=== PATIENT | female | born 1940 | race Caucasian/White ===

== ENCOUNTER 2018-04-02 10:30 | Emergency (ER) | payer MEDICARE, SELFPAY ==
[2018-04-02 10:31] VITALS: BP 154/111; PULSE 136; RESP 18; TEMP 36.2; O2SAT 99; BMI 28.1
[2018-04-02 11:27] VITALS: BP 150/106; PULSE 131; RESP 18; O2SAT 96
--- NOTE | 2018-04-02 11:27 | EKG12_ITS ---
Test Reason : CP Blood Pressure : / mmHG Vent. Rate : 074 BPM Atrial Rate : 074 BPM P-R Int : 152 ms QRS Dur : 088 ms QT Int : 352 ms P-R-T Axes : -28 -20 018 degrees QTc Int : 390 ms Normal sinus rhythm Normal ECG Confirmed by MELANIE HERNÁNDEZ, NELSON ([id number]), managing editor NAHID PAPPAS ([id number]) on 04/04/2018 1:34:12 PM Referred By: DANTE Confirmed By:NELSON NAVARRO MD
--- NOTE | 2018-04-02 11:27 | RAD_ITS ---
STUDY: X-RAY CHEST REASON FOR EXAM: Female, 77 years old. Chest pain. TECHNIQUE: Single AP portable view of the chest. COMPARISON: None. FINDINGS: EKG electrodes are seen. Increased markings at the right lung base with the blunting of the right costophrenic angle suggestive of a right basilar atelectasis and small right pleural effusion. Mild blunting of the left costophrenic angle. Normal size heart. Normal mediastinum and olvin. Normal visualized pulmonary arteries. There is atherosclerotic calcification of the aortic arch with tortuosity. Normal visualized thoracic spine. There is degenerative osteoarthritis of the bilateral shoulders. Right shoulder calcific tendinitis. There is no demonstrated abnormality of the visualized soft tissue structures of the upper abdomen. RAD/Chest 1 View (Portable) IMPRESSION: Blunting of both costophrenic angles likely worse on the right side with right basilar atelectasis. Electronically Signed: Willie Browning MD at 12:28 EDT Tel [phone], Service support ,
--- NOTE | 2018-04-02 11:27 | EKG12_ITS ---
Test Reason : CP Blood Pressure : / mmHG Vent. Rate : 135 BPM Atrial Rate : 135 BPM P-R Int : 168 ms QRS Dur : 090 ms QT Int : 308 ms P-R-T Axes : 107 -28 116 degrees QTc Int : 462 ms Sinus tachycardia Nonspecific ST and T wave abnormality Abnormal ECG Confirmed by MELANIE HERNÁNDEZ, NELSON ([id number]), film editor supervisor NAHID PAPPAS ([id number]) on 04/04/2018 1:34:28 PM Referred By: Confirmed By:NELSON NAVARRO MD
[2018-04-02 11:50] LABS: Absolute Lymphocyte Count 1.97 X10^3/ul (0.83-4.51); Absolute Neutrophil Count 5.7 X10^3/uL (2.0-7.7); Basophil# 0.02 X10^3/uL; Basophil% 0.2 % (0-1); Eosinophil# 0.01 X10^3/uL; Eosinophils% 0.1 % (0-5); Hematocrit 38.5 % (37-47); Hemoglobin 12.3 g/dl (12.0-15.0); Lymphocyte # 1.97 X10^3/ul (4.0); Lymphocyte % 23.3 % (19-41); Mean Corp Hgb Conc 31.9 g/gl (32-36); Mean Corpuscular Hgb 29.2 pg (27.0-32.0); Mean Corpuscular Volume 91.4 fL (81-99); Mean Platelet Vol. 9.9 fl (6.2-12.0); Monocyte# 0.72 X10^3/uL; Monocyte% 8.5 % (0-10); Neutrophil # 5.68 X10^3/uL (2.7-7.7); Neutrophil % 67.4 % (47-70); Platelet Count 168 K/mm3 (150-450); RBC Distribution Width CV 14.8 % (11.6-14.6); RBC Distribution Width SD 49.1 fl (35.1-43.9); Red Blood Count 4.21 M/mm3 (4.2-5.4); White Blood Count 8.4 K/mm3 (4.4-11.0)
[2018-04-02 11:51] LABS: POSITIVE COUNT NO; POSITIVE DIFFERENTIAL NO; POSITIVE MORPHOLOGY NO
--- NOTE | 2018-04-02 11:51 | ED.RN ---
Cardizem not given due to pt self-conversion to nsr, physician aware.
[2018-04-02 11:57] LABS: International Normalized Ratio 1.1; Prothrombin Time (Protime)PT. 13.8 SECONDS (11.7-14.9)
[2018-04-02] MEDS: Aspirin 81 MG TAB.CHEW 324 MG PO (12:00)
[2018-04-02 12:02] LABS: D-Dimer Quantitative (DVT/PE) 2.02 FEU/ug/m (0.27-0.49)
[2018-04-02 12:18] LABS: Anion Gap 10 (5-15); BUN 18 mg/dL (7-18); BUN/Creat Ratio 18.8 RATIO (10-20); Calcium,Total 9.6 mg/dL (8.5-10.1); Chloride 106 mmol/L (98-107); Creatinine, Serum 0.96 mg/dL (0.55-1.02); EST Glomerular Filtration Rate 60 mL/min (>60); Est Glom Filt Rate - Afr Amer 73 mL/min (>60); Estimated Creatinine Clearance 37.62 ml/min; Glucose 141 mg/dL (74-106); Potassium 4.5 mmol/L (3.5-5.1); Sodium Level 141 mmol/L (136-145); Thyroid Stim Hormone (TSH) 2.15 uIU/mL (0.358-3.74)
--- NOTE | 2018-04-02 12:23 | CT_ITS ---
STUDY: CTA CHEST REASON FOR EXAM: Female, 77 years old. Chest pain and palpitations. Left arm pain. RADIATION DOSAGE (If Supplied By Facility): CTDIvol = ( 10.17 ) mGy, DLP = ( 230.10 ) mGycm TECHNIQUE: The examination was performed with the intravenous administration of 100cc ml of Isovue 370 contrast material. Post-processing of the angiographic images was performed, with multiplanar reformation and 3D reconstruction. Individualized dose optimization techniques were used for this CT. COMPARISON: Comparison is made with prior chest radiograph done earlier today. FINDINGS: Normal enhancement of the main pulmonary artery and right and left pulmonary arteries. Normal enhancement of the bilateral peripheral pulmonary arteries. There is no demonstrated pulmonary embolism. Normal thoracic aorta and visualized great vessels. There is no demonstrated aortic dissection. Normal heart and pericardium. Normal mediastinum. Normal hilar regions. Normal visualized trachea and bronchi. The lungs are well expanded. Right basilar atelectasis and/or infiltrate. Mild increased markings at the left lung base. Normal pleura. Normal chest wall structures. There are degenerative changes of thoracic spine. Normal visualized upper abdomen. CT/CTA Chest W/WO Contrast IMPRESSION: Right basilar atelectasis and/or early infiltrate. Electronically Signed: Willie Browning MD at 14:08 EDT Tel [phone], Service support ,
[2018-04-02 14:55] VITALS: BP 138/79; PULSE 75; RESP 19; O2SAT 95
--- NOTE | 2018-04-02 15:06 | ED.DCSUM_ITS ---
- ER Visit Summary Date of Service: 04/02/18 Chief Complaint: [Tachycardia] History of Present Illness: The patient is a 77 F [presents the emergency department with 1 month of shortness of breath and palpitations. She went to see her primary care doctor and had a fast heart rate was referred to the emergency department. She complains of shortness of breath over the last month and occasional palpitations. She has no history clearly of atrial fibrillation but is on digoxin and metoprolol. She is followed by Dr. Isaacs. She does have coronary artery disease. Physical Examination: [] Rate 136 blood pressure elevated WN WD NAD PERRL EOMI MMM NECK supple and nontender, no masses Irregularly irregular tachycardic rhythm no murmur rub or gallop, no peripheral edema, symmetric radial pulses CTAB no respiratory distress ABDOMEN is soft and nontender, normal bowel sounds, no distension, no rebound or guarding SKIN is warm and dry no rashes Alert and Oriented x3, CN II-XII in tact, no motor or sensory deficits, gait normal No lymphadenopathy Test Results: [] Emergency Department Course and Treatment: [Limited tree in the room the patient had an irregularly irregular tachycardic rhythm consistent with atrial fibrillation a flutter. Repeat EKG was obtained as initial EKG was a regular tachycardic rhythm at 135 which I think was likely a flutter. Before a repeat EKG was a could be obtained patient converted to a sinus rhythm. There is no ischemic changes. Screening blood work was unremarkable except for a d-dimer that was elevated. CTA of the chest showed atelectasis versus infiltrate in the right lower lobe. Patient has had a cough for the last 3 weeks but no fever or shortness of breath or production. She will be covered with doxycycline. I spoke with Dr. Isaacs who has not seen the patient since 2014. She has a chads score of 3. Patient will be started on Eliquis and will follow-up with Dr. Isaacs in the next week.] Treatment Plan: [] Disposition: [Discharge] Impression: [Atrial fibrillation with RVR] This note was generated with [employer] software. It may contain incorrect words, spelling, and punctuation that were not noted in review of the chart prior to signing ED Disposition - Plan for ED Patient: Chief Complaint: Palpitations Referrals: Belinda Delgado, AUTHORIZATION SPECIALIST-C [Primary Care Provider] -
--- NOTE | 2018-04-02 15:06 | ED.DEP ---
ED Disposition - Plan for ED Patient: Chief Complaint: Palpitations Instructions: ED Paroxysmal Atrial Flutter Prescriptions: Apixaban [Eliquis] 5 mg PO BID #30 tablet Referrals: Juno Isaacs MD [STAFF PHYSICIAN] - 3-5 Days
[2018-04-02 15:52] VITALS: BP 141/78; PULSE 69; RESP 15; O2SAT 94
--- NOTE | 2018-04-02 15:53 | ED.RN ---
pt given written and verbal discharge instructions and verbalizes understanding. pt family inquires about cost of eliquis script. this rn spoke with social work getting coupons for the medication. granddaughter verbalizes understanding of instructions, denies any further questions. pt dresses self and ambulates out of dept. pt iv d/c and covered with 2x2 gauze dressing. minimal bleeding noted.
== END 2018-04-02 15:58 | disposition home or self-care (01) ==
PROVIDERS: Emergency Provider Emergency Medicine; Family Provider Nurse Practitioner Family; PCP Nurse Practitioner Family
DX: I48.91 Unspecified atrial fibrillation (principal); I47.1 Supraventricular tachycardia; I25.10 Atherosclerotic heart disease of native coronary artery without angina pectoris; I10 Essential (primary) hypertension; Z79.01 Long term (current) use of anticoagulants; Z79.84 Long term (current) use of oral hypoglycemic drugs; Z79.899 Other long term (current) drug therapy
CPT/HCPCS: 71045; 71275; 80048; 80162; 84443; 84484; 85025; 85379; 85610; 93005; 99285; Q9967; A4216

== ENCOUNTER → 2018-09-11 10:00 | Outpatient (CLI) | payer MEDICARE, SELFPAY ==
--- NOTE | 2018-09-11 10:04 | US_ITS ---
STUDY: RENAL ULTRASOUND - COMPLETE REASON FOR EXAM: Female, 77 years old. CHRONIC UTI'S URGENCY FREQUENCY INCONTINENCE TECHNIQUE: Ultrasound evaluation of the kidneys was performed with real-time and static mckoy-scale imaging. COMPARISON: None. FINDINGS: RIGHT KIDNEY: Normal location of the right kidney, which is normal in size. The right kidney measures 8.8x5.3x4.3 cm. There is a normal cortex of the right kidney. The renal cortex measures 1.2 cm. There is no right renal mass or cyst. There are no right renal calculi. There is no right hydronephrosis. DISTAL RIGHT URETER: There is non-visualization of the distal right ureter. There is no demonstrated right ureterovesical junction calculus. There is a visualized right ureteral jet. LEFT KIDNEY: Normal location of the left kidney, which is normal in size. The left kidney measures 8.9x3.8x4.4 cm. There is a normal cortex of the left kidney. The renal cortex measures 1 cm. There is no left renal mass or cyst. There is a calculus of the left kidney measuring 4 x 3 x 2 mm. There is no left hydronephrosis. BLADDER: The distended urinary bladder has a volume of 165 ml. The empty urinary bladder has a volume of 25 ml. There is a normal wall thickness of the distended urinary bladder. There is no demonstrated mass within the urinary bladder. There are no demonstrated bladder calculi. US/Kidney and Bladder IMPRESSION: Moderate structure left renal stone. Electronically Signed: Carlton Barreto MD at 17:30 EDT , Service support ,
== END ==
PROVIDERS: Family Provider Nurse Practitioner Family; PCP Nurse Practitioner Family; Referring Provider Urology; Visit Provider Urology
DX: N39.0 Urinary tract infection, site not specified (principal); N39.3 Stress incontinence (female) (male)
CPT/HCPCS: 76770

== ENCOUNTER 2018-10-07 06:57 | Day surgery (SDC) | payer MEDICARE, SELFPAY ==
[2018-10-07] VITALS (7 sets, daily range): BP systolic 71–135; BP diastolic 41–84; PULSE 57–63; RESP 16; TEMP 36.3–36.9; O2SAT 93–100; BMI 27.3
[2018-10-07 08:20] LABS: Bedside Glucose 118 mg/dL (70-110)
[2018-10-07] MEDS: Cefazolin 2 GM in 0.9% Normal Saline 100 ML IV (09:17)
--- NOTE | 2018-10-07 09:20 | BLA_PTH ---
PATIENT: PARTH RODGERS [place] [facility] [place][id number] AGE/SX: 77/F ROOM: RE10/07/[address]: Dr. Leela Sharpe MD : [id number] BED: DIS: 10/07/2018 SPEC #: [id number] RECD: 10/07/18 10:23 STATUS: KONRAD ANDREW #: [id number] CHASITY: 10/07/18 09:[address]: Leela Sharpe DEPT: SURGICAL PATHOLOGY RECD BY: Nasir Killian ENTERED: 10/07/18 11:55 SP TYPE: BLADDER BX OTHR DR: Belinda Delgado, MARINO-Michelle Tissues: Urinary bladder, NOS Procedures: Surgery Specimen Level IV HEADER OPERATION: Cysto, bladder biopsy, fulguration PRE-OP DIAGNOSIS: Recurrent urinary tract infection; stress and urge incontinence TISSUE SUBMITTED: Bladder biopsy MICROSCOPIC DIAGNOSIS Bladder, biopsy: Fragments of urothelial mucosa with moderate chronic inflammation. Negative for malignancy. See comment. SJ:christian 10/08/18 COMMENT A minute piece of detrusor muscle is also noted in the submitted specimen. MICROSCOPIC DESCRIPTION Slides are reviewed. GROSS DESCRIPTION Received in fixative is one container labeled with the patient's name and designated bladder biopsy. The specimen consists of two fragments of reis soft tissue each measuring 0.1 cm in greatest dimension. The entire specimen is submitted in one cassette. / BREE:christian 10/07/18 TC:3 CPT: 87525
--- NOTE | 2018-10-07 10:06 | DCINST_ITS ---
Discharge Diet: No Restrictions Discharge Activity: Return to Normal Activity, May not drive while taking narcotic pain medications. Call your doctor if your incision/area has: Sudden Increased Bleeding Call your doctor if you observe: Fever of 101 or Higher, Inability to urinate, Inability to have a bowel movement, Shortness of breath, Chest pain, Calf discomfort, Uncontrolled pain Allergies/Adverse Reactions: Allergies No Known Allergies Allergy (Verified 09/30/18 11:33) Medications to take at Discharge cranberry 400 mg capsule 400 mg PO DAILY 04/04/18 cyanocobalamin (vit B-12) 500 mcg tablet 500 mcg PO QDAY 04/04/18 magnesium oxide 400 mg (241.3 mg magnesium) tablet 400 mg PO QDAY tab 04/04/18 multivitamin tablet 1 tab PO QDAY 04/04/18 omega-3 fatty acids 1,000 mg capsule 1,000 mg PO QDAY 04/04/18 albuterol sulfate HFA 90 mcg/actuation aerosol inhaler 2 puff INHALATION Q4H PRN #6.7 g 05/19/18 aspirin 81 mg tablet,delayed release 81 mg PO QDAY #90 tab 05/19/18 cholestyramine (with sugar) 4 gram powder for susp in a packet 4 g PO BID #60 ea 05/19/18 ferrous sulfate 325 mg (65 mg iron) tablet 325 mg PO QDAY #90 tab 05/19/18 levothyroxine 88 mcg tablet 88 mcg PO QDAY #90 tab 05/19/18 lisinopril 20 mg tablet 20 mg PO QDAY #90 tab 05/19/18 loratadine 10 mg tablet 10 mg PO QDAY #90 tab 05/19/18 apixaban 5 mg tablet 5 mg PO BID #60 tab 07/14/18 digoxin 125 mcg tablet 0.125 mg PO DAILY 09/24/18 lovastatin 10 mg tablet 10 mg PO DAILY 09/24/18 metoprolol succinate ER 100 mg tablet,extended release 24 hr 100 mg PO DAILY 09/24/18 sertraline 100 mg tablet 100 mg PO DAILY 09/24/18 Metformin HCl [Glucophage] 1,000 mg PO BIDCM 09/30/18 Omeprazole 40 mg PO DAILY 09/30/18 Oxycodone HCl/Acetaminophen [Percocet 5/325] 1 - 2 tab PO Q6H PRN PRN 7 Days #30 tab 10/07/18 Phenazopyridine HCl [Pyridium] 200 mg PO TID PRN PRN 7 Days #30 tab 10/07/18 Sulfamethoxazole/Trimethoprim [Sulfamethoxazole-Tmp Ds Tablet] 10/07/18 Sulfamethoxazole/Trimethoprim [Sulfamethoxazole-Tmp Ds Tablet] 10/07/18 Sulfamethoxazole/Trimethoprim [Sulfamethoxazole-Tmp Ds Tablet] 1 tab PO BID 10/07/18 The following prescriptions were given: Oxycodone HCl/Acetaminophen [Percocet 5/325] 1 - 2 tab PO Q6H PRN PRN 7 Days #30 tab PRN Reason: Pain Phenazopyridine HCl [Pyridium] 200 mg PO TID PRN PRN 7 Days #30 tab PRN Reason: Bladder Spasms Primary Care Physician: Belinda Delgado NP-C [Primary Care Provider] - Test Results: Test results from this visit will be discussed in further detail at your follow- up appointment, if applicable. Please Follow Up With: Leela Sharpe MD When: 1 week, call office for appt Proposed Discharge Date: 10/07/18
--- NOTE | 2018-10-07 10:06 | PCM.IMDPSTOP ---
Immediate Post-Op Note Date of Procedure: 10/07/18 Primary Surgeon/Physician: Leela Sharpe MD mobile equipment servicer: Leela Sharpe Pre-Operative Diagnosis: bladder lesion uncertain behaviour(most consistent with ulceration), recurrent urinary tract infection Post-Operative Diagnosis: same Surgery/Procedure Performed:: cystoscopy, bladder biopsy and fulguration Description of Surgical Findings:: 2 ulcers identified, one on patient's right lateral wall, the other posteriorly on the left. The left wall was biopsied, the right was difficult to biopsy due to location. both were fulgurated. minimal bleeding, urine clear at end of case. Estimated Blood Loss: 2cc Specimen's removed: bladder biopsy Type of Anesthesia:: General - Admit VTE Documentation VTE Present on Admission: Yes VTE Mechan Device Prophylaxis: SCD's VTE Pharm Prophylaxis ordered?: No Reason prophylaxis not ordered:: Treatment Not Indicated - already on systemic anticoagulation that was not stopped for the procedure.
--- NOTE | 2018-10-07 10:10 | OP.PN_ITS ---
Immediate Post-Op Note Date of Procedure: 10/07/18 Primary Surgeon/Physician: Leela Sharpe MD product ambassador: Leela Sharpe Pre-Operative Diagnosis: bladder lesion uncertain behaviour(most consistent with ulceration), recurrent urinary tract infection Post-Operative Diagnosis: same Surgery/Procedure Performed:: cystoscopy, bladder biopsy and fulguration Description of Surgical Findings:: 2 ulcers identified, one on patient's right lateral wall, the other posteriorly on the left. The left wall was biopsied, the right was difficult to biopsy due to location. both were fulgurated. minimal bleeding, urine clear at end of case. Estimated Blood Loss: 2cc Specimen's removed: bladder biopsy Type of Anesthesia:: General - Admit VTE Documentation VTE Present on Admission: Yes VTE Mechan Device Prophylaxis: SCD's VTE Pharm Prophylaxis ordered?: No Reason prophylaxis not ordered:: Treatment Not Indicated - already on systemic anticoagulation that was not stopped for the procedure.
[2018-10-07 10:11] LABS: Bedside Glucose 100 mg/dL (70-110)
--- NOTE | 2018-10-14 11:58 | PCM.OPRPT ---
Problem List (1) Lesion of bladder Status: Acute (2) Recurrent urinary tract infection Status: Acute Report of Operation Date of Procedure: 10/07/18 Pre-Operative Diagnosis: bladder lesion uncertain behaviour(most consistent with ulceration), recurrent urinary tract infection Post-Operative Diagnosis: same Surgery/Procedure Performed:: cystoscopy, bladder biopsy and fulguration Description of Surgical Findings:: 2 ulcers identified, one on patient's right lateral wall, the other posteriorly on the left. The left wall was biopsied, the right was difficult to biopsy due to location. both were fulgurated. minimal bleeding, urine clear at end of case. labor representative: Leela Sharpe Type of Anesthesia:: General Specimen's removed: bladder biopsy Estimated Blood Loss (mL): 2cc Description of Procedure: The patient is a 77-year-old female that I saw in the office with recurrent urinary tract infections. On cystoscopic evaluation identified 2 areas of ulceration in the urinary bladder, one on the patient's right lateral wall and one on the left posterior lateral wall. After discussing all the risks benefits and alternatives. She agreed to proceed with surgical intervention including biopsy with fulguration of these areas. The patient was taken to the operating room and placed on the operating room table. Anesthesia monitored the head, neck, airway, IV access, and vital signs throughout the case. Once anesthesia was superbly administered the patient was placed into dorsal lithotomy position was prepped and draped in usual sterile fashion. At this time a cystoscopy with 70 degree lens was performed revealing the same lesions identified in the office and a new one in the more posterior position. The largest lesion is approximately 1 cm in size and was erythematous and flat consistent with an ulceration. Using a flexible biopsy forcep the posterior bladder wall area x2 was biopsied and sent for permanent section evaluation from pathology. All areas of ulceration were then fulgurated for tissue treatment and hemostatic control. Patient's bladder was then emptied and the case was terminated. She was awakened and taken to the recovery room in good condition. Grafts/Implants Used: none - Complications none - Admit VTE Documentation VTE Present on Admission: Yes VTE Mechan Device Prophylaxis: SCD's VTE Pharm Prophylaxis ordered?: No Reason prophylaxis not ordered:: Treatment Not Indicated
--- NOTE | 2018-10-14 12:01 | OP.PCM_ITS ---
Problem List (1) Lesion of bladder Status: Acute (2) Recurrent urinary tract infection Status: Acute Report of Operation Date of Procedure: 10/07/18 Pre-Operative Diagnosis: bladder lesion uncertain behaviour(most consistent with ulceration), recurrent urinary tract infection Post-Operative Diagnosis: same Surgery/Procedure Performed:: cystoscopy, bladder biopsy and fulguration Description of Surgical Findings:: 2 ulcers identified, one on patient's right lateral wall, the other posteriorly on the left. The left wall was biopsied, the right was difficult to biopsy due to location. both were fulgurated. minimal bleeding, urine clear at end of case. professor of music: Leela Sharpe Type of Anesthesia:: General Specimen's removed: bladder biopsy Estimated Blood Loss (mL): 2cc Description of Procedure: The patient is a 77-year-old female that I saw in the office with recurrent urinary tract infections. On cystoscopic evaluation identified 2 areas of ulceration in the urinary bladder, one on the patient's right lateral wall and one on the left posterior lateral wall. After discussing all the risks benefits and alternatives. She agreed to proceed with surgical intervention including biopsy with fulguration of these areas. The patient was taken to the operating room and placed on the operating room table. Anesthesia monitored the head, neck, airway, IV access, and vital signs throughout the case. Once anesthesia was superbly administered the patient was placed into dorsal lithotomy position was prepped and draped in usual sterile fashion. At this time a cystoscopy with 70 degree lens was performed revealing the same lesions identified in the office and a new one in the more posterior position. The largest lesion is approximately 1 cm in size and was erythematous and flat consistent with an ulceration. Using a flexible biopsy forcep the posterior bladder wall area x2 was biopsied and sent for permanent section evaluation from pathology. All areas of ulceration were then fulgurated for tis winston treatment and hemostatic control. Patient's bladder was then emptied and the case was terminated. She was awakened and taken to the recovery room in good condition. Grafts/Implants Used: none - Complications none - Admit VTE Documentation VTE Present on Admission: Yes VTE Mechan Device Prophylaxis: SCD's VTE Pharm Prophylaxis ordered?: No Reason prophylaxis not ordered:: Treatment Not Indicated
== END 2018-10-07 11:29 | disposition home or self-care (01) ==
LOC: SDC 06:58 → AC 06:59
PROVIDERS: Family Provider Nurse Practitioner Family; PCP Nurse Practitioner Family; Referring Provider Urology; Visit Provider Urology
PROC: 0TBB8ZX Excision of Bladder, Via Natural or Artificial Opening Endoscopic, Diagnostic (ICD-10-PCS; CPT 52234; principal; 2018-10-07 09:10)
DX: N30.20 Other chronic cystitis without hematuria (principal); N32.9 Bladder disorder, unspecified; N39.46 Mixed incontinence; N81.6 Rectocele; R15.2 Fecal urgency; I48.0 Paroxysmal atrial fibrillation; E11.9 Type 2 diabetes mellitus without complications; I10 Essential (primary) hypertension; E03.9 Hypothyroidism, unspecified; K58.9 Irritable bowel syndrome, unspecified; G25.81 Restless legs syndrome; K21.9 Gastro-esophageal reflux disease without esophagitis; F32.9 Major depressive disorder, single episode, unspecified; Z78.0 Asymptomatic menopausal state; Z79.01 Long term (current) use of anticoagulants; Z79.84 Long term (current) use of oral hypoglycemic drugs; Z79.82 Long term (current) use of aspirin; Z79.899 Other long term (current) drug therapy
CPT/HCPCS: 00912; 52234; 82962; 88305; J7120; J2405

== ENCOUNTER → 2018-10-17 12:12 | Outpatient (CLI) | payer MEDICARE, SELFPAY ==
[2018-10-07 07:44] VITALS: BMI 27.3
[2018-10-17 14:25] LABS: Absolute Lymphocyte Count 2.08 X10^3/ul (0.83-4.51); Absolute Neutrophil Count 6.7 X10^3/uL (2.0-7.7); Basophil# 0.03 X10^3/uL; Basophil% 0.3 % (0-1); Eosinophil# 0.05 X10^3/uL; Eosinophils% 0.5 % (0-5); Hematocrit 39.3 % (37-47); Hemoglobin 12.3 g/dl (12.0-15.0); Lymphocyte # 2.08 X10^3/ul (4.0); Lymphocyte % 21.3 % (19-41); Mean Corp Hgb Conc 31.3 g/gl (32-36); Mean Corpuscular Hgb 30.8 pg (27.0-32.0); Mean Corpuscular Volume 98.3 fL (81-99); Mean Platelet Vol. 10.2 fl (6.2-12.0); Monocyte# 0.92 X10^3/uL; Monocyte% 9.4 % (0-10); Neutrophil # 6.65 X10^3/uL (2.7-7.7); Neutrophil % 68.2 % (47-70); Platelet Count 190 K/mm3 (150-450); RBC Distribution Width CV 13.7 % (11.6-14.6); RBC Distribution Width SD 49.1 fl (35.1-43.9); White Blood Count 9.8 K/mm3 (4.4-11.0)
[2018-10-17 14:26] LABS: POSITIVE COUNT NO; POSITIVE DIFFERENTIAL NO; POSITIVE MORPHOLOGY NO
--- OUTSIDE RECORDS SUMMARY | 2018-12-12 10:59 | XMS RPT_ITS ---
:1940 Author Organization OHIP Support Name Relationship Address Phone KATE SANTANAY Unavailable [address] + [place] [address] R Unavailable Unavailable Unavailable SHERRI, VICK Unavailable [address] + [place] [address] NOT GIVEN Unavailable Unavailable Unavailable SANTANA, LESLIE Unavailable [address] + [place] [address] R Unavailable Unavailable Unavailable SHERRI, VICK Unavailable [address] + [place] [address] SANTANA, LESLIE Unavailable [address] + [place] [address] R Unavailable Unavailable Unavailable SHERRI, VICK Unavailable [address] + [place] [address] SANTANA, LESLIE Unavailable [address] + [place] [address] R Unavailable Unavailable Unavailable SHERRI, VICK Unavailable [address] + [place] [address] SANTANA, LESLIE Unavailable [address] + [place] [address] R Unavailable Unavailable Unavailable SHERRI, VICK Unavailable [address] + [place] [address] NOT GIVEN Unavailable Unavailable Unavailable NOT GIVEN Unavailable Unavailable Unavailable SANTANA, LESLIE Unavailable [address] + [place] [address] R Unavailable Unavailable Unavailable SANTANA, LESLIE Unavailable [address] + [place] [address] R Unavailable Unavailable Unavailable SANTANA, LESLIE Unavailable [address] + [place] [address] R Unavailable Unavailable Unavailable SANTANA, LESLIE Unavailable [address] + [place] [address] R Unavailable Unavailable Unavailable NOT GIVEN Unavailable Unavailable Unavailable SANTANA, LESLIE Unavailable [address] + [place] [address] R Unavailable Unavailable Unavailable SANTANA, LESLIE Unavailable [address] + [place] [address] R Unavailable Unavailable Unavailable SANTANA, LESLIE Unavailable [address] + [place] [address] R Unavailable Unavailable Unavailable SANTANA, LESLIE Unavailable [address] + [place] [address] R Unavailable Unavailable Unavailable SANTANA, LESLIE Unavailable [address] + [place] [address] R Unavailable Unavailable Unavailable SANTANA, LESLIE Unavailable [address] + [place] [address] R Unavailable Unavailable Unavailable R Unavailable Unavailable Unavailable SANTANA, LESLIE Unavailable [address] + [place] [address] SINDHU RODGERSS Unavailable [address] + [place] [address] R Unavailable Unavailable Unavailable SHERRI ABIGAL Unavailable Unavailable + SHERRI, ABIGAL Unavailable Unavailable + SHERRI, ABIGAL Unavailable Unavailable + SHERRI, ABIGAL Unavailable Unavailable + SHERRI, NEEL Unavailable [address] + [place] [address] SHERRI, ABIGAL Unavailable Unavailable + SHERRI, ABIGAL Unavailable Unavailable + NOT GIVEN Unavailable Unavailable Unavailable NOT GIVEN Unavailable Unavailable Unavailable NOT GIVEN Unavailable Unavailable Unavailable Care Team Providers Name Role Phone Cate Roy Attending Unavailable Lopez Sanchez NP-Michelle Primary Care Unavailable Araceli Henderson Attending Unavailable Lopez Sanchez Referring Unavailable Lopez Sanchez NP-Michelle Primary Care Unavailable Araceli Henderson Attending Unavailable Danny, Lopez SURFACE PLATE FINISHER-C Primary Care Unavailable Leela Sharpe Attending Unavailable Leela Sharpe Referring Unavailable Danny, Lopez SURFACE PLATE FINISHER-C Primary Care Unavailable Danny, Lopez SURFACE PLATE FINISHER-C Attending Unavailable Andrey Mensah Attending Unavailable Danny, Lopez SURFACE PLATE FINISHER-C Referring Unavailable Danny, Lopez SURFACE PLATE FINISHER-C Primary Care Unavailable Danny, Lopez SURFACE PLATE FINISHER-C Attending Unavailable Danny, Lopez SURFACE PLATE FINISHER-C Attending Unavailable Juno Isaacs Attending Unavailable Danny, Lopez SURFACE PLATE FINISHER-C Attending Unavailable Danny, Lopez SURFACE PLATE FINISHER-C Attending Unavailable Flory Segal Attending Unavailable Leela Sharpe Attending Unavailable Leela Sharpe Referring Unavailable Danny, Lopez SURFACE PLATE FINISHER-C Primary Care Unavailable Andrey Mensah Attending Unavailable Danny, Lopez SURFACE PLATE FINISHER-C Referring Unavailable Leela Sharpe Attending Unavailable Leela Sharpe Referring Unavailable Danny, Lopez SURFACE PLATE FINISHER-C Primary Care Unavailable Leela Sharpe Attending Unavailable Leela Sharpe Referring Unavailable Danny, Lopez SURFACE PLATE FINISHER-C Primary Care Unavailable DANNY, LOEPZ Admitting Unavailable DANNY, LOPEZ Attending Unavailable DANNY, LOPEZ Primary Care Unavailable DANNY, LOPEZ Admitting Unavailable DANNY, LOPEZ Attending Unavailable DANNY, LOPEZ Primary Care Unavailable DANNY, LOPEZ Admitting Unavailable DANNY, LOPEZ Attending Unavailable DANNY, LOPEZ Primary Care Unavailable DANNY, LOPEZ Admitting Unavailable DANNY, LOPEZ Attending Unavailable DANNY, LOPEZ Primary Care Unavailable DANNY, LOPEZ Admitting Unavailable DANNY, LOPEZ Attending Unavailable DANNY, LOPEZ Primary Care Unavailable DANNY, LOPEZ Admitting Unavailable DANNY, LOPEZ Attending Unavailable DANNY, LOPEZ Primary Care Unavailable DANNY, LOPEZ Admitting Unavailable DANNY, LOPEZ Attending Unavailable DANNY, LOPEZ Primary Care Unavailable Volodymyr De La Torre J Admitting Unavailable Volodymyr De La Torre Attending Unavailable Danny, Lopez K Primary Care Unavailable Britt, Paramjit Admitting Unavailable Volodymyr De La Torre Attending Unavailable Danny, Lopez K Primary Care Unavailable Mark Rosa Attending Unavailable Danny, Lopez K Primary Care Unavailable Jaironner, Paramjit Admitting Unavailable Volodymyr De La Torre J Attending Unavailable Danny, Lopez K Primary Care Unavailable Andrey Jones Attending Unavailable Danny, Lopez K Primary Care Unavailable Araceli Henderson Admitting Unavailable Araceli Henderson Attending Unavailable Danny, Lopez K Primary Care Unavailable AMILCAR ORNELAS Admitting Unavailable CONNORTA, AMILCAR Attending Unavailable Danny, Lopez K Primary Care Unavailable BUBBA BEDOLLA Attending Unavailable NO, PHYSICIAN Primary Care Unavailable BUBBA BEDOLLA Attending Unavailable DANNY, LOPEZ CARLA Primary Care Unavailable BUBBA BEDOLLA Attending Unavailable DANNY, LOPEZ CARLA Primary Care Unavailable BUBBA BEDOLLA Attending Unavailable DANNY, LOPEZ CARLA Primary Care Unavailable BUBBA BEDOLLA Attending Unavailable DANNY, LOPEZ CARLA Primary Care Unavailable BUBBA BEDOLLA Attending Unavailable DANNY, LOPEZ CARLA Primary Care Unavailable Dr. Bubba Bedolla Admitting Unavailable Dr. Bubba Bedolla Attending Unavailable PROBLEMS PROBLEMS DATE TYPE CONDITION / CODE ATTENDING STATUS SOURCE Secondary Essential (primary) DANNY LOPEZ [place] 8 Diagnosis hypertension / [facility] I10(ICD-10) Hospital Repository Secondary Hyperlipidemia, LOPEZ SANCHEZ Active [facility] [place] 8 Diagnosis unspecified / [facility] E785(ICD-10) Hospital Repository Principle Type 2 diabetes LOPEZ SANCHEZ Active [facility] [place] 8 Diagnosis mellitus with other [facility] specified complication Hospital / E1169(ICD-10) Repository Secondary Hypothyroidism, LOPEZ SANCHEZ Active [facility] [place] 8 Diagnosis unspecified / [facility] E039(ICD-10) Hospital Repository Unknown 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 / D41.4(ICD-10) Hospital Repository Unknown I48.0 - Paroxysmal Andrey Mensah Active [place] 8 atrial fibrillation / Community I48.0(ICD-10) Hospital Repository Unknown N39.0 - Urinary tract Leela Sharpe Active [place] 8 infection, site not Community specified / Hospital N39.0(ICD-10) Repository Unknown N39.3 - Stress Leela Sharpe Active [place] 8 incontinence (female) Community (male) / N39.3(ICD-10) Hospital Repository Principle Unspecified atrial LOPEZ SANCHEZ Active [facility] [place] 8 Diagnosis fibrillation / [facility] I4891(ICD-10) Hospital Repository Secondary Type 2 diabetes LOPEZ SANCHEZ Active [facility] [place] 8 Diagnosis mellitus without [facility] complications / Hospital E119(ICD-10) Repository Secondary Hypomagnesemia / LOPEZ SANCHEZ Active [facility] [place] 8 Diagnosis E8342(ICD-10) [facility] Repository Principle Urinary tract DANNYLOPEZ Active [facility] [place] 8 Diagnosis infection, site not [facility] specified / Hospital N390(ICD-10) Repository Unknown R00.2 - Palpitations / Moodispaw, Active [place] 8 R00.2(ICD-10) [facility] Repository Unknown R00.0 - Tachycardia, Beatriz, Active [place] 8 unspecified / [facility] R00.0(ICD-10) Hospital Repository Unknown I48.92 - Unspecified Henderson, Active [place] 8 atrial flutter / [facility] I48.92(ICD-10) Hospital Repository Admitting Diaphragmatic hernia [place] [address] diagnosis without obstruction or [facility] gangrene / Repository K44.9(ICD-10) Admitting Gastro-esophageal [place] [address] diagnosis reflux disease without [facility] esophagitis / Repository K21.9(ICD-10) Admitting Petersen's esophagus [place] [address] diagnosis without dysplasia / [facility] K22.70(ICD-10) Repository Admitting Dysphagia, [place] [address] diagnosis pharyngoesophageal [facility] phase / R13.14(ICD-10) Repository Admitting Heartburn / R12(ICD-10) [place] [address] diagnosis [facility] Repository Admitting Eructation / [place] [address] diagnosis R14.2(ICD-10) [facility] Repository Admitting Hypothyroidism, DANNY, LOPEZ Active [facility] [place] 8 Diagnosis unspecified / [facility] E039(ICD-10) Hospital Repository Principle Hypothyroidism, DANNY, LOPEZ Active [facility] [place] 8 Diagnosis unspecified / [facility] E039(ICD-10) Hospital Repository PROCEDURES PROCEDURES No Procedure Records FoundRESULTS RESULTS CBC Collected: 10/28/2018 Status: F Source: [place] [place] 9:19 AM [facility] REPOSITORY TYPE CODE TESTS RESULT OUT OF RANGE REFERENCE UNITS LAB CBC(LOINC) CBC Result Comment: CBC-COMPLETE BLOOD COUNT LAB WBC(LOINC) 4.5 - 10.8 x 10EE3/UL WBC 6.7 LAB RBC(LOINC) 4.10 - x 10EE6/UL 5.30 RBC Low 3.54 LAB HEMOGLOBIN(LOINC) 12.0 - g/dl 16.0 Low HEMOGLOBIN 11.4 LAB HEMATOCRIT(LOINC) 34.0 - % 46.0 HEMATOCRIT 34.2 LAB MCV(LOINC) 80 - 99 fl MCV 97 LAB MCH(LOINC) 27 - 33 pg MCH 32 LAB MCHC(LOINC) 32 - 36 X10 3 MCHC 33 LAB RDW/CV(LOINC) 12.0 - % 15.6 RDW/CV 14.5 LAB PLATELET(LOINC) 150 - 450 x10EE3/UL PLATELET 202 LAB MPV(LOINC) 6.6 - 10.5 fl MPV 9.1 Result Comment: AUTOMATED DIFFERENTIAL LAB NEUT %(LOINC) 46.0 - 76.0 % NEUT % 65.0 LAB LYMPH %(LOINC) 20.0 - 45.0 % LYMPH % 24.6 LAB MONOS %(LOINC) 0.0 - 10.0 % MONOS % 8.0 LAB EO %(LOINC) 0.0 - 7.0 % EO % 1.3 LAB BASO %(LOINC) 0.0 - 2.0 % BASO % 1.1 LAB Lymph #(LOINC) 0.80 - 2.80 x10EE3/U L Lymph # 1.60 LAB Neut #(LOINC) 1.50 - 7.10 x10EE3/U L Neut # 4.40 LAB Casey #(LOINC) 0.20 - 1.00 x10EE3/U L Casey # 0.50 LAB EO #(LOINC) 0.00 - 0.50 x10EE3/U L EO # 0.10 LAB Baso #(LOINC) 0.00 - 0.10 x10EE3/U L Baso # 0.10 LAB MANUAL DIFF(LOINC) MANUAL DIFF N/A LAB MORPHOLOGY(LOINC ) MORPHOLOGY N/A Result Comment: {CD] Performed By: #### [id number] #### [facility],[address] [place], [place] [id number] HGB A1C Collected: 10/28/2018 Status: F Source: [facility] 9:19 AM [facility] REPOSITORY TYPE CODE TESTS RESULT OUT OF RANGE REFERENCE UNITS LAB HGB 4.4 - 6.4 % A1C(INC) High HGB A1C 7.1 Result Comment: {HB] {A1] Performed By: #### [id number] #### [facility],[address] [place] [address] CMP WITH EGFR Collected: 10/28/2018 Status: F Source: [facility] 9:19 AM [facility] REPOSITORY TYPE CODE TESTS RESULT OUT OF RANGE REFERENCE UNITS LAB CMP with eGFR([facility]) CMP with eGFR Result Comment: COMPREHENSIVE METABOLIC PANEL LAB SODIUM(INC) 136 - 145 mmol/l SODIUM 140 LAB POTASSIUM(INC) 3.5 - 5.1 mmol/L POTASSIUM 4.6 LAB CHLORIDE(LOINC) 98 - 107 mmol/L CHLORIDE 107 LAB CO2(INC) 21.0 - mmol/L 31.0 CO2 25.8 LAB GLUCOSE(INC) 74 - 106 mg/dl GLUCOSE High 170 LAB BUN(INC) 6 - 20 mg/dl BUN High 24 LAB CREATININE(INC) 0.6 - 1.2 mg/dl CREATININE 0.8 LAB AST/SGOT(INC) 13 - 39 U/L AST/SGOT 31 LAB ALK PHOS(INC) 38 - 126 U/L ALK PHOS 58 LAB CALCIUM(INC) 8.6 - mg/dl 10.2 CALCIUM 9.6 LAB TOTAL 6.4 - 8.3 g/dl PROTEIN(LOINC) TOTAL PROTEIN 7.4 LAB ALBUMIN(INC) 3.4 - 4.8 g/dL ALBUMIN 4.3 LAB GLOBULIN(LOINC) 1.5 - 3.8 G/DL GLOBULIN 3.1 LAB A/G RATIO(LOINC) 0.9 - 1.6 A/G RATIO 1.4 LAB TOTAL BILI(LOINC) 0.0 - 1.5 mg/dl TOTAL BILI 0.6 LAB B/C RATIO(LOINC) 0 - 30 ratio B/C RATIO 30 LAB ALT/SGPT(LOINC) 8 - 35 U/L ALT/SGPT 23 LAB ANION GAP(LOINC) 10 - 20 mmol/L ANION GAP 12 LAB AGE(LOINC) years AGE 77 LAB eGFR(LOINC) 60 - 999 ML/MINUTE eGFR >60 LAB eGFR(AA)(LOINC) 60 - 999 ML/MINUTE eGFR(AA) >60 Result Comment: ACCORDING TO THE NATIONAL KIDNEY DISEASE EDUCATION PROGRAM(NKDE), A NORMAL eGFR IS A VALUE GREATER THAN OR EQUAL TO 60 ML/MIN/1.73 SQ METERS. CHRONIC KIDNEY DISEASE: <60mL/MIN/1.73 SQ METERS KIDNEY FAILURE: <15mL/MIN/1.73 SQ METERS THIS TEST SHOULD ONLY BE USED FOR PATIENTS 18 YEARS OF AGE AND OLDER. Performed By: #### [id number] #### [facility],[address] [place] [address] LIPID PROFILE Collected: 10/28/2018 Status: F Source: [facility] 9:19 [facility] REPOSITORY TYPE CODE TESTS RESULT OUT OF REFERENCE UNITS RANGE LAB LIPID PROFILE(LOIN C) LIPID PROFILE Result Comment: LIPID PROFILE LAB TRIGLYCERIDE(LOINC) 0 - 150 mg/dl High TRIGLYCERIDE 204 LAB CHOLESTEROL(LOINC) 0 - 200 mg/dl CHOLESTEROL 149 LAB HDL(LOINC) 40 - 60 mg/dl HDL Low 39 LAB CHOL/HDL(LOINC) 0.0 - 5.0 CHOL/HDL 3.8 LAB LDL(LOINC) 0 - 129 mg/dl LDL 69 Performed By: #### [id number] #### [facility],[address] [place] [address] TSH Collected: 10/28/2018 Status: F Source: [facility] 9:19 [facility] REPOSITORY TYPE CODE TESTS RESULT OUT OF RANGE REFERENCE UNITS LAB TSH(LOINC) 0.34 - 5.60 uIU/ml TSH 1.36 Performed By: #### [id number] #### [facility],[address] [place] [address] T4-FREE (FREE Collected: 10/28/2018 Status: F Source: [facility] THYROXINE) 9:19 [facility] REPOSITORY TYPE CODE TESTS RESULT OUT OF RANGE REFERENCE UNITS LAB T4 0.61 - 1.12 ng/dl FREE(LOINC) T4 FREE 0.73 Result Comment: *SPECIMENS FROM PATIENTS WHO ARE UNDERGOING BIOTIN THERAPY AND/OR INGESTING BIOTIN SUPPLEMENTS MAY HAVE FALSE HIGH RESULTS. Performed By: #### [id number] #### [facility],[address] [facility] [address] CBC W/DIFF, AUTOMATED Collected: 10/17/2018 Status: F Source: [place] 12:24 PM [facility] [place] TYPE CODE TESTS RESULT OUT OF RANGE REFERENCE UNITS LAB L100.1000 4.4-11.0 K/mm3 Normal WBC 9.8 LAB L100.1200 4.2-5.4 M/mm3 Low RBC 4.00 LAB L100.1300 12.0-15.0 g/dl Normal HGB 12.3 LAB L100.1400 37-47 % Normal HCT 39.3 LAB L100.1500 81-99 fL Normal MCV 98.3 LAB L100.1600 27.0-32.0 pg Normal MCH 30.8 LAB L100.1700 32-36 g/gl Low MCHC 31.3 LAB L100.1810 11.6-14.6 % Normal RDW CV 13.7 LAB L100.1820 35.1-43.9 fl High RDW SD 49.1 LAB L100.1900 150-450 K/mm3 Normal PLT 190 LAB L100.2000 6.2-12.0 fl Normal MPV 10.2 LAB L100.2100 47-70 % Normal NEUT% 68.2 LAB L100.2200 19-41 % Normal LY% 21.3 LAB L100.2300 0-10 % Normal MONO% 9.4 LAB L100.2400 0-5 % Normal EO% 0.5 LAB L100.2500 0-1 % Normal BASO% 0.3 LAB L100.2550 0.0-0.9 % Normal IM GRAN % 0.300 Result Comment: IG% - Immature Granulocytes (promyelocytes, myelocytes and metamyelocytes) > 1% indicates that a LEFT SHIFT is Present. LAB L100.2620 2.0-7.7 X10 3/uL Normal Absolute Neut 6.7 LAB L100.2720 0.83-4.51 X10 3/ul Normal Absolute Lymph 2.08 Performed By: #### L100.0100 #### [facility] [address] [place], [address] OPERATIVE REPORT Observed: 10/14/2018 Status: F Source: [place] 12:01 PM [facility] [place] Medical Records Department [address] [place] [address] Operative Report 10/14/18 1158 MR#: [id number] Acct: [id number] Name: KEERTHI RODGERS Rep #: [id number] : 1940 77 From: Leela Sharpe MD PCP: JENNIFER Valdez Status: DEP [facility] Y Location: [facility] Problem List (1) Lesion of bladder Status: Acute (2) Recurrent urinary tract infection Status: Acute Report of Operation Date of Procedure: 10/07/18 Pre-Operative Diagnosis: bladder lesion uncertain behaviour(most consistent with ulceration), recurrent urinary tract infection Post-Operative Diagnosis: same Surgery/Procedure Performed:: cystoscopy, bladder biopsy and fulguration Description of Surgical Findings:: 2 ulcers identified, one on patient's right lateral wall, the other posteriorly on the left. The left wall was biopsied, the right was difficult to biopsy due to location. both were fulgurated. minimal bleeding, urine clear at end of case. business affairs manager: Leela Sharpe Type of Anesthesia:: General Specimen's removed: bladder biopsy Estimated Blood Loss (mL): 2cc Description of Procedure: The patient is a 77-year-old female that I saw in the office with recurrent urinary tract infections. On cystoscopic evaluation identified 2 areas of ulceration in the urinary bladder, one on the patient's right lateral wall and one on the left posterior lateral wall. After discussing all the risks benefits and alternatives. She agreed to proceed with surgical intervention including biopsy with fulguration of these areas. The patient was taken to the operating room and placed on the operating room table. Anesthesia monitored the head, neck, airway, IV access, and vital signs throughout the case. Once anesthesia was superbly administered the patient was placed into dorsal lithotomy position was prepped and draped in usual sterile fashion. At this time a cystoscopy with 70 degree lens was performed revealing the same lesions identified in the office and a new one in the more posterior position. The largest lesion is approximately 1 cm in size and was erythematous and flat consistent with an ulceration. Using a flexible biopsy forcep the posterior bladder wall area x2 was biopsied and sent for permanent section evaluation from pathology. All areas of ulceration were then fulgurated for tissue treatment and hemostatic control. Patient's bladder was then emptied and the case was terminated. She was awakened and taken to the recovery room in good condition. Grafts/Implants Used: none - Complications none - Admit VTE Documentation VTE Present on Admission: Yes VTE Mechan Device Prophylaxis: SCD's VTE Pharm Prophylaxis ordered?: No Reason prophylaxis not ordered:: Treatment Not Indicated 10/14/18 1201 <Electronically signed by Leela Sharpe MD> Date Leela Sharpe MD CC: ANILC Lopez Sanchez; Leela Sharpe MD Signed BEDSIDE GLUCOSE Collected: 10/07/2018 Status: F Source: [place] 10:08 AM [facility] [place] TYPE CODE TESTS RESULT OUT OF RANGE REFERENCE UNITS LAB L501.080 70-110 mg/dL Normal BEDSIDE GLU 100 Result Comment: MANAGEMENT OF PATIENT CARE PER NURSING PROTOCOL Performed By: #### L501.080 #### [facility] Point of Care [address] [facility] [place] [address] DISCHARGE INSTRUCTION Observed: 10/07/2018 Status: F Source: [place] 10:06 AM [facility] Medical Records Department [address] [place] [address] Instructions for Home/Discharge Instructions 10/07/18 1005 MR#: [id number] Acct: [id number] Name: KEERTHI RODGERS Rep #: [id number] : 1940 77 From: Leela Sharpe MD PCP: JENNIFER Valdez Status: REG DCC Discharge Diet: No Restrictions Discharge Activity: Return to Normal Activity, May not drive while taking narcotic pain medications. Call your doctor if your incision/area has: Sudden Increased Bleeding Call your doctor if you observe: Fever of 101 or Higher, Inability to urinate, Inability to have a bowel movement, Shortness of breath, Chest pain, Calf discomfort, Uncontrolled pain Allergies/Adverse Reactions: Allergies No Known Allergies Allergy (Verified 09/30/18 11:33) Medications to take at Discharge cranberry 400 mg capsule 400 mg PO DAILY 04/04/18 cyanocobalamin (vit B-12) 500 mcg tablet 500 mcg PO QDAY 04/04/18 magnesium oxide 400 mg (241.3 mg magnesium) tablet 400 mg PO QDAY tab 04/04/18 multivitamin tablet 1 tab PO QDAY 04/04/18 omega-3 fatty acids 1,000 mg capsule 1,000 mg PO QDAY 04/04/18 albuterol sulfate HFA 90 mcg/actuation aerosol inhaler 2 puff INHALATION Q4H PRN #6.7 g 05/19/18 aspirin 81 mg tablet,delayed release 81 mg PO QDAY #90 tab 05/19/18 cholestyramine (with sugar) 4 gram powder for susp in a packet 4 g PO BID #60 ea 05/19/18 ferrous sulfate 325 mg (65 mg iron) tablet 325 mg PO QDAY #90 tab 05/19/18 levothyroxine 88 mcg tablet 88 mcg PO QDAY #90 tab 05/19/18 lisinopril 20 mg tablet 20 mg PO QDAY #90 tab 05/19/18 loratadine 10 mg tablet 10 mg PO QDAY #90 tab 05/19/18 apixaban 5 mg tablet 5 mg PO BID #60 tab 07/14/18 digoxin 125 mcg tablet 0.125 mg PO DAILY 09/24/18 lovastatin 10 mg tablet 10 mg PO DAILY 09/24/18 metoprolol succinate ER 100 mg tablet,extended release 24 hr 100 mg PO DAILY 09/24/18 sertraline 100 mg tablet 100 mg PO DAILY 09/24/18 Metformin HCl [Glucophage] 1,000 mg PO BIDCM 09/30/18 Omeprazole 40 mg PO DAILY 09/30/18 Oxycodone HCl/Acetaminophen [Percocet 5/325] 1 - 2 tab PO Q6H PRN PRN 7 Days #30 tab 10/07/18 Phenazopyridine HCl [Pyridium] 200 mg PO TID PRN PRN 7 Days #30 tab 10/07/18 Sulfamethoxazole/Trimethoprim [Sulfamethoxazole-Tmp Ds Tablet] 10/07/18 Sulfamethoxazole/Trimethoprim [Sulfamethoxazole-Tmp Ds Tablet] 10/07/18 Sulfamethoxazole/Trimethoprim [Sulfamethoxazole-Tmp Ds Tablet] 1 tab PO BID 10/07/18 The following prescriptions were given: Oxycodone HCl/Acetaminophen [Percocet 5/325] 1 - 2 tab PO Q6H PRN PRN 7 Days #30 tab PRN Reason: Pain Phenazopyridine HCl [Pyridium] 200 mg PO TID PRN PRN 7 Days #30 tab PRN Reason: Bladder Spasms Primary Care Physician: Lopez Sanchez, JENNIFER [Primary Care Provider] - Test Results: Test results from this visit will be discussed in further detail at your follow-up appointment, if applicable. Please Follow Up With: Leela Sharpe MD When: 1 week, call office for appt Proposed Discharge Date: 10/07/18 10/07/18 1006 <Electronically signed by Leela Sharpe MD> Date Leela Sharpe MD CC: JENNIFER Sanchez BLADDER BX/FULGURATION Observed: 10/07/2018 Status: F Source: [place] 9:20 AM [facility] [place] Patient: KEERTHI RODGERS : 1940 (77/F) Acct Num: [id number] Phys: Leela Sharpe MD Unit Num: [id number] Loc: [facility] Specimen: [id number] Received: 10/07/18 - 1023 Spec Type: BLADDER BX TISSUES 1 TISSUES: Urinary bladder, NOS COMMENT A minute piece of detrusor muscle is also noted in the submitted specimen. GROSS DESCRIPTION Received in fixative is one container labeled with the patient's name and designated bladder biopsy. The specimen consists of two fragments of reis soft tissue each measuring 0.1 cm in greatest dimension. The entire specimen is submitted in one cassette. / BREE:christian 10/07/18 TC:3 CPT: 59607 HEADER OPERATION: Cysto, bladder biopsy, fulguration PRE-OP DIAGNOSIS: Recurrent urinary tract infection; stress and urge incontinence TISSUE SUBMITTED: Bladder biopsy MICROSCOPIC DESCRIPTION Slides are reviewed. MICROSCOPIC DIAGNOSIS Bladder, biopsy: Fragments of urothelial mucosa with moderate chronic inflammation. Negative for malignancy. See comment. BREE:christian 10/08/18 Signed Jimenez Castro 10/08/18 <signature on file> Performed By: #### RONALDA #### [facility] [address] [place], [place], [address] BEDSIDE GLUCOSE Collected: 10/07/2018 Status: F Source: [place] 7:40 AM [facility] [place] TYPE CODE TESTS RESULT OUT OF REFERENCE UNITS RANGE LAB L501.080 70-110 mg/dL High BEDSIDE GLU 118 Result Comment: MANAGEMENT OF PATIENT CARE PER NURSING PROTOCOL Performed By: #### L501.080 #### [facility] Point of Care [address] [place] [address] CBC W/ AUTO DIFF Collected: 10/01/2018 Status: F Source: [facility] 10:03 AM [facility] EMERGENCY DEPARTMENT REPOSITORY TYPE CODE TESTS RESULT OUT OF RANGE REFERENCE UNITS LAB [id number](L 3.6-11.0 E3/mcL OINC) Normal WBC 6.5 LAB [id number](L 3.90-5.40 E6/mcL OINC) Normal RBC 4.16 LAB [id number](L 12.0-16.0 G/DL OINC) Normal Hgb 13.4 LAB [id number](L 36.0-48.0 % OINC) Normal Hct 41.3 LAB [id number](L 11.5-14.5 % OINC) High RDW 14.7 LAB [id number](L 27.0-31.0 pg OINC) High MCH 32.2 LAB 51021650(L 33.0-37.0 G/DL OINC) Low MCHC 32.5 LAB [id number](L 78.0-100.0 fL OINC) Normal MCV 99.3 LAB [id number](L 7.4-11.0 fL OINC) Normal MPV 9.9 LAB [id number](L 130-400 E3/mcL OINC) Normal Platelet 187 Performed By: #### [id number] #### TOMI [employer] [address] [place] [address]231 AUTO DIFF Collected: 10/01/2018 Status: F Source: [place] 10:03 AM [facility] EMERGENCY DEPARTMENT REPOSITORY Order Comment: Order Added by Discern Expert. TYPE CODE TESTS RESULT OUT OF RANGE REFERENCE UNITS LAB [id number](L 37.0-75.0 % OINC) Normal Neutro Auto 63.2 LAB 85988854(L 20.0-55.0 % OINC) Normal Lymph Auto 27.9 LAB 71653223(L 0.0-10.0 % OINC) Normal Casey Auto 7.5 LAB 84079887(L 0.0-11.0 % OINC) Normal Eos Auto 0.7 LAB 13364825(L 0.0-2.0 % OINC) Normal Basophil Auto 0.7 LAB 93879706(L 1.4-6.5 E3/mcL OINC) Normal Neutro 4.1 Absolute LAB 97386712(L 1.2-3.4 E3/mcL OINC) Normal Lymph Absolute 1.8 LAB [id number](L 0.0-0.7 E3/mcL OINC) Normal Casey Absolute 0.5 LAB 44238346(L 0.0-0.7 E3/mcL OINC) Normal Eos Absolute 0.0 LAB [id number](L 0.0-0.2 E3/mcL OINC) Normal Basophil 0.0 Absolute Performed By: #### [id number] #### TOMI Mg [address] [place] [address] PT Collected: 10/01/2018 Status: F Source: [place] 10:03 [facility] TYPE CODE TESTS RESULT OUT OF RANGE REFERENCE UNITS LAB [id number](LO 1.0-1.2 INC) High INR 1.3 Result Comment: INR Recommended Therapeuptic Ranges: Prophylaxis/treatment of DVT and PE?2.0-3.0 Prevention of systemic embolism?.2.0-3.0 Mechanical prosthetic values?2.5-3.5 CRITICAL VALUES?.>4.0 LAB [id number](LOINC) 11.6-14.6 second(s) High PT 15.5 Performed By: #### [id number] #### TOMI Hematology Automated Subsection [address] [place] [address] PTT Collected: 10/01/2018 Status: F Source: [place] 10:03 AM [facility] EMERGENCY DEPARTMENT REPOSITORY TYPE CODE TESTS RESULT OUT OF RANGE REFERENCE UNITS LAB [id number](LO 23.2-36.4 second(s) INC) High PTT 67.2 Performed By: #### [id number] #### TOMI Hematology Automated Subsection [address] [place] [address] PTT CONTROL RATIO Collected: 10/01/2018 Status: F Source: [place] 10:03 AM [facility] EMERGENCY DEPARTMENT REPOSITORY Order Comment: Order added by Discern Expert. TYPE CODE TESTS RESULT OUT OF RANGE REFERENCE UNITS LAB [id number](LO 0.8-1.2 ratio INC) High PTT Ratio 2.3 Performed By: #### [id number] #### TOMI Hematology Automated Subsection [address] [place] [address] BMP Collected: 10/01/2018 Status: F Source: [place] 10:03 AM [facility] EMERGENCY DEPARTMENT REPOSITORY TYPE CODE TESTS RESULT OUT OF RANGE REFERENCE UNITS LAB [id number](L 10-20 mEq/L OINC) AGAP Normal 13 LAB 12510422(L 70-99 mg/dL OINC) High Glucose Lvl 212 LAB 89528172(L 6-23 mg/dL OINC) BUN Normal 20 LAB 4573526(LO 0.5-1.1 mg/dL INC) Normal Creatinine 1.0 LAB 95725532(L 5.4-30.0 ratio OINC) Normal BUN/Creat Ratio 20.0 LAB 78081185(L 8.6-10.3 mg/dL OINC) Calcium Normal Lvl 9.6 LAB 42378988(L 136-145 mEq/L OINC) Sodium Normal Lvl 138 LAB 54938904(L 3.5-5.3 mEq/L OINC) Normal Potassium Lvl 4.5 LAB 79419370(L 98-107 mEq/L OINC) Chloride Normal 104 LAB 05086543(L 21.0-32.0 mEq/L OINC) CO2 Normal 26.0 Performed By: #### [id number] #### TOMI Datalink [address] [place] [address] EGFR Collected: 10/01/2018 Status: F Source: [place] 10:03 AM [facility] EMERGENCY DEPARTMENT REPOSITORY Order Comment: Order added by Discern Expert. TYPE CODE TESTS RESULT OUT OF RANGE REFERENCE UNITS LAB 24955074(LO mL/min/1.73 INC) m2 Normal eGFR 57 LAB 66672351(LO mL/min/1.73 INC) m2 Normal eGFR AA >60 Performed By: #### [id number] #### TOMI [facility] [place] [address] HEP FUNC PANEL Collected: 10/01/2018 Status: F Source: [place] 10:03 AM [facility] EMERGENCY DEPARTMENT REPOSITORY TYPE CODE TESTS RESULT OUT OF RANGE REFERENCE UNITS LAB [id number](L 7-45 Int._Unit/L OINC) Normal ALT 23 LAB 22336828(L 9-39 Int._Unit/L OINC) Normal AST 32 LAB 17950414(L 3.4-5.0 gm/dL OINC) Normal Albumin Lvl 4.2 LAB 35189061(L 2.0-4.0 G/DL OINC) Normal Globulin 3.0 LAB 56989245(L 1.1-1.9 ratio OINC) Normal A/G Ratio 1.3 LAB 35097487(L 33-136 Int._Unit/L OINC) Normal Alk Phos 83 LAB 89883134(L 0.00-0.30 mg/dL OINC) Normal Bili Direct 0.12 LAB 82705330(L OINC) Normal Bili Indirect 0.4 Result Comment: No established ranges available for the Indirect Biliruben. LAB 44833027(LOINC) 0.0-1.2 mg/dL Normal Bili Total 0.5 LAB 41490871(LOINC) 6.4-8.2 gm/dL Normal Total Protein 7.4 Performed By: #### [id number] #### TOIM Datalink [facility] [place] [address] TSH Collected: 10/01/2018 Status: F Source: [place] 10:03 AM [facility] EMERGENCY DEPARTMENT REPOSITORY TYPE CODE TESTS RESULT OUT OF RANGE REFERENCE UNITS LAB 60692412(LO 0.30-5.60 mcIU/mL INC) Normal TSH 2.01 Performed By: #### [id number] #### TOMI [employer] [address] [id number] HGBA1C Collected: 10/01/2018 Status: F Source: [place] 10:03 AM [facility] EMERGENCY DEPARTMENT REPOSITORY TYPE CODE TESTS RESULT OUT OF REFERENCE UNITS RANGE LAB 639620506( 4.0-6.3 % LOINC) High Hemoglobin A1c 7.5 Performed By: #### [id number] #### TOMI Chemistry Manual Subsection [address] [place] [address] CARDIOLOGY VISIT Observed: 09/24/2018 Status: F Source: [place] 3:07 PM [facility] [address] [place] [address] OFFICE VISIT Date of Service: 09/24/18 MR#: [id number] Acct: [id number] Name: KEERTHI RODGERS Rep #: [id number] : 1940 Provider: MARINO Mensah Age/Sex: 77/F Location: [facility] Status: Signed HPI HPI Details: KEERTHI RODGERS, is a 77 F who presents to the office today for a cardiovascular outpatient follow-up. She has a history of paroxysmal atrial fibrillation, hypertension, hyperlipidemia, and diabetes. Pt denies chest, arm, jaw, or neck discomfort. Her exercise tolerance is stable. Pt denies symptoms of near syncopal or syncopal episodes. Pt denies edema or claudication issues. Pt. denies orthopnea, PND, fever, chills, blood in urine, blood in stool, myalgia, or unexplainable fatigue. She state short episodes of palpitations a few times a month without any secondary symptoms. She is planning on undergoing bladder biopsy with Dr. Sharpe on 10/07/2018. Intake Vital Signs09/24/18 Blood Pressure 138/82 H H 09/24/18 Blood Pressure Location Lt brachial Intake Visit Reasons: pre op for bladder Bx on 09-30 Business Test Analyst Required: No Accompanied by: none Is patient in pain?: No Allergies No Known Allergies Allergy (Verified 09/24/18 13:17) Medications cranberry 400 mg capsule 400 mg PO ONCE 04/04/18 [History Confirmed 09/24/18] cyanocobalamin (vit B-12) 500 mcg tablet 500 mcg PO QDAY 04/04/18 [History Confirmed 09/24/18] magnesium oxide 400 mg (241.3 mg magnesium) tablet 400 mg PO QDAY tab 04/04/18 [History Confirmed 09/24/18] multivitamin tablet 1 tab PO QDAY 04/04/18 [History Confirmed 09/24/18] omega-3 fatty acids 1,000 mg capsule 1,000 mg PO QDAY 04/04/18 [History Confirmed 09/24/18] albuterol sulfate HFA 90 mcg/actuation aerosol inhaler 2 puff INHALATION Q4H PRN #6.7 g 05/19/18 [Rx Confirmed 09/24/18] aspirin 81 mg tablet,delayed release 81 mg PO QDAY #90 tab 05/19/18 [Rx Confirmed 09/24/18] cholestyramine (with sugar) 4 gram powder for susp in a packet 4 g PO BID #60 ea 05/19/18 [Rx Confirmed 09/24/18] ferrous sulfate 325 mg (65 mg iron) tablet 325 mg PO QDAY #90 tab 05/19/18 [Rx Confirmed 09/24/18] levothyroxine 88 mcg tablet 88 mcg PO QDAY #90 tab 05/19/18 [Rx Confirmed 09/24/18] lisinopril 20 mg tablet 20 mg PO QDAY #90 tab 05/19/18 [Rx Confirmed 09/24/18] loratadine 10 mg tablet 10 mg PO QDAY #90 tab 05/19/18 [Rx Confirmed 09/24/18] apixaban 5 mg tablet 5 mg PO BID #60 tab 07/14/18 [Rx Confirmed 09/24/18] digoxin 125 mcg tablet 0.125 mg PO DAILY 09/24/18 [History Confirmed 09/24/18] lovastatin 10 mg tablet 10 mg PO DAILY 09/24/18 [History Confirmed 09/24/18] metoprolol succinate ER 100 mg tablet,extended release 24 hr 100 mg PO DAILY 09/24/18 [History Confirmed 09/24/18] sertraline 100 mg tablet 100 mg PO DAILY 09/24/18 [History Confirmed 09/24/18] PFSH Medical History Pre-operative cardiovascular examination (Chronic) Pure hypercholesterolemia (Chronic) Essential (primary) hypertension (Chronic) Paroxysmal atrial fibrillation (Chronic) medical representative (current) use of anticoagulants (Chronic) Atherosclerotic heart disease of [place] coronary artery without angina pectoris (Chronic) H/O: hysterectomy (Resolved) Surgical History H/O tubal ligation (Resolved) History of bunionectomy of left great toe (Resolved) History of tonsillectomy (Resolved) Hx of appendectomy (Resolved) Hx of cholecystectomy (Resolved) History of knee replacement (Resolved) Family History Mother CHF (congestive heart failure) Hypertension Sister Hypertension Social History Smoking Status: Former smoker alcohol intake: current alcohol intake frequency: holidays/special occasions only substance use type: does not use caffeine: Yes Type: coffee Number of servings: 1 what type of physical activity do you participate in: walking frequency: daily ROS Const Const: Negative for fatigue, weakness, body ache, fever(s) or chills ENT ENT: Negative for dizziness Cardio Chest Pain: No Palpitations: Yes Edema: None Muscle aches with walking: None Resp Respiratory: Negative for SOB at rest, SOB orthopnea\SOB lying down, paroxysmal nocturnal dyspnea or SOB with activity GI GI: Negative nausea, black,tarry stools, bright, red blood in stools or vomiting blood/hematemesis : Negative for hematuria or frequent nighttime urination/ nocturia Musc Musc: Negative for muscle aches/ myalgia Skin Skin: Negative non-healing lesions or rash Neuro Neuro: Negative for weakness or dizziness Endo Endo: Negative for fatigue Allergy Allergy/Immunology: Negative for rash Cardiology Exam Const Appearance: cooperative, no acute distress and well developed Nutritional Appearance: average body habitus and well nourished Orientation: alert, awake and oriented x3 Head Head: normocephalic, atraumatic and normal to inspection Ears: hearing grossly normal bilaterally Nose: external nose normal Face and Sinus: face symmetric Mouth: moist mucous membranes Eyes General: appearance normal, both eyes and all related structures Conjunctivae: conjunctivae normal Pupils: PERRL EOM: EOM intact bilaterally Neck Neck: normal visual inspection, no lymphadenopathy and no JVD Carotids: Negative bruit Neck Mass: Negative Neck mass Chest Chest inspection: normal inspection of the chest, symmetric chest movement and normal respiratory effort Auscultation: Bilateral: Clear to Auscultation Cardio Palpation: normal PMI Rate: regular rate Rhythm: regular rhythm Heart sounds: S1 normal and S2 normal; negative rub, gallop or murmur GI GI: normal to inspection Neuro General: alert, awake, oriented x3, CN's II-XI intact bilaterally and moves all extremities Skin Skin: no rashes or lesions noted Extremities Pulses: Normal: Right Posterior Tibial Pulse, Left Posterior Tibial Pulse, Right Radial Pulse, Left Radial Pulse Lower Extremity Edema: None: Bilateral Psych Psychological: normal affect Supplemental Info Echocardiogram in 2014 demonstrates left ventricular systolic function is normal. The estimated ejection fraction is 60 %. Mild concentric left ventricular hypertrophy. The left atrium is mildly enlarged. There is mild mitral annular calcification. Mild (1+) mitral valve insufficiency. Mild tricuspid valve insufficiency. Mild focal aortic valve thickening. Right ventricular systolic pressure estimated to be 29 mmHg. Stress test in 2014 was negative for stress induced myocardial ischemia or previous myocardial injury/infarction. 30 day event monitor from March 2018 showed sinus rhythm and one episode of paroxysmal atrial fibrillation. Assessment AND Plan 1. Pre-operative cardiovascular examination Z01.810 Plan Patient will be undergoing bladder biopsy on October 07, [address] Sharpe. She will continue with her current rate limiting medications, digoxin and metoprolol. It was recommended if there is a bleeding risk/concern to hold her Eliquis 2 days prior to surgery and aspirin approximately 7-10 days prior to reduce this risk. She should resume as hemodynamically safe as advised by Dr. Sharpe. This information was relayed to her office and they will contact granddaughter, Vick [phone], with recommendation. Echocardiogram in 2014 showed ejection fraction of 60%. Her stress test 2014 was negative for stress-induced myocardial ischemia. At this time, she does not require further cardiac testing. 2. Paroxysmal atrial fibrillation I48.0 Plan Her EKG in office showed regular rhythm at 76 bpm. Her palpitations are very infrequent and not associated with secondary symptoms. She will continue with current medications, which may include possible adjustments as noted above. We will continue to monitor. Orders Orders: 3. Essential (primary) hypertension I10 Plan Her blood pressure at urology office was slightly elevated. Her blood pressure here in office initially was elevated and of after approximately 15 minutes of rest it improved. At this time patient was asked to continue to monitor. Possible medication adjustments may include increasing lisinopril to 40mg or addition of Norvasc. Due to her urology concerns hydrochlorothiazide will be avoided. 4. Pure hypercholesterolemia E78.00 Plan She will continue with current statin medication. Plan Detail Additional Comments Thank you for allowing us to participate in the patients plan of care, if you have any questions please do not hesitate to call. This note was generated using a voice recognition system and there may be incorrect words, spelling or punctuation that were not noted when reviewing the office note prior to saving. Coding Level of Care Code Off vis,est,level 3 Diagnoses Pre-operative cardiovascular examination Z01.810 Paroxysmal atrial fibrillation I48.0 Essential (primary) hypertension I10 Pure hypercholesterolemia E78.00 Coding Level of Care Code Off vis,est,level 3 Diagnoses Pre-operative cardiovascular examination Z01.810 Paroxysmal atrial fibrillation I48.0 Essential (primary) hypertension I10 Pure hypercholesterolemia E78.00 09/24/18 1507 <Electronically signed by Andrey RODRIGUEZ> Date Andrey RODRIGUEZ Cosigner Signature: Date (if applicable) CC: JENNIFER Sanchez; Leela Sharpe MD 12 LEAD EKG PERFORMED Observed: 09/24/2018 Status: F Source: [place] [facility] 1:12 PM [facility] [address] [place] [address] 12 Lead EKG performed by [facility] 09/24/18 1311 MR#: [id number] Acct: [id number] Name: KEERTHI RODGERS Rep #: [id number] : 1940 77 From: Andrey RODRIGUEZ Attending Dr: Andrey Mensah NP Status: DEP AMB Ordering Dr: Andrey Mensah Date: 09/24/18 Location: [facility] Sex: F C Admitted: [facility]/12 Lead EKG performed by [facility] ECG Report Interpretation Sinus vs. Ectopic Atrial Rhythm Poor R wave progressionElectronically signed on 09/24/2018 at 17:24 by Juno Isaacs Software Version 8610 09/24/18 1726 Date Andrey RODRIGUEZ CC: JENNIFER Sanchez Date Dictated: 09/24/181310 Date Transcribed: 09/24/181310 Welfare Project Manager: GURDEEP Signed KIDNEY AND BLADDER Observed: 09/11/2018 Status: F Source: [place] 10:05 AM [facility] [address] [place] [address] Kidney and Bladder MR#: [id number] Acct: [id number] Name: KEERTHI RODGERS Rep #: [id number] : 1940 F 77 From: Carlton Barreto MD PCP: JENNIFER Valdez Status: REG CLI Study: Kidney and Bladder Date of Exam: 09/11/18 Exam# [id number] Ordering Dr: Leela Sharpe MD STUDY: RENAL ULTRASOUND - COMPLETE REASON FOR EXAM: Female, 77 years old. CHRONIC UTI'S URGENCY FREQUENCY INCONTINENCE TECHNIQUE: Ultrasound evaluation of the kidneys was performed with real-time and static mckoy-scale imaging. COMPARISON: None. FINDINGS: RIGHT KIDNEY: Normal location of the right kidney, which is normal in size. The right kidney measures 8.8x5.3x4.3 cm. There is a normal cortex of the right kidney. The renal cortex measures 1.2 cm. There is no right renal mass or cyst. There are no right renal calculi. There is no right hydronephrosis. DISTAL RIGHT URETER: There is non-visualization of the distal right ureter. There is no demonstrated right ureterovesical junction calculus. There is a visualized right ureteral jet. LEFT KIDNEY: Normal location of the left kidney, which is normal in size. The left kidney measures 8.9x3.8x4.4 cm. There is a normal cortex of the left kidney. The renal cortex measures 1 cm. There is no left renal mass or cyst. There is a calculus of the left kidney measuring 4 x 3 x 2 mm. There is no left hydronephrosis. BLADDER: The distended urinary bladder has a volume of 165 ml. The empty urinary bladder has a volume of 25 ml. There is a normal wall thickness of the distended urinary bladder. There is no demonstrated mass within the urinary bladder. There are no demonstrated bladder calculi. US/Kidney and Bladder IMPRESSION: Moderate structure left renal stone. Electronically Signed: Carlton Barreto MD at 17:30 EDT , Service support , CC: JENNIFER Sanchez; Leela Sharpe MD Welfare Project Manager: Signed Observed: 07/22/2018 Status: F Source: [place] CULTURE URINE 3:31 PM [facility] REPOSITORY CULTURE URINE _URINE CULTURE_ M I C R O B I O L O G Y R E P O R T FINAL Antimicrobial Susceptibility and Organism Identification Report Specimen Number : [id number] Requested : 07/22/18 Specimen Source : URINE Collected : 07/22/18 15:31 Sr of Isolation : OUTPATIENT Received : 07/22/18 15:31 Requesting Physician : DANNY Patient/Specimen Tests and Comments Specimen Comments FINAL REPORT: URINE COLONY COUNT: > THAN 100,000 CFU/CC GRAM NEGATIVE RODS Organisms Identified -------- * 01 Escherichia coli 07/25/18 Comments >100,000 cfu Tech : Source : URINE ID # : [id number] FINAL Report Date : / / : Collected : 07/22/18 15:31 Continued on Next Page M I C R O B I O L O G Y R E P O R T FINAL Antimicrobial Susceptibility and Organism Identification Report Isolate 01 Escherichia coli Escherichia coli DRUG TED Sys. Urine --- ----- ----- Amp/Sulbactam 16/8 I I Ampicillin >16 R R Ceftriaxone <=8 S S Cephalothin 16 I Ciprofloxacin <=1 S S Cefuroxime <=4 S S Ertapenem <=1 S S Nitrofurantoin <=32 S Imipenem <=1 S S Levofloxacin <=2 S S Meropenem <=1 S S Pip/Tazo <=16 S S Trimeth/Sulfa > R R Tetracycline <=4 S S Tobramycin <=4 S S +, ++, +++, or S = Susceptible N/R = Not Reported Josefina = Beta Lactamase Positive I = Intermediate CC = Cost Code TFG = Thymidine-dependent Strain R = Resistant TED = mcg/ml (mg/L) Blank = Data not available, or drug not advisable or tested For Blood and CSF Isolates, a Beta-Lactamase test is recommended for Enterococus species. IB appears in place of S, I (S), +, ++, or +++ with species known to possess inducible B-lactamases; potentially they may become resistant to all B-lactam drugs. Monitoring of patients during/after therapy is recommended. Avoid other/combined B-lactam drugs. (a) Use maximum doses of drug with an aminoglycoside for P. aeruginosa in patients with granulocytopenia or serious infections. (b) Breakpoints based on parenteral dose. For cefuroxime Axetil (PO) use <8=S, 8-16=I, >16=R. (c) For non-enterococcal streptococci, Micrococcus species, and Listeria species, refer to the Ampicillin interpretation. * Interpretations based on approx. adult attainable systemic/urine levels, except drugs with <3 dilutions, which print NCCLS. Doses are guidelines; consider weight and renal/hepatic function. Urine interpretation for lower UTI only. Interpretations based on NCCLS M7-A2. Ticar/K Clav'ate for gram positives based on computer security manager's breakpoints. Tech : Source : URINE ID # : [id number] FINAL Report Date : / / : Collected : 07/22/18 15:31 07/25/18.0704.JLN. 07/24/18.0757.INNAN. 07/25/18.0705.JLN.COMPLETE Performed By: #### [id number] #### [facility],[address] [place] [address] PT/INR CAPILLARY Collected: 07/04/2018 Status: F Source: [place] 9:32 AM [facility] EMERGENCY DEPARTMENT REPOSITORY TYPE CODE TESTS RESULT OUT OF RANGE REFERENCE UNITS LAB [id number](LO 8.0-11.0 second(s) INC) High PT POC 16.0 LAB [id number](LO 1.0-1.2 INC) High INR POC 1.3 Result Comment: Source Capillary Performed By: #### [id number] #### TOMI POC Subsection [address] [place] [address] PT/INR POC ORDER Collected: 07/04/2018 Status: F Source: [place] 9:28 AM [facility] EMERGENCY DEPARTMENT REPOSITORY TYPE CODE TESTS RESULT OUT OF RANGE REFERENCE UNITS LAB CD:[id number] 673(LOINC) Normal Collected PT/INR POC Order Performed By: #### [id number] #### TOMI POC Subsection [address] [place] [address] PT/INR CAPILLARY Collected: 06/27/2018 Status: F Source: [place] 10:39 AM [facility] EMERGENCY DEPARTMENT REPOSITORY TYPE CODE TESTS RESULT OUT OF RANGE REFERENCE UNITS LAB [id number](LO 8.0-11.0 second(s) INC) High PT POC 17.0 LAB [id number](LO 1.0-1.2 INC) High INR POC 1.4 Result Comment: Source Capillary Performed By: #### [id number] #### TOMI POC Subsection [address] [place] [address]13 PT/INR POC ORDER Collected: 06/27/2018 Status: F Source: [place] 10:35 AM [facility] EMERG[facility] DEPARTMENT REPOSITORY TYPE CODE TESTS RESULT OUT OF RANGE REFERENCE UNITS LAB CD:[id number] 673(LOINC) Normal Collected PT/INR POC Order Performed By: #### [id number] #### TOMI POC Subsection [address] [place] [address] 24406 PT/INR CAPILLARY Collected: 06/20/2018 Status: F Source: [place] 10:08 AM [facility] EM[facility] DEPARTMENT REPOSITORY TYPE CODE TESTS RESULT OUT OF RANGE REFERENCE UNITS LAB [id number](LO 8.0-11.0 second(s) INC) High PT POC 14.0 LAB [id number](LO 1.0-1.2 INC) Normal INR POC 1.2 Result Comment: Source Capillary Performed By: #### [id number] #### TOMI POC Subsection [address] [place] [address] 99148 PT/INR POC ORDER Collected: 06/20/2018 Status: F Source: [place] 10:03 AM [facility] EM[facility] DEPARTMENT REPOSITORY TYPE CODE TESTS RESULT OUT OF RANGE REFERENCE UNITS LAB CD:[id number] 673(LOINC) Normal Collected PT/INR POC Order Performed By: #### [id number] #### TOMI POC Subsection [address] [place] [address] 10830 PT/INR CAPILLARY Collected: 05/31/2018 Status: F Source: [place] 9:33 AM [facility] DEPART[facility] REPOSITORY TYPE CODE TESTS RESULT OUT OF RANGE REFERENCE UNITS LAB [id number](LO 8.0-11.0 second(s) INC) High PT POC 18.0 LAB [id number](LO 1.0-1.2 INC) High INR POC 1.5 Result Comment: Source Capillary Performed By: #### [id number] #### TOMI POC Subsection [address] [place] [address] PT/INR POC ORDER Collected: 05/31/2018 Status: F Source: [place] 9:29 AM [facility] EM[facility] DEPART[facility] REPOSITORY TYPE CODE TESTS RESULT OUT OF RANGE REFERENCE UNITS LAB CD:[id number] 673([facility]) Normal Collected PT/INR POC Order Performed By: #### [id number] #### TOMI POC Subsection [address] [id number] Observed: 05/17/2018 Status: F Source: [place] CULTURE URINE 11:51 AM [facility] REPOSITORY CULTURE URINE _URINE CULTURE_ M I C R O B I O L O G Y R E P O R T FINAL Antimicrobial Susceptibility and Organism Identification Report Specimen Number : [id number] Requested : 05/17/18 Specimen Source : URINE Collected : 05/17/18 11:51 Sr of Isolation : OUTPATIENT Received : 05/17/18 11:51 Requesting Physician : DANNY Patient/Specimen Tests and Comments Specimen Comments FINAL REPORT: URINE COLONY COUNT: > THAN 100,000 CFU/CC GRAM NEGATIVE RODS Organisms Identified -------- * 01 Escherichia coli 05/19/18 Comments >100,000 cfu Tech : Source : URINE ID # : [id number] FINAL Report Date : / / : Collected : 05/17/18 11:51 Continued on Next Page M I Michelle R O B I O L O G Y R E P O R T FINAL Antimicrobial Susceptibility and Organism Identification Report Isolate 01 Escherichia coli Escherichia coli DRUG TED Sys. Urine --- ----- ----- Amp/Sulbactam >16/8 R R Ampicillin >16 R R Ceftriaxone <=8 S S Cephalothin >16 R Ciprofloxacin <=1 S S Cefuroxime <=4 S S Ertapenem <=1 S S Nitrofurantoin <=32 S Imipenem <=1 S S Levofloxacin <=2 S S Meropenem <=1 S S Pip/Tazo <=16 S S Trimeth/Sulfa >2/38 R R Tetracycline >8 R R Tobramycin 8 I I +, ++, +++, or S = Susceptible N/R = Not Reported Josefina = Beta Lactamase Positive I = Intermediate CC = Cost Code TFG = Thymidine-dependent Strain R = Resistant TED = mcg/ml (mg/L) Blank = Data not available, or drug not advisable or tested For Blood and CSF Isolates, a Beta-Lactamase test is recommended for Enterococus species. IB appears in place of S, I (S), +, ++, or +++ with species known to possess inducible B-lactamases; potentially they may become resistant to all B-lactam drugs. Monitoring of patients during/after therapy is recommended. Avoid other/combined B-lactam drugs. (a) Use maximum doses of drug with an aminoglycoside for P. aeruginosa in patients with granulocytopenia or serious infections. (b) Breakpoints based on parenteral dose. For cefuroxime Axetil (PO) use <8=S, 8-16=I, >16=R. (c) For non-enterococcal streptococci, Micrococcus species, and Listeria species, refer to the Ampicillin interpretation. * Interpretations based on approx. adult attainable systemic/urine levels, except drugs with <3 dilutions, which print NCCLS. Doses are guidelines; consider weight and renal/hepatic function. Urine interpretation for lower UTI only. Interpretations based on NCCLS M7-A2. Ticar/K Clav'ate for gram positives based on computer security manager's breakpoints. Tech : Source : URINE ID # : [id number] FINAL Report Date : / / : Collected : 05/17/18 11:51 05/19/18.0850.JLN. 05/18/18.1001.BKO. 05/19/18.0851.JLN.COMPLETE Performed By: #### [id number] #### [facility],[address] [place] [address] CARDIOLOGY VISIT Observed: 05/16/2018 Status: F Source: [place] 4:34 PM [facility] [address] [place] [id number] OFFICE VISIT Date of Service: 05/16/18 MR#: [id number] Acct: [id number] Name: KEERTHI RODGERS Rep #: [id number] : 1940 Provider: MARINO Mensah Age/Sex: 77/F [place] [facility] [place] Status: Signed HPI HPI Details: KEERTHI RODGERS, is a 77 F who presents to the office today for a cardiovascular outpatient follow-up. She has a history of hypertension, hyperlipidemia and diabetes. She was recently diagnosed with possible atrial fibrillation. She underwent a 30 day event monitor for further evaluation. This report showed sinus rhythm and one episode of paroxysmal atrial fibrillation. Pt denies chest, arm, jaw, or neck discomfort. Her exercise tolerance is stable. Pt denies symptoms of near syncopal or syncopal episodes. Pt denies edema or claudication issues. Pt. denies orthopnea, PND, fever, chills, blood in urine, blood in stool, myalgia, or unexplainable fatigue. Her flutter sensation has improved. She states her gait is unsteady at times and stumbles. She states some chest pain like symptoms related her uric acid level. Her daughter states she notices some wheezing. She states dizziness and lightheadedness with quick position changes. Intake Vital Signs05/16/18 Height 5 ft 1 in 05/16/18 Weight: 149 lb 05/16/18 Body Mass Index (BMI) 28.1 05/16/18 Blood Pressure 120/65 Intake Visit Reasons: 6 wk FU Business Test Analyst Required: No Is patient in pain?: No Allergies No Known Allergies Allergy (Verified 05/16/18 13:54) Medications apixaban 5 mg tablet 5 mg PO BID #30 tab 04/02/18 [Rx Confirmed 05/16/18] allopurinol 100 mg tablet PO 30 Days #30 04/04/18 [History Confirmed 05/16/18] coenzyme Q10 10 mg capsule 10 mg PO ONCE 04/04/18 [History Confirmed 05/16/18] cranberry 400 mg capsule 400 mg PO ONCE 04/04/18 [History Confirmed 05/16/18] cyanocobalamin (vit B-12) 500 mcg tablet 500 mcg PO QDAY 04/04/18 [History Confirmed 05/16/18] digoxin 125 mcg tablet PO 90 Days #90 04/04/18 [History Confirmed 05/16/18] ferrous sulfate 27 mg iron tablet 27 mg PO QDAY tab 04/04/18 [History Confirmed 05/16/18] glipizide 10 mg tablet 10 mg PO QDAY 04/04/18 [History Confirmed 05/16/18] glipizide ER 10 mg tablet, extended release 24 hr PO 30 Days #30 04/04/18 [History Confirmed 05/16/18] levothyroxine 100 mcg tablet PO 90 Days #90 04/04/18 [History Confirmed 05/16/18] lisinopril 10 mg tablet PO 30 Days #30 04/04/18 [History Confirmed 05/16/18] lovastatin 10 mg tablet PO 30 Days #30 04/04/18 [History Confirmed 05/16/18] magnesium oxide 400 mg tablet 400 mg PO QDAY tab 04/04/18 [History Confirmed 05/16/18] meloxicam 7.5 mg tablet PO 30 Days #30 04/04/18 [History Confirmed 05/16/18] metformin 1,000 mg tablet PO 30 Days #60 04/04/18 [History Confirmed 05/16/18] metoprolol succinate ER 100 mg tablet,extended release 24 hr PO 90 Days #90 04/04/18 [History Confirmed 05/16/18] multivitamin tablet 1 tab PO QDAY 04/04/18 [History Confirmed 05/16/18] omega-3 fatty acids 1,000 mg capsule 1,000 mg PO QDAY 04/04/18 [History Confirmed 05/16/18] omeprazole 40 mg capsule,delayed release PO 30 Days #30 04/04/18 [History Confirmed 05/16/18] sertraline 100 mg tablet PO 30 Days #30 04/04/18 [History Confirmed 05/16/18] temazepam 15 mg capsule PO 15 Days #15 04/04/18 [History Confirmed 05/16/18] warfarin 2 mg tablet 2 mg PO QDAY 04/29/18 [History Confirmed 05/16/18] PFSH Medical History Atherosclerotic heart disease of [place] coronary artery without angina pectoris (Chronic) HLD (hyperlipidemia) (Chronic) Surgical History H/O tubal ligation (Resolved) History of bunionectomy of left great toe (Resolved) H/O: hysterectomy (Resolved) History of tonsillectomy (Resolved) Hx of appendectomy (Resolved) Hx of cholecystectomy (Resolved) History of knee replacement (Resolved) Family History Mother CHF (congestive heart failure) Hypertension Sister Hypertension Social History Smoking Status: Former smoker alcohol intake: current alcohol intake frequency: holidays/special occasions only substance use type: does not use caffeine: Yes Type: coffee Number of servings: 1 what type of physical activity do you participate in: walking frequency: daily ROS Const Const: Negative for fatigue, weakness, body ache, fever(s) or chills ENT ENT: Positive for dizziness Cardio Chest Pain: Yes Palpitations: No Edema: None Muscle aches with walking: None Resp Respiratory: Positive for SOB with activity; negative for SOB at rest, SOB orthopnea\SOB lying down or paroxysmal nocturnal dyspnea GI GI: Negative nausea, black,tarry stools, bright, red blood in stools or vomiting blood/hematemesis : Negative for hematuria or frequent nighttime urination/ nocturia Musc Musc: Negative for muscle aches/ myalgia Skin Skin: Negative non-healing lesions or rash Neuro Neuro: Positive for dizziness, lightheadedness and other (unsteady gait); negative for weakness, near syncope, syncope or orthostatic symptoms Endo Endo: Negative for fatigue Allergy Allergy/Immunology: Negative for rash Cardiology Exam Const Appearance: cooperative, no acute distress and well developed Orientation: alert, awake and oriented x3 Head Head: normocephalic and atraumatic Mouth: moist mucous membranes Eyes General: appearance normal, both eyes and all related structures Conjunctivae: conjunctivae normal Pupils: PERRL EOM: EOM intact bilaterally Neck Neck: normal visual inspection, no lymphadenopathy and no JVD Carotids: Negative bruit Neck Mass: Negative Neck mass Chest Chest inspection: normal inspection of the chest and symmetric chest movement Auscultation: Bilateral: Clear to Auscultation Cardio Palpation: normal PMI Rate: regular rate Rhythm: regular rhythm Heart sounds: S1 normal and S2 normal; negative rub, gallop or murmur GI GI: normal to inspection, soft, no hepatosplenomegaly and bowel sounds present; negative tender Neuro General: alert, awake, oriented x3, CN's II-XI intact bilaterally and moves all extremities Extremities Pulses: Normal: Right Posterior Tibial Pulse, Left Posterior Tibial Pulse, Right Radial Pulse, Left Radial Pulse Lower Extremity Edema: None: Bilateral Psych Psychological: normal affect Supplemental Info Echocardiogram in 2014 demonstrates left ventricular systolic function is normal. The estimated ejection fraction is 60 %. Mild concentric left ventricular hypertrophy. The left atrium is mildly enlarged. There is mild mitral annular calcification. Mild (1+) mitral valve insufficiency. Mild tricuspid valve insufficiency. Mild focal aortic valve thickening. Right ventricular systolic pressure estimated to be 29 mmHg. Stress test in 2014 was negative for stress induced myocardial ischemia or previous myocardial injury/infarction. 30 day event monitor from March 2018 showed sinus rhythm and one episode of paroxysmal atrial fibrillation. Assessment AND Plan 1. 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 Her echocardiogram in 2013 showed ejection fraction of 60%. Patient denies any chest pain, arm pain, jaw pain, neck pain, shortness of breath, or fatigue suggestive of angina at this time. We will continue to monitor this. We will not make any medication regimen changes and will continue risk factor modification. 2. Paroxysmal atrial fibrillation I48.0 Plan Patient's 30 day event monitor showed sinus rhythm and one episode of atrial fibrillation. She was started on Coumadin therapy for this. Her heart rate remains well controlled. She will continue current medications and we will continue to monitor this. 3. alf (current) use of anticoagulants Z79.01 Plan Patient will continue Coumadin therapy maintaining an INR of 2 3. She was reminded of concerning symptoms regarding bleeding. She is instructed to contact our office if she developed any of the symptoms. Plan Detail Additional Comments Thank you for allowing us to participate in the patients plan of care, if you have any questions please do not hesitate to call. This note was generated using a voice recognition system and there may be incorrect words, spelling or punctuation that were not noted when reviewing the office note prior to saving. Coding Level of Care Code Off vis,est,level 3 Diagnoses Atherosclerosis of [place] coronary artery of [place] heart without angina pectoris I25.10 [place] vs. transplanted heart: [place] heart Paroxysmal atrial fibrillation I48.0 medical representative (current) use of anticoagulants Z79.01 Coding Level of Care Code Off vis,est,level 3 Diagnoses Atherosclerosis of [place] coronary artery of [place] heart without angina pectoris I25.10 [place] vs. transplanted heart: [place] heart Paroxysmal atrial fibrillation I48.0 medical representative (current) use of anticoagulants Z79.01 05/16/18 1634 <Electronically signed by Andrey RODRIGUEZ> Date Andrey RODRIGUEZ Cosigner Signature: Date (if applicable) CC: JENNIFER Sanchez PT/INR CAPILLARY Collected: 05/12/2018 Status: F Source: [facility] 10:01 AM [facility] REPOSITORY TYPE CODE TESTS RESULT OUT OF RANGE REFERENCE UNITS LAB [id number](LO 8.0-11.0 second(s) INC) High PT POC 16.0 LAB [id number](LO 1.0-1.2 INC) High INR POC 1.3 Result Comment: Source Capillary Performed By: #### [id number] #### [facility] POC Subsection [facility] [place] [id number] PT/INR POC ORDER Collected: 05/12/2018 Status: F Source: [place] 9:55 AM [facility] REPOSITORY TYPE CODE TESTS RESULT OUT OF RANGE REFERENCE UNITS LAB CD:[id number](LOINC) Normal Collected PT/INR POC Order Performed By: #### [id number] #### [facility] POC Subsection [facility] [place] [id number] PT Collected: 05/05/2018 Status: F Source: [place] 8:15 AM [facility] REPOSITORY TYPE CODE TESTS RESULT OUT OF RANGE REFERENCE UNITS LAB [id number](LO 1.0-1.2 INC) Normal INR 1.2 Result Comment: INR Recommended Therapeuptic Ranges: Prophylaxis/treatment of DVT and PE?2.0-3.0 Prevention of systemic embolism?.2.0-3.0 Mechanical prosthetic values?2.5-3.5 CRITICAL VALUES?.>4.0 LAB [id number](LOINC) 11.6-14.6 second(s) High PT 14.8 Performed By: #### [id number] #### [facility] Hematology Automated Subsection [facility] [place] [id number] OPERATION-PROCEDURE Observed: 04/08/2018 Status: F Source: [facility] 8:[address] [facility] REPOSITORY [facility] [address] [facility] [place] [address] NAME KEERTHI RODGERS [facility] [id number] 1940 DATE 03/20/2018 OPERATIVE REPORT / PROCEDURE NOTE CORRECTED REPORT [facility] PROCEDURE SURGEON BUBBA BEDOLLA MD, FACS DATE OF INTERPRETATION 03/20/2018 PROCEDURE Roberson pH study. INDICATION Evaluate for reflux disease. PROCEDURE NOTE A 48-hour ambulatory pH monitoring utilizing the Roberson telemetry capsule was performed with the capsule placed at the time of endoscopy using the Z-line as reference. Please refer to the EGD report for capsule placement. The tracing was satisfactory during the 48-hour study with no significant signal loss and satisfactory baseline. During the first 24 hours, the patient had 26 reflux episodes, 9 long episodes with the longest lasting 34 minutes, spent 10.9% of the day with a pH less than 4, and had a DeMeester score of 27.9. During the second 24 hours, the patient had 16 reflux episodes, no long episodes with the longest lasting 5 minutes, spent 2.4% of the day with pH less than 4, and had a DeMeester score 7.7. There was a positive symptom association for chest pain and regurgitation. IMPRESSION 1. The study is positive for abnormal distal esophageal acid exposure. 2. Bipositional reflux was not observed. 3. There is a positive symptom association for chest pain and regurgitation. BUBBA BEDOLLA MD, FACS D 04/08/2018 20:37 [id number] T 04/09/2018 06:41 ERM/MODL Electronically Signed By Bubba Bedolla M.D. on 11 Apr 2018 11:35:05 T CARDIOLOGY VISIT Observed: 04/05/2018 Status: F Source: [place] REPORT 3:32 PM [facility] [address] [place] [address] OFFICE VISIT Date of Service: 04/04/18 MR#: [id number] Acct: [id number] Name: KEERTHI RODGERS Rep #: [id number] : 1940 Provider: Araceli Henderson Age/Sex: 77/F Location[place] [facility] [place] Status: Signed HPI HPI Details: KEERTHI RODGERS, is a 77 F who presents to the office today for a follow-up emergency room visit for palpitations. Patient was last seen in our office in 2014. She does have a known history of hypertension, hyperlipidemia and diabetes. She was in to see her PCP for a EM and fluttering. She was sent to the ER. It was noted that she was in a tachycardiac rhythm. There was concern that she was in Atrial fib/flutter. She was started on Eliquis and advised to follow-up in our office. She sts that she occasionally feels that she has a fluttering. It occurs several times a week. It does last for a for approx 5 minutes. She does have postional lightheadedness. She does not have any near syncope/syncope. She does have chest burning She does have a hx of GERD, Reflux. She does not have any edema. Intake Vital Signs04/04/18 Height 5 ft 1 in 04/04/18 Weight: 154 lb 04/04/18 Body Mass Index (BMI) 29.0 04/04/18 Blood Pressure 122/64 Intake Visit Reasons: A-Flutter/ ED D/C 04/02/18 Business Test Analyst Required: No Accompanied by: daughter Is patient in pain?: No Allergies No Known Allergies Allergy (Verified 04/04/18 15:37) Medications apixaban 5 mg tablet 5 mg PO BID #30 tab 04/02/18 [Rx Confirmed 04/04/18] allopurinol 100 mg tablet PO 30 Days #30 04/04/18 [History Confirmed 04/04/18] coenzyme Q10 10 mg capsule 10 mg PO ONCE 04/04/18 [History Confirmed 04/04/18] cranberry 400 mg capsule 400 mg PO ONCE 04/04/18 [History Confirmed 04/04/18] cyanocobalamin (vit B-12) 500 mcg tablet 500 mcg PO QDAY 04/04/18 [History Confirmed 04/04/18] digoxin 125 mcg tablet PO 90 Days #90 04/04/18 [History Confirmed 04/04/18] ferrous sulfate 27 mg iron tablet 27 mg PO QDAY tab 04/04/18 [History Confirmed 04/04/18] glipizide 10 mg tablet 10 mg PO QDAY 04/04/18 [History Confirmed 04/04/18] glipizide ER 10 mg tablet, extended release 24 hr PO 30 Days #30 04/04/18 [History Confirmed 04/04/18] levothyroxine 100 mcg tablet PO 90 Days #90 04/04/18 [History Confirmed 04/04/18] lisinopril 10 mg tablet PO 30 Days #30 04/04/18 [History Confirmed 04/04/18] lovastatin 10 mg tablet PO 30 Days #30 04/04/18 [History Confirmed 04/04/18] magnesium oxide 400 mg tablet 400 mg PO QDAY tab 04/04/18 [History Confirmed 04/04/18] meloxicam 7.5 mg tablet PO 30 Days #30 04/04/18 [History Confirmed 04/04/18] metformin 1,000 mg tablet PO 30 Days #60 04/04/18 [History Confirmed 04/04/18] metoprolol succinate ER 100 mg tablet,extended release 24 hr PO 90 Days #90 04/04/18 [History Confirmed 04/04/18] multivitamin tablet 1 tab PO QDAY 04/04/18 [History Confirmed 04/04/18] omega-3 fatty acids 1,000 mg capsule 1,000 mg PO QDAY 04/04/18 [History Confirmed 04/04/18] omeprazole 40 mg capsule,delayed release PO 30 Days #30 04/04/18 [History Confirmed 04/04/18] sertraline 100 mg tablet PO 30 Days #30 04/04/18 [History Confirmed 04/04/18] temazepam 15 mg capsule PO 15 Days #15 04/04/18 [History Confirmed 04/04/18] Ejection fraction %: 60 to 64 PFSH Medical History Atherosclerotic heart disease of [place] coronary artery without angina pectoris (Chronic) HLD (hyperlipidemia) (Chronic) Surgical History H/O tubal ligation (Resolved) History of bunionectomy of left great toe (Resolved) H/O: hysterectomy (Resolved) History of tonsillectomy (Resolved) Hx of appendectomy (Resolved) Hx of cholecystectomy (Resolved) History of knee replacement (Resolved) Family History Mother CHF (congestive heart failure) Hypertension Sister Hypertension Social History Smoking Status: Former smoker alcohol intake: current alcohol intake frequency: holidays/special occasions only substance use type: does not use caffeine: Yes Type: coffee Number of servings: 1 what type of physical activity do you participate in: walking frequency: daily ROS Const Const: Negative for weakness, fatigue, fever(s) or headache(s) Eyes Eyes: Negative for blind spots, loss of peripheral vision or transient loss of vision ENT ENT: Negative for headache(s), dizziness, tinnitus or Nosebleed/epistaxis Cardio Chest Pain: No Palpitations: Yes Edema: None Muscle aches with walking: None Resp Respiratory: Negative for SOB with activity, SOB at rest, SOB orthopnea\SOB lying down or Cough GI GI: Positive for heartburn; negative nausea, vomiting or vomiting blood/hematemesis : Negative for hematuria Musc Musc: Negative for muscle aches/ myalgia Neuro Neuro: Negative for weakness, headache(s), dizziness, near syncope, syncope, lightheadedness or orthostatic symptoms Leon Hematologic/Lymphatic: Negative for easy bleeding Endo Endo: Negative for fatigue Cardiology Exam Const Appearance: cooperative, no acute distress and well developed Orientation: alert, awake and oriented x3 Head Head: normocephalic and atraumatic Mouth: moist mucous membranes Eyes General: appearance normal, both eyes and all related structures Conjunctivae: conjunctivae normal Pupils: PERRL EOM: EOM intact bilaterally Neck Neck: normal visual inspection, no lymphadenopathy and no JVD Carotids: Negative bruit Neck Mass: Negative Neck mass Chest Chest inspection: normal inspection of the chest and symmetric chest movement Auscultation: Bilateral: Clear to Auscultation Cardio Palpation: normal PMI Rate: regular rate Rhythm: regular rhythm Heart sounds: S1 normal and S2 normal; negative rub, gallop or murmur GI GI: normal to inspection, soft, no hepatosplenomegaly and bowel sounds present; negative tender Neuro General: alert, awake, oriented x3, CN's II-XI intact bilaterally and moves all extremities Extremities Pulses: Normal: Right Posterior Tibial Pulse, Left Posterior Tibial Pulse, Right Radial Pulse, Left Radial Pulse Lower Extremity Edema: None: Bilateral Psych Psychological: normal affect Supplemental Info Echocardiogram in 2015 demonstrates Left ventricular systolic function is normal.The estimated ejection fraction is 60 %. Mild concentric left ventricular hypertrophy. The left atrium is mildly enlarged. There is mild mitral annular calcification. Mild (1+) mitral valve insufficiency. Mild tricuspid valve insufficiency. Mild focal aortic valve thickening. Right ventricular systolic pressure estimated to be 29 mmHg. Stress test in 2015 was negative for stress induced myocardial ischemia or previous myocardial injury/infarction. Assessment AND Plan 1. Palpitations R00.2 Plan - RUBEN Burden Reviewed EKG that was done in the ER. And appears to be sinus tachycardia rather than atrial fibrillation or atrial flutter. Will obtain a 30 day event monitor to further evaluate patient's palpitations. In the meantime we will have her hold her Eliquis and start an aspirin. If we find that she does have evidence of atrial fibrillation or atrial flutter she will resume an anticoagulant. She is concerned about the cost of the medication and would prefer to be on Coumadin rather than Eliquis. Orders Orders: 2. Essential hypertension I10 Plan - RUBEN Burden Blood pressure is well controlled on current medications, we do not recommend any changes at this time. 3. Pure hypercholesterolemia E78.00; E78.0 Plan - RUBEN Burden This is been managed by her primary care doctor. Will not make any adjustments. Plan Detail Other Orders Orders: Other Medications On Hold: Additional Comments - RUBEN Burden The above patient was discussed with Dr. Isaacs, he agrees with plan of care. Thank you for allowing us to participate in patient's plan of care, if you have any questions please do not hesitate to call. This note was generated using a voice recognition system and there may be incorrect words, spelling or punctuation errors that were not noted when reviewing the office note prior to saving. Follow Up 6 Weeks (MMM/PFM) Coding Level of Care Code Off vis,est,level 4 Diagnoses Palpitations R00.2 Essential hypertension I10 Hypertension type: essential hypertension Pure hypercholesterolemia E78.00; E78.0 Hyperlipidemia type: pure hypercholesterolemia Coding Level of Care Code Off vis,est,level 4 Diagnoses Palpitations R00.2 Essential hypertension I10 Hypertension type: essential hypertension Pure hypercholesterolemia E78.00; E78.0 Hyperlipidemia type: pure hypercholesterolemia 04/05/18 0952 <Electronically signed by Araceli MIRANDA> Date Araceli MIRANDA 04/05/18 1532<Electronically signed by Juno Isaacs MD> Cosigner Signature: Date (if applicable) Juno Isaacs MD CC: JENNIFER Sanchez 12 LEAD ELECTROCARDIOGRAM Observed: 04/04/2018 Status: F Source: [place] 1:34 PM [facility] Cardiovascular Services [address] [place] [address] [place] [address] 12 Lead EKG 04/02/18 1149 MR#: [id number] Acct: [id number] Name: KEERTHI RODGERS Rep #: [id number] : 1940 77 From: Lukasz Osborn MD Attending Dr: Status: DEP ER Ordering Dr: Cate Roy Date: 04/02/18 Location: ED Sex: F C Admitted: Test Reason : CP Blood Pressure : / mmHG Vent. Rate : 074 BPM Atrial Rate : 074 BPM P-R Int : 152 ms QRS Dur : 088 ms QT Int : 352 ms P-R-T Axes : -28 -20 018 degrees QTc Int : 390 ms Normal sinus rhythm Normal ECG Confirmed by LUKASZ OSBORN MD ([id number]), NAHID Brody ([id number]) on 04/04/2018 1:34:12 PM Referred By: DANTE Confirmed By:LUKASZ OSBORN MD 04/04/18 1334 Date Lukasz Osborn MD CC: JENNIFER Sanchez; Cate Roy Signed 12 LEAD ELECTROCARDIOGRAM Observed: 04/04/2018 Status: F Source: [place] 1:34 PM [facility] Cardiovascular Services [address] [place] [address] [id number] 12 Lead EKG 04/02/18 1038 MR#: [id number] Acct: [id number] Name: KEERTHI RODGERS Rep #: [id number] : 1940 77 From: Lukasz Osborn MD Attending Dr: Status: DEP ER Ordering Dr: Cate Roy Date: 04/02/18 Location: ED Sex: F C Admitted: Test Reason : CP Blood Pressure : / mmHG Vent. Rate : 135 BPM Atrial Rate : 135 BPM P-R Int : 168 ms QRS Dur : 090 ms QT Int : 308 ms P-R-T Axes : 107 -28 116 degrees QTc Int : 462 ms Sinus tachycardia Nonspecific ST and T wave abnormality Abnormal ECG Confirmed by LUKASZ OSBORN MD ([id number]), news video editor NAHID PAPPAS ([id number]) on 04/04/2018 1:34:28 PM Referred By: Confirmed By:LUKASZ OSBORN MD 04/04/18 1334 Date Lukasz Osborn MD CC: JENNIFER Sanchez; Cate Roy Signed DISCHARGE INSTRUCTION Observed: 04/02/2018 Status: F Source: [place] 3:13 PM [facility] Medical Records Department [address] [place] [address] Discharge Instruction 04/02/18 1513 MR#: [id number] Acct: [id number] Name: KEERTHI RODGERS Rep #: [id number] : 1940 77 From: Cate Roy PCP: JENNIFER Valdez Status: REG ER ED Disposition - Plan for ED Patient: Chief Complaint: Palpitations Instructions: ED Paroxysmal Atrial Flutter Prescriptions: Apixaban [Eliquis] 5 mg PO BID #30 tablet Referrals: Juno Isaacs MD [STAFF PHYSICIAN] - 3-5 Days What to do if you have Problems For any increased pain, shortness of breath, bleeding, nausea or vomiting, chest pain, or any unexpected problems, contact your Primary Care Provider. Call [facility] ([phone]) or report to the closest Emergency Room. Call 911 if necessary. 04/02/18 1513 <Electronically signed by Cate Roy > Date Cate Miramontes Signature (If Indicated): Date CC: JENNIFER Sanchez DISCHARGE INSTRUCTION Observed: 04/02/2018 Status: F Source: [place] 3:08 PM [facility] Medical Records Department [address] [place] [address] Discharge Instruction 04/02/18 1506 MR#: [id number] Acct: [id number] Name: KEERTHI RODGERS Rep #: [id number] : 1940 77 From: Cate oRy PCP: JENNIFER Valdez Status: REG ER ED Disposition - Plan for ED Patient: Chief Complaint: Palpitations Instructions: ED Paroxysmal Atrial Flutter Prescriptions: Apixaban [Eliquis] 5 mg PO BID #30 tablet Referrals: Juno Isaacs MD [STAFF PHYSICIAN] - 3-5 Days What to do if you have Problems For any increased pain, shortness of breath, bleeding, nausea or vomiting, chest pain, or any unexpected problems, contact your Primary Care Provider. Call [facility] ([phone]) or report to the closest Emergency Room. Call 911 if necessary. 04/02/18 1508 <Electronically signed by Cate Roy > Date Cate Roy Cosigner Signature (If Indicated): Date CC: JENNIFER Sanchez EMERGENCY DEPARTMENT Observed: 04/02/2018 Status: F Source: [place] SUMMARY 3:06 PM [facility] Medical Records Department [address] [place] [address] Emergency Department Summary 04/02/18 1503 MR#: [id number] Acct: [id number] Name: KEERTHI RODGERS Rep #: [id number] : 1940 77 From: Cate Roy PCP: JENNIFER Valdez Status: REG ER - ER Visit Summary Date of Service: 04/02/18 Chief Complaint: [Tachycardia] History of Present Illness: The patient is a 77 F [presents the emergency department with 1 month of shortness of breath and palpitations. She went to see her primary care doctor and had a fast heart rate was referred to the emergency department. She complains of shortness of breath over the last month and occasional palpitations. She has no history clearly of atrial fibrillation but is on digoxin and metoprolol. She is followed by Dr. Isaacs. She does have coronary artery disease. Physical Examination: [] Rate 136 blood pressure elevated WN WD NAD PERRL EOMI MMM NECK supple and nontender, no masses Irregularly irregular tachycardic rhythm no murmur rub or gallop, no peripheral edema, symmetric radial pulses CTAB no respiratory distress ABDOMEN is soft and nontender, normal bowel sounds, no distension, no rebound or guarding SKIN is warm and dry no rashes Alert and Oriented x3, CN II-XII in tact, no motor or sensory deficits, gait normal No lymphadenopathy Test Results: [] Emergency Department Course and Treatment: [Limited tree in the room the patient had an irregularly irregular tachycardic rhythm consistent with atrial fibrillation a flutter. Repeat EKG was obtained as initial EKG was a regular tachycardic rhythm at 135 which I think was likely a flutter. Before a repeat EKG was a could be obtained patient converted to a sinus rhythm. There is no ischemic changes. Screening blood work was unremarkable except for a d-dimer that was elevated. CTA of the chest showed atelectasis versus infiltrate in the right lower lobe. Patient has had a cough for the last 3 weeks but no fever or shortness of breath or production. She will be covered with doxycycline. I spoke with Dr. Isaacs who has not seen the patient since 2014. She has a chads score of 3. Patient will be started on Eliquis and will follow-up with Dr. Isaacs in the next week.] Treatment Plan: [] Disposition: [Discharge] Impression: [Atrial fibrillation with RVR] This note was generated with IDverge dictation software. It may contain incorrect words, spelling, and punctuation that were not noted in review of the chart prior to signing ED Disposition - Plan for ED Patient: Chief Complaint: Palpitations Referrals: Lopez Sanchez NP-C [Primary Care Provider] - What to do if you have Problems For any increased pain, shortness of breath, bleeding, nausea or vomiting, chest pain, or any unexpected problems, contact your Primary Care Provider. Call [facility] ([phone]) or report to the closest Emergency Room. Call 911 if necessary. 04/02/18 1506 <Electronically signed by Cate Roy > Date Cate Roy Cosigner Signature (If Indicated): Date CC: SURFACE PLATE FINISHERAzC Lopez Sanchez CTA CHEST W/WO Observed: 04/02/2018 Status: F Source: [place] CONTRAST 12:23 PM [facility] Imaging Services [address] [place] [address] CTA Chest W/WO Contrast MR#: [id number] Acct: [id number] Name: KEERTHI RODGERS Rep #: [id number] : 1940 F 77 From: Willie Browning MD PCP: JENNIFER Valdez Status: REG ER Study: CTA Chest W/WO Contrast Date of Exam: 04/02/18 Exam# [id number] Ordering Dr: Cate Roy STUDY: CTA CHEST REASON FOR EXAM: Female, 77 years old. Chest pain and palpitations. Left arm pain. RADIATION DOSAGE (If Supplied By Facility): CTDIvol = ( 10.17 ) mGy, DLP = ( 230.10 ) mGycm TECHNIQUE: The examination was performed with the intravenous administration of 100cc ml of Isovue 370 contrast material. Post-processing of the angiographic images was performed, with multiplanar reformation and 3D reconstruction. Individualized dose optimization techniques were used for this CT. COMPARISON: Comparison is made with prior chest radiograph done earlier today. FINDINGS: Normal enhancement of the main pulmonary artery and right and left pulmonary arteries. Normal enhancement of the bilateral peripheral pulmonary arteries. There is no demonstrated pulmonary embolism. Normal thoracic aorta and visualized great vessels. There is no demonstrated aortic dissection. Normal heart and pericardium. Normal mediastinum. Normal hilar regions. Normal visualized trachea and bronchi. The lungs are well expanded. Right basilar atelectasis and/or infiltrate. Mild increased markings at the left lung base. Normal pleura. Normal chest wall structures. There are degenerative changes of thoracic spine. Normal visualized upper abdomen. CT/CTA Chest W/WO Contrast IMPRESSION: Right basilar atelectasis and/or early infiltrate. Electronically Signed: Willie Browning MD at 14:08 EDT Tel [phone], Service support , CC: JENNIFER Sanchez; Cate Roy Welfare Project Manager: Signed CBC W/DIFF, AUTOMATED Collected: 04/02/2018 Status: F Source: [place] 11:40 AM [facility] TYPE CODE TESTS RESULT OUT OF RANGE REFERENCE UNITS LAB L100.1000 4.4-11.0 K/mm3 Normal WBC 8.4 LAB L100.1200 4.2-5.4 M/mm3 Normal RBC 4.21 LAB L100.1300 12.0-15.0 g/dl Normal HGB 12.3 LAB L100.1400 37-47 % Normal HCT 38.5 LAB L100.1500 81-99 fL Normal MCV 91.4 LAB L100.1600 27.0-32.0 pg Normal MCH 29.2 LAB L100.1700 32-36 g/gl Low MCHC 31.9 LAB L100.1810 11.6-14.6 % High RDW CV 14.8 LAB L100.1820 35.1-43.9 fl High RDW SD 49.1 LAB L100.1900 150-450 K/mm3 Normal PLT 168 LAB L100.2000 6.2-12.0 fl Normal MPV 9.9 LAB L100.2100 47-70 % Normal NEUT% 67.4 LAB L100.2200 19-41 % Normal LY% 23.3 LAB L100.2300 0-10 % Normal MONO% 8.5 LAB L100.2400 0-5 % Normal EO% 0.1 LAB L100.2500 0-1 % Normal BASO% 0.2 LAB L100.2550 0.0-0.9 % Normal IM GRAN % 0.500 Result Comment: IG% - Immature Granulocytes (promyelocytes, myelocytes and metamyelocytes) > 1% indicates that a LEFT SHIFT is Present. LAB L100.2620 2.0-7.7 X10 3/uL Normal Absolute Neut 5.7 LAB L100.2720 0.83-4.51 X10 3/ul Normal Absolute Lymph 1.97 Performed By: #### L100.0100 #### [facility] [address] [place], [address] PROTHROMBIN TIME W/INR Collected: 04/02/2018 Status: F Source: [place] 11:40 AM [facility] TYPE CODE TESTS RESULT OUT OF RANGE REFERENCE UNITS LAB L300.4150 11.7-14.9 SECONDS Normal PROTIME 13.8 LAB L300.4200 Normal INR 1.1 Performed By: #### L300.3900, L300.8000 #### [facility] [address] [place], [place], [address] D-DIMER QUANTITATIVE Collected: 04/02/2018 Status: F Source: [place] (DVT/PE) 11:40 AM [facility] TYPE CODE TESTS RESULT OUT OF RANGE REFERENCE UNITS LAB L300.8000 0.27-0.49 FEU/ug/m High alert D-DIMER 2.02 QUANT Result Comment: D-Dimer ELEVATED (>0.49): Additional studies and clinical assessments are indicated to conclude diagnosis of: Deep Vein Thrombosis (DVT) or Pulmonary Embolism (PE) CRITICAL VALUE VERIFIED. CALLED TO DEWEY RG 04/02/18 1202 Roz Stoner. RESULTS READ BACK BY SAME . Performed By: #### L300.3900, L300.8000 #### [facility] [address] [place], [place], [address] BASIC METABOLIC Collected: 04/02/2018 Status: F Source: [place] PROFILE (BMP) 11:40 AM [facility] [place] TYPE CODE TESTS RESULT OUT OF RANGE REFERENCE UNITS LAB L501.0100 74-106 mg/dL High GLU 141 Result Comment: Fasting Glucose result greater than or equal to 126 mg/dL suggests DIABETES MELLITUS per A.D.A. criteria. Please note revised GLUCOSE reference range effective 2017. LAB L501.1000 7-18 mg/dL Normal BUN 18 LAB L501.1100 0.55-1.02 mg/dL Normal CREAT,SERUM 0.96 Result Comment: The validity of the calculated GFR AND GFRAA in patients over 70 years has not been determined. Clinical correlation is essential. LAB L501.1110 >60 mL/min Normal EST GFR 60 Result Comment: Non- GFR Calc LAB L501.1115 >60 mL/min Normal EST GFR - AA 73 Result Comment: GFR Calc LAB L501.1255 ml/min Normal Estimated CRCL 37.62 LAB L501.1300 10-20 RATIO Normal BUN/CRE 18.8 LAB L501.2200 8.5-10 mg/dL Normal .1 CA 9.6 LAB L501.5300 136-14 mmol/L Normal 5 NA 141 LAB L501.5600 3.5-5. mmol/L Normal 1 K 4.5 LAB L501.5900 98-107 mmol/L Normal CL 106 LAB L501.6100 21.0-3 mmol/L Normal 2.0 CO2 25.0 LAB L501.6200 5-15 Normal GAP 10 Performed By: #### L500.2500, L501.4010, L501.9520 #### [facility] [address] [place], [address] TROPONIN-I Collected: 04/02/2018 Status: F Source: [place] 11:40 AM [facility] [place] TYPE CODE TESTS RESULT OUT OF RANGE REFERENCE UNITS LAB L501.4010 <0.045 ng/mL Normal < 0.015 TROPONIN-I Result Comment: TROPONIN-I EXPECTED VALUES <0.045 Negative 0.045 - 0.590 Consistent with Cardiac Damage > OR = 0.600 Critical Value Not every elevated troponin is indicative of TX. These values should be used with clinical judgement in examining the patient's clinical picture for diagnosis. To establish a diagnosis of TX versus myocardial injury, there must be a demonstrated rise and/or fall in the troponin values, in addition to ischemic symptoms, EKG changes, new regional wall motion abnormality, and/or angiographical evidence. PLEASE NOTE: REFERENCE RANGES EDITED 18 Performed By: #### L500.2500, L501.4010, L501.9520 #### [facility] [address] [facility], [address] THYROID STIM HORMONE Collected: 04/02/2018 Status: F Source: [place] (TSH) 11:40 AM [facility] [place] [facility] TYPE CODE TESTS RESULT OUT OF RANGE REFERENCE UNITS LAB L501.9520 0.358-3.74 uIU/mL Normal TSH 2.15 Performed By: #### L500.2500, L501.4010, L501.9520 #### [facility] [address] [place], [address] DIGOXIN LEVEL Collected: 04/02/2018 Status: F Source: [place] 11:40 AM [facility] [place] [facility] TYPE CODE TESTS RESULT OUT OF RANGE REFERENCE UNITS LAB L501.7510 0.80-2.00 ng/mL Normal DIG 1.30 Performed By: #### L501.7510 #### [facility] [address] [facility], [address] CHEST 1 VIEW Observed: 04/02/2018 Status: F Source: [place] (PORTABLE) 11:28 AM [facility] [place] [facility] Imaging Services [address] [place] [address] Chest 1 View (Portable) MR#: [id number] Acct: [id number] Name: KEERTHI RODGERS Rep #: [id number] : 1940 F 77 From: Willie Browning MD PCP: JENNIFER Valdez Status: REG ER Study: Chest 1 View (Portable) Date of Exam: 04/02/18 Exam# [id number] Ordering Dr: Cate Roy STUDY: X-RAY CHEST REASON FOR EXAM: Female, 77 years old. Chest pain. TECHNIQUE: Single AP portable view of the chest. COMPARISON: None. FINDINGS: EKG electrodes are seen. Increased markings at the right lung base with the blunting of the right costophrenic angle suggestive of a right basilar atelectasis and small right pleural effusion. Mild blunting of the left costophrenic angle. Normal size heart. Normal mediastinum and olvin. Normal visualized pulmonary arteries. There is atherosclerotic calcification of the aortic arch with tortuosity. Normal visualized thoracic spine. There is degenerative osteoarthritis of the bilateral shoulders. Right shoulder calcific tendinitis. There is no demonstrated abnormality of the visualized soft tissue structures of the upper abdomen. RAD/Chest 1 View (Portable) IMPRESSION: Blunting of both costophrenic angles likely worse on the right side with right basilar atelectasis. Electronically Signed: Willie Browning MD at 12:28 EDT Tel [phone], Service support , CC: JENNIFER Sanchez; Cate Roy Welfare Project Manager: Signed GLUCOSE, POC Collected: 03/18/2018 Status: F Source: [facility] 8:[address] [facility] REPOSITORY TYPE CODE TESTS RESULT OUT OF RANGE REFERENCE UNITS LAB GLUX 80-115 mg/dL High Glucose, 169 POC Performed By: #### GLUX #### Unless otherwise noted, all testing performed by [address] [address] CLIA: [id number] Instructional Support Services Director: Chester Delgadillo M.D. SURG Observed: 03/18/2018 Status: F Source: [facility] 12:[address] [facility] REPOSITORY Patient Name: KEERTHI RODGERS Source Esophagus, Gastroesophageal junction, biopsy Clinical History Hiatal hernia hill grade 2 and pre pyloric ulcer Diagnosis Mildly inflamed esophageal squamous and gastric mucosa. Petersen's specialized mucosa is not identified. Negative for dysplasia. JF;lat Gross Description Received in formalin are multiple fragments measuring in aggregate of 0.8 x 0.4 x 0.2 cm. ET 1 block. DS/arj (JSF/arwei) Electronically Signed By Chester Delgadillo MD , Pathologist (Case signed 03/19/2018) MICROALBUMIN, URINE Collected: 01/30/2018 Status: F Source: [place] 10:21 [facility] TYPE CODE TESTS RESULT OUT OF REFERENCE UNITS RANGE LAB MICROALBUMIN 0.1 - 11.6 mg/dL UR(LOINC) MICROALBUMIN UR 6.1 Performed By: #### [id number] #### [facility],[address] [place] [address] HGB A1C Collected: 01/30/2018 Status: F Source: [place] 10:21 [facility] TYPE CODE TESTS RESULT OUT OF RANGE REFERENCE UNITS LAB HGB 4.4 - 6.4 % A1C(LOINC) HGB A1C 6.1 Result Comment: {HB] {A1] Performed By: #### [id number] #### [facility],[address] [place] [address] Observed: 01/30/2018 Status: F Source: [place] CULTURE URINE 10:21 [facility] REPOSITORY CULTURE URINE _URINE CULTURE_ M I C R O B I O L O G Y R E P O R T FINAL Antimicrobial Susceptibility and Organism Identification Report Specimen Number : [id number] Requested : 01/30/18 Specimen Source : URINE Collected : 01/30/18 10:21 Sr of Isolation : OUTPATIENT Received : 01/30/18 10:21 Requesting Physician : DANNY Patient/Specimen Tests and Comments Specimen Comments FINAL REPORT: URINE COLONY COUNT: > THAN 100,000 CFU/CC GRAM NEGATIVE RODS Organisms Identified -------- * 01 Escherichia coli 02/01/18 Comments >100,000 cfu Tech : Source : URINE ID # : [id number] FINAL Report Date : / / : Collected : 01/30/18 10:21 Continued on Next Page M I C R O B I O L O G Y R E P O R T FINAL Antimicrobial Susceptibility and Organism Identification Report Isolate 01 Escherichia coli Escherichia coli DRUG TED Sys. Urine --- ----- ----- Amp/Sulbactam >16/8 R R Ampicillin >16 R R Ceftriaxone <=8 S S Cephalothin 16 I Ciprofloxacin <=1 S S Cefuroxime <=4 S S Ertapenem <=1 S S Nitrofurantoin <=32 S Imipenem <=1 S S Levofloxacin <=2 S S Meropenem <=1 S S Pip/Tazo <=16 S S Trimeth/Sulfa >238 R R Tetracycline >8 R R Tobramycin 8 I I +, ++, +++, or S = Susceptible N/R = Not Reported Josefina = Beta Lactamase Positive I = Intermediate CC = Cost Code TFG = Thymidine-dependent Strain R = Resistant TED = mcg/ml (mg/L) Blank = Data not available, or drug not advisable or tested For Blood and CSF Isolates, a Beta-Lactamase test is recommended for Enterococus species. IB appears in place of S, I (S), +, ++, or +++ with species known to possess inducible B-lactamases; potentially they may become resistant to all B-lactam drugs. Monitoring of patients during/after therapy is recommended. Avoid other/combined B-lactam drugs. (a) Use maximum doses of drug with an aminoglycoside for P. aeruginosa in patients with granulocytopenia or serious infections. (b) Breakpoints based on parenteral dose. For cefuroxime Axetil (PO) use <8=S, 8-16=I, >16=R. (c) For non-enterococcal streptococci, Micrococcus species, and Listeria species, refer to the Ampicillin interpretation. * Interpretations based on approx. adult attainable systemic/urine levels, except drugs with <3 dilutions, which print NCCLS. Doses are guidelines; consider weight and renal/hepatic function. Urine interpretation for lower UTI only. Interpretations based on NCCLS M7-A2. Ticar/K Clav'ate for gram positives based on computer security manager's breakpoints. Tech : Source : URINE ID # : [id number] FINAL Report Date : / / : Collected : 01/30/18 10:21 02/01/18.1009.BKO. 01/31/18.1016.JLN. 02/01/18.1009.BKO.COMPLETE Performed By: #### [id number] #### [facility],[address] [place] [address] CBC Collected: 01/01/2018 Status: F Source: [facility] 10:14 AM [facility] REPOSITORY TYPE CODE TESTS RESULT OUT OF RANGE REFERENCE UNITS LAB CBC(LOINC) CBC Result Comment: CBC-COMPLETE BLOOD COUNT LAB WBC(LOINC) 4.5 - 10.8 x 10EE3/UL WBC High 11.4 LAB RBC(LOINC) 4.10 - x 10EE6/UL 5.30 RBC Low 4.04 LAB HEMOGLOBIN(LOINC 12.0 - g/dl ) 16.0 Low HEMOGLOBIN 11.8 LAB HEMATOCRIT(LOINC 34.0 - % ) 46.0 HEMATOCRIT 36.4 LAB MCV(LOINC) 80 - 99 fl MCV 90 LAB MCH(LOINC) 27 - 33 pg MCH 29 LAB MCHC(LOINC) 32 - 36 X10 3 MCHC 32 LAB RDW/CV(LOINC) 12.0 - % 15.6 RDW/CV High 17.6 LAB PLATELET(LOINC) 150 - 450 x10EE3/UL PLATELET 245 LAB MPV(LOINC) 6.6 - 10.5 fl MPV 9.4 Result Comment: AUTOMATED DIFFERENTIAL LAB NEUT %(LOINC) 46.0 - 76.0 % NEUT % 72.1 LAB LYMPH %(LOINC) 20.0 - 45.0 % Low LYMPH % 17.8 LAB MONOS %(LOINC) 0.0 - 10.0 % MONOS % 8.8 LAB EO %(LOINC) 0.0 - 7.0 % EO % 0.8 LAB BASO %(LOINC) 0.0 - 2.0 % BASO % 0.5 LAB Lymph #(LOINC) 0.80 - 2.80 x10EE3/U L Lymph # 2.00 LAB Neut #(LOINC) 1.50 - 7.10 x10EE3/U L Neut # High 8.20 LAB Casey #(LOINC) 0.20 - 1.00 x10EE3/U L Casey # 1.00 LAB EO #(LOINC) 0.00 - 0.50 x10EE3/U L EO # 0.10 LAB Baso #(LOINC) 0.00 - 0.10 x10EE3/U L Baso # 0.10 LAB MANUAL DIFF(LOINC) MANUAL DIFF N/A LAB MORPHOLOGY(LOINC ) MORPHOLOGY N/A Result Comment: {CD] Performed By: #### [id number] #### [place] [id number] TSH Collected: 01/01/2018 Status: F Source: [place] 10:14 AM [facility] REPOSITORY TYPE CODE TESTS RESULT OUT OF RANGE REFERENCE UNITS LAB TSH(LOINC) 0.34 - 5.60 uIU/ml TSH 1.71 Performed By: #### [id number] #### [place] [id number] T4-FREE (FREE Collected: 01/01/2018 Status: F Source: [place] THYROXINE) 10:14 AM [facility] REPOSITORY TYPE CODE TESTS RESULT OUT OF RANGE REFERENCE UNITS LAB T4 0.61 - 1.12 ng/dl FREE(LOINC) High T4 FREE 1.15 Result Comment: *SPECIMENS FROM PATIENTS WHO ARE UNDERGOING BIOTIN THERAPY AND/OR INGESTING BIOTIN SUPPLEMENTS MAY HAVE FALSE HIGH RESULTS. Performed By: #### [id number] #### [facility],[address] [place] [address] LIPID PROFILE Collected: 01/01/2018 Status: F Source: [facility] 10:14 [facility] REPOSITORY TYPE CODE TESTS RESULT OUT OF REFERENCE UNITS RANGE LAB LIPID PROFILE(LOIN C) LIPID PROFILE Result Comment: LIPID PROFILE LAB TRIGLYCERIDE(LOINC) 0 - 150 mg/dl TRIGLYCERIDE 142 LAB CHOLESTEROL(LOINC) 0 - 200 mg/dl CHOLESTEROL 111 LAB HDL(LOINC) 40 - 60 mg/dl HDL Low 35 LAB CHOL/HDL(LOINC) 0.0 - 5.0 CHOL/HDL 3.2 LAB LDL(LOINC) 0 - 129 mg/dl LDL 48 Performed By: #### [id number] #### [place] [id number] CMP WITH EGFR Collected: 01/01/2018 Status: F Source: [facility] 10:14 [facility] REPOSITORY TYPE CODE TESTS RESULT OUT OF RANGE REFERENCE UNITS LAB CMP with eGFR(LOINC) CMP with eGFR Result Comment: COMPREHENSIVE METABOLIC PANEL LAB SODIUM(LOINC) 136 - 145 mmol/l SODIUM 141 LAB POTASSIUM(LOINC) 3.5 - 5.1 mmol/L POTASSIUM 4.7 LAB CHLORIDE(LOINC) 98 - 107 mmol/L CHLORIDE 106 LAB CO2(LOINC) 21.0 - mmol/L 31.0 CO2 27.0 LAB GLUCOSE(LOINC) 74 - 106 mg/dl GLUCOSE 99 LAB BUN(LOINC) 6 - 20 mg/dl BUN 15 LAB CREATININE(LOINC) 0.6 - 1.2 mg/dl CREATININE 0.8 LAB AST/SGOT(LOINC) 13 - 39 U/L AST/SGOT 21 LAB ALK PHOS(LOINC) 38 - 126 U/L ALK PHOS 76 LAB CALCIUM(LOINC) 8.6 - mg/dl 10.2 CALCIUM 9.4 LAB TOTAL PROTEIN(LOINC) 6.4 - 8.3 g/dl TOTAL PROTEIN 6.8 LAB ALBUMIN(LOINC) 3.4 - 4.8 g/dL ALBUMIN 3.8 LAB GLOBULIN(LOINC) 1.5 - 3.8 G/DL GLOBULIN 3.0 LAB A/G RATIO(LOINC) 0.9 - 1.6 A/G RATIO 1.3 LAB TOTAL BILI(LOINC) 0.0 - 1.5 mg/dl TOTAL BILI 0.6 LAB B/C RATIO(LOINC) 0 - 30 ratio B/C RATIO 19 LAB ALT/SGPT(LOINC) 8 - 35 U/L ALT/SGPT 14 LAB ANION GAP(LOINC) 10 - 20 mmol/L ANION GAP 13 LAB AGE(LOINC) years AGE 77 LAB eGFR(LOINC) 60 - 999 ML/MINUTE eGFR >60 LAB eGFR(AA)(LOINC) 60 - 999 ML/MINUTE eGFR(AA) >60 Result Comment: ACCORDING TO THE NATIONAL KIDNEY DISEASE EDUCATION PROGRAM(NKDE), A NORMAL eGFR IS A VALUE GREATER THAN OR EQUAL TO 60 ML/MIN/1.73 SQ METERS. CHRONIC KIDNEY DISEASE: <60mL/MIN/1.73 SQ METERS KIDNEY FAILURE: <15mL/MIN/1.73 SQ METERS THIS TEST SHOULD ONLY BE USED FOR PATIENTS 18 YEARS OF AGE AND OLDER. Performed By: #### [id number] #### [facility],[address] [place] [address] MAGNESIUM Collected: 01/01/2018 Status: F Source: [facility] 10:14 AM [facility] REPOSITORY TYPE CODE TESTS RESULT OUT OF REFERENCE UNITS RANGE LAB MAGNESIUM( 1.6 - 2.6 mg/dl LOINC) Low MAGNESIUM 1.4 Performed By: #### [id number] #### [facility],[address] [place], [place] [id number] URIC ACID Collected: 12/17/2017 Status: F Source: [facility] 2:43 PM [facility] EMERGENCY DEPARTMENT REPOSITORY TYPE CODE TESTS RESULT OUT OF RANGE REFERENCE UNITS LAB [id number](LO 2.6-7.2 mg/dL INC) High Uric Acid 7.9 Performed By: #### [id number] #### TOMI [facility] [address] [place] [address] Observed: 12/17/2017 Status: F Source: RESTORATIONISM C URINE 2:43 PM [facility] EMERGENCY DEPARTMENT REPOSITORY Final Report: Normal skin gerhard isolated Performed By: #### [id number] #### TOMI Microbiology Subsection [address] [place] [address] XR WRIST 3+ VIEWS Observed: 12/17/2017 Status: F Source: RESTORATIONISM LEFT 1:56 PM [facility] REPOSITORY Exam Date/Time: 12/17/2017 14:07 EST Reason for Exam: Joint pain Report XR WRIST 3+ VIEWS LEFT CLINICAL STATEMENT: 77-year-old female with wrist pain. TECHNIQUE: AP, lateral, and oblique views. COMPARISON: None. FINDINGS: There is anatomic alignment. I do not see an obvious fracture. Patient does have extensive periarticular chondrocalcinosis changes with prominent articular calcifications appreciated. There is also major arteriovascular calcifications. There is some soft tissue swelling at the wrist level. I do not see any erosions. Patchy demineralization is noted. IMPRESSION: 1. Extensive chondrocalcinosis and periarticular calcifications. 2. Arteriovascular calcifications which are fairly pronounced. 3. Mild to moderate osteoarthritis. 4. Minor soft tissue swelling. FINAL REPORT Dictated: 12/18/2017 10:12 am Hawa Borden DO Signed (Electronic Signature): 12/18/2017 10:12 am Signed by: Hawa Borden DO Technologist: ROSA POC URINALYSIS DIP POC Collected: 12/17/2017 Status: F Source: RESTORATIONISM 1:51 PM [facility] EMERGENCY DEPARTMENT REPOSITORY TYPE CODE TESTS RESULT OUT OF RANGE REFERENCE UNITS LAB CD:[id number] Yellow 293(LOINC) POC Abnormal Color Dark Yellow LAB CD:5006585 CLEAR 955(LOINC) POC Abnormal Clarity Slightly Cloudy LAB CD:5532081 Negative 551(LOINC) Normal POC Glucose Negative LAB CD:6544783 Negative 053(LOINC) POC Abnormal Bilirubin Small 1+ LAB CD:3470542 Negative 003(LOINC) POC Abnormal Ketone 5mg/dl Trace LAB CD:8051523 Negative 697(LOINC) POC Abnormal Blood Trace LAB CD:7039278 Negative 163(LOINC) POC Abnormal Protein 30mg/dl 1+ LAB CD:0778221 Negative 607(LOINC) Normal POC Nitrite Negative LAB CD:9057527 Negative 771(LOINC) POC Abnormal Leukocyte Large 3+ Performed By: #### CD:[id number] #### TOMI POC Subsection [address] [place] [address] Observed: 12/02/2017 Status: F Source: BULMARO MARTE CULTURE URINE 11:10 AM [facility] REPOSITORY CULTURE URINE _URINE CULTURE_ M I C R O B I O L O G Y R E P O R T FINAL Antimicrobial Susceptibility and Organism Identification Report Specimen Number : [id number] Requested : 12/02/17 Specimen Source : URINE Collected : 12/02/17 11:10 Sr of Isolation : OUTPATIENT Received : 12/02/17 11:10 Requesting Physician : DANNY Patient/Specimen Tests and Comments Specimen Comments FINAL REPORT: URINE COLONY COUNT: > THAN 100,000 CFU/CC GRAM NEGATIVE RODS Organisms Identified -------- * 01 Klebsiella pneumoniae 12/04/17 Comments >100,000 cfu Tech : Source : URINE ID # : [id number] FINAL Report Date : / / : Collected : 12/02/17 11:10 Continued on Next Page M I C R O B I O L O G Y R E P O R T FINAL Antimicrobial Susceptibility and Organism Identification Report Isolate 01 Klebsiella pneumoniae Klebsiella pneumoniae DRUG TED Sys. Urine --- ----- ----- Amp/Sulbactam >16/8 R R Ampicillin >16 R R Ceftriaxone <=8 S S Cephalothin <=8 S Ciprofloxacin <=1 S S Cefuroxime <=4 S S Ertapenem <=1 S S Nitrofurantoin <=32 S Imipenem <=1 S S Levofloxacin <=2 S S Meropenem <=1 S S Pip/Tazo <=16 S S Trimeth/Sulfa <=2/38 S S Tetracycline >8 R R Tobramycin <=4 S S +, ++, +++, or S = Susceptible N/R = Not Reported Josefina = Beta Lactamase Positive I = Intermediate CC = Cost Code TFG = Thymidine-dependent Strain R = Resistant TED = mcg/ml (mg/L) Blank = Data not available, or drug not advisable or tested For Blood and CSF Isolates, a Beta-Lactamase test is recommended for Enterococus species. IB appears in place of S, I (S), +, ++, or +++ with species known to possess inducible B-lactamases; potentially they may become resistant to all B-lactam drugs. Monitoring of patients during/after therapy is recommended. Avoid other/combined B-lactam drugs. (a) Use maximum doses of drug with an aminoglycoside for P. aeruginosa in patients with granulocytopenia or serious infections. (b) Breakpoints based on parenteral dose. For cefuroxime Axetil (PO) use <8=S, 8-16=I, >16=R. (c) For non-enterococcal streptococci, Micrococcus species, and Listeria species, refer to the Ampicillin interpretation. * Interpretations based on approx. adult attainable systemic/urine levels, except drugs with <3 dilutions, which print NCCLS. Doses are guidelines; consider weight and renal/hepatic function. Urine interpretation for lower UTI only. Interpretations based on NCCLS M7-A2. Ticar/K Clav'ate for gram positives based on computer security manager's breakpoints. Tech : Source : URINE ID # : [id number] FINAL Report Date : / / : Collected : 12/02/17 11:10 12/04/17.0824.BKO. 12/03/17.1038.BKO. 12/04/17.0825.BKO.COMPLETE Performed By: #### [id number] #### [facility],[address] [place] [address] ALLERGIES ALLERGIES DATE TYPE / CODE NAME / CODE REACTION SEVERITY SOURCE 09/30/2018 Drug No Known Unknown [facility] Allergy/416 Allergies/T37652 Hospital 598611(SNOM 0388(RXNORM) Repository ED CT) Drug NO KNOWN [facility] Class/27300 ALLERGIES Repository 1003(SNOMED CT) Drug/095500 No Known Yazidism 003(SNOMED Allergies [facility]) System Repository ENCOUNTERS ENCOUNTERS ADMIT/DISCHARGE ACCOUNT NUMBER ADMITTING ENCOUNTER LOCATION SOURCE CLASS 11/04/2018 [id number] [facility] ding:[facility] Repository 10/28/2018/10/28/[id number] Repository 10/17/2018 [id number] [facility] ding:MTLAB Repository 10/07/2018/10/07/20 [id number] Ambulatory [address] ding:SDCRoom Repository : AC07 10/01/2018/10/01/20 [id number] [facility] Yazidism Yazidism [facility] ding:[facility] Repository 10/01/[id number] Repository 09/24/2018/09/24/20 [id number] Ambulatory BMSBuilding: [place] 18 BMS.[facility] Repository 09/11/2018 [id number] Ambulatory [facility] ding: Repository 08/05/2018 [id number] [facility] 07/22/2018/07/22/20 [id number] DANNY [address] Repository 07/04/2018 [id number] Ambulatory BMSBuilding: [place] BMS.[facility] Repository 06/27/2018 [id number] Ambulatory BMSBuilding: [place] BMS.[facility] Repository 06/20/2018 [id number] Ambulatory BMSBuilding: [place] BMS.[facility] Repository 05/31/2018 [id number] Ambulatory BMSBuilding: [place] BMS.[facility] Repository 05/17/2018/05/17/20 [id number] LOPEZ SANCHEZ Ambulatory [address] Repository 05/16/2018/05/16/20 [id number] Ambulatory BMSBuilding: [place] 18 BMS.[facility] Repository 05/12/2018 [id number] Ambulatory BMSBuilding: [place] BMS.[facility] Repository 05/05/2018 [id number] Ambulatory BMSBuilding: [place] BMS.[facility] Repository 05/05/2018/08/18/[id number] ding:[facility] Repository 05/05/2018 [id number] Ambulatory [address] [place] [address] Repository 04/09/2018 [id number] Ambulatory BMSBuilding: [place] [facility] Repository 04/08/2018 [id number] Ambulatory [facility] ding:[facility] Repository 04/04/2018/04/04/20 [id number] Ambulatory BMSBuilding: [place] 18 BMS.[facility] Repository 04/02/2018/04/02/20 [id number] Emergency [address] ding:ED Repository 03/26/2018/03/26/20 [id number] Ambulatory Building:[place] [address] [place] Three SSNER Repository 03/19/2018/03/19/20 [id number] [address] Rep[address] ing:Smita rodriguez 03/18/2018/03/18/20 [id number] Ambulatory Building:[place] [address] [place] Three SSNER Repository 03/18/2018/03/18/20 [id number] Ambulatory Building:[place] [address] [place] Three SSNER Repository 03/18/2018/03/18/20 [id number] Ambulatory Building:[place] [address] [place] Three SSNER Repository 03/18/2018/03/18/[id number] Graeme Ambulatory [address] lding:B23 [place] and Jorge Araya m: B23 [facility] 2302Bed: B23 Repository [id number] 03/18/2018 [id number] Ambulatory Building:[facility] [place] Three SSNER Repository 03/05/2018/03/05/20 [id number] Ambulatory Building:[place] [address] [place] Three SSNER Repository 01/30/2018/01/31/20 [id number] Ambulatory [facility], Yazidism 18 DOBuilding:[facility] Repository 01/30/2018/01/31/20 [id number] LOPEZ SANCHEZ [address] Repository 01/24/2018/01/25/20 [id number] Britt, [address] ding:CD:[address] [place] [address]Czqb: Repository CD:[id number] 01/01/2018/01/01/20 [id number] LOPEZ SANCHEZ [address] Repository 12/17/2017/12/17/19 [id number] Britt, [address] ding:[facility] Repository 12/17/2017/12/17/19 [id number] Britt, [address] ding:CD:[address] [place] [address]Lmaf: Repository CD:[id number] 12/02/2017/12/02/19 [id number] LOPEZ SANCHEZ [address] Repository PAYERS PAYERS ENCOUNTER GUARANTOR PAYER SUBSCRIBER SOURCE 11/04/2018 EKERTHI RODGERS564 Primary KEERTHI HASSAN: [place] JUAREZ Insurance:ANTHGRABIEL [id number] Community [address], [facility] [place] [address]Rzb: ADVANTAPolicy Number: Repository [id number] (HP) Date:2413-79-49YH[address] [address]UR: 11/04/2018 Secondary NOT GIVENUNK [place] Insurance:SELF PAY [facility] Number: Effective Repository Date:2018-10-28 10/28/2018 KEERTHI Carvajal Primary KEERTHI Carvajal MADHUB: Bulmaro LEUNGB: Insurance:ANTHEM BLUE [id number] [facility] CROSS MEDICARE SR Hospital STATE ROUTE OUTPATIENTPolicy [address] [place] [address], Repository [address] [place] [address], [place]: [place] [id number] [place] [address]Hxe: [id number] Date:Plan Name:B3 () 10/17/2018 KEERTHI Carvajal [id number] Primary KEERTHI Carvajal MADHUB: [place] SR Insurance:ANTHEM [id number] Community [address] [facility] [facility] [place] [address]Ado: ADVANTAPolicy Number: Repository [id number] () Date:7877-58-32KI [address] [place] [address]TP: 10/17/2018 Secondary NOT GIVENUNK [place] Insurance:SELF PAY [facility] Number: Effective Repository Date:2018-10-17 10/07/2018 KEERTHI Carvajal [id number] Primary KEERTHI Carvajal MADHUB: [place] SR Insurance:ANTHEM [id number] Community [address] [facility] [place] [address]Ppz: ADVANTAPolicy Number: Repository [id number] () Date:3120-46-47GQ [address] [place] [address]DX: 10/07/2018 Secondary NOT GIVENUNK [place] Insurance:SELF PAY [facility] Number: Effective Repository Date:2018-09-18 10/01/2018 KEERTHI Carvajal Primary KEERTHI Carvajal MADHUB: [place] LEUNGB: Insurance:ANTHEMPolicy [id number] [facility] Number: Effective STATE ROUTE System STATE ROUTE Date:2018-10-01 - [address] [place] [address], Repository [address] [place] [address], [id number] [place] Name::[id number] [address] [address]Iyz: [address]Sen: [id number], [place] [address]AR: (562) (HP)Tel: (200) (HP) [phone] () 10/01/2018 KEERTHI LEUNGB: Primary KEERTHI HASSAN: [place] Insurance:[facility] [id number] Hospitals STATE ROUTE Number: STATE ROUTE Repository [address] [place] [address], [id number] [address] [place] [address] Date:Plan Name:[facility] [id number]: [id number]: (HP) (HP) 09/24/2018 KEERTHI SÁNCHEZ Primary KEERTHI HASSAN: [place] SR Insurance:ANTHEM [id number] Community [address] [facility] [facility] [place] [address]Liy: ADVANTAPolicy Number: Repository [id number] () Date:6425-02-30JH [address]KJ, [place] [address]GK: 09/24/2018 Secondary NOT GIVENUNK [place] Insurance:SELF PAY [facility] Number: Effective Repository Date:2018-09-24 09/11/2018 KEERTHI METCALF4 Primary KEERTHI HASSAN: [place] SR Insurance:ANTHEM [id number] Community [address], [facility] [facility] [place] [address]Xpl: ADVANTAPolicy Number: Repository [id number] () Date:1838-88-46KU [address]FDZFAAP, [place] [address]GW: 09/11/2018 Secondary NOT GIVENUNK [place] Insurance:SELF PAY [facility] Number: Effective Repository Date:2018-08-28 08/05/2018 KEERTHI Carvajal Primary KEERTHI HASSAN: Bulmaro HASSAN: Insurance:ANTHEM JULIANA [id number] [facility] CROSS MEDICARE SR Hospital STATE R[address]TE OUTPATIENTPolicy [address], Repository [facility], Number: [place] [id number] [place] [address]Eea: [id number] Date:Plan Name: () 07/22/2018 KEERTHI Carvajal Primary KEERTHI LEUNGB: Bul[place]o LEUNGB: [facility] [id number] Memorial MEDICAREPolicy Number: STATE ROUTE Hospital STATE ROUTE [id number] [facility] Repository [facility], Date:3773-81-58Ddpr [place] [address] [place] [address]Aig: Name: () 07/04/2018 KEERTHI METCALF4 Primary KEERTHI LEUNGB: [place] [address] R[address]TE Insurance:ANTH [id number] Community [address] [facility] [place] [address]Yap: ADVANTAPolicy Number: Repository [id number] () Date:1331-26-20ED [address]XREFWXM [place] [address]DL: 07/04/2018 Secondary NOT GIVENUNK [place] Insurance:SELF PAY [facility] Number: Effective Repository Date:2018-07-04 06/27/2018 KEERTHI RODEGRS564 Primary KEERTHI LEUNGB: [place] [address] R[address]TE Insurance:ANTH [id number] Community [address] [facility] [place] [address]Gwx: ADVANTAPolicy Number: Repository [id number] () Date:9458-35-33FG [address]UTDTSAQ [place] [address]XF: 06/27/2018 Secondary NOT GIVENUNK [place] Insurance:SELF PAY [facility] Number: Effective Repository Date:2018-06-27 06/20/2018 KEERTHI RODGERS564 Primary KEERTHI LEUNGB: [place] [address] Insurance:ANTH [id number] Community [address] [facility] [place] [address]Pqh: ADVANTAPolicy Number: Repository [id number] (HP) Date:6045-00-13PE [address]TBWIKOB, [place] [address]SX: 06/20/2018 Secondary NOT GIVENUNK [place] Insurance:SELF PAY [facility] Number: Effective Repository Date:2018-06-20 05/31/2018 KEERTHI RODGERS564 Primary KEERTHI Carvajal MOTKelsieDOB: [place] [address] Insurance:ANTHEM [id number] Community [address] [facility] [place] [address]Fso: ADVANTAPolicy Number: Repository [id number] () Date:7745-05-85LG [address]BSJMWUY, [place] [address]MV: 05/31/2018 Secondary NOT GIVENUNK [place] Insurance:SELF PAY [facility] Number: Effective Repository Date:2018-05-31 05/17/2018 KEERTHI Carvajal Primary KEERTHI LEUNGB: Bulmaro Marte MOTTB: Insurance:SAM ANDREWS [id number] Memorial MEDICAREPolicy Number: [facility] STATE ROUTE [id number] [place], Repository [place], Date:1312-55-51[place]wy [place] [address] [place] [address]Txg: Name: () 05/16/2018 KEERTHI [id number] Primary KEERTHI Carvajal MOTCHAYITOB: [place] [address] R[address] Insurance:ANTHEM [id number] Community [address] [facility] [place] [address]Ash: ADVANTAPolicy Number: Repository [id number] () Date:0557-99-88CE [address]CWZFNIV, [place] [address]VS: 05/16/2018 Secondary NOT GIVENUNK [place] Insurance:SELF PAY [facility] Number: Effective Repository Date:2018-05-16 05/12/2018 KEERTHI Carvajal [id number] Primary KEERTHI Carvajal MOTTDOB: [place] [address] R[address]TE Insurance:ANTHEM [id number] Community [address] [place] [address]Ibq: ADVANTAPolicy Number: Repository [id number] (HP) Date:0546-34-82BV [address]VTTIRSS [place] [address]GU: 05/12/2018 Secondary NOT GIVENUNK [place] Insurance:SELF PAY [facility] Number: Effective Repository Date:2018-05-12 05/05/2018 KEERTHI Carvajal [id number] Primary KEERTHI Carvajal MOTTDOB: [place] [address] Insurance:ANTHEM [id number] Community [address] [facility] [place] [address]Lqx: ADVANTAPolicy Number: Repository [id number] (HP) Date:5110-13-34HL [address] [place] [address] [place] [address]BZ: 05/05/2018 Secondary NOT GIVENUNK [place] Insurance:SELF PAY [facility] Number: Effective Repository Date:2018-05-05 05/05/2018 KEERTHI Carvajal Primary KEERTHI Carvajal MOTTDOB: [facility]: Insurance:ANTHEMPolicy [id number] [facility] Number: Effective STATE ROUTE System STATE ROUTE Date:2018-05-05 - [address] [place] [address] [id number] [place] [id number]: [place] Name:CD:[id number]: [id number] [place] ()Tel: (000) [phone]: () (OH) [phone] 05/05/2018 KEERTHI Carvajal Primary KEERTHI Carvajal MOTTDOB: [place] MOTTDOB: Insurance:AnthemPolicy [id number] [facility] Number: STATE ROUTE Repository STATE ROUTE [id number] [address] [place] [address], Date:Plan Name:[facility] [id number]: [place] [id number]: (HP) (HP) 04/09/2018 KEERTHI Wei [id number] Primary KEERTHI Carvajal MADHUB: [place] [address] Insurance:ANTH [id number] Community [address] [place] [facility] [address]Wij: ADVANTAPolicy Number: Repository [id number] (HP) Date:8018-36-56VL [address] [place] [address] [place] [address]NW: 04/09/2018 Secondary NOT GIVENUNK [place] Insurance:SELF PAY [facility] Number: Effective Repository Date:2018-04-04 04/08/2018 KEERTHI RODGERS564 Primary Insurance:SELF NOT GIVENUNK [place] STATE ROUTE PAY [address], Number: Effective Hospital [place] [address]Eki: Date:2018-04-07 Repository (HP) 04/04/2018 KEERTHI RODGERS564 Primary KEERTHI LEUNGB: [place] [address] Insurance:ANTHEM [id number] Community [address] [facility] [facility] [place] [address]Rax: ADVANTAPolicy Number: Repository [id number] (HP) Date:9123-33-00KM [address]DKGWHWA, [place] [address]DK: 04/04/2018 Secondary NOT GIVENUNK [place] Insurance:SELF PAY [facility] Number: Effective Repository Date:2018-04-04 04/02/2018 Keerthi Velozt564 Primary Keerthi Hassan: [place] SR Insurance:ANTH [id number] Community [address] [facility] [place] [address]Dgo: ADVANTAPolicy Number: Repository [id number] (HP) Date:0334-45-48RQ [address]XDXTEDF, [place] [address]GB: 04/02/2018 Secondary NOT GIVENUNK [place] Insurance:SELF PAY [facility] Number: Effective Repository Date:2018-04-02 03/26/2018 KEERTHI Carvajal Primary KEERTHI Carvajal MOTTDOB: [facility] MOTTDOB: Insurance:ANTHEM [id number] Three Repository MANAGED MEDICAREPolicy ST RT ST RT Number: [place] BRODERICK [id number] [place] [address] [place] [address]Cwq: Date:9646-73-37JP [address] () [address]UO: 03/19/2018 KEERTHI Carvajal Primary [facility]ERTHI Wei [facility] [id number] [facility] Number: Effective STATE ROUTE System STATE ROUTE Date:2018-02-03 - DAVIE, Repository DAVIE, 3066-62-54Ijvp [place] [id number]: [place] Name:CD:884136ML [address]Isx: [id number] STONER ()Tel: (000) 30[address]WP: (wp) (LS) [phone] 03/18/2018 KEERTHI Wei Primary KEERTHI Carvajal [facility] Insurance:ANTHEM [id number] Three Repository MANAGED MEDICAREPolicy ST RT ST RT Number: [address] JIMÉNEZ, [id number] [place] [address] [place] [address]Quo: Date:8008-51-15OD [address] LEMUS () [address]OK: 03/18/2018 KEERTHI Carvajal Primary KEERTHI Carvajal MOTTDOB: [facility] Insurance:ANTHEM [id number] Three Repository MANAGED MEDICAREPolicy ST RT ST RT Number: [place], [place], [id number] [place] [address] [place] [address]Qcf: Date:2779-07-15CT [address]WHQKDOY, [place] () [address]DU: 03/18/2018 KEERTHI Carvajal Primary KEERTHI Carvajal MOTTDOB: [facility] MOTTDOB: Insurance:ANTHEM [id number] Three Repository MANAGED MEDICAREPolicy ST RT ST RT Number: [place], [place], [id number] [place] [address] [place] [address]Lhe: Date:1846-05-40TT [address]KZLLKKSJEANE STONER () [address]HC: 03/18/2018 Primary Insurance:[place] KEERTHI Carvajal MOTTDOB: [address] [id number] [place] and Number: ST RT [facility] [id number] [address], Repository Date:Plan [place] [address]Kpq: Name:[facility] PayerSJersey City Medical Centersrikanth [place] () [address]BM: 03/18/2018 Secondary KEERTHI Carvajal MOTTDOB: [facility] Insurance:[place] [id number] [facility] Number: ST RT [facility] [id number] [address], Repository ctive Date: - [place] [address]Wqz: 9995-48-17Lfxv Name:[place] [address] () [place], [place] [address]AX: 03/18/2018 KEERTHI Carvajal Primary KEERTHI Carvajal MOTTDOB: [facility] MOTTDOB: Insurance:ANTHEM [id number] Three Repository MANAGED MEDICAREPolicy ST RT ST RT Number: [place], [place], [id number] [place] [address] [place] [address]Ico: Date:3394-46-38BC [address] () [address]WJ: 03/05/2018 KEERTHI Carvajal Primary KEERTHI Carvajal MOTTDOB: [facility] MOTTDOB: Insurance:ANTHEM [id number] [facility] Repository MANAGED MEDICAREPolicy [facility] RT Number: 95[place] [address], [id number] [place] [address] [place] [address]Oqo: Date:9521-28-05VI [address] () [address]ID: 01/30/2018 KEERTHI Carvajal Primary KEERTHI Carvajal MOTTDOB: [facility] Hospital[facility] [id number] [facility] Number: Effective STATE ROUTE System STATE ROUTE Date:2018-01-03 - DAVIE, Repository DAVIE, [id number] [place] [id number]: [place] Name:CD:[id number] [address]Tmm: 255784ZPWDHTI, [place] ()Tel: (000) [address]YK: () () [phone] 01/30/2018 KEERTHI Carvajal Primary KEERTHI Carvajal MOTTDOB: Bulmaro Marte MOTTDOB: Insurance:ANTHEM [place] [id number] [facility]ARETemple University Hospitaly Number: [facility] STATE ROUTE [id number] DAVIE, Repository DAVIE, Date:9308-66-98[place]qva [place] [address] [place] [address]Vku: Name: () 01/24/2018 KEERTHI Carvajal Primary KEERTHI Carvajal MOTTDOB: [place] MOTTDOB: Insurance:ANTHEMPolicy [id number] [facility] Number: Effective STATE ROUTE System STATE ROUTE Date:2018-01-24 - DAVIE, Repository DAVIE, 5536-69-16Bssj [place] [id number]: [place] Name:CD:[id number] [address]Ivt: 2399[address]WFETBEL, [place] ()Tel: (000) [phone]: (WP) () [phone] 01/01/2018 KEERTHI J Primary KEERTHI J MOTTDOB: Bulmaro Marte MOTTDOB: Insurance:ANTHEM BLUE [id number] [facility] MEDICAREPolicy Number: [facility] STATE ROUTE [id number] 95JESSY, Repository 95JESSY, Date:[id number] [place] [id number] [place] [address]Zxx: Name:B2 () 12/17/2017 [facility] Primary KEERTHI J MOTTDOB: [employer]az[employer] MOTTDOB: Insurance:ANTHEMPolicy [id number] [facility] Number: Effective STATE ROUTE System STATE ROUTE Date:2017-12-17 - DAVIE, Repository DAVIE, [id number] [place] [id number]: [place] Name:[id number]: [id number], [place] ()Tel: [phone]: (WP) () [phone] 12/17/2017 KEERTHI J Primary KEERTHI J MOTTDOB: Yazidism MOTTDOB: Insurance:ANTHEMPolicy [id number] [facility] Number: Effective STATE ROUTE System STATE ROUTE Date:2017-12-17 - DAVIE, Repository MalenaESTIVEN, [id number] [id number]: [place] Name:CD:[id number]: [id number], [place] ()Tel: [phone]: [phone] 12/02/2017 KEERTHI Carvajal Primary KEERTHI LEUNGB: Bulmaro Marte MOTTDOB: Insurance:[facility] [id number] [employer] [id number] MEDICAREPolicy Number: [facility] STATE R[facility]TE [id number] [facility], Repository [facility], Date:[id number] [address] [place] [address]Bmd: Name:[id number] ()
== END ==
PROVIDERS: Family Provider Nurse Practitioner Family; PCP Nurse Practitioner Family; Referring Provider Urology; Visit Provider Urology
DX: R31.9 Hematuria, unspecified (principal)
CPT/HCPCS: 36415; 85025

== ENCOUNTER → 2022-04-05 | Outpatient (CLI) | payer MEDICARE, SELFPAY ==
--- NOTE | 2022-04-05 13:55 | ECHODONC_ITS ---
Reason For Study: POST LUNG RADIATION Procedure This was a 2D Doppler, Color Flow transthoracic echocardiogram. Myocardial strain analysis was performed in this exam to aid in the assessment of cardiac function. The study was technically difficult. Exam performed in department. Left Ventricle Normal LV size. Left ventricular systolic function is normal. The estimated ejection fraction is 65 %. The prior global longitudinal strain was -19 % . Diastolic function is indeterminate. No regional wall motion abnormalities noted. Right Ventricle Normal RV size. Normal systolic function. Atria The left atrium is mildly enlarged. Normal right atrium. No doppler evidence for ASD. Mitral Valve There is mild mitral annular calcification. Extension of the mitral annular calcification on the base of the posterior mitral valve leaflet. Mild (1+) mitral valve insufficiency. Tricuspid Valve Normal tricuspid valve. Mild tricuspid valve insufficiency. Right ventricular systolic pressure estimated to be 33 mmHg. Aortic Valve Trisinus/trileaflet aortic valve. Mild diffuse aortic valve thickening. Mild focal aortic valve calcification. Trivial aortic valve insufficiency. Pulmonic Valve The pulmonic valve is not well visualized. Trivial pulmonic valve insufficiency. Great Vessels Normal sized aortic root. Pericardium/Pleural No pericardial effusion. MMode/2D Measurements & Calculations LVIDd: 3.5 cm IVSd: 1.1 cm Ao root diam: 3.0 cm LVIDs: 2.4 cm LVPWd: 1.0 cm RVDd: 2.9 cm FS: 32.0 % LAV(MOD-bp): 35.3 ml LVAd ap4: 21.0 cm2 SV(MOD-sp4): 37.5 ml LAV(MOD-bp) Indexed: 22.5 ml/m2 LVLd ap4: 6.2 cm LAV(MOD-sp2): 38.6 ml EDV(MOD-sp4): 57.6 ml LAV(MOD-sp4): 31.3 ml EDV(sp4-el): 60.4 ml LVAs ap4: 11.0 cm2 LVLs ap4: 5.1 cm ESV(MOD-sp4): 20.2 ml ESV(sp4-el): 20.1 ml EF(MOD-sp4): 65.0 % EF(sp4-el): 66.7 % SV(sp4-el): 40.3 ml LA A4 area: 13.5 cm2 LA dimension(2D): 3.5 cm RA A4 area: 10.7 cm2 Time Measurements MV dec time: 0.31 sec Doppler Measurements & Calculations MV E max kyree: 66.9 cm/sec Lat Peak E' Kyree: 6.8 cm/sec Med Peak E' Kyree: 4.7 cm/sec MV A max kyree: 112.2 cm/sec E/E' lat: 9.9 E/E' med: 14.4 MV E/A: 0.60 Ao V2 max: 173.5 cm/sec AI max kyree: 437.0 cm/sec LV V1 max: 102.0 cm/sec Ao max P.0 mmHg AI max P.4 mmHg LV V1 max P.2 mmHg AI dec slope: 218.6 cm/sec2 AI P1/2t: 585.6 msec PA V2 max: 98.1 cm/sec PI end-d kyree: 102.2 cm/sec TR max kyree: 272.3 cm/sec TR max P.7 mmHg ECHO/ONC Echo Complete Interpretation Summary The study was technically difficult. Left ventricular systolic function is normal. The estimated ejection fraction is 65 %. The prior global longitudinal strain was -19 % . The left atrium is mildly enlarged. There is mild mitral annular calcification. Extension of the mitral annular calcification on the base of the posterior mitr al valve leaflet. Mild (1+) mitral valve insufficiency. Mild tricuspid valve insufficiency. Mild diffuse aortic valve thickening. Mild focal aortic valve calcification. Trivial aortic valve insufficiency. Trivial pulmonic valve insufficiency. Right ventricular systolic pressure estimated to be 33 mmHg. Diastolic function is indeterminate. Ordering Physician: Andrey Mensah/Juno Isaacs Referring Physician: BHARATH LIZ Performed By: Maile Thompson RDCS
== END | disposition home or self-care (01) ==
LOC: CVS 13:54
PROVIDERS: PCP Internal Medicine; Referring Provider Nurse Practitioner Family; Visit Provider Nurse Practitioner Family
DX: I48.0 Paroxysmal atrial fibrillation (principal); C34.90 Malignant neoplasm of unspecified part of unspecified bronchus or lung; R06.02 Shortness of breath; Z92.3 Personal history of irradiation
CPT/HCPCS: 93306; 93356

== ENCOUNTER 2023-10-30 13:39 | Inpatient (IN) | payer MEDICARE, SELFPAY ==
[2023-10-30] VITALS (7 sets, daily range): BP systolic 102–129; BP diastolic 62–89; PULSE 63–104; RESP 15–20; TEMP 36.2–36.3; O2SAT 90–98; BMI 24.7; BMI 23.8
--- NOTE | 2023-10-30 13:51 | EKG12_ITS ---
Test Reason : SOB Blood Pressure : / mmHG Vent. Rate : 123 BPM Atrial Rate : 000 BPM P-R Int : 000 ms QRS Dur : 098 ms QT Int : 336 ms P-R-T Axes : 000 -27 049 degrees QTc Int : 481 ms Atrial fibrillation with rapid ventricular response Cannot rule out Anterior infarct , age undetermined Abnormal ECG Confirmed by MEL HERNÁNDEZ, CHESTER ([id number]), technical editor BRIAN FOSTER ([id number]) on 11/04/2023 1:46:27 P M Referred By: JOSE/FELICIA Confirmed By:MICHELLE LEAL MD
--- NOTE | 2023-10-30 13:53 | EDS_ITS ---
HPI History of Present Illness Chief Complaint: Chest Pain Detail of Chief Complaint: Shortness of breath and chest pain Informant: patient and family Narrative Narrative: Patient presents to the emergency department with complaint of shortness of breath that started about a week ago. Patient also complains of intermittent chest tightness. Patient has had a slight cough. Denies fever. Recently treated for UTI with Bactrim. Patient had some blood work recently that showed an elevated BNP and she had Lasix started yesterday. Patient has history of A- fib but no longer anticoagulated as she is a risk of falls. Patient used to be on digoxin but apparently was discontinued recently. Patient denies recent travel or surgery. Patient has history of dementia and a lot of the history comes from the patient's family member. [facility] Medical History Atherosclerotic heart disease of [place] coronary artery without angina pectoris Essential (primary) hypertension Intracranial hemorrhage Lesion of bladder senior living (current) use of anticoagulants Lung cancer Paroxysmal atrial fibrillation Pre-operative cardiovascular examination Pure hypercholesterolemia Skin cancer Home Medications levothyroxine 88 mcg tablet 88 mcg PO QDAY #90 tabs 05/19/18 [Rx Last Taken 10/07/18 06:00] lovastatin 10 mg tablet 10 mg PO QHS 09/24/18 [History Last Taken Unknown] metoprolol succinate 100 mg tablet,extended release 24 hr 100 mg PO DAILY 09/24/18 [History Last Taken 10/07/18 06:00] omeprazole 20 mg tablet,delayed release 20 mg PO DAILY 07/29/20 [History Last Taken Unknown] cetirizine 10 mg tablet (Zyrtec) 10 mg PO DAILY PRN allergies 03/14/22 [History Last Taken Unknown] dapagliflozin propanediol 5 mg tablet (Farxiga) 5 mg PO DAILY 03/14/22 [History Last Taken Unknown] lisinopril 20 mg tablet 20 mg PO DAILY 03/14/22 [History Last Taken Unknown] multivitamin 1 tab PO DAILY 03/14/22 [History Last Taken Unknown] famotidine 20 mg tablet (Pepcid) 20 mg PO DAILY 09/19/22 [History Last Taken Unknown] metformin 750 mg tablet,extended release 24 hr 750 mg PO BID 09/19/22 [History Last Taken Unknown] furosemide 40 mg tablet 40 mg PO DAILY #30 tabs 10/28/23 [Rx Last Taken Unknown] albuterol sulfate 90 mcg/actuation aerosol inhaler 1 puff inhalation DAILY PRN 10/30/23 [History Last Taken Unknown] cholestyramine (with sugar) 4 gram powder for susp in a packet 1 ea PO Q6H PRN diarhhea 10/30/23 [History Last Taken Unknown] donepezil 10 mg tablet 10 mg PO DAILY 10/30/23 [History Last Taken Unknown] memantine 10 mg tablet 10 mg PO BID 10/30/23 [History Last Taken Unknown] paroxetine HCl 30 mg tablet 30 mg PO DAILY 10/30/23 [History Last Taken Unknown] Allergy/AdvReac Type Severity Reaction Status Date / Time No Known Allergies Allergy Verified 10/30/23 13:40 Family History Mother CHF (congestive heart failure) Hypertension Sister Hypertension Surgical History H/O tubal ligation H/O: hysterectomy History of bunionectomy of left great toe History of knee replacement History of right shoulder replacement History of tonsillectomy Hx of appendectomy Hx of cholecystectomy Social History Smoking Status: Former smoker how long ago did patient quit smokin years ago alcohol intake: current alcohol intake frequency: holidays/special occasions only substance use type: does not use caffeine: Yes Type: coffee Number of servings: 1 what type of physical activity do you participate in: walking frequency: daily ROS ROS ED Review of Systems ROS Unobtainable: other Constitutional Constitutional ED: Reports lethargy; Denies chills, fever(s), sweats or weight loss Eyes Eyes: Denies blurry vision, change in vision or diplopia ENT ENT ED: Denies rhinorrhea or sore throat Cardiovascular Cardiovascular: Reports chest pain; Denies orthopnea or racing heartbeat Respiratory/Chest Respiratory/Chest: Reports cough, dyspnea and dyspnea on exertion; Denies orthopnea or sputum Gastrointestinal Gastrointestinal: Denies abdominal pain, diarrhea, nausea or vomiting Genitourinary Genitourinary ED: Denies dysuria, hematuria or urinary frequency Musculoskeletal Musculoskeletal: Denies arthralgias, back pain, myalgias or neck pain Integumentary Denies abscess, Abrasions or rash Neurologic Neurologic: Denies headache(s) or weakness Psychiatric Psychiatric: Denies anxiety, depression or suicidal thoughts Endocrine Endocrinology: Denies polydipsia, polyphagia or polyuria Hematologic/Lymphatic Hematologic/Lymphatic: Denies easy bleeding, easy bruising or lymphadenopathy Allergic/Immunologic Allergic/Immunologic ED: Denies mouth swelling, tongue swelling or urticaria EXAM Physical Exam Const Vital Signs: 10/30/23 13:40 10/30/23 13:46 10/30/23 14:39 Temperature 97.1 F L Temperature Source Temporal Pulse Rate 104 H 75 Respiratory Rate 20 H 15 Respiratory Effort Short of Breath Blood Pressure 129/89 H 105/62 Blood Pressure Mean 102 76 Pulse Ox 96 90 Oxygen Delivery Method Room Air Room Air Positive well nourished and well developed General Appearance ED: well developed and NAD HEENT Reports TM's clear and moist mucous membranes normocephalic and atraumatic; Negative for trauma or tenderness Tympanic Membrane ED: Yes TM's clear Eyes PERRL and EOMs intact bilaterally General Eye ED: Negative for pale conjunctiva or scleral icterus Neck no lymphadenopathy, supple and no JVD General: Negative for tenderness Chest Wall inspection of chest normal and palpation of chest normal Chest: Negative for tenderness Resp normal respiratory effort and clear to auscultation bilaterally Resp Narrative: Patient with some mild conversational dyspnea. She has some rales in both bases. No accessory muscle use or retractions. Effort and Inspection: Negative for respiratory distress or pain with movement Auscultation: rales; Negative for rhonchi, wheezes or diminished lung sounds Cardio S1 normal heart sound, S2 normal heart sound and no murmurs; Negative for regular rate or regular rhythm Rhythm: abnormal rhythm irregularly irregular Peripheral Pulses: pulses 2+ throughout GI normal to inspection, nondistended, normoactive bowel sounds, soft to palpation, non-tender, non-distended and no masses Back/Spine no CVA tenderness and no thoracic nor lumbar tenderness Extremity normal to inspection General Extremety ED: Negative for edema General Extremity: Negative for edema Neuro oriented x3, CN's II-XII intact bilaterally, no sensory deficits noted and gait normal Sensorium / Orientation: awake, alert, oriented to person, oriented to place and oriented to time Motor Exam: strength 5/5 throughout and strength abnormal Psych mental status grossly normal Skin no rashes or lesions noted and no wounds MDM MDM MDM Narrative Medical decision making narrative: Presents with dyspnea and intermittent chest discomfort. Patient with history of A-fib. Recently started Lasix for elevated BNP. Patient denies weight gain or excessive swelling in her legs. EKG obtained arrival showed atrial fibrillation with rapid ventricular response with a rate of 123 bpm. Patient had a CBC with differential that showed a white of 8.5 with hemoglobin 12 and platelet count of 161. Chemistries unremarkable. BUN 27 creatinine 1.4. Lactate was 4.3. Troponin normal at 12 and BNP was 1136. Urinalysis unremarkable. Chest mild CHF. While in the department heart rate improved to 70s and repeat EKG now shows a sinus rhythm. COVID and flu testing was positive for influenza A. It was noted patient had a echocardiogram a year and a half ago that showed an ejection fraction of 65%. At this point discussed results with patient and family members will recommend admission as I suspect her dyspnea is related to paroxysmal A-fib causing CHF. Patient also with influenza. Lab Data Labs: Laboratory Results - last 24 hr 10/30/23 10/30/23 10/30/23 03:35 14:10 14:36 WBC 8.5 RBC 4.13 L Hgb 12.0 Hct 39.6 MCV 95.9 MCH 29.1 MCHC 30.3 L RDW Std Deviation 59.6 H RDW Coeff of Danielle 17.1 H Plt Count 161 MPV 10.1 Immature Gran % (Auto) 0.900 Neut % (Auto) 67.2 Lymph % (Auto) 18.4 L [place] % (Auto) 10.9 H Eos % (Auto) 1.9 Baso % (Auto) 0.7 Absolute Neuts (auto) 5.7 Absolute Lymphs (auto) 1.57 Nucleated RBC % 0 D-Dimer Quant (PE/DVT) < 0.27 L Sodium 138 Potassium 4.3 Chloride 109 H Carbon Dioxide 20.0 L Anion Gap 9 BUN 27 H Creatinine 1.41 H Estim Creat Clear Calc 23.61 Est GFR (MDRD) Af Amer 46 L Est GFR (MDRD) Non-Af 38 L BUN/Creatinine Ratio 19.1 Glucose 191 H Lactic Acid 4.3 H* Calcium 8.8 Troponin I High Sens 12 B-Natriuretic Peptide 1136.1 H Urine Color Yellow Urine Clarity Clear Urine pH 6.0 Ur Specific [place] 1.015 Urine Protein Negative Urine Glucose (UA) 1000 H Urine Ketones Negative Urine Occult Blood 25 H Urine Nitrite Negative Urine Bilirubin Negative Urine Urobilinogen Normal Ur Leukocyte Esterase Negative Urine RBC 0-5 SEEN Urine WBC 0-5 SEEN Ur Squamous Epith Cells 0-5 SEEN Urine Bacteria 0 SEEN Urine Mucus 0 SEEN Radiography Diagnostic Testing: Clinical Impression(s) from Imaging Studies Chest X-Ray 10/30/23 14:20 IMPRESSION: Mild degree of CHF with blunting of the right costophrenic angle and bibasilar atelectasis. Electronically Signed: Willie Browning MD at 14:52 EST , Discharge Plan Triage Chief Complaint: Chest Pain ED Provider: Edna Clark Dx/Rx/DC Orders Clinical Impression: Influenza A, CHF (congestive heart failure), Paroxysmal A-fib, Chest pain Prescriptions: No Action metoprolol succinate 100 mg tablet extended release 24 hr 100 mg PO DAILY lovastatin 10 mg tablet 10 mg PO QHS omeprazole 20 mg tablet,delayed release (DR/EC) 20 mg PO DAILY Farxiga 5 mg tablet 5 mg PO DAILY lisinopril 20 mg tablet 20 mg PO DAILY cetirizine [Zyrtec] 10 mg tablet 10 mg PO DAILY PRN (Reason: allergies) multivitamin Tablet 1 tab PO DAILY metformin 750 mg tablet extended release 24 hr 750 mg PO BID famotidine [Pepcid] 20 mg tablet 20 mg PO DAILY cholestyramine (with sugar) 4 gram powder in packet 1 ea PO Q6H PRN (Reason: diarhhea) donepezil 10 mg tablet 10 mg PO DAILY paroxetine HCl 30 mg tablet 30 mg PO DAILY albuterol sulfate 90 mcg/actuation HFA aerosol inhaler 1 puff INHALATION DAILY PRN memantine 10 mg tablet 10 mg PO BID levothyroxine 88 mcg tablet 88 mcg PO QDAY Qty: 90 0RF furosemide 40 mg tablet 40 mg PO DAILY Qty: 30 11RF Primary Care Provider: Carlton Rasheed Referrals: ObGreta sylvester, DO [Non-Staff] - Disposition Disposition: Acute Care Hospital [facility]
[2023-10-30 14:01] LABS: Absolute Lymphocyte Count 1.57 X10^3/uL (0.83-4.51); Absolute Neutrophil Count 5.7 X10^3/uL (2.0-7.7); Basophil# 0.06 X10^3/uL; Basophil% 0.7 % (0-1); Eosinophil# 0.16 X10^3/uL; Eosinophils% 1.9 % (0-5); Hematocrit 39.6 % (37-47); Lymphocyte # 1.57 X10^3/ul (0.83-4.51); Lymphocyte % 18.4 % (19-41); Mean Corp Hgb Conc 30.3 g/dL (32-36); Mean Corpuscular Hgb 29.1 pg (27.0-32.0); Mean Corpuscular Volume 95.9 fL (81-99); Mean Platelet Vol. 10.1 fl (6.2-12.0); Monocyte# 0.93 X10^3/uL; Monocyte% 10.9 % (0-10); NRBC Flagged by Analyzer 0 % (0-5); Neutrophil # 5.72 X10^3/uL (2.7-7.7); Neutrophil % 67.2 % (47-70); Platelet Count 161 K/mm3 (150-450); RBC Distribution Width CV 17.1 % (11.6-14.6); RBC Distribution Width SD 59.6 fl (35.1-43.9); Red Blood Count 4.13 M/mm3 (4.2-5.4); White Blood Count 8.5 K/mm3 (4.4-11.0)
[2023-10-30 14:14] LABS: D-Dimer Quantitative (DVT/PE) < 0.27 FEU/ug/m (0.27-0.49)
[2023-10-30] MEDS: 0.9% Normal Saline (1000mL) 1,000 ML 15 ML IV (14:16)
[2023-10-30 14:17] LABS: Anion Gap 9 (5-15); BUN 27 mg/dL (7-18); BUN/Creat Ratio 19.1 RATIO (10-20); Calcium,Total 8.8 mg/dL (8.5-10.1); Chloride 109 mmol/L (98-107); Creatinine, Serum 1.41 mg/dL (0.55-1.02); EST Glomerular Filtration Rate 38 mL/min (>60); Est Glom Filt Rate - Afr Amer 46 mL/min (>60); Estimated Creatinine Clearance 23.61 ml/min; Glucose 191 mg/dL (74-106); Potassium 4.3 mmol/L (3.5-5.1); Sodium Level 138 mmol/L (136-145); Troponin-I HS 12 pg/mL (3.0-54.0)
[2023-10-30 14:20] LABS: BNP,B-Type NATRIURETIC PEPTIDE 1136.1 pg/mL (0-100)
--- NOTE | 2023-10-30 14:20 | RAD_ITS ---
STUDY: X-RAY CHEST REASON FOR EXAM: Female, 82 years old. dyspnea TECHNIQUE: Single AP portable view of the chest. COMPARISON: Comparison is made with prior study April 02, 2018. FINDINGS: EKG electrodes are seen. Stable blunting of the right costophrenic angle. Vascular congestion mild CHF. Atelectasis at the lung bases. Normal size heart. Normal mediastinum and olvin. Normal visualized pulmonary arteries. There is atherosclerotic calcification of the aortic arch with tortuosity. There are diffuse degenerative changes of the visualized thoracic spine. Status post right shoulder replacement. There is no demonstrated abnormality of the visualized soft tissue structures of the upper abdomen. RAD/Chest 1 View (Portable) IMPRESSION: Mild degree of CHF with blunting of the right costophrenic angle and bibasilar atelectasis. Electronically Signed: Willie Browning MD at 14:52 EST ,
--- NOTE | 2023-10-30 14:32 | EKG12_ITS ---
Test Reason : REPEAT Blood Pressure : / mmHG Vent. Rate : 072 BPM Atrial Rate : 072 BPM P-R Int : 162 ms QRS Dur : 092 ms QT Int : 404 ms P-R-T Axes : 094 -19 -02 degrees QTc Int : 442 ms Normal sinus rhythm Normal ECG Confirmed by MEL HERNÁNDEZ, CHESTER ([id number]), sound editor BRIAN FOSTER ([id number]) on 11/04/2023 1:46:51 P M Referred By: Confirmed By:MICHELLE LEAL MD
[2023-10-30 14:41] LABS: Bacteria 0 SEEN /hpf (None Seen); Mucous, Urine 0 SEEN /hpf (<or=2+)
[2023-10-30 14:50] LABS: Color, Urine Yellow (Yellow); Glucose, Dipstick 1000 mg/dl (Normal); Ketone-Dipstick Negative (Negative); Leukocyte Esterase-Dipstick Negative /ul (Negative); Nitrite-Dipstick Negative (Negative); Occult Blood-Urine 25 /ul (Negative); Protein-Dipstick Negative (Negative); Specific Gravity, Urine 1.015 (1.002-1.030); Urine Bilirubin Dipstick Negative (Negative); Urine Clarity Clear (Clear); Urine Urobilinogen Normal (Normal)
[2023-10-30 14:52] LABS: Lactic Acid 4.3 mmol/L (0.4-1.9)
[2023-10-30 15:00] LABS: Red Blood Cells-Urine 0-5 SEEN /hpf (0-5); Squamous Epithelial Cells - UA 0-5 SEEN /hpf (5-10); White Blood Cells 0-5 SEEN /hpf (0-5)
--- NOTE | 2023-10-30 15:06 | NURSING ---
DR JOO DUARTE
--- NOTE | 2023-10-30 15:26 | NURSING ---
PCU GE CHEST PAIN, ATRIAL FIB
--- NOTE | 2023-10-30 15:26 | PCM.HP.STD ---
HPI - General General Date of Admission: 10/30/23 Date of Service: 10/30/23 Chief Complaint: Increasing SOB HPI Narrative PARTH RODGERS, is a 82-year-old female with history of coronary artery disease, dementia, hypothyroidism, hypertension, diabetes, intracranial hemorrhage, paroxysmal atrial fibrillation presented to [facility] 10/30/2023 due to increasing shortness of breath and chest pain. Shortness of breath started a week ago and she has had intermittent chest tightness and a slight cough. Was recently treated for UTI with Bactrim and also had lab work recently which showed elevated BNP and she was started on Lasix yesterday however given her progressive symptoms she was brought to the ED. Of note she has history of A-fib but was taken off of anticoagulation as she is at risk of falls. EKG in ED initially A-fib 120s to 130s and apparently had been on digoxin but ran out and it was decided not to put her back on this, converted to sinus independently in ED however and was sinus in the 70s In the ED patient with BNP of 1200 and chest x-ray with some possible congestion and a lactic acid of 4.3. Concern the patient may have new onset heart failure/fluid overload so hospitalist contacted for admission. Patient evaluated at bedside with granddaughter present. They report that she has been in her usual health until about 4 to 5 days ago when she had progressive shortness of breath and a slight cough and just has not been feeling well, denies any fevers but said she is always cold, has some early satiety, also reports that when she is in A-fib she gets the feeling like something heavy is sitting on her chest but said it is only when she is in A-fib and is not experiencing that right now, main concern is her shortness of breath. Granddaughter reports patient has dementia and occasionally will see things that are not there but they did not get into this any further. Has some chronic headaches after a fall several years ago and other chronic medical complaints but no other acute changes. [facility] Medical History Atherosclerotic heart disease of [place] coronary artery without angina pectoris Essential (primary) hypertension Intracranial hemorrhage Lesion of bladder detention (current) use of anticoagulants Lung cancer Paroxysmal atrial fibrillation Pre-operative cardiovascular examination Pure hypercholesterolemia Skin cancer Home Medications lovastatin 10 mg tablet 10 mg PO QHS CHOLESTEROL 09/24/18 [History Last Taken 10/29/23] metoprolol succinate 100 mg tablet,extended release 24 hr 100 mg PO DAILY HIGH BLOOD PRESSURE 09/24/18 [History Last Taken 10/30/23] omeprazole 20 mg tablet,delayed release 20 mg PO DAILY ACID REFLUX 07/29/20 [History Last Taken 10/30/23] cetirizine 10 mg tablet (Zyrtec) 10 mg PO DAILY PRN allergies 03/14/22 [History Last Taken Unknown] dapagliflozin propanediol 5 mg tablet (Farxiga) 5 mg PO DAILY DIABETES 03/14/22 [History Last Taken 10/30/23] lisinopril 20 mg tablet 20 mg PO DAILY HIGH BLOOD PRESSURE 03/14/22 [History Last Taken 10/30/23] multivitamin 1 tab PO DAILY SUPPLEMENT 03/14/22 [History Last Taken 10/30/23] famotidine 20 mg tablet (Pepcid) 20 mg PO DAILY ACID REFLUX 09/19/22 [History Last Taken 10/30/23] metformin 750 mg tablet,extended release 24 hr 750 mg PO Q12H DIABETES 09/19/22 [History Last Taken 10/30/23] furosemide 40 mg tablet 40 mg PO DAILY FLUID #30 tabs 10/28/23 [Rx Last Taken 10/30/23] albuterol sulfate 90 mcg/actuation aerosol inhaler 1 puff inhalation DAILY PRN shortness of breath or wheezing 10/30/23 [History Last Taken 10/30/23] cholestyramine (with sugar) 4 gram powder for susp in a packet 1 ea PO Q6H PRN diarhhea 10/30/23 [History Last Taken 10/30/23] donepezil 10 mg tablet 10 mg PO DAILY ALZHEIMER'S 10/30/23 [History Last Taken 10/30/23] fluocinolone 0.01 % topical body oil 1 applic topical DAILY 10/30/23 [History Last Taken 10/30/23] levothyroxine 88 mcg tablet 88 mcg PO DAILY THYROID 10/30/23 [History Last Taken 10/30/23] memantine 10 mg tablet 10 mg PO BID ALHEIMER'S 10/30/23 [History Last Taken 10/30/23] paroxetine HCl 30 mg tablet 30 mg PO DAILY DEPRESSION 10/30/23 [History Last Taken 10/30/23] Allergy/AdvReac Type Severity Reaction Status Date / Time No Known Allergies Allergy Verified 10/30/23 13:40 Family History Mother CHF (congestive heart failure) Hypertension Sister Hypertension Surgical History H/O tubal ligation H/O: hysterectomy History of bunionectomy of left great toe History of knee replacement History of right shoulder replacement History of tonsillectomy Hx of appendectomy Hx of cholecystectomy Social History Smoking Status: Former smoker how long ago did patient quit smokin years ago alcohol intake: current alcohol intake frequency: holidays/special occasions only substance use type: does not use caffeine: Yes Type: coffee Number of servings: 1 what type of physical activity do you participate in: walking frequency: daily ROS ROS Narrative General: Denies fever but does report she has been cold lately HENT: Chronic headaches EYES: Denies changes in vision Resp: cough and increasing SOB Cardiac: Some chest pressure when afib, not having any at present GI: Some chronic early satiety and nausea : Denies changes in urination Extremity: cold extremities MSK: Some general weakness Neuro: Denies any numbness/tingling Heme: Denies any bleeding Skin: Denies rashes Psychiatric: Has had problems with seeing things in the past Vital Signs Vital Signs Vital Signs: 10/30/23 13:40 10/30/23 13:46 10/30/23 14:39 Temperature 97.1 F L Temperature Source Temporal Pulse Rate 104 H 75 Respiratory Rate 20 H 15 Respiratory Effort Short of Breath Blood Pressure 129/89 H 105/62 Blood Pressure Mean 102 76 Pulse Ox 96 90 Oxygen Delivery Method Room Air Room Air 10/30/23 15:00 10/30/23 15:00 10/30/23 15:06 Temperature 97.2 F L Temperature Source Temporal Pulse Rate 74 75 83 Respiratory Rate 16 16 16 Respiratory Effort Blood Pressure 126/84 H 126/84 H 126/84 H Blood Pressure Mean 98 98 98 Pulse Ox 97 98 98 Oxygen Delivery Method Room Air Room Air Weight Weight: 59.3 kg Body Mass Index (BMI) 24.7 Physical Exam Narrative General: Alert, oriented, no apparent distress HEENT: Atraumatic, normocephalic Eyes: Anicteric, normal conjunctiva, extraocular movements grossly intact Neck: Supple Respiratory: Crackles at the bases, normal respiratory effort Cardiovascular: Regular rate and rhythm GI: Soft, nontender, nondistended Extremities: Trace lower extremity edema Musculoskeletal: Moving all extremities Neuro: No overt focal neurological deficits Skin: No rashes appreciated Psych: Cooperative Results Lab / Micro Data 10/30/23 03:35 10/30/23 03:35 Labs: Laboratory Results - last 24 hr 10/30/23 03:35: WBC 8.5, RBC 4.13 L, Hgb 12.0, Hct 39.6, MCV 95.9, MCH 29.1, MCHC 30.3 L, RDW Std Deviation 59.6 H, RDW Coeff of Danielle 17.1 H, Plt Count 161, MPV 10.1, Immature Gran % (Auto) 0.900, Neut % (Auto) 67.2, Lymph % (Auto) 18.4 L, [place] % (Auto) 10.9 H, Eos % (Auto) 1.9, Baso % (Auto) 0.7, Absolute Neuts (auto) 5.7, Absolute Lymphs (auto) 1.57, Nucleated RBC % 0, D-Dimer Quant (PE/DVT) < 0.27 L, Sodium 138, Potassium 4.3, Chloride 109 H, Carbon Dioxide 20.0 L, Anion Gap 9, BUN 27 H, Creatinine 1.41 H, Estim Creat Clear Calc 23.61, Est GFR (MDRD) Af Amer 46 L, Est GFR (MDRD) Non-Af 38 L, BUN/Creatinine Ratio 19.1, Glucose 191 H, Calcium 8.8, Troponin I High Sens 12, B-Natriuretic Peptide 1136.1 H 10/30/23 14:10: Lactic Acid 4.3 H* 10/30/23 14:36: Urine Color Yellow, Urine Clarity Clear, Urine pH 6.0, Ur Specific [place] 1.015, Urine Protein Negative, Urine Glucose (UA) 1000 H, Urine Ketones Negative, Urine Occult Blood 25 H, Urine Nitrite Negative, Urine Bilirubin Negative, Urine Urobilinogen Normal, Ur Leukocyte Esterase Negative, Urine RBC 0-5 SEEN, Urine WBC 0-5 SEEN, Ur Squamous Epith Cells 0-5 SEEN, Urine Bacteria 0 SEEN, Urine Mucus 0 SEEN Micro: Microbiology 10/30/23 14:05 Nasal Secretion SARS-CoV-2 & FLU Antigen (Rapid) - Final Imagaing Radiology Impression Chest X-Ray 10/30/23 14:20 IMPRESSION: Mild degree of CHF with blunting of the right costophrenic angle and bibasilar atelectasis. Electronically Signed: Willie Browning MD at 14:52 EST , Assessment & Plan Assessment/Plan (1) Fluid overload: (2) Paroxysmal A-fib: (3) Influenza A: (4) Atherosclerotic heart disease of [place] coronary artery without angina pectoris: QUALIFIERS: [place] vs. transplanted heart: [place] heart Qualified Code(s): I25.10 - Atherosclerotic heart disease of [place] coronary artery without angina pectoris (5) Hypothyroid: (6) Diabetes mellitus, type 2: (7) Dementia: PLAN: Plan #Shortness of breath suspected secondary to fluid overload and influenza A -BNP of 1200 -Chest x-ray does appear somewhat congested with some blunting of right costophrenic angle, pt with crackles and some LE edema -Last echo was in 2021 with EF 65 and indeterminant diastolic function -Repeat echo -Daily weights, I's and O's -IV Lasix -Suspect elevated lactic acid is due to hypoperfusion from her heart failure state, trend # Influenza A -Seen on respiratory panel -Patient 90% on room air -Will start Tamiflu, supportive care # ODALIS versus CKD unclear subtype -Creatinine 1.32, very early this morning was 1.41, no previous labs since 2018 so unclear baseline -Will trend # Paroxysmal atrial fibrillation -EKG in ED initially A-fib 120s to 130s and apparently had been on digoxin but ran out and it was decided not to put her back on this, converted to sinus independently in ED however and was sinus in the 70s -Continue metoprolol -Not on anticoagulation due to fall risk #Type 2 diabetes mellitus -Glucose checks and sliding scale insulin -Hold metformin #Hypothyroidism -Continue Synthroid # Dementia -Patient with some possible intermittent problems with hallucinations at home per granddaughter -This can be a side effect of both medications so we will hold these at this time -May need to consider reinitiating 1 at a time, if symptoms recur could be sundowning or could be vision related -Can further follow-up on outpatient basis, patient not presently having any complaints #hx lung cancer -s/p radiation #GERD -Continue PPI #DVT ppx: Lovenox subcu Camila Mills MD Charges/Coding Visit Charges Inpatient E&M: 21371 Init Hosp L2
--- NOTE | 2023-10-30 17:33 | ECHOD_ITS ---
Reason For Study: DYSPNEA/SOB Procedure This was a 2D Doppler, Color Flow transthoracic echocardiogram. Exam performed portable in patient room. Left Ventricle Normal LV size. The estimated ejection fraction is 55 %. Unable to assess diastolic dysfunction. No regional wall motion abnormalities noted. Right Ventricle Normal RV size. Normal systolic function. Atria The left atrium is moderately enlarged. Normal right atrium. No doppler evidence for ASD. Mitral Valve There is severe mitral annular calcification. There is no mitral valve stenosis. Moderate (2+) mitral valve insufficiency. Tricuspid Valve There is no tricuspid stenosis. Trivial tricuspid valve insufficiency. Pulmonary artery systolic pressure is 35-40 mmHg. Aortic Valve Trisinus/trileaflet aortic valve. There is no aortic stenosis. Trivial aortic valve insufficiency. Pulmonic Valve There is no pulmonic valvular stenosis. No pulmonic valve insufficiency. Great Vessels Normal aortic root. Pericardium/Pleural No pericardial effusion. MMode/2D Measurements & Calculations LVIDd: 4.1 cm IVSd: 0.85 cm Ao root diam: 2.8 cm LVIDs: 3.0 cm LVPWd: 0.87 cm RVDd: 3.1 cm FS: 26.1 % LAV(MOD-bp): 87.6 ml LVAd ap4: 20.6 cm2 LVAd ap2: 15.7 cm2 LAV(MOD-bp) Indexed: 57.4 ml/m2 LVLd ap4: 6.5 cm LVLd ap2: 5.8 cm LAV(MOD-sp2): 94.5 ml EDV(MOD-sp4): 53.8 ml EDV(MOD-sp2): 36.4 ml LAV(MOD-sp4): 78.8 ml EDV(sp4-el): 55.4 ml EDV(sp2-el): 36.3 ml LVAs ap4: 11.7 cm2 LVAs ap2: 9.5 cm2 LVLs ap4: 5.8 cm LVLs ap2: 5.2 cm ESV(MOD-sp4): 22.3 ml ESV(MOD-sp2): 16.7 ml ESV(sp4-el): 20.1 ml ESV(sp2-el): 14.7 ml EF(MOD-sp4): 58.6 % EF(MOD-sp2): 54.2 % EF(sp4-el): 63.8 % SV(MOD-sp4): 31.5 ml SV(MOD-sp2): 19.7 ml SV(sp4-el): 35.3 ml LA dimension(2D): 4.0 cm LA A4 area: 23.2 cm2 RA A4 area: 15.0 cm2 TAPSE: 1.7 cm Time Measurements MV dec time: 0.25 sec Doppler Measurements & Calculations MV E max kyree: 70.6 cm/sec Lat Peak E' Kyree: 8.3 cm/sec Med Peak E' Kyree: 5.0 cm/sec MV A max kyree: 80.2 cm/sec E/E' lat: 8.5 E/E' med: 14.0 MV E/A: 0.88 MV V2 max: 88.4 cm/sec MV P1/2t max kyree: 88.8 cm/sec Ao V2 max: 147.5 cm/sec MV max P.1 mmHg MV P1/2t: 89.6 msec Ao max P.7 mmHg MV V2 mean: 58.1 cm/sec MV dec slope: 290.2 cm/sec2 Ao V2 mean: 99.1 cm/sec MV mean P.4 mmHg Ao mean P.6 mmHg MV V2 VTI: 21.6 cm MVA(P1/2t): 2.5 cm2 Ao V2 VTI: 27.2 cm AV (velocity ratio): 0.54 AI max kyree: 404.2 cm/sec LV V1 max: 81.1 cm/sec MR max kyree: 456.4 cm/sec AI max P.4 mmHg LV V1 max P.6 mmHg MR max P.3 mmHg AI dec slope: 235.8 cm/sec2 LV V1 mean P.4 mmHg MR mean kyree: 362.2 cm/sec AI P1/2t: 502.1 msec LV V1 mean: 55.5 cm/sec MR mean P.2 mmHg LV V1 VTI: 14.8 cm MR VTI: 137.9 cm PA V2 max: 70.9 cm/sec TR max kyree: 290.4 cm/sec PA V2 mean: 53.1 cm/sec TR max P.7 mmHg ECHO/Echo Complete Interpretation Summary The estimated ejection fraction is 55 %. Unable to assess diastolic dysfunction. The left atrium is moderately enlarged. Moderate (2+) mitral valve insufficiency. Trivial aortic valve insufficiency. Ordering Physician: Camila Mills Referring Physician: Carlton Rasheed Performed By: Shahida Kelly, HARRIS, RVT
[2023-10-30 18:15] LABS: Reflex Lactate? Y
[2023-10-30] MEDS: 0.9% Saline Lock 10 ML Syringe IV (18:51)
[2023-10-30] MEDS: Furosemide 40 MG/4 ML Vial IV (18:51)
[2023-10-30 20:12] LABS: Lactic Acid 3.7 mmol/L (0.4-1.9)
[2023-10-30] MEDS: Atorvastatin Calcium 10 MG Tablet 5 MG PO (21:02)
[2023-10-30] MEDS: Oseltamivir Phosphate 30 MG Capsule PO (21:03)
[2023-10-30] MEDS: Insulin Lispro 100 UNIT/ML INSULN.PEN SC (21:16)
[2023-10-30 21:57] LABS: Bedside Glucose 226 mg/dL (74-106)
[2023-10-31] VITALS (19 sets, daily range): BP systolic 77–109; BP diastolic 53–78; PULSE 77–137; RESP 16–24; TEMP 36.5–36.8; O2SAT 86–99; BMI 22.8
[2023-10-31] MEDS: Levothyroxine 88 MCG Tablet PO (05:38)
[2023-10-31 06:37] LABS: Absolute Lymphocyte Count 1.54 X10^3/uL (0.83-4.51); Absolute Neutrophil Count 5.2 X10^3/uL (2.0-7.7); Basophil# 0.04 X10^3/uL; Basophil% 0.5 % (0-1); Eosinophil# 0.15 X10^3/uL; Eosinophils% 1.9 % (0-5); Hematocrit 32.8 % (37-47); Hemoglobin 10.2 g/dL (12.0-15.0); Lymphocyte # 1.54 X10^3/ul (0.83-4.51); Lymphocyte % 19.1 % (19-41); Mean Corp Hgb Conc 31.1 g/dL (32-36); Mean Corpuscular Hgb 28.8 pg (27.0-32.0); Mean Corpuscular Volume 92.7 fL (81-99); Mean Platelet Vol. 10.6 fl (6.2-12.0); Monocyte# 1.05 X10^3/uL; NRBC Flagged by Analyzer 0 % (0-5); Neutrophil % 64.5 % (47-70); Platelet Count 148 K/mm3 (150-450); RBC Distribution Width CV 16.8 % (11.6-14.6); Red Blood Count 3.54 M/mm3 (4.2-5.4); White Blood Count 8.1 K/mm3 (4.4-11.0)
[2023-10-31] MEDS: Menthol/Lanolin/Calamine/Znox 113 GM Tube 1 APPLIC TOPICAL ×2 (06:40→21:02)
[2023-10-31 06:47] LABS: Bedside Glucose 117 mg/dL (74-106)
[2023-10-31 07:34] LABS: Anion Gap 9 (5-15); BUN 23 mg/dL (7-18); BUN/Creat Ratio 20.5 RATIO (10-20); Calcium,Total 8.5 mg/dL (8.5-10.1); Chloride 108 mmol/L (98-107); Creatinine, Serum 1.12 mg/dL (0.55-1.02); EST Glomerular Filtration Rate 50 mL/min (>60); Est Glom Filt Rate - Afr Amer 60 mL/min (>60); Estimated Creatinine Clearance 29.73 ml/min; Glucose 108 mg/dL (74-106); Potassium 3.9 mmol/L (3.5-5.1); Sodium Level 141 mmol/L (136-145); Thyroid Stim Hormone (TSH) 1.97 uIU/mL (0.358-3.74)
--- NOTE | 2023-10-31 08:59 | PCM.PN.HOSP ---
Reason for Visit Reason for Visit: Shortness of breath/chest pain Subjective Subjective Mrs. Garcia is an 82-year-old white female who presents emergency department [facility] on 10/30/2023 for worsening shortness of breath and chest pain. She reported that her shortness of breath started about a week prior to presentation and she reported intermittent chest tightness with a slight cough during that timeframe. She was recently treated for urinary tract infection with Bactrim and also had recent lab work which included a BNP which was elevated. She was started on Lasix as an outpatient the day prior to presentation however she progressively got more short of breath so she presented to the emergency department. She does have a history of atrial fibrillation but was taken off anticoagulation due to her fall risk. EKG initially showed A-fib with heart rates between 120 and 130. Evidently the patient has been on digoxin but ran out and it was decided not to place her back on this medication. In the emergency department she spontaneously converted back to normal sinus rhythm with rates in the 70s. In the emergency department her BNP was 1200 and her chest x-ray showed vascular congestion. Initial lactate was 4.3. Her daughter assisted with her history and indicated that her grandmother had been in normal state of health until about 4 to 5 days prior to presenting when she began becoming more progressively short of breath and had a slight cough. She denied her having any fevers and reported that she is always cold and did not complain of chills. Her granddaughter also reported that when she has A-fib she always complains of some heaviness in her chest that resolves when she is not in A-fib. Her granddaughter reports that her grandmother has a baseline history of dementia and has intermittent hallucinations. Her BNP was found to be 1200 however she was also found to be influenza A positive and we suspect the shortness of breath is a combination of the 2. She was admitted to the PCU and placed on Lasix with a repeat echocardiogram pending and started on Tamiflu. States her breathing is better today. She indicates she is currently just a bit tired. Denies any current issues or complaints. I was notified that the granddaughter would like a consult to cardiology and I have notified Dr. Patel. She follows with the [facility] and was most recently seen by the nurse practitioner on 09/19/2022. Objective Data Objective Data Vital Signs: Vital Signs Temp Pulse Resp BP Pulse Ox O2 Del Method 98.0 F 84 18 100/57 L 95 Room Air 10/31/23 03:18 10/31/23 03:18 10/31/23 03:18 10/31/23 03:18 10/31/23 07:49 10/31/23 07:49 Oxygen Delivery Method Room Air Weight: 55 kg Body Mass Index (BMI) 22.8 Intake & Output: Intake and Output for Last 24 Hours 10/29/23 10/30/23 10/31/23 23:59 23:59 23:59 Intake Total 87.25 / 327.25 480 / 480 Output Total 2200 / 2200 Balance 87.25 / -1372.75 -1720 / -1720 Lab / Micro Data 10/31/23 06:05 10/31/23 06:05 Labs: Laboratory Results - last 24 hr 10/30/23 03:35: WBC 8.5, RBC 4.13 L, Hgb 12.0, Hct 39.6, MCV 95.9, MCH 29.1, MCHC 30.3 L, RDW Std Deviation 59.6 H, RDW Coeff of Danielle 17.1 H, Plt Count 161, MPV 10.1, Immature Gran % (Auto) 0.900, Neut % (Auto) 67.2, Lymph % (Auto) 18.4 L, [place] % (Auto) 10.9 H, Eos % (Auto) 1.9, Baso % (Auto) 0.7, Absolute Neuts (auto) 5.7, Absolute Lymphs (auto) 1.57, Nucleated RBC % 0, D-Dimer Quant (PE/DVT) < 0.27 L, Sodium 138, Potassium 4.3, Chloride 109 H, Carbon Dioxide 20.0 L, Anion Gap 9, BUN 27 H, Creatinine 1.41 H, Estim Creat Clear Calc 23.61, Est GFR (MDRD) Af Amer 46 L, Est GFR (MDRD) Non-Af 38 L, BUN/Creatinine Ratio 19.1, Glucose 191 H, Calcium 8.8, Troponin I High Sens 12, B-Natriuretic Peptide 1136.1 H 10/30/23 14:10: Lactic Acid 4.3 H* 10/30/23 14:36: Urine Color Yellow, Urine Clarity Clear, Urine pH 6.0, Ur Specific [place] 1.015, Urine Protein Negative, Urine Glucose (UA) 1000 H, Urine Ketones Negative, Urine Occult Blood 25 H, Urine Nitrite Negative, Urine Bilirubin Negative, Urine Urobilinogen Normal, Ur Leukocyte Esterase Negative, Urine RBC 0-5 SEEN, Urine WBC 0-5 SEEN, Ur Squamous Epith Cells 0-5 SEEN, Urine Bacteria 0 SEEN, Urine Mucus 0 SEEN 10/30/23 19:15: Lactic Acid 3.7 H* 10/30/23 21:09: POC Glucose 226 H 10/31/23 06:05: WBC 8.1, RBC 3.54 L, Hgb 10.2 L, Hct 32.8 L, MCV 92.7, MCH 28.8, MCHC 31.1 L, RDW Std Deviation 58.0 H, RDW Coeff of Danielle 16.8 H, Plt Count 148 L, MPV 10.6, Immature Gran % (Auto) 1.000 H, Neut % (Auto) 64.5, Lymph % (Auto) 19.1, [place] % (Auto) 13.0 H, Eos % (Auto) 1.9, Baso % (Auto) 0.5, Absolute Neuts (auto) 5.2, Absolute Lymphs (auto) 1.54, Nucleated RBC % 0, Sodium 141, Potassium 3.9, Chloride 108 H, Carbon Dioxide 24.0, Anion Gap 9, BUN 23 H, Creatinine 1.12 H, Estim Creat Clear Calc 29.73, Est GFR (MDRD) Af Amer 60, Est GFR (MDRD) Non-Af 50 L, BUN/Creatinine Ratio 20.5 H, Glucose 108 H, Calcium 8.5, TSH 1.97 10/31/23 06:29: POC Glucose 117 H Micro: Microbiology 10/30/23 14:05 Nasal Secretion SARS-CoV-2 & FLU Antigen (Rapid) - Final Influenzae A Radiography Diagnostic Testing: Radiology Impression Chest X-Ray 10/30/23 14:20 IMPRESSION: Mild degree of CHF with blunting of the right costophrenic angle and bibasilar atelectasis. Electronically Signed: Willie Browning MD at 14:52 EST , Physical Exam Const alert, no apparent distress and well nourished Constitutional Narrative: Thin, elderly white female, sitting up in bed with eyes closed however awakens easily, very pleasant and cooperative, appears comfortable and nontoxic, oriented to self and place some mild confusion with time HEENT head/scalp atraumatic and moist oral mucous membranes HEENT Narrative: Mallampati 2, dentures in place, no thrush Head and Scalp: normocephalic Resp normal respiratory effort, no retractions and no use of accessory muscles Resp Narrative: Few mild crackles at bases bilaterally with inspiration Auscultation: crackles; Negative for rhonchi or wheezes Cardio regular rate, regular rhythm, S1 normal heart sound, S2 normal heart sound, no murmurs, no rub, no gallops and no clicks GI normal to inspection, nondistended, normoactive bowel sounds, soft to palpation and non-tender Extremity no clubbing, cyanosis or edema Extremity Narrative: Pedal pulses are 2+ Neuro moves all extremities and no focal motor deficits Sensorium / Orientation: awake, alert, oriented to person and oriented to place Speech: speech normal Psych affect normal Psych Narrative: Extremely pleasant, patient interacts appropriately Assessment & Plan Assessment/Plan (1) Fluid overload: (2) Chest pain: (3) Paroxysmal A-fib: (4) Influenza A: (5) CHF (congestive heart failure): (6) Dyspnea on exertion: (7) Anemia: (8) Thrombocytopenia: (9) Lactic acidosis: (10) Stage 3a chronic kidney disease (CKD): PLAN: Plan Shortness of breath secondary to acute heart failure of unknown type and influenza A -BNP on admission was 1200 and chest x-ray appears consistent with volume overload -Echocardiogram pending -Most recent echocardiogram from 2021 shows an EF of 65% with indeterminate diastolic dysfunction -Suspect patient may have had A-fib induced by acute illness from influenza which precipitated volume overload and heart failure -Continue IV daily Lasix next-continue fluid restriction and sodium restriction -Continue daily weights -Continue I's and O's -Consult cardiology at the request of patient family--> discussed with Dr. Patel Influenza A -Oxygen saturations are stable on room air -Continue Tamiflu for 5 days next-continue supportive care CKD stage IIIa -Serum creatinine remained stable so I suspect this is CKD -Continue Lasix as ordered -Repeat BMP in a.m. Lactic acidosis -Suspect related to acute heart failure and A-fib with RVR -Trended down -No further need to reassess unless clinically changes status Acute anemia/thrombocytopenia -Likely related to influenza A/viral illness next-will monitor while hospitalized -No signs of acute bleeding Paroxysmal atrial fibrillation -Continue metoprolol -No anticoagulation due to marked fall risk and previous intracranial bleed -Had previously been on digoxin but ran out and it was elected not to place her back on this -Patient remains in normal sinus rhythm at this time and converted in the emergency department DM-2 -Hold home Farxiga -Old home [place] -SSI -Accu-Cheks as ordered Hypothyroidism -Continue home Synthroid GERD -Continue home PPI Hyperlipidemia -Continue home statin Hypertension -hold home lisinopril -Hold home oral Dementia -No significant behavioral disturbances however patient does have intermittent hallucinations at home -Could be side effect from dementia medications so on hold at this time -Will reinitiate 1 at a time to see if they are precipitating this if she does not have hallucinations off the medications -Continue outpatient follow-up History of lung cancer -Status post radiation DVT prophylaxis -Subcu Lovenox CODE STATUS -Full code is verified prior to admission Charges/Coding Visit Charges Inpatient E&M: 00594 Subs Hosp L2
[2023-10-31] MEDS: Pantoprazole Sodium 20 MG Tablet PO (09:46)
[2023-10-31] MEDS: Nystatin Powder 15gm Bottle 1 APPLIC TOPICAL ×2 (09:47→21:02)
[2023-10-31] MEDS: PARoxetine 10 MG Tablet 30 MG PO (09:47)
[2023-10-31] MEDS: 0.9% Saline Lock 10 ML Syringe IV ×2 (09:48→17:44)
[2023-10-31] MEDS: Furosemide 40 MG/4 ML Vial IV (09:48)
[2023-10-31] MEDS: Enoxaparin 30 MG/0.3 ML Syringe SC (09:49)
--- NOTE | 2023-10-31 10:30 | CASEMGMT ---
DEWEY HIGHTOWER Face to Face with patient for initial transition planning/care coordination assessment. RN CM introduced self and role at [facility]. Patient lying in bed, alert and oriented, granddaughter at bedside. Patient willing to participate in assessment and is able to answer all questions appropriately. Care providers, pharmacy, and demographics verified. Patient wishes to discharge to granddaughters home with HHC. HHC list to be provided to patient. Patient states she has no further needs or concerns at this time. CM to follow for discharge planning needs that may arise. 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 LNOK: daughter, granddaughter Living Arrangements: Patient lives with daughter in a 2 story home. Patient was independent at home and able to ambulate stairs. Patient has no been getting along with daugter and will be staying with granddaughter in a single level home. Transportation: daughter, granddaughter DME/HHC: [facility] has shower chair, grab bars, walker, rollator, and wheelchair at home. Patient cannot recall previous HHC. No previous SNF. Will monitor for home oxygen, prefers [employer]. Disposition Plan: Patient to discharge home with HHC, family support, and follow-up plans in place. Mary FLORES, RN, CM
[2023-10-31] MEDS: Metoprolol(XL)Succ 100 MG Tablet PO (11:59)
--- NOTE | 2023-10-31 13:05 | CASEMGMT ---
Discharge Planning A list of?HH providers including quality and resource use data and consistent with the patient's preferred geographic region, medical needs, and insurance network was created in [employer] Guide.? This list was provided to the RN KATJA. Saima Castillo, Discharge Planning Asst.
--- NOTE | 2023-10-31 16:17 | EKG12_ITS ---
Test Reason : A FIB Blood Pressure : / mmHG Vent. Rate : 127 BPM Atrial Rate : 000 BPM P-R Int : 000 ms QRS Dur : 098 ms QT Int : 330 ms P-R-T Axes : 000 -28 -18 degrees QTc Int : 479 ms Atrial fibrillation with rapid ventricular response Cannot rule out Anterior infarct , age undetermined Abnormal ECG When compared with ECG of 30-OCT-2023 14:51, MANUAL COMPARISON REQUIRED, DATA IS UNCONFIRMED Confirmed by MEL HERNÁNDEZ, CHESTER ([id number]), market editor BRIAN FOSTER ([id number]) on 11/04/2023 12:47:58 PM Referred By: JOO Confirmed By:MICHELLE LEAL MD
[2023-10-31] MEDS: Insulin Lispro 100 UNIT/ML INSULN.PEN SC ×2 (16:56→21:16)
[2023-10-31 17:16] LABS: Bedside Glucose 213 mg/dL (74-106)
[2023-10-31] MEDS: Amiodarone 360 MG in Dextrose 5% Viaflo Bag 192.8 ML 33.2999999999999972 MG CONT INF (17:38)
[2023-10-31] MEDS: Ensure Plus High Protein 120 ML LIQUID PO (17:46)
--- NOTE | 2023-10-31 18:01 | CON.PCM.CA_ITS ---
Assessment & Plan Assessment/Plan (1) Paroxysmal A-fib: PLAN: Will start her on IV amiodarone. After 24 hours we will switch her to p.o. amiodarone. She is not on anticoagulation due to fall risk. HPI Consult Data Date of Consult: 10/31/23 HPI Narrative Reason for Consultation: Atrial fibrillation HPI Narrative: PARTH RODGERS, is a 82 F who presents with shortness of breath. She was also found to be influenza A positive. Patient was in A-fib with RVR. She converted to sinus rhythm but now again went back into atrial fibrillation. She is resting comfortably and denies any significant complaints at this time. [facility] Medical History (Updated 10/31/23 @ 09:[address] 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 Lung cancer Paroxysmal atrial fibrillation Pre-operative cardiovascular examination Pure hypercholesterolemia Rheumatic fever Skin cancer Home Medications lovastatin 10 mg tablet 10 mg PO QHS CHOLESTEROL 09/24/18 [History Last Taken 10/29/23] metoprolol succinate 100 mg tablet,extended release 24 hr 100 mg PO DAILY HIGH BLOOD PRESSURE 09/24/18 [History Last Taken 10/30/23] omeprazole 20 mg tablet,delayed release 20 mg PO DAILY ACID REFLUX 07/29/20 [History Last Taken 10/30/23] cetirizine 10 mg tablet (Zyrtec) 10 mg PO DAILY PRN allergies 03/14/22 [History Last Taken Unknown] dapagliflozin propanediol 5 mg tablet (Farxiga) 5 mg PO DAILY DIABETES 03/14/22 [History Last Taken 10/30/23] lisinopril 20 mg tablet 20 mg PO DAILY HIGH BLOOD PRESSURE 03/14/22 [History Last Taken 10/30/23] multivitamin 1 tab PO DAILY SUPPLEMENT 03/14/22 [History Last Taken 10/30/23] famotidine 20 mg tablet (Pepcid) 20 mg PO DAILY ACID REFLUX 09/19/22 [History Last Taken 10/30/23] metformin 750 mg tablet,extended release 24 hr 750 mg PO Q12H DIABETES 09/19/22 [History Last Taken 10/30/23] furosemide 40 mg tablet 40 mg PO DAILY FLUID #30 tabs 10/28/23 [Rx Last Taken 10/30/23] albuterol sulfate 90 mcg/actuation aerosol inhaler 1 puff inhalation DAILY PRN shortness of breath or wheezing 10/30/23 [History Last Taken 10/30/23] cholestyramine (with sugar) 4 gram powder for susp in a packet 1 ea PO Q6H PRN diarhhea 10/30/23 [History Last Taken 10/30/23] donepezil 10 mg tablet 10 mg PO DAILY ALZHEIMER'S 10/30/23 [History Last Taken 10/30/23] fluocinolone 0.01 % topical body oil 1 applic topical DAILY 10/30/23 [History Last Taken 10/30/23] levothyroxine 88 mcg tablet 88 mcg PO DAILY THYROID 10/30/23 [History Last Taken 10/30/23] memantine 10 mg tablet 10 mg PO BID ALHEIMER'S 10/30/23 [History Last Taken 10/30/23] paroxetine HCl 30 mg tablet 30 mg PO DAILY DEPRESSION 10/30/23 [History Last Taken 10/30/23] Allergy/AdvReac Type Severity Reaction Status Date / Time No Known Allergies Allergy Verified 10/30/23 13:40 Family History Mother CHF (congestive heart failure) Hypertension Sister Hypertension Surgical History H/O tubal ligation H/O: hysterectomy History of bunionectomy of left great toe History of knee replacement History of right shoulder replacement History of tonsillectomy Hx of appendectomy Hx of cholecystectomy Social History Smoking Status: Former smoker how long ago did patient quit smokin years ago alcohol intake: current alcohol intake frequency: holidays/special occasions only substance use type: does not use caffeine: Yes Type: coffee Number of servings: 1 what type of physical activity do you participate in: walking frequency: daily Physical Exam Const alert and oriented x3 HEENT normocephalic Resp normal respiratory effort Risk Stratification Risk Stratification Applicable: No Charges/Coding Visit Charges Inpatient E&M: 96558 Init Hosp L1 Objective Data Vital Signs: Vital Signs Temp Pulse Resp BP Pulse Ox O2 Del Method 98.0 F 137 H 19 H 82/58 L 97 Room Air 10/31/23 16:16 10/31/23 17:38 10/31/23 17:38 10/31/23 17:38 10/31/23 17:38 10/31/23 17:38 Oxygen Delivery Method Room Air Weight: 121 lb 4.068 oz Body Mass Index (BMI) 22.8 Intake & Output: Intake and Output for Last 24 Hours 10/29/23 10/30/23 10/31/23 23:59 23:59 23:59 Intake Total 87.25 / 327.25 920 / 920 Output Total 2200 / 2200 Balance 87.25 / -1372.75 -1280 / -1280 Lab / Micro Data 10/31/23 06:05 10/31/23 06:05 Labs: Laboratory Results - last 24 hr 10/30/23 19:15: Lactic Acid 3.7 H* 10/30/23 21:09: POC Glucose 226 H 10/31/23 06:05: WBC 8.1, RBC 3.54 L, Hgb 10.2 L, Hct 32.8 L, MCV 92.7, MCH 28.8, MCHC 31.1 L, RDW Std Deviation 58.0 H, RDW Coeff of Danielle 16.8 H, Plt Count 148 L, MPV 10.6, Immature Gran % (Auto) 1.000 H, Neut % (Auto) 64.5, Lymph % (Auto) 19.1, [place] % (Auto) 13.0 H, Eos % (Auto) 1.9, Baso % (Auto) 0.5, Absolute Neuts (auto) 5.2, Absolute Lymphs (auto) 1.54, Nucleated RBC % 0, Sodium 141, Potassium 3.9, Chloride 108 H, Carbon Dioxide 24.0, Anion Gap 9, BUN 23 H, Creatinine 1.12 H, Estim Creat Clear Calc 29.73, Est GFR (MDRD) Af Amer 60, Est GFR (MDRD) Non-Af 50 L, BUN/Creatinine Ratio 20.5 H, Glucose 108 H, Calcium 8.5, TSH 1.97 10/31/23 06:29: POC Glucose 117 H 10/31/23 16:54: POC Glucose 213 H Micro: Microbiology 10/30/23 14:05 Nasal Secretion SARS-CoV-2 & FLU Antigen (Rapid) - Final Influenzae A Cardiology Labs/Tests 10/30/23 19:15: Lactic Acid 3.7 H* 10/31/23 06:05: WBC 8.1, RBC 3.54 L, Hgb 10.2 L, Hct 32.8 L, MCV 92.7, MCH 28.8, MCHC 31.1 L, Plt Count 148 L, MPV 10.6, Immature Gran % (Auto) 1.000 H, Neut % (Auto) 64.5, Lymph % (Auto) 19.1, [place] % (Auto) 13.0 H, Eos % (Auto) 1.9, Baso % (Auto) 0.5, Absolute Neuts (auto) 5.2, Nucleated RBC % 0, Sodium 141, Potassium 3.9, Chloride 108 H, Carbon Dioxide 24.0, Anion Gap 9, BUN 23 H, Creatinine 1.12 H, Est GFR (MDRD) Af Amer 60, Est GFR (MDRD) Non-Af 50 L, BUN/Creatinine Ratio 20.5 H, Glucose 108 H, Calcium 8.5 Rhythm: EKG: ECHO: Stress Test: Cardiac Cath: PCI: CT Surgery: Holter monitor: EPS: PPM: CXR: Chest CT Scan: Radiography Diagnostic Testing: Radiology Impression Echocardiogram 10/30/23 17:33 Interpretation Summary The estimated ejection fraction is 55 %. Unable to assess diastolic dysfunction. The left atrium is moderately enlarged. Moderate (2+) mitral valve insufficiency. Trivial aortic valve insufficiency. Ordering Physician: Camila Mills Referring Physician: Carlton Rasheed Performed By: Shahida Kelly, HARRIS, RVT
[2023-10-31] MEDS: Atorvastatin Calcium 10 MG Tablet 5 MG PO (21:03)
[2023-10-31] MEDS: Oseltamivir Phosphate 30 MG Capsule PO (21:29)
[2023-10-31 21:42] LABS: Bedside Glucose 305 mg/dL (74-106)
[2023-10-31] MEDS: Amiodarone 360 MG in Dextrose 5% Viaflo Bag 192.8 ML 16.6999999999999993 MG CONT INF (23:31)
[2023-11-01] VITALS (20 sets, daily range): BP systolic 91–116; BP diastolic 63–86; PULSE 79–126; RESP 14–24; TEMP 36.3–37.1; O2SAT 92–100; BMI 22.8
[2023-11-01] MEDS: Levothyroxine 88 MCG Tablet PO (04:30)
[2023-11-01] MEDS: Menthol/Lanolin/Calamine/Znox 113 GM Tube 1 APPLIC TOPICAL ×2 (04:30→21:57)
[2023-11-01 06:59] LABS: Bedside Glucose 135 mg/dL (74-106)
[2023-11-01 07:44] LABS: Absolute Lymphocyte Count 2.14 X10^3/uL (0.83-4.51); Absolute Neutrophil Count 4.3 X10^3/uL (2.0-7.7); Basophil# 0.04 X10^3/uL; Basophil% 0.5 % (0-1); Eosinophil# 0.12 X10^3/uL; Eosinophils% 1.5 % (0-5); Hematocrit 35.9 % (37-47); Hemoglobin 11.5 g/dL (12.0-15.0); Lymphocyte # 2.14 X10^3/ul (0.83-4.51); Mean Corpuscular Hgb 29.7 pg (27.0-32.0); Mean Corpuscular Volume 92.8 fL (81-99); Mean Platelet Vol. 10.4 fl (6.2-12.0); Monocyte# 1.18 X10^3/uL; Monocyte% 14.9 % (0-10); NRBC Flagged by Analyzer 0 % (0-5); Neutrophil # 4.33 X10^3/uL (2.7-7.7); Neutrophil % 54.7 % (47-70); Platelet Count 159 K/mm3 (150-450); RBC Distribution Width CV 16.6 % (11.6-14.6); RBC Distribution Width SD 56.1 fl (35.1-43.9); Red Blood Count 3.87 M/mm3 (4.2-5.4); White Blood Count 7.9 K/mm3 (4.4-11.0)
[2023-11-01 08:03] LABS: Anion Gap 6 (5-15); BUN 26 mg/dL (7-18); BUN/Creat Ratio 20.8 RATIO (10-20); Calcium,Total 8.7 mg/dL (8.5-10.1); Chloride 103 mmol/L (98-107); Creatinine, Serum 1.25 mg/dL (0.55-1.02); EST Glomerular Filtration Rate 44 mL/min (>60); Est Glom Filt Rate - Afr Amer 53 mL/min (>60); Estimated Creatinine Clearance 26.64 ml/min; Glucose 141 mg/dL (74-106); Potassium 3.8 mmol/L (3.5-5.1); Sodium Level 136 mmol/L (136-145)
[2023-11-01] MEDS: Ensure Plus High Protein 120 ML LIQUID PO (10:42)
[2023-11-01] MEDS: Enoxaparin 30 MG/0.3 ML Syringe SC (10:43)
[2023-11-01] MEDS: PARoxetine 10 MG Tablet 30 MG PO (10:43)
[2023-11-01] MEDS: Pantoprazole Sodium 20 MG Tablet PO (10:44)
[2023-11-01] MEDS: Nystatin Powder 15gm Bottle 1 APPLIC TOPICAL ×2 (10:44→21:57)
--- NOTE | 2023-11-01 10:53 | PCM.PN.HOSP ---
Reason for Visit Reason for Visit: Diagnoses Anemia, unspecified (10/30/23) Thrombocytopenia, unspecified (10/30/23) Hypothyroidism, unspecified (10/30/23) Type 2 diabetes mellitus without complications (10/30/23) Acidosis, unspecified (10/30/23) Fluid overload, unspecified (10/30/23) Unspecified dementia, unspecified severity, without behavioral disturbance, psychotic disturbance, mood disturbance, and anxiety (10/30/23) Atherosclerotic heart disease of [place] coronary artery without angina pectoris (10/30/23) Paroxysmal atrial fibrillation (10/30/23) Heart failure, unspecified (10/30/23) Influenza due to other identified influenza virus with other respiratory manifestations (10/30/23) Chronic kidney disease, stage 3a (10/30/23) Other forms of dyspnea (10/30/23) Chest pain, unspecified (10/30/23) Objective Data Objective Data Vital Signs: Vital Signs Temp Pulse Resp BP Pulse Ox O2 Del Method O2 Flow Rate 97.4 F L 102 H 18 95/72 95 Room Air 2 11/01/23 06:00 11/01/23 10:00 11/01/23 10:00 11/01/23 10:00 11/01/23 10:00 11/01/23 10:00 11/01/23 01:00 Oxygen Flow Rate (L/min) 2 Oxygen Delivery Method Room Air Weight: 55 kg Body Mass Index (BMI) 22.8 Intake & Output: Intake and Output for Last 24 Hours 10/30/23 10/31/23 11/01/23 23:59 23:59 23:59 Intake Total 87.25 / 327.25 1235.94 / 1244.01 295.07 / 295.07 Output Total 2400 / 2400 800 / 800 Balance 87.25 / -1372.75 -1164.06 / -1155.99 -504.93 / -504.93 Medical Nutrition Assessment Dietitian: Malnutrition Criteria Met Start: 10/31/23 15:34 Freq: Status: Active Protocol: Document 10/31/23 15:34 AG (Rec: 10/31/23 15:34 AG [id number]) Nutrition Malnutrition Evidence of Malnutrition Exists Yes Malnutrition (severe): Chronic Evidenced By Suboptimal Energy Intake ( Severe),Physical Changes ( Severe) Clinical Problem Chronic Disease or Condition Related Malnutrition Etiology severe, chronic malnutrition related to inadequate energy intake d/t chewing/swallowing difficulty Signs/Symptoms as evidenced by estimated PO intake meeting <75% of estimated energy needs > 3 months, severe muscle wasting/ fat loss evident per physical exam in orbital, clavicle, acromion, and temporal areas Status Active Problem Recommendation Dietitian Recommendations/Changes continue cardiac diet w/ fluid restriction as indicated; will add ensure compact w/ breakfast and magic cup w/ dinner for additional nutrition if consumed given evidence of malnutrition. QUALITY COMPLIANCE CONSULTANT consult if issues w/ chewing/ swallowing persist- modified consistencies ordered by nursing staff. Lab / Micro Data 11/01/23 06:55 11/01/23 06:55 Labs: Laboratory Results - last 24 hr 10/31/23 16:54: POC Glucose 213 H 10/31/23 21:15: POC Glucose 305 H 11/01/23 06:29: POC Glucose 135 H 11/01/23 06:55: WBC 7.9, RBC 3.87 L, Hgb 11.5 L, Hct 35.9 L, MCV 92.8, MCH 29.7, MCHC 32.0, RDW Std Deviation 56.1 H, RDW Coeff of Danielle 16.6 H, Plt Count 159, MPV 10.4, Immature Gran % (Auto) 1.400 H, Neut % (Auto) 54.7, Lymph % (Auto) 27.0, [place] % (Auto) 14.9 H, Eos % (Auto) 1.5, Baso % (Auto) 0.5, Absolute Neuts (auto) 4.3, Absolute Lymphs (auto) 2.14, Nucleated RBC % 0, Sodium 136, Potassium 3.8, Chloride 103, Carbon Dioxide 27.0, Anion Gap 6, BUN 26 H, Creatinine 1.25 H, Estim Creat Clear Calc 26.64, Est GFR (MDRD) Af Amer 53 L, Est GFR (MDRD) Non-Af 44 L, BUN/Creatinine Ratio 20.8 H, Glucose 141 H, Calcium 8.7 Micro: Microbiology 10/30/23 14:05 Blood Culture (Wb) - Left Hand Blood Culture - Preliminary No growth in 48 hours. 10/30/23 14:05 Blood Culture (Wb) - Right Hand Blood Culture - Preliminary No growth in 48 hours. 10/30/23 14:05 Nasal Secretion SARS-CoV-2 & FLU Antigen (Rapid) - Final Influenzae A Radiography Diagnostic Testing: Radiology Impression Echocardiogram 10/30/23 17:33 Interpretation Summary The estimated ejection fraction is 55 %. Unable to assess diastolic dysfunction. The left atrium is moderately enlarged. Moderate (2+) mitral valve insufficiency. Trivial aortic valve insufficiency. Ordering Physician: Camila Mills Referring Physician: Carlton Rasheed Performed By: Shahida Kelly RDCS, RVT Physical Exam Const alert, no apparent distress and well nourished Constitutional Narrative: Thin, elderly white female, sitting up in bed with eyes closed however awakens easily, very pleasant and cooperative, appears comfortable and nontoxic, oriented to self and place some mild confusion with time HEENT head/scalp atraumatic and moist oral mucous membranes Resp normal respiratory effort, no retractions and no use of accessory muscles Resp Narrative: Few mild crackles at bases bilaterally with inspiration Auscultation: crackles; Negative for rhonchi or wheezes Cardio regular rate, regular rhythm, S1 normal heart sound, S2 normal heart sound, no murmurs, no rub, no gallops and no clicks GI normal to inspection, nondistended, normoactive bowel sounds, soft to palpation and non-tender Extremity no clubbing, cyanosis or edema Extremity Narrative: Pedal pulses are 2+ Neuro moves all extremities and no focal motor deficits Sensorium / Orientation: awake, alert, oriented to person and oriented to place Speech: speech normal Psych affect normal Psych Narrative: Extremely pleasant, patient interacts appropriately Assessment & Plan Assessment/Plan (1) Fluid overload: (2) Chest pain: (3) Paroxysmal A-fib: (4) Influenza A: (5) CHF (congestive heart failure): (6) Dyspnea on exertion: (7) Anemia: (8) Thrombocytopenia: (9) Lactic acidosis: (10) Stage 3a chronic kidney disease (CKD): (11) Severe malnutrition: PLAN: Plan Shortness of breath secondary to acute heart failure with preserved ejection fraction and influenza A -BNP on admission was 1200 and chest x-ray appears consistent with volume overload -Echocardiogram showed an EF of 55% with left atrial moderate enlargement and moderate mitral valve insufficiency -Remains on room air at rest -Patient negative 1580 cc for hospitalization -Will transition IV Lasix to oral 20 mg daily -Continue daily weights -Continue I's and O's -Oxygen is stable at rest on room air but will need ambulatory pulse ox prior to discharge Influenza A -Oxygen saturations are stable on room air -Continue Tamiflu for 5 days -continue supportive care Paroxysmal atrial fibrillation -Continue metoprolol -No anticoagulation due to marked fall risk and previous intracranial bleed -Patient reverted back into atrial fibrillation yesterday afternoon for which a amiodarone drip was started by cardiology -Still mild RVR today with heart rates in the low 100s -Management per cardiology Severe malnutrition -Dietitian following -Supplements added -Continue to monitor -Will recommend ongoing Ensure or boost supplements after discharge CKD stage IIIa -Serum creatinine remained stable so I suspect this is CKD -Will transition Lasix to oral -Repeat BMP in a.m. Lactic acidosis -Suspect related to acute heart failure and A-fib with RVR -Trended down -No further need to reassess unless clinically changes status Acute anemia/thrombocytopenia -Likely related to influenza A/viral illness and possibly volume overload -Anemia has improved and thrombocytopenia has resolved DM-2 -Hold home Farxiga -Old home [place] -SSI -Accu-Cheks as ordered Hypothyroidism -Continue home Synthroid GERD -Continue home PPI Hyperlipidemia -Continue home statin Hypertension -hold home lisinopril -Hold home oral Dementia -No significant behavioral disturbances however patient does have intermittent hallucinations at home -Could be side effect from dementia medications so on hold at this time -Will reinitiate 1 at a time to see if they are precipitating this if she does not have hallucinations off the medications -Continue outpatient follow-up History of lung cancer -Status post radiation DVT prophylaxis -Subcu Lovenox CODE STATUS -Full code is verified prior to admission Charges/Coding Visit Charges Inpatient E&M: 91213 Subs Hosp L2
--- NOTE | 2023-11-01 11:19 | CASEMGMT ---
Addendum entered by Mary Ramirez 11/01/23 15:22: Patient was accepted by [facility] for start of care for 11/05/23. DEWEY HIGHTOWER updated granddasabas Alva Addendum entered by Mary Ramirez 11/01/23 13:51: [facility] is not able to accept patient. DEWEY HIGHTOWER called [facility] to make referral, awaiting call back. Original Note: DEWEY HIGHTOWER called granddaughter for [facility] choices. List reviewed with granddaughter per patient requests. GD would like [facility]. DEWEY HIGHTOWER updated discharge college sports assistant to send referral. CM will continue to follow this patient and plan for a safe discharge.
[2023-11-01] MEDS: Metoprolol(XL)Succ 100 MG Tablet PO (11:39)
[2023-11-01] MEDS: Amiodarone 360 MG in Dextrose 5% Viaflo Bag 192.8 ML 16.6999999999999993 MG CONT INF (11:42)
[2023-11-01] MEDS: Insulin Lispro 100 UNIT/ML INSULN.PEN SC ×3 (11:46→22:56)
--- NOTE | 2023-11-01 12:00 | CASEMGMT ---
HH referral sent to [facility] via [facility]. Rita Carter RN, CM
[2023-11-01 12:09] LABS: Bedside Glucose 221 mg/dL (74-106)
--- NOTE | 2023-11-01 14:13 | CASEMGMT ---
Discharge Planning Patient was declined by [facility]. Referrals sent to [facility], [facility], and [facility]. Saima Castillo, Discharge Planning Asst.
--- NOTE | 2023-11-01 16:41 | EKG12_ITS ---
Test Reason : RHYTHM CHANGE Blood Pressure : / mmHG Vent. Rate : 079 BPM Atrial Rate : 079 BPM P-R Int : 162 ms QRS Dur : 102 ms QT Int : 386 ms P-R-T Axes : -09 -24 024 degrees QTc Int : 442 ms Normal sinus rhythm Normal ECG When compared with ECG of 31-OCT-2023 16:22, MANUAL COMPARISON REQUIRED, DATA IS UNCONFIRMED Confirmed by MELANIE HERNÁNDEZ, NELSON ([id number]), assistant editor BRIAN OFSTER ([id number]) on 11/05/2023 11:01:12 AM Referred By: Confirmed By:NELSON NAVARRO MD
[2023-11-01] MEDS: Amiodarone 200 MG Tablet PO (16:47)
[2023-11-01 17:07] LABS: Bedside Glucose 404 mg/dL (74-106)
[2023-11-01] MEDS: Oseltamivir Phosphate 30 MG Capsule PO (21:56)
[2023-11-01] MEDS: Atorvastatin Calcium 10 MG Tablet 5 MG PO (22:01)
[2023-11-01 23:15] LABS: Bedside Glucose 281 mg/dL (74-106)
[2023-11-02 02:49] VITALS: BMI 23.3
[2023-11-02 05:18] VITALS: BP 109/75; PULSE 69; RESP 17; TEMP 36.4; O2SAT 95
[2023-11-02] MEDS: Menthol/Lanolin/Calamine/Znox 113 GM Tube 1 APPLIC TOPICAL (05:26)
[2023-11-02] MEDS: Levothyroxine 88 MCG Tablet PO (05:26)
[2023-11-02] MEDS: Insulin Lispro 100 UNIT/ML INSULN.PEN SC ×2 (06:56→12:03)
[2023-11-02 06:57] LABS: Bedside Glucose 186 mg/dL (74-106)
[2023-11-02 08:51] LABS: Anion Gap 5 (5-15); BUN 32 mg/dL (7-18); BUN/Creat Ratio 28.3 RATIO (10-20); Calcium,Total 8.7 mg/dL (8.5-10.1); Chloride 102 mmol/L (98-107); Creatinine, Serum 1.13 mg/dL (0.55-1.02); EST Glomerular Filtration Rate 49 mL/min (>60); Est Glom Filt Rate - Afr Amer 59 mL/min (>60); Estimated Creatinine Clearance 29.46 ml/min; Glucose 174 mg/dL (74-106); Magnesium 1.4 mg/dL (1.6-2.6); Potassium 3.7 mmol/L (3.5-5.1); Sodium Level 135 mmol/L (136-145)
[2023-11-02 09:27] VITALS: O2SAT 90; O2SAT 99
--- NOTE | 2023-11-02 09:27 | PCM.DC.SUM ---
Providers Date of Admission: 10/30/23 Date of Discharge: 11/02/23 Primary Care Physician: RUBEN Waters Consultations 10/31/23 12:23 Consult: Cardiology Routine Consulting Provider: Herrera Patel Reason for Consult: afib/HF EMERGENT Consult: No MD Notified: Yes Date Notified: 10/31/23 Time Notified: 12: Method of Notification: Verbal Reason For Visit: FLUID OVERLOAD Diagnosis Discharge Diagnosis (1) Fluid overload: Status: Acute Code(s): E87.70 - Fluid overload, unspecified (2) Chest pain: Status: Acute Code(s): R07.9 - Chest pain, unspecified (3) Paroxysmal A-fib: Status: Acute Code(s): I48.0 - Paroxysmal atrial fibrillation (4) Influenza A: Status: Acute Code(s): J10.1 - Influenza due to other identified influenza virus with other respiratory manifestations (5) CHF (congestive heart failure): Status: Acute Code(s): I50.9 - Heart failure, unspecified (6) Dyspnea on exertion: Status: Acute Code(s): R06.09 - Other forms of dyspnea (7) Anemia: Status: Acute Code(s): D64.9 - Anemia, unspecified (8) Thrombocytopenia: Status: Acute Code(s): D69.6 - Thrombocytopenia, unspecified (9) Lactic acidosis: Status: Acute Code(s): E87.20 - Acidosis, unspecified (10) Stage 3a chronic kidney disease (CKD): Status: Chronic Code(s): N18.31 - Chronic kidney disease, stage 3a (11) Severe malnutrition: Status: Acute Code(s): E43 - Unspecified severe protein-calorie malnutrition Medications at Discharge Home Medications lovastatin 10 mg tablet 10 mg PO QHS CHOLESTEROL 09/24/18 metoprolol succinate 100 mg tablet,extended release 24 hr 100 mg PO DAILY HIGH BLOOD PRESSURE 09/24/18 omeprazole 20 mg tablet,delayed release 20 mg PO DAILY ACID REFLUX 07/29/20 cetirizine 10 mg tablet (Zyrtec) 10 mg PO DAILY PRN allergies 03/14/22 dapagliflozin propanediol 5 mg tablet (Farxiga) 5 mg PO DAILY DIABETES 03/14/22 lisinopril 20 mg tablet 20 mg PO DAILY HIGH BLOOD PRESSURE 03/14/22 multivitamin 1 tab PO DAILY SUPPLEMENT 03/14/22 famotidine 20 mg tablet (Pepcid) 20 mg PO DAILY ACID REFLUX 09/19/22 metformin 750 mg tablet,extended release 24 hr 750 mg PO Q12H DIABETES 09/19/22 furosemide 40 mg tablet 40 mg PO DAILY FLUID #30 tabs 10/28/23 albuterol sulfate 90 mcg/actuation aerosol inhaler 1 puff inhalation DAILY PRN shortness of breath or wheezing 10/30/23 cholestyramine (with sugar) 4 gram powder for susp in a packet 1 ea PO Q6H PRN diarhhea 10/30/23 donepezil 10 mg tablet 10 mg PO DAILY ALZHEIMER'S 10/30/23 fluocinolone 0.01 % topical body oil 1 applic topical DAILY 10/30/23 levothyroxine 88 mcg tablet 88 mcg PO DAILY THYROID 10/30/23 memantine 10 mg tablet 10 mg PO BID ALHEIMER'S 10/30/23 paroxetine HCl 30 mg tablet 30 mg PO DAILY DEPRESSION 10/30/23 amiodarone 200 mg tablet 200 mg PO DAILY #38 tabs 11/02/23 oseltamivir 30 mg capsule 30 mg PO DAILY@2200 #2 caps 11/02/23 Hospital Course Procedures 2-D Echocardiogram, EKG and - (Chest x-ray) Summary of Care Provided Minutes Spent on Discharge: 37 Hospital Course: Mrs. Garcia is an 82-year-old white female who presented to the emergency department at [facility] on 10/30/2023 for worsening shortness of breath and chest pain. She reported that her shortness of breath started about a week prior to presentation and she reported intermittent chest tightness with a slight cough during that timeframe. She was recently treated for urinary tract infection with Bactrim and also had recent lab work which included a BNP which was elevated. She was started on Lasix as an outpatient the day prior to presentation however she progressively got more short of breath so she presented to the emergency department. She does have a history of atrial fibrillation but was taken off anticoagulation due to her fall risk. EKG initially showed A-fib with heart rates between 120 and 130. Evidently, the patient had been on digoxin previously but ran out and it was decided not to place her back on this medication. In the emergency department, she spontaneously converted back to normal sinus rhythm with rates in the 70s. Upon presentation, her BNP was 1200 and her chest x-ray showed vascular congestion. Initial lactate was 4.3. Her granddaughter assisted with her history and indicated that her grandmother had been in normal state of health until about 4 to 5 days prior to presenting when she began becoming more progressively short of breath and had a slight cough. She denied her having any fevers and reported that she is always cold and did not complain of chills. Her granddaughter also reported that when she has A-fib she always complains of some heaviness in her chest that resolves when she is not in A-fib. Her granddaughter reports that her grandmother has a baseline history of dementia and has intermittent hallucinations. Her BNP was found to be 1200 however she was also found to be influenza A positive and we suspect the shortness of breath is a combination of the 2. She was admitted to the PCU and placed on Lasix with a repeat echocardiogram pending and started on Tamiflu. With her history of hallucinations at home her Aricept was held and we did hold this at discharge asking family to monitor her for any recurrent hallucinations as this medication can cause hallucinations. If they did not notice any hallucinations off the medication I would recommend continuing to hold it and if they did not I told him it was okay to restart it. She was maintained on Tamiflu for hospital course and was discharged with 2 more days to complete the course. She had some paroxysmal atrial fibrillation while hospitalized and cardiology was consulted. An echocardiogram was performed and demonstrated an EF of 55%, moderately enlarged left atrium, moderate mitral valve insufficiency, trivial aortic Valve insufficiency and diastolic dysfunction was unable to be assessed. I suspect her heart failure was related to her A-fib with RVR and decreased filling time with backup of fluid along with influenza causing her shortness of breath as she responded fairly quickly to diuresis and was able to be transition back to oral Lasix quite quickly. With her intermittent atrial fibrillation while she was hospitalized cardiology started amiodarone drip which was transitioned to oral 200 mg twice daily at the time of discharge. She will complete another 6 days of amiodarone 200 mg p.o. twice daily and then transition to 200 mg daily. We have asked that she follow-up with cardiology and call and make an appointment on Saturday to be seen within the next 2 weeks. Prescriptions for the Tamiflu and amiodarone were sent to the local pharmacy prior to discharge. Again we are holding the donepezil and we held lisinopril as her blood pressures were not elevated with the addition of the amiodarone at the time of discharge. I have asked her to hold this until she follows up with cardiology or if she is having consistent systolic blood pressures greater than 130 she may restart the lisinopril at that time as well. She was discharged home in stable condition back to her daughter's house. Again she is to follow-up with cardiology in the next 2 weeks and her primary care physician within the next week. I have asked that she call to have a basic metabolic profile obtained for Saturday of next week to reassess her renal function electrolytes with the addition of the Lasix. Discharge diagnoses: Shortness of breath Acute decompensated heart failure with preserved ejection fraction Influenza A Paroxysmal atrial fibrillation with rapid ventricular rate [place]'s EMEA-corrected Severe malnutrition CKD stage III AA Lactic acidosis-resolved Acute anemia-stable Thrombocytopenia-resolved DM-2 Hypothyroidism GERD Hyperlipidemia Hypertension Dementia History of lung cancer Physical Exam Narrative Patient is back to normal sinus rhythm. She states she is feeling much better. Anxious to go home and glad to hear that we are able to send her home later today. Const alert, no apparent distress and well nourished Constitutional Narrative: Thin, elderly white female, lying in bed sleeping however awakens easily to tactile/verbal stimulus, very pleasant and cooperative, appears comfortable and nontoxic General Appearance: cooperative, comfortable, well kempt and well developed Orientation / Consciousness: awake, oriented to person and oriented to place Nutritional Appearance: thin HEENT normocephalic, head/scalp atraumatic and moist oral mucous membranes HEENT Narrative: Severe hearing loss, dentures in place, Mallampati 1, no thrush Eyes PERRL, EOMs intact bilaterally and conjunctivae normal Eyes Narrative: No scleral icterus Neck no lymphadenopathy and supple Neck Narrative: Trachea midline, no thyroid enlargement Resp normal respiratory effort, no retractions, no use of accessory muscles and clear to auscultation bilaterally Auscultation: Negative for crackles, rhonchi or wheezes Cardio regular rate, regular rhythm, S1 normal heart sound, S2 normal heart sound, no murmurs, no rub, no gallops and no clicks Cardio Narrative: Patient has again converted to normal sinus rhythm GI normal to inspection, nondistended, normoactive bowel sounds, soft to palpation and non-tender Extremity no clubbing, cyanosis or edema Extremity Narrative: Pedal pulses are 2+ Skin no rashes or lesions noted, no wounds, skin turgor normal and no jaundice Skin Narrative: Skin is thin and has changes consistent with previous sun exposure but no significant lesions Neuro CN's II-XII intact bilaterally, moves all extremities and no focal motor deficits Neuro Narrative: Generalized weakness noted-proximal greater than distal consistent with sarcopenia but no focal deficits Sensorium / Orientation: awake, alert, oriented to person and oriented to place Speech: speech normal Psych affect normal Psych Narrative: Extremely pleasant, patient interacts appropriately Medical Records Data Medical Nutrition Assessment Dietitian: Malnutrition Criteria Met Start: 10/31/23 15:34 Freq: Status: Active Protocol: Document 10/31/23 15:34 (Rec: 10/31/23 15:34 [id number]) Nutrition Malnutrition Evidence of Malnutrition Exists Yes Malnutrition (severe): Chronic Evidenced By Suboptimal Energy Intake ( Severe),Physical Changes ( Severe) Clinical Problem Chronic Disease or Condition Related Malnutrition Etiology severe, chronic malnutrition related to inadequate energy intake d/t chewing/swallowing difficulty Signs/Symptoms as evidenced by estimated PO intake meeting <75% of estimated energy needs > 3 months, severe muscle wasting/ fat loss evident per physical exam in orbital, clavicle, acromion, and temporal areas Status Active Problem Recommendation Dietitian Recommendations/Changes continue cardiac diet w/ fluid restriction as indicated; will add ensure compact w/ breakfast and magic cup w/ dinner for additional nutrition if consumed given evidence of malnutrition. DIRECT SUPPORT STAFF MEMBER consult if issues w/ chewing/ swallowing persist- modified consistencies ordered by nursing staff. Weight / BMI Weight Weight: 55.9 kg Body Mass Index (BMI) 23.3 ABG / Lab / Microbiology Data 11/01/23 06:55 11/02/23 07:32 Laboratory: Laboratory Results - last 24 hr 11/01/23 11:46: POC Glucose 221 H 11/01/23 16:44: POC Glucose 404 H 11/01/23 22:53: POC Glucose 281 H 11/02/23 06:32: POC Glucose 186 H 11/02/23 07:32: Sodium 135 L, Potassium 3.7, Chloride 102, Carbon Dioxide 28.0, Anion Gap 5, BUN 32 H, Creatinine 1.13 H, Estim Creat Clear Calc 29.46, Est GFR (MDRD) Af Amer 59 L, Est GFR (MDRD) Non-Af 49 L, BUN/Creatinine Ratio 28.3 H, Glucose 174 H, Calcium 8.7, Magnesium 1.4 L Microbiology: Microbiology 10/30/23 14:05 Blood Culture (Wb) - Left Hand Blood Culture - Preliminary No growth in 48 hours. 10/30/23 14:05 Blood Culture (Wb) - Right Hand Blood Culture - Preliminary No growth in 48 hours. 10/30/23 14:05 Nasal Secretion SARS-CoV-2 & FLU Antigen (Rapid) - Final Influenzae A D/C Instructions Discharge Diet: Low fat / Low cholesterol, 1800 Calorie Control Diet and 4000 mg Sodium Diet Discharge Activity: Return to Normal Activity Meaningful Use Info Meaningful Use Diagnoses (Choose all that apply): None applicable Discharge Plan Admission Admit Date/Time: 10/30/23 15:28 Attending Provider: Briana Simon Primary Care Provider: Carlton Rasheed Consulting Providers: Camila Mills; Herrera Patel Instructions Additional Instructions / Restrictions: 1. Please call your primary care physician and obtain a basic metabolic profile to be done on Saturday11/06/2023 with the addition of Lasix at home. This is to recheck your kidney function and electrolytes. Discharge Orders/Prescriptions Prescriptions: New oseltamivir 30 mg Capsule 30 mg PO DAILY@2200 Qty: 2 0RF amiodarone 200 mg Tablet 200 mg PO DAILY Qty: 38 1RF Rx Instructions: Take 1 tablet twice daily for another 6 days then 1 tablet daily following Continued metoprolol succinate 100 mg tablet extended release 24 hr 100 mg PO DAILY lovastatin 10 mg tablet 10 mg PO QHS omeprazole 20 mg tablet,delayed release (DR/EC) 20 mg PO DAILY Farxiga 5 mg tablet 5 mg PO DAILY cetirizine [Zyrtec] 10 mg tablet 10 mg PO DAILY PRN (Reason: allergies) multivitamin Tablet 1 tab PO DAILY metformin 750 mg tablet extended release 24 hr 750 mg PO Q12H famotidine [Pepcid] 20 mg tablet 20 mg PO DAILY cholestyramine (with sugar) 4 gram powder in packet 1 ea PO Q6H PRN (Reason: diarhhea) paroxetine HCl 30 mg tablet 30 mg PO DAILY albuterol sulfate 90 mcg/actuation HFA aerosol inhaler 1 puff INHALATION DAILY PRN (Reason: shortness of breath or wheezing) memantine 10 mg tablet 10 mg PO BID levothyroxine 88 mcg tablet 88 mcg PO DAILY fluocinolone 0.01 % oil 1 applic TOPICAL DAILY Rx Instructions: APPLY ONE APPLICATON ONCE DAILY TO THE SCALP furosemide 40 mg tablet 40 mg PO DAILY Qty: 30 11RF Held lisinopril 20 mg tablet 20 mg PO DAILY Hold Instructions: Hold until follow-up with cardiology to reassess blood pressure with the addition of amiodarone and less systolic blood pressures are consistently greater than 130 donepezil 10 mg tablet 10 mg PO DAILY Hold Instructions: These medications can cause hallucinations. Hold to see if hallucinations improve off the medication and if they have resolved would not restart. If no change okay to resume Referrals / Follow Up: Greta Nayak DO [Non-Staff] - Within 1 Week Carlton Rasheed PA [Primary Care Provider] - Andrey Mensah NP, [employer] [Med Staff - [facility]] - Within 2 Weeks (Call on 11/04/2023 to set up an appointment to be seen for hospital follow-up) Disposition Disposition (needs filled in before D/C Order can be placed): Home, Self Care Charges/Coding Visit Charges Inpatient E&M: 84399 Disch Hosp >30min
[2023-11-02] MEDS: Magnesium Sulfate 2 GM in Dextrose 5%-Water (100mL Bag) 100 ML IV (09:51)
[2023-11-02] MEDS: Ensure Plus High Protein 120 ML LIQUID PO ×2 (09:51→12:06)
--- NOTE | 2023-11-02 09:51 | NURSING ---
I spoke with Greta with [facility] to inform her that pt will be d/c today. I also faxed over the d/c summary.
[2023-11-02] MEDS: Furosemide 20 MG Tablet PO (09:52)
[2023-11-02] MEDS: Nystatin Powder 15gm Bottle 1 APPLIC TOPICAL (09:52)
[2023-11-02] MEDS: Amiodarone 200 MG Tablet PO (09:52)
[2023-11-02] MEDS: Enoxaparin 30 MG/0.3 ML Syringe SC (09:52)
[2023-11-02 09:53] VITALS: BP 110/70; PULSE 71
[2023-11-02] MEDS: Pantoprazole Sodium 20 MG Tablet PO (09:53)
[2023-11-02] MEDS: PARoxetine 10 MG Tablet 30 MG PO (09:53)
[2023-11-02] MEDS: Metoprolol(XL)Succ 100 MG Tablet PO (09:53)
[2023-11-02 11:15] VITALS: BP 110/73; PULSE 73; RESP 16; TEMP 36.6; O2SAT 95
[2023-11-02 13:01] LABS: Bedside Glucose 268 mg/dL (74-106)
== END 2023-11-02 14:20 | disposition home health service (06) | DRG 193 ==
LOC: ED 15:12 → PCU 15:39
PROVIDERS: Admitting Provider Internal Medicine; Emergency Provider Emergency Medicine; PCP Physician Assistant; Visit Provider Internal Medicine
DX: J10.1 Influenza due to other identified influenza virus with other respiratory manifestations (principal); E43 Unspecified severe protein-calorie malnutrition; I50.33 Acute on chronic diastolic (congestive) heart failure; I13.0 Hypertensive heart and chronic kidney disease with heart failure and stage 1 through stage 4 chronic kidney disease, or unspecified chronic kidney disease; E11.22 Type 2 diabetes mellitus with diabetic chronic kidney disease; F03.90 Unspecified dementia, unspecified severity, without behavioral disturbance, psychotic disturbance, mood disturbance, and anxiety; I48.0 Paroxysmal atrial fibrillation; N18.31 Chronic kidney disease, stage 3a; D63.1 Anemia in chronic kidney disease; E03.9 Hypothyroidism, unspecified; E78.00 Pure hypercholesterolemia, unspecified; K21.9 Gastro-esophageal reflux disease without esophagitis; I25.10 Atherosclerotic heart disease of native coronary artery without angina pectoris; R44.1 Visual hallucinations; Z68.23 Body mass index [BMI] 23.0-23.9, adult; Z79.84 Long term (current) use of oral hypoglycemic drugs; Z79.899 Other long term (current) drug therapy; Z85.118 Personal history of other malignant neoplasm of bronchus and lung; Z87.891 Personal history of nicotine dependence
CPT/HCPCS: 36415; 71045; 80048; 81001; 82962; 83605; 83735; 83880; 84443; 84484; 85025; 85379; 87040; 87428; 93005; 93306; 94668; 97116; 97162; 97530; 97802; 99285; J7030; P9612; A4216; J1940

== ENCOUNTER → 2023-10-30 | Outpatient (CLI) | payer MEDICARE, SELFPAY ==
[2023-10-30 11:49] LABS: Anion Gap 8 (5-15); BUN 31 mg/dL (7-18); BUN/Creat Ratio 23.5 RATIO (10-20); Calcium,Total 8.8 mg/dL (8.5-10.1); Chloride 109 mmol/L (98-107); Creatinine, Serum 1.32 mg/dL (0.55-1.02); EST Glomerular Filtration Rate 41 mL/min (>60); Est Glom Filt Rate - Afr Amer 50 mL/min (>60); Glucose 176 mg/dL (74-106); Potassium 4.4 mmol/L (3.5-5.1); Sodium Level 139 mmol/L (136-145)
== END | disposition home or self-care (01) ==
LOC: LAB 09:10
PROVIDERS: PCP Internal Medicine; Referring Provider Nurse Practitioner Family; Visit Provider Nurse Practitioner Family
DX: R06.09 Other forms of dyspnea (principal); I25.10 Atherosclerotic heart disease of native coronary artery without angina pectoris; J90 Pleural effusion, not elsewhere classified
CPT/HCPCS: 36415; 80048; 83880

== ENCOUNTER 2024-02-09 20:06 | Inpatient (IN) | payer MEDICARE, SELFPAY ==
[2024-02-09] VITALS (8 sets, daily range): BP systolic 89–127; BP diastolic 56–77; PULSE 72–80; RESP 12–25; TEMP 36.1–37.7; O2SAT 89–100; BMI 28.8
--- NOTE | 2024-02-09 20:22 | EKG12_ITS ---
Test Reason : DYSRHYTHMIA Blood Pressure : / mmHG Vent. Rate : 077 BPM Atrial Rate : 077 BPM P-R Int : 190 ms QRS Dur : 112 ms QT Int : 444 ms P-R-T Axes : 043 -23 077 degrees QTc Int : 502 ms Normal sinus rhythm Incomplete left bundle branch block Abnormal ECG Confirmed by MELANIE HERNÁNDEZ, NELSON ([id number]), primer expeditor and drier ABIOLA CRAWFORD ([id number]) on 02/10/2024 9:23:32 AM Referred By: SEBASTIÁN Confirmed By:NELSON NAVARRO MD
--- NOTE | 2024-02-09 20:23 | ED.VIS.DYS ---
HPI History of Present Illness Chief Complaint: Shortness of Breath Informant: patient and family (Daughter at bedside.) Limited: dementia Onset/Context/Timing Onset: Days Context: gradual Timing: Continuous Current Severity: Moderate Maximum Severity: Moderate Worsened by: Nothing Relieved by: Nothing Associated Symptoms cough Chest Pain: Positive for None Narrative Narrative: 83-year-old female history of CAD, dementia, diabetes, lung cancer for which she had radiation therapy in 2020, A-fib for which she is not on any blood thinners due to frequent falls. Patient recently was admitted to facility about a month and a half ago for CHF and possible pneumonia. She has been on oxygen since that time. She was then in rehab and now she has been home for about a week. Her daughter is her healthcare power of project coordinator. Says that she is on oxygen at home she did take it all the way up to 5 L today and she was still hypoxic on that. She is never had a DVT or PE. She did have nausea and vomiting last 2 days been family members with similar symptoms. Daughter states they do want her treated. However they do not want her on a ventilator but they want CPR. PE Risk Factors: Positive for Recent immobilization; Negative for Cancer, OCP + Smoking + > 35, Prior DVT or PE, Recent surgery or Recent travel Prior similar symptoms: Yes Recent Illness/Hospitalization: [facility] Medical History (Updated 02/09/24 @ 22:[address] David Lee MD) Atherosclerotic heart disease of [place] coronary artery without angina pectoris Dementia Diabetes mellitus, type 2 Diastolic congestive heart failure Essential (primary) hypertension Gout Hypothyroid Intracranial hemorrhage Lesion of bladder [facility] (current) use of anticoagulants Lung cancer Paroxysmal atrial fibrillation Pure hypercholesterolemia Rheumatic fever Skin cancer Stage 3a chronic kidney disease (CKD) Home Medications lovastatin 10 mg tablet 10 mg PO QHS CHOLESTEROL 09/24/18 [History Last Taken 10/29/23] metoprolol succinate 100 mg tablet,extended release 24 hr 100 mg PO DAILY HIGH BLOOD PRESSURE 09/24/18 [History Last Taken 10/30/23] omeprazole 20 mg tablet,delayed release 20 mg PO DAILY ACID REFLUX 07/29/20 [History Last Taken 10/30/23] cetirizine 10 mg tablet (Zyrtec) 10 mg PO DAILY PRN allergies 03/14/22 [History Last Taken Unknown] multivitamin 1 tab PO DAILY SUPPLEMENT 03/14/22 [History Last Taken 10/30/23] famotidine 20 mg tablet (Pepcid) 20 mg PO DAILY ACID REFLUX 09/19/22 [History Last Taken 10/30/23] metformin 750 mg tablet,extended release 24 hr 750 mg PO Q12H DIABETES 09/19/22 [History Last Taken 10/30/23] albuterol sulfate 90 mcg/actuation aerosol inhaler 1 puff inhalation DAILY PRN shortness of breath or wheezing 10/30/23 [History Last Taken 10/30/23] cholestyramine (with sugar) 4 gram powder for susp in a packet 1 ea PO Q6H PRN diarhhea 10/30/23 [History Last Taken 10/30/23] fluocinolone 0.01 % topical body oil 1 applic topical DAILY 10/30/23 [History Last Taken 10/30/23] levothyroxine 88 mcg tablet 88 mcg PO DAILY THYROID 10/30/23 [History Last Taken 10/30/23] 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 10/30/23 [History Last Taken 10/30/23] paroxetine HCl 30 mg tablet 30 mg PO DAILY DEPRESSION 10/30/23 [History Last Taken 10/30/23] amiodarone 200 mg tablet 200 mg PO DAILY #38 tabs 11/02/23 [Rx Last Taken Unknown] furosemide 40 mg tablet 40 mg PO DAILY FLUID #90 tabs 11/06/23 [Rx Last Taken Unknown] dapagliflozin propanediol 5 mg tablet (Farxiga) 10 mg PO DAILY DIABETES 11/27/23 [History Last Taken Unknown] Allergy/AdvReac Type Severity Reaction Status Date / Time No Known Allergies Allergy Verified 11/27/23 14:39 Family History Mother CHF (congestive heart failure) Hypertension Sister Hypertension Surgical History H/O tubal ligation H/O: hysterectomy History of bunionectomy of left great toe History of knee replacement History of right shoulder replacement History of tonsillectomy Hx of appendectomy Hx of cholecystectomy Social History household members: none Smoking Status: Never smoker how long ago did patient quit smokin years ago alcohol intake: current alcohol intake frequency: holidays/special occasions only substance use type: does not use caffeine: Yes Type: coffee Number of servings: 1 what type of physical activity do you participate in: walking frequency: daily ROS ROS ED ROS Narrative Shortness of breath. Review of Systems ROS Unobtainable: Denies due to encephalopathy Constitutional Constitutional ED: Denies chills or fever(s) Eyes Eyes: Denies blurry vision ENT ENT ED: Denies ear pain Cardiovascular Cardiovascular: Denies chest pain Respiratory/Chest Respiratory/Chest: Reports cough and dyspnea Gastrointestinal Gastrointestinal: Reports nausea and vomiting; Denies abdominal pain, diarrhea or melena Genitourinary Genitourinary ED: Denies dysuria or hematuria Musculoskeletal Musculoskeletal: Denies arthralgias Integumentary Denies abscess Neurologic Neurologic: Denies headache(s) Psychiatric Psychiatric: Denies anxiety or depression Endocrine Endocrinology: Denies cold intolerance Hematologic/Lymphatic Hematologic/Lymphatic: Denies easy bleeding, easy bruising or lymphadenopathy Allergic/Immunologic Allergic/Immunologic ED: Denies mouth swelling or tongue swelling EXAM Physical Exam Narrative Exam Narrative: 83-year-old female vital signs stable pulse ox 89% on 6 L she still hypoxic. Daughter at bedside. H EENT exam pupils round react light. Eyes open. Dry mucous membranes. Neck nontender no JVD. No lymphadenopathy. Lungs clear to auscultation bilaterally. No rales, rhonchi or wheezing. Equal symmetrical. Heart rate about 70. No murmur. Chest wall nontender. Abdomen soft nontender. Moving all 4 extremities. Both legs have equal symmetrical 1+ pitting edema. Calves are nontender without cords. Neurologically she is awake. She answers questions follows commands. She does have some dementia. Const Vital Signs: 02/09/24 20:11 02/09/24 20:48 02/09/24 20:48 Temperature 97 F L 97 F L 97 F L Temperature Source Temporal Temporal Temporal Pulse Rate 72 76 76 Respiratory Rate 22 H 16 16 Respiratory Effort Respiratory Depth Respiratory Pattern Blood Pressure 127/77 H 120/56 L 120/56 L Blood Pressure Mean 93 77 77 Pulse Ox 89 100 100 Oxygen Delivery Method Nasal Cannula Nasal Cannula Nasal Cannula Oxygen Flow Rate (L/min) 6 5 5 02/09/24 20:50 02/09/24 20:56 02/09/24 22:10 Temperature 99.8 F H Temperature Source Oral Pulse Rate 80 Respiratory Rate 18 Respiratory Effort Short of Breath Respiratory Depth Shallow Respiratory Pattern Tachypnea Blood Pressure 109/72 Blood Pressure Mean 84 Pulse Ox 94 Oxygen Delivery Method Nasal Cannula Nasal Cannula Nasal Cannula Oxygen Flow Rate (L/min) 4 5 3 02/09/24 22:13 Temperature 99.8 F H Temperature Source Pulse Rate 74 Respiratory Rate 14 Respiratory Effort Respiratory Depth Respiratory Pattern Blood Pressure 109/72 Blood Pressure Mean 84 Pulse Ox 97 Oxygen Delivery Method Oxygen Flow Rate (L/min) Positive well nourished and well developed; Negative for cachectic, contractures or unkempt General Appearance ED: well developed; Negative for unkempt, cachectic, contractures, NAD or pallor Nutritional Appearance: Negative for cachectic HEENT Reports dry mucous membranes; Denies moist mucous membranes atraumatic; Negative for trauma or tenderness Mouth ED: Yes dry mucous membranes Mouth: dry mucous membranes Eyes PERRL and EOMs intact bilaterally General Eye ED: Negative for pale conjunctiva, scleral icterus or other Neck no lymphadenopathy, supple, no meningeal signs and no JVD General: Negative for tenderness Lymph Lymphatic: Negative for other Chest Wall Chest: Negative for other Resp No normal respiratory effort and clear to auscultation bilaterally Effort and Inspection: Negative for pain with movement Auscultation: Negative for rales, rhonchi, wheezes or diminished lung sounds Cardio regular rate, regular rhythm, S1 normal heart sound, S2 normal heart sound and no murmurs Rate: Negative for bradycardia or tachycardic Rhythm: Negative for abnormal rhythm GI non-tender, non-distended and no masses Auscultation: normoactive bowel sounds Palpation: soft; Negative for tender, guarding or rebound tenderness present Back/Spine no CVA tenderness and normal to inspection General Back: Negative for CVA tenderness Extremity Negative for normal to inspection Extremity Narrative: Bilateral 1+ pitting edema. General Extremety ED: Yes edema; Negative for tenderness General Extremity: edema Neuro No oriented x3 Neuro Narrative: Awake. Eyes open. Answer some questions. Does follow some commands. No focal motor deficits. Dementia. Sensorium / Orientation: alert, oriented to person, orientation impaired and confused; Negative for oriented to place, oriented to time or lethargic Speech: speech normal Motor Exam: general weakness; Negative for strength 5/5 throughout Psych mental status grossly normal Appearance: Negative for unkempt Attitude: No agitated Mood & Affect: Negative for depressed, anxious or tearful Skin no wounds General Skin Exam: Negative for jaundice or pallor Lesions: no lesions Rashes: no rashes Trauma: Negative for abrasion, laceration or puncture MDM MDM MDM Narrative Medical decision making narrative: 83-year-old female history of CHF is bilateral lower extremity 1+ pitting edema and hypoxic. Differential includes CHF, pleural effusions, pneumonia, PE etc. she undergo cardiac workup. Repeat exam patient is hypoxic even on 5 L of oxygen. She will be tried on BiPAP. She is receiving IV Lasix. I spoke to her and her daughter at length. They are comfortable with the plan. Again they want her treated but no CPR and no intubation. I have already spoken to the hospitalist. I think this is secondary to CHF. And she will be admitted to the PCU. The hospitalist will be down evaluate the patient. History & Record Review Discussion w/independent historian: Patient and Family Additional record(s) reviewed:: Prior inpatient record, Prior outpatient record, Prior ED visit and Prior labs Lab Data Attestation: I reviewed the patient's lab results. Lab results narrative: CBC shows a white count 12.8. H&H of 10.9 and 34. Platelets 190. Electrolytes show gap 8. BUN 23 creatinine 1.3. Glucose 138. Troponin normal at 9. BNP 715. Labs: Laboratory Results - last 24 hr 02/09/24 20:41 WBC 12.8 H RBC 3.81 L Hgb 10.9 L Hct 34.9 L MCV 91.6 MCH 28.6 MCHC 31.2 L RDW Std Deviation 59.8 H RDW Coeff of Danielle 19.0 H Plt Count 190 MPV 10.3 Immature Gran % (Auto) 0.900 Neut % (Auto) 69.6 Lymph % (Auto) 16.7 L Howard % (Auto) 11.4 H Eos % (Auto) 0.9 Baso % (Auto) 0.5 Absolute Neuts (auto) 8.9 H Absolute Lymphs (auto) 2.14 Nucleated RBC % 0 Sodium 137 Potassium 4.4 Chloride 104 Carbon Dioxide 25.0 Anion Gap 8 BUN 23 H Creatinine 1.32 H Estim Creat Clear Calc 29.24 Est GFR (MDRD) Af Amer 50 L Est GFR (MDRD) Non-Af 41 L BUN/Creatinine Ratio 17.4 Glucose 138 H Calcium 9.1 Troponin I High Sens 9 B-Natriuretic Peptide 715.3 H Radiography Chest X-Ray - ED: 1 View and Read by ED Physician Diagnostic Testing: Clinical Impression(s) from Imaging Studies Chest X-Ray 02/09/24 20:50 IMPRESSION: Bilateral pneumonia. Electronically Signed: Carlton Barreto MD at 21:16 EDT , Rhythm Strip Rhythm Strip: Sinus Rhythm Rate: 77 Ectopy: None EKG Initial EKG: Attestation: I personally reviewed and interpreted this EKG as follows: Interpretation: Sinus Rhythm and No Acute Injury Pattern Comments: Normal sinus rhythm rate of 77 no acute signs of VA or ischemia. Incomplete left bundle branch block. Management Discussion w/another healthcare provider: Hospitalist Critical Care Time Critical Care Time: Yes Critical care time (excluding procedures): 30-74 minutes, Including time spent:, Discussing w/Patient &/or Family/[employer], Discussing w/Consultants, Arranging Admission or Transfer, Performing Direct Patient Care at Bedside and - (35 minutes.) Discharge Plan Triage Chief Complaint: Shortness of Breath ED Provider: David Lee Dx/Rx/DC Orders Clinical Impression: Congestive heart failure, History of lung cancer, Hypoxia, History of atrial fibrillation, History of anemia, History of diabetes mellitus Prescriptions: No Action metoprolol succinate 100 mg tablet extended release 24 hr 100 mg PO DAILY lovastatin 10 mg tablet 10 mg PO QHS omeprazole 20 mg tablet,delayed release (DR/EC) 20 mg PO DAILY cetirizine [Zyrtec] 10 mg tablet 10 mg PO DAILY PRN (Reason: allergies) multivitamin Tablet 1 tab PO DAILY metformin 750 mg tablet extended release 24 hr 750 mg PO Q12H famotidine [Pepcid] 20 mg tablet 20 mg PO DAILY Farxiga 5 mg tablet 10 mg PO DAILY cholestyramine (with sugar) 4 gram powder in packet 1 ea PO Q6H PRN (Reason: diarhhea) paroxetine HCl 30 mg tablet 30 mg PO DAILY albuterol sulfate 90 mcg/actuation HFA aerosol inhaler 1 puff INHALATION DAILY PRN (Reason: shortness of breath or wheezing) memantine 10 mg tablet 5 mg PO BID levothyroxine 88 mcg tablet 88 mcg PO DAILY fluocinolone 0.01 % oil 1 applic TOPICAL DAILY Rx Instructions: APPLY ONE APPLICATON ONCE DAILY TO THE SCALP amiodarone 200 mg Tablet 200 mg PO DAILY Qty: 38 1RF Rx Instructions: Take 1 tablet twice daily for another 6 days then 1 tablet daily following furosemide 40 mg tablet 40 mg PO DAILY Qty: 90 3RF Primary Care Provider: Greta Nayak Referrals: Carlton Rasheed PA [Non-Staff] - Disposition Disposition: Acute Care Hospital [facility]
[2024-02-09 20:49] LABS: Absolute Lymphocyte Count 2.14 X10^3/uL (0.83-4.51); Absolute Neutrophil Count 8.9 X10^3/uL (2.0-7.7); Basophil# 0.06 X10^3/uL; Basophil% 0.5 % (0-1); Eosinophil# 0.12 X10^3/uL; Eosinophils% 0.9 % (0-5); Hematocrit 34.9 % (37-47); Hemoglobin 10.9 g/dL (12.0-15.0); Lymphocyte # 2.14 X10^3/ul (0.83-4.51); Lymphocyte % 16.7 % (19-41); Mean Corp Hgb Conc 31.2 g/dL (32-36); Mean Corpuscular Hgb 28.6 pg (27.0-32.0); Mean Corpuscular Volume 91.6 fL (81-99); Mean Platelet Vol. 10.3 fl (6.2-12.0); Monocyte# 1.47 X10^3/uL; Monocyte% 11.4 % (0-10); NRBC Flagged by Analyzer 0 % (0-5); Neutrophil # 8.93 X10^3/uL (2.7-7.7); Neutrophil % 69.6 % (47-70); Platelet Count 190 K/mm3 (150-450); RBC Distribution Width SD 59.8 fl (35.1-43.9); Red Blood Count 3.81 M/mm3 (4.2-5.4); White Blood Count 12.8 K/mm3 (4.4-11.0)
--- NOTE | 2024-02-09 20:50 | RAD_ITS ---
STUDY: XR Chest 1 View 02/09/2024 8:50 PM REASON FOR EXAM: Female, 83 years old. chest pain COMPARISON: None TECHNIQUE: XR Chest 1 View FINDINGS: Small right pleural effusion. There is an elevated right hemidiaphragm. There is no pneumothorax. Diffuse bilateral infiltrates. Total right shoulder arthroplasty. Normal heart size. Normal mediastinum. Normal olvin. Prominent appearing increased interstitial lung markings. Normal visualized pulmonary arteries. There is atherosclerotic calcification of the aortic arch with tortuosity. There are diffuse degenerative changes of the visualized thoracic spine. 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 There are no acute findings of the upper abdomen. RAD/Chest 1 View (Portable) IMPRESSION: Bilateral pneumonia. Electronically Signed: Carlton Barreto MD at 21:16 EDT ,
[2024-02-09 21:12] LABS: Anion Gap 8 (5-15); BUN 23 mg/dL (7-18); BUN/Creat Ratio 17.4 RATIO (10-20); Calcium,Total 9.1 mg/dL (8.5-10.1); Chloride 104 mmol/L (98-107); Creatinine, Serum 1.32 mg/dL (0.55-1.02); EST Glomerular Filtration Rate 41 mL/min (>60); Est Glom Filt Rate - Afr Amer 50 mL/min (>60); Estimated Creatinine Clearance 29.24 ml/min; Glucose 138 mg/dL (74-106); Potassium 4.4 mmol/L (3.5-5.1); Sodium Level 137 mmol/L (136-145); Troponin-I HS 9 pg/mL (3.0-54.0)
[2024-02-09 21:23] LABS: BNP,B-Type NATRIURETIC PEPTIDE 715.3 pg/mL (0-100)
--- NOTE | 2024-02-09 22:37 | HP.PCM.HOS_ITS ---
HPI - General General Date of Admission: 02/09/24 Date of Service: 02/09/24 Chief Complaint: Dyspnea, hypoxia. HPI Narrative The patient is an 83 y/o F w/ PMHx: Chronic Hypoxic Respiratory Failure (2-3L NC) following recent pneumonia/heart failure exacerbation presentation at , HFpEF, HTN, HLD, PAF, CAD, Dementia unclear type with unclear behavioral disturbance history, CKD stage IIIa, Diabetes mellitus type II, Hypothyroidism, Hx ICH, Hx Lung CA w/ Former tobacco use, Anxiety and Depression who presents to the [facility] ED on 02/09/24 with history of worsening shortness of breath throughout the day normally on 2 to 3 L at home however she is significantly dyspneic prompting need for increased supplementation with onset of fatigue, malaise, nausea and occasional emesis over the last 48 hours with family members with similar illness symptoms prompting eventual EMS call. Patient does have lower extremity pitting edema which daughter feels is increased from recently but she does not know if she is gained weight or not as they have not been tracking this. Patient does have potentially orthopnea from discussion with patient and family. Per patient daughter reports she had been at approximately a month and a half prior secondary to pneumonia and heart failure exacerbation with chronic supplementation oxygen since then recently transitioned to rehab and now to home for approximately 1 week workup in the ED included T97, heart rate 72, BP 127/77, respiratory rate 22, noted to be 89% on 6 L upon initial evaluation--> decreased to 100% on 5 L nasal cannula,, CBC with WBC 12.8, N1 10.9, MCV 91.6, platelet 190 with left shift, BMP with BUN/1 and 23/1.32, GFR 41, glucose 138, troponin 9, BNP 715.3, chest x-ray with diffuse bilateral infiltrates, small right pleural effusion, EKG with SR with incomplete RBBB without acute evidence of ischemia. In the ED patient administered lasix 40 mg IV x 1 and was placed on BIPAP given ongoing hypoxia. FORMERLY [facility], [facility] Medical History Atherosclerotic heart disease of [place] coronary artery without angina pectoris Dementia Diabetes mellitus, type 2 Diastolic congestive heart failure Essential (primary) hypertension Gout Hypothyroid Intracranial hemorrhage Lesion of bladder longterm (current) use of anticoagulants Lung cancer Paroxysmal atrial fibrillation Pure hypercholesterolemia Rheumatic fever Skin cancer Stage 3a chronic kidney disease (CKD) Home Medications lovastatin 10 mg tablet 10 mg PO QHS CHOLESTEROL 09/24/18 [History Last Taken 10/29/23] metoprolol succinate 100 mg tablet,extended release 24 hr 100 mg PO DAILY HIGH BLOOD PRESSURE 09/24/18 [History Last Taken 10/30/23] omeprazole 20 mg tablet,delayed release 20 mg PO DAILY ACID REFLUX 07/29/20 [History Last Taken 10/30/23] cetirizine 10 mg tablet (Zyrtec) 10 mg PO DAILY PRN allergies 03/14/22 [History Last Taken Unknown] multivitamin 1 tab PO DAILY SUPPLEMENT 03/14/22 [History Last Taken 10/30/23] famotidine 20 mg tablet (Pepcid) 20 mg PO DAILY ACID REFLUX 09/19/22 [History Last Taken 10/30/23] metformin 750 mg tablet,extended release 24 hr 750 mg PO Q12H DIABETES 09/19/22 [History Last Taken 10/30/23] albuterol sulfate 90 mcg/actuation aerosol inhaler 1 puff inhalation DAILY PRN shortness of breath or wheezing 10/30/23 [History Last Taken 10/30/23] cholestyramine (with sugar) 4 gram powder for susp in a packet 1 ea PO Q6H PRN diarhhea 10/30/23 [History Last Taken 10/30/23] fluocinolone 0.01 % topical body oil 1 applic topical DAILY 10/30/23 [History Last Taken 10/30/23] levothyroxine 88 mcg tablet 88 mcg PO DAILY THYROID 10/30/23 [History Last Taken 10/30/23] 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 10/30/23 [History Last Taken 10/30/23] paroxetine HCl 30 mg tablet 30 mg PO DAILY DEPRESSION 10/30/23 [History Last Taken 10/30/23] amiodarone 200 mg tablet 200 mg PO DAILY #38 tabs 11/02/23 [Rx Last Taken Unknown] furosemide 40 mg tablet 40 mg PO DAILY FLUID #90 tabs 11/06/23 [Rx Last Taken Unknown] dapagliflozin propanediol 5 mg tablet (Farxiga) 10 mg PO DAILY DIABETES 11/27/23 [History Last Taken Unknown] Allergy/AdvReac Type Severity Reaction Status Date / Time No Known Allergies Allergy Verified 11/27/23 14:39 Family History (Updated 02/09/24 @ 23:[address] Suha Jiménez MD) Mother CHF (congestive heart failure) Hypertension Sister Hypertension Father Heart disease Surgical History H/O tubal ligation H/O: hysterectomy History of bunionectomy of left great toe History of knee replacement History of right shoulder replacement History of tonsillectomy Hx of appendectomy Hx of cholecystectomy Social History (Updated 02/09/24 @ 22:[address] Suha Jiménez MD) household members: none Smoking Status: Never smoker how long ago did patient quit smokin years ago alcohol intake: current alcohol intake frequency: holidays/special occasions only substance use type: does not use caffeine: Yes Type: coffee Number of servings: 1 what type of physical activity do you participate in: walking frequency: daily ROS ROS Narrative Admission Review of Systems: CONSTITUTIONAL: No weight loss, fever, chills, + weakness or fatigue. HEENT: Eyes: No visual loss, blurred vision, double vision or yellow sclerae. Ears, Nose, Throat: No hearing loss, sneezing, congestion, runny nose or sore throat. SKIN: No rash or itching, lesions, wounds except + very staged ecchymoses, occasional petechial hemorrhage.. CARDIOVASCULAR: + Increased lower extremity edema, suspected orthopnea from discussions. No chest pain, chest pressure or chest discomfort, palpitations, syncopal events. RESPIRATORY: + Dyspnea. No marked cough or productive sputum, wheezing, hemoptysis. GASTROINTESTINAL: + anorexia, nausea, vomiting. No diarrhea, abdominal pain, melena, BRBPR. GENITOURINARY: No dysuria, frequency, urgency or retention. NEUROLOGICAL: No headache, dizziness, syncope, paralysis, ataxia, numbness or tingling in the extremities, focal weakness, change in bowel or bladder control, seizure. MUSCULOSKELETAL: + muscle, back pain, joint pain or stiffness. HEMATOLOGIC: + Chronic anemia, easy bleeding/bruising. LYMPHATICS: No enlarged nodes. No history of splenectomy. PSYCHIATRIC: + History of anxiety and depression. ENDOCRINOLOGIC: No reports of sweating, cold or heat intolerance. No polyuria or polydipsia. ALLERGIES: + History of allergic rhinitis. Vital Signs Vital Signs Vital Signs: 02/09/24 20:11 02/09/24 20:48 02/09/24 20:48 Temperature 97 F L 97 F L 97 F L Temperature Source Temporal Temporal Temporal Pulse Rate 72 76 76 Respiratory Rate 22 H 16 16 Respiratory Effort Respiratory Depth Respiratory Pattern Blood Pressure 127/77 H 120/56 L 120/56 L Blood Pressure Mean 93 77 77 Pulse Ox 89 100 100 Oxygen Delivery Method Nasal Cannula Nasal Cannula Nasal Cannula Oxygen Flow Rate (L/min) 6 5 5 02/09/24 20:50 02/09/24 20:56 02/09/24 22:10 Temperature 99.8 F H Temperature Source Oral Pulse Rate 80 Respiratory Rate 18 Respiratory Effort Short of Breath Respiratory Depth Shallow Respiratory Pattern Tachypnea Blood Pressure 109/72 Blood Pressure Mean 84 Pulse Ox 94 Oxygen Delivery Method Nasal Cannula Nasal Cannula Nasal Cannula Oxygen Flow Rate (L/min) 4 5 3 02/09/24 22:13 Temperature 99.8 F H Temperature Source Pulse Rate 74 Respiratory Rate 14 Respiratory Effort Respiratory Depth Respiratory Pattern Blood Pressure 109/72 Blood Pressure Mean 84 Pulse Ox 97 Oxygen Delivery Method Oxygen Flow Rate (L/min) Weight Weight: 152 lb 8.958 oz Body Mass Index (BMI) 28.8 Physical Exam Narrative Physical Examination: General: Awake, alert, oriented to self, place, recent events, BiPAP in place, does have difficulty hearing but has hearing aids but with close discussions toward the ear seems able to interact well, notes being fatigued although dysp jeffrey is improved currently Skin: Normal color, normal turgor, no icterus, no cyanosis except very staged extremity ecchymoses, occasional abrasion, mild petechial hemorrhaging on the distal extremities. HEENT: AT/NC, EOMI, PERRLA, mildly dry MM, BiPAP in place, difficult to discern carotid bruit given referred sound from BiPAP, + JVD. Lungs: Severely diminished, mildly increased respiratory rate, BiPAP in place, very distant Rales but not severe, no rhonchi or wheezing. Heart: Regular rate and rhythm; no gallop, rub audible. Abdomen: Soft, NTTP, ND, distant BS, no appreciated HSM. Extremities: No cyanosis, no clubbing, distal pedal to mid hinds 1-2+ pitting edema. Neurological: Patient awake, alert, oriented as noted, cognitive function intact; pupils equally reactive to light and accommodation, cranial nerves grossly normal, moving all 4 extremities, no focal deficits, strength severely globally decreased secondary to acute presentation. Psychiatric: Affect appears fatigued, no current evidence of any respiratory distress, no acute evidence of depressive or anxiety feelings but does have underlying history. Results Lab / Micro Data 02/09/24 20:41 02/09/24 20:41 Labs: Laboratory Results - last 24 hr 02/09/24 20:41: WBC 12.8 H, RBC 3.81 L, Hgb 10.9 L, Hct 34.9 L, MCV 91.6, MCH 28.6, MCHC 31.2 L, RDW Std Deviation 59.8 H, RDW Coeff of Danielle 19.0 H, Plt Count 190, MPV 10.3, Immature Gran % (Auto) 0.900, Neut % (Auto) 69.6, Lymph % (Auto) 16.7 L, [place] % (Auto) 11.4 H, Eos % (Auto) 0.9, Baso % (Auto) 0.5, Absolute Neuts (auto) 8.9 H, Absolute Lymphs (auto) 2.14, Nucleated RBC % 0, Sodium 137, Potassium 4.4, Chloride 104, Carbon Dioxide 25.0, Anion Gap 8, BUN 23 H, Creatinine 1.32 H, Estim Creat Clear Calc 29.24, Est GFR (MDRD) Af Amer 50 L, Est GFR (MDRD) Non-Af 41 L, BUN/Creatinine Ratio 17.4, Glucose 138 H, Calcium 9.1, Troponin I High Sens 9, B-Natriuretic Peptide 715.3 H Imaging Radiology Impression Chest X-Ray 02/09/24 20:50 IMPRESSION: Bilateral pneumonia. Electronically Signed: Carlton Barreto MD at 21:16 EDT , Assessment & Plan Assessment/Plan (1) Hypoxia: PLAN: Plan The patient is an 83 y/o F w/ PMHx: Chronic Hypoxic Respiratory Failure (2-3L NC) following recent pneumonia/heart failure exacerbation presentation at , HFpEF, HTN, HLD, PAF, CAD, Dementia unclear type with unclear behavioral disturbance history, CKD stage IIIa, Diabetes mellitus type II, Hypothyroidism, Hx ICH, Hx Lung CA w/ Former tobacco use, Anxiety and Depression who presents to the [facility] ED on 02/09/24 with history of worsening shortness of breath throughout the day normally on 2 to 3 L at home however she is significantly dyspneic prompting need for increased supplementation with onset of fatigue, malaise, nausea and occasional emesis over the last 48 hours with family members with similar illness symptoms prompting eventual EMS call. Patient does have lower extremity pitting edema. #1. Acute Hypoxia, possibly Multifactorial, secondary to Acute Decompensated HFpEF, Possible BL Pneumonia (lower suspicion, suspect overload primarily) however, patient/family with recent Viral Syndrome/Gastroenteritis possibly and cannot absolutely rule out superimposed bacterial pneumonia: Will admit to PCU, will maintain on BIPAP with transition to NC and will then maintain on oxygen with wean as tolerated to recent home oxygen supplementation, continue ATC budesonide, PRN albuterol, maintain on IV Zosyn and Vancomycin to be cautious given recent admission history with de-escalation if work-up primarily more con sistent with HF exacerbation only, HOB, IS parameters w/ pending sputum cultures, full respiratory viral panel and urine antigens. Will maintain on telemetry monitoring with serial cardiac enzymes to be cautious, will maintain on IV Lasix, monitor I/Os, continue medical therapy, obtain TSH and magnesium level. Will request records from her recent admission is likely at she had an echocardiogram performed but uncertain. Procalcitonin requested. If further workup is more indicative of primarily overload then certainly could consider de-escalation off antibiotic therapy but given viral syndrome and this presentation still uncertain. Repeat CXR in AM following diuresis. Blood culture x 2 pending per ED. PT/OT/ST/case management consulted for discharge planning. #2. Dementia, unclear type with unclear behavioral disturbance history: We will continue patient home memantine home regimen, complicates presentation, maintain on fall precautions, PT/OT/case management consulted for discharge planning. #3. PAF: We will continue patient home metoprolol, amiodarone home regimen, not chronically anticoagulated secondary to fall risk. #4. Hypertension: Continue home regimen including metoprolol, Lasix, PRN hydralazine. #5. Hyperlipidemia: We will continue patient on statin therapy. #6. Chronic Kidney Disease Stage IIIa: Admission BUN/Cr 23/1.32, GFR 41, baseline renal function 1.1-1.4, repeat BMP in AM. #7. Chronic normocytic anemia: Admission hemoglobin 10.9, MCV 91.6, baseline hemoglobin more recently 08-28, will continue to trend. #8. CAD: Nonobstructive, will continue aspirin, statin, metoprolol, not on NIKI or/ARB. #9. Diabetes mellitus type II: Hold oral home regimen, ADA diet, accu checks w/ ISS. #10. Hypothyroidism: We will continue patient on levothyroxine regimen, TSH/FT4 requested. #11. History of lung cancer, unclear type: Patient with history of lung cancer, unclear type, u treated with radiation therapy in 2020, in remission, encourage continued outpatient follow-up with oncology as previously arranged. #12. Anxiety and depression: We will continue patient home paroxetine regimen. #13. Allergic rhinitis we will continue patient home sertraline regimen. #14. Former tobacco use: Encourage continued tobacco cessation. #15. History ICH: Remote, resolved, maintain on fall precautions. #16. GERD: Will continue patient on PPI #17. DVT prophylaxis: Lovenox. #18. CODE status: Patient JAYASHREE is her daughter and living will is currently in place. Discussed CODE status at length including difference between FULL code, DNR-CCA and DNR-CC status. Following discussions about the differences in these status, requested DNR-CCA, no intubation but amenable to BIPAP which is being initiated in the ED. Advanced Care Planning Face to Face Time: 16 minutes. Charges/Coding Visit Charges Inpatient E&M: 78199 Init Hosp L3 Procedures Hospitalists Procedures: 87838 Advncd Care Plan 30 Min
[2024-02-09] MEDS: Furosemide 40 MG/4 ML Vial IV (22:39)
[2024-02-09 23:27] LABS: Magnesium 1.5 mg/dL (1.6-2.6)
[2024-02-09 23:41] LABS: Procalcitonin 0.12 ng/mL (0.00-0.09)
[2024-02-10] VITALS (13 sets, daily range): BP systolic 84–111; BP diastolic 50–73; PULSE 71–90; RESP 14–22; TEMP 36.6–37.2; O2SAT 85–100; BMI 24.5; BMI 24.2
[2024-02-10] MEDS: Vancomycin HCl 1,500 MG in 0.9% Normal Saline (500mL Bag) 500 ML 250 MG IV (01:17)
[2024-02-10] MEDS: 0.9% Normal Saline (250mL Bag) 250 ML 15 ML IV ×2 (01:20)
[2024-02-10 01:40] LABS: Troponin-I HS 11 pg/mL (3.0-54.0)
[2024-02-10] MEDS: Piperacil/Tazobactam 3.375 GM in 0.9% Normal Saline (50mL MB+) 50 ML IV ×4 (01:42→21:31)
[2024-02-10 01:48] LABS: M R Staph aureus DNA By PCR Negative (Negative); Probe Check PASS; Specimen Processing Control PASS
--- NOTE | 2024-02-10 02:50 | PCM.RX.CS ---
Consult Antibiotic Management Pharmacy has been consulted to manage selected antibiotic: Vancomycin Type of Intervention Type of Consult: New start Labs Labs: Sodium 137 mmol/L (136-145) 02/09/24 20:41 Potassium 4.4 mmol/L (3.5-5.1) 02/09/24 20:41 Chloride 104 mmol/L (98-107) 02/09/24 20:41 Carbon Dioxide 25.0 mmol/L (21.0-32.0) 02/09/24 20:41 Anion Gap 8 (5-15) 02/09/24 20:41 BUN 23 mg/dL (7-18) H 02/09/24 20:41 Creatinine 1.32 mg/dL (0.55-1.02) H 02/09/24 20:41 Est GFR (MDRD) Af Amer 50 mL/min (>60) L 02/09/24 20:41 Est GFR (MDRD) Non-Af 41 mL/min (>60) L 02/09/24 20:41 BUN/Creatinine Ratio 17.4 RATIO (10-20) 02/09/24 20:41 Glucose 138 mg/dL (74-106) H 02/09/24 20:41 Microbiology Microbiology: Microbiology 02/10/24 00:52 Urine, Random Legionella Antigen - Final 02/10/24 00:52 Urine, Random Streptococcus pneumoniae Antigen (M - Final Dosing Weight Weight used for dosin.8 kg Estimated Creatinine Clearance Estimated Creatinine Clearance: 29.24 Pharmacy Plan for Drug Dosing Pharmacy Plan for Drug Dosing: Pharmacy Service will continue to monitor and adjust dosing as required. 1500 LOADING DOSE AND 750MG Q24H DRAW TROUGTH PRIOR TO 3RD DOSE Follow-Up Labs Follow-Up Labs: Trough: Vancomycin Date/Time Labs Ordered Labs to be done on [date and time ordered]: 02/11 @ 0377
[2024-02-10 04:01] LABS: Troponin-I HS 11 pg/mL (3.0-54.0)
[2024-02-10] MEDS: 0.9% Saline Lock 10 ML Syringe IV ×3 (04:14→17:40)
[2024-02-10] MEDS: Ondansetron 4 MG/2 ML Vial IV (04:14)
--- NOTE | 2024-02-10 05:55 | RAD_ITS ---
EXAM: XR CHEST, 1 VIEW CLINICAL INDICATION: Dyspnea, cough TECHNIQUE: Frontal view of the chest. COMPARISON: 02/09/2024. FINDINGS: LUNGS AND PLEURAL SPACES: Persistent extensive patchy consolidations mid and lower lungs bilaterally likely due to pneumonia unchanged since previous exam. No pneumothorax. No effusion. HEART: Unremarkable. Cardiac silhouette not enlarged. MEDIASTINUM: Central airways and mediastinal contour are unremarkable. BONES/JOINTS: Right total shoulder arthroplasty. Components appear well seated. No acute fracture. SOFT TISSUES: Unremarkable. RAD/Chest 1 View (Portable) IMPRESSION: Persistent extensive patchy consolidations mid and lower lungs bilaterally likely due to pneumonia unchanged since previous exam. Electronically Signed: Volodymyr Vargas MD at 5:49 EDT ,
[2024-02-10 06:55] LABS: Absolute Neutrophil Count 8.4 X10^3/uL (2.0-7.7); Basophil# 0.05 X10^3/uL; Basophil% 0.5 % (0-1); Eosinophil# 0.06 X10^3/uL; Eosinophils% 0.6 % (0-5); Hematocrit 28.2 % (37-47); Hemoglobin 8.6 g/dL (12.0-15.0); Lymphocyte % 9.2 % (19-41); Mean Corp Hgb Conc 30.5 g/dL (32-36); Mean Corpuscular Hgb 27.8 pg (27.0-32.0); Mean Corpuscular Volume 91.3 fL (81-99); Mean Platelet Vol. 9.8 fl (6.2-12.0); Monocyte# 1.18 X10^3/uL; Monocyte% 10.9 % (0-10); NRBC Flagged by Analyzer 0 % (0-5); Neutrophil # 8.41 X10^3/uL (2.7-7.7); Neutrophil % 77.5 % (47-70); Platelet Count 151 K/mm3 (150-450); RBC Distribution Width CV 18.6 % (11.6-14.6); RBC Distribution Width SD 60.2 fl (35.1-43.9); Red Blood Count 3.09 M/mm3 (4.2-5.4); White Blood Count 10.8 K/mm3 (4.4-11.0)
[2024-02-10 07:04] LABS: Bedside Glucose 130 mg/dL (74-106)
[2024-02-10 07:23] LABS: Troponin-I HS 12 pg/mL (3.0-54.0)
[2024-02-10] MEDS: Budesonide Respules 0.5 MG/2 ML AMPUL.NEB. INHALATION ×2 (07:43→18:50)
[2024-02-10 09:00] LABS: ALB/GLOB Ratio 0.4 RATIO (0.9-2.4); AST(SGOT) 31 U/L (15-37); Alanine Aminotransfer ALT/SGPT 23 U/L (13-56); Alkaline Phosphatase 90 U/L (45-117); Anion Gap 8 (5-15); BUN 24 mg/dL (7-18); BUN/Creat Ratio 19.5 RATIO (10-20); Calcium,Total 8.4 mg/dL (8.5-10.1); Chloride 106 mmol/L (98-107); Cholesterol 70 mg/dL (200); Creatinine, Serum 1.23 mg/dL (0.55-1.02); EST Glomerular Filtration Rate 44 mL/min (>60); Est Glom Filt Rate - Afr Amer 54 mL/min (>60); Estimated Creatinine Clearance 27.89 ml/min; Globulin 4.7 g/dL (2.2-4.2); Glucose 131 mg/dL (74-106); High Density Lipoprotein 39 mg/dL; Potassium 3.4 mmol/L (3.5-5.1); Protein, Total 6.7 g/dL (6.4-8.2); Sodium Level 140 mmol/L (136-145); T4 Free Direct 1.56 ng/dL (0.76-1.46); Triglycerides 63 mg/dL; Very Low Density Lipoprotein 13 mg/dL (5-40)
--- NOTE | 2024-02-10 09:33 | PCM.PN.HOSP ---
Subjective Subjective Able to de-escalate her oxygen requirements overnight Objective Data Objective Data Vital Signs: Vital Signs Temp Pulse Resp BP Pulse Ox O2 Del Method O2 Flow Rate 98 F 71 18 111/64 93 Nasal Cannula 4 02/10/24 04:50 02/10/24 07:44 02/10/24 07:44 02/10/24 04:50 02/10/24 07:44 02/10/24 08:55 02/10/24 08:55 FiO2 35 02/09/24 23:00 Oxygen Flow Rate (L/min) 4 Oxygen Delivery Method Nasal Cannula Weight: 132 lb 4.438 oz Body Mass Index (BMI) 24.2 Intake & Output: Intake and Output for Last 24 Hours 02/09/24 02/10/24 02/11/24 03:59 03:59 03:59 Intake Total 50.50 / 50.50 673.33 / 673.33 Output Total 500 / 500 Balance 50.50 / 50.50 173.33 / 173.33 Lab / Micro Data 02/10/24 06:46 02/10/24 06:46 Labs: Laboratory Results - last 24 hr 02/09/24 00:05: MRSA (PCR) Negative 02/09/24 20:41: WBC 12.8 H, RBC 3.81 L, Hgb 10.9 L, Hct 34.9 L, MCV 91.6, MCH 28.6, MCHC 31.2 L, RDW Std Deviation 59.8 H, RDW Coeff of Danielle 19.0 H, Plt Count 190, MPV 10.3, Immature Gran % (Auto) 0.900, Neut % (Auto) 69.6, Lymph % (Auto) 16.7 L, [place] % (Auto) 11.4 H, Eos % (Auto) 0.9, Baso % (Auto) 0.5, Absolute Neuts (auto) 8.9 H, Absolute Lymphs (auto) 2.14, Nucleated RBC % 0, Sodium 137, Potassium 4.4, Chloride 104, Carbon Dioxide 25.0, Anion Gap 8, BUN 23 H, Creatinine 1.32 H, Estim Creat Clear Calc 29.24, Est GFR (MDRD) Af Amer 50 L, Est GFR (MDRD) Non-Af 41 L, BUN/Creatinine Ratio 17.4, Glucose 138 H, Calcium 9.1, Troponin I High Sens 9, B-Natriuretic Peptide 715.3 H 02/09/24 23:07: Magnesium 1.5 L, Procalcitonin 0.12 H 02/10/24 01:10: Troponin I High Sens 11 02/10/24 03:28: Troponin I High Sens 11 02/10/24 06:44: POC Glucose 130 H 02/10/24 06:46: WBC 10.8, RBC 3.09 L, Hgb 8.6 L, Hct 28.2 L, MCV 91.3, MCH 27.8, MCHC 30.5 L, RDW Std Deviation 60.2 H, RDW Coeff of Danielle 18.6 H, Plt Count 151, MPV 9.8, Immature Gran % (Auto) 1.300 H, Neut % (Auto) 77.5 H, Lymph % (Auto) 9.2 L, [place] % (Auto) 10.9 H, Eos % (Auto) 0.6, Baso % (Auto) 0.5, Absolute Neuts (auto) 8.4 H, Absolute Lymphs (auto) 1.00, Nucleated RBC % 0, Sodium 140, Potassium 3.4 L, Chloride 106, Carbon Dioxide 26.0, Anion Gap 8, BUN 24 H, Creatinine 1.23 H, Estim Creat Clear Calc 27.89, Est GFR (MDRD) Af Amer 54 L, Est GFR (MDRD) Non-Af 44 L, BUN/Creatinine Ratio 19.5, Glucose 131 H, Calcium 8.4 L, Total Bilirubin 1.20 H, AST 31, ALT 23, Alkaline Phosphatase 90, Troponin I High Sens 12, Total Protein 6.7, Albumin 2.0 L, Globulin 4.7 H, Albumin/Globulin Ratio 0.4 L, Triglycerides 63, Cholesterol 70, LDL Cholesterol 18, VLDL Cholesterol 13, HDL Cholesterol 39 L, TSH 2.10, Free T4 1.56 H Micro: Microbiology 02/10/24 00:10 Mucosa - Nasopharyngeal Respiratory Panel (PCR) - Final 02/10/24 00:52 Urine, Random Legionella Antigen - Final 02/10/24 00:52 Urine, Random Streptococcus pneumoniae Antigen (M - Final Radiography Diagnostic Testing: Radiology Impression Chest X-Ray 02/09/24 20:50 IMPRESSION: Bilateral pneumonia. Electronically Signed: Carlton Barreto MD at 21:16 EDT , Chest X-Ray 02/10/24 05:55 IMPRESSION: Persistent extensive patchy consolidations mid and lower lungs bilaterally likely due to pneumonia unchanged since previous exam. Electronically Signed: Volodymyr Vargas MD at 5:49 EDT , Rhythm Strip Rhythm Strip: Sinus Rhythm Rate: 77 Ectopy: None Physical Exam Narrative General: Sleepy but arousable, Oriented x3, Cooperative, No apparent distress HEENT: Atraumatic, PERRLA, EOMI, Normocephalic Oral: Moist Mucosa Neck: Supple, No JVD Lungs: Diminished, Normal air movement, No rhonchi, No wheeze, No rales Cardiovascular: Regular rate, Regular Rhythm, Normal S1, Normal S2, No murmurs Abdomen: Soft, Non Tender, Non-Distended, No Hepato-splenomegaly Extremities: Edema, Capillary Refill Less than 3 Seconds Skin: No rashes, No breakdown Musculoskeletal: No Tenderness to Palpation of Joints or Extremities Neurological: No focal neurological deficits, Motor Exam 5/5 strength throughout, Sensory exam intact to light touch and pain Psych/Mental Status: Normal Affect, Appropriate Assessment & Plan Assessment/Plan (1) Hypoxia: PLAN: Plan 1. Acute hypoxia secondary to acute on chronic diastolic CHF/paroxysmal A-fib/essential HTN/HLD ? Blood pressure stable ? Can resume her home blood pressure medications ? Continue with statin therapy ? Continue with IV Lasix, will monitor renal function ? Currently on Zosyn and vancomycin for the possibility of pneumonia awaiting sputum culture, can continue for another 48 hours and if no positive culture data can discontinue. Most of her hypoxia is most likely related to her CHF exacerbation 2. DM2/CKD 3a ? Hold her oral regimen ? Continue with sliding scale insulin ? Accu-Cheks ACHS ? Renal function is at baseline will continue to monitor ? Will monitor blood sugars and make adjustments as necessary 3. Hypothyroidism ? Stable ? Continue with Synthroid 4. History of lung cancer ? Unclear as to what kind of lung cancer she had had radiation therapy in 2020 continue outpatient follow-up 5. Anxiety/depression/dementia ? Continue with her home medications ? Stable 6. GERD ? Stable ? Continue with PPI DVT: Lovenox Charges/Coding Visit Charges Inpatient E&M: 63469 Subs Hosp L2
[2024-02-10] MEDS: Enoxaparin 30 MG/0.3 ML Syringe SC (09:42)
[2024-02-10] MEDS: Furosemide 40 MG/4 ML Vial IV ×2 (09:42→17:40)
[2024-02-10] MEDS: Memantine Hydrochloride 5 MG Tablet PO ×2 (09:43→20:21)
[2024-02-10] MEDS: Pantoprazole Sodium 20 MG Tablet PO (09:43)
[2024-02-10] MEDS: Amiodarone 200 MG Tablet PO (09:43)
[2024-02-10] MEDS: Aspirin 81 MG TAB.CHEW PO (09:44)
[2024-02-10] MEDS: Famotidine 20 MG Tablet PO (09:44)
[2024-02-10] MEDS: Menthol/Lanolin/Calamine/Znox 113 GM Tube 1 APPLIC TOPICAL ×2 (09:44→20:22)
[2024-02-10] MEDS: PARoxetine 10 MG Tablet 30 MG PO (09:46)
[2024-02-10] MEDS: Nystatin Powder 15gm Bottle 1 APPLIC TOPICAL ×2 (09:57→20:22)
--- NOTE | 2024-02-10 10:13 | NURSING ---
spoke with both daughter and poa- consent for obtaining medical records completed and updated on poc
[2024-02-10 11:56] LABS: Bedside Glucose 150 mg/dL (74-106)
--- NOTE | 2024-02-10 14:15 | CHAPLAIN ---
Type of Pastoral Visit _x__ Initial Visit ___ Follow-up Visit ___ On-call Visit ___ General Patient Visit ___ Spiritual Assessment ___ Family Conference ___ Bereavement ___ Rapid Response ___ Code Blue ___ Other (describe below) Pastoral Care Referral From _x__ Patient ___ Family ___ Nurse ___ Physician ___ Stone Belt Sander ___ High School History Teacher ___ Other (describe below) Sacrament/Intervention _x__ Active listening ___ Anointing ___ Rastafarian ___ Bereavement ___ Communion ___ Vesna exploration ___ ___ Life review _x__ Prayer ___ Reconciliation ___ Sacrament of Sick _x__ Supportive presence ___ Wedding ___ Other (describe below) Pastoral Comments patient was resting quietly in the chair when this manager wound walked into the room; pt was introduced to this manager wound and then pt begins to moan and become agitated; pt says she wants the H.. out and stop this; sitting down beside the patient and asking her to slowly explain what she is feeling and saying, the patient says Oh please God let me and I don't want to live anymore; gave comforting words and listened to pt show pain as she grabbed her abdomen; offered patient to make room more quiet or peaceful but pt refused; pt did not answer other questions but continued to hold her abdomen and say I can't take this anymore; assured pt that her pain was recognized and that together we would ask the Lord for help, mercy, and kindness while allowing Him to decide about life and ; pt did allow this manager wound to say a prayer and afterwards she was quiet and kept her eyes closed; notified RN about this visit and the content of her words;
[2024-02-10 16:45] LABS: Bedside Glucose 154 mg/dL (74-106)
--- NOTE | 2024-02-10 18:50 | CPS ---
Inceased O2 to 3 lpm
[2024-02-10] MEDS: Acetaminophen 325 MG Tablet 650 MG PO (19:11)
[2024-02-10] MEDS: Atorvastatin Calcium 10 MG Tablet 5 MG PO (20:21)
[2024-02-10] MEDS: Senna/Docusate Sodium 1 Tablet 2 TABLET PO (20:21)
[2024-02-10] MEDS: MELATONIN 3 MG TABLET PO (20:21)
[2024-02-10] MEDS: Mag Hydrox/Al Hydrox/Simeth 30 ML UDC PO (21:30)
[2024-02-10] MEDS: proCHLORPERazine 10 MG/2 ML Vial 5 MG IV (21:30)
[2024-02-10 22:12] LABS: Bedside Glucose 125 mg/dL (74-106)
--- NOTE | 2024-02-10 22:50 | CPS ---
Pt refused to wear BIPAP for tonight.
[2024-02-11] VITALS (11 sets, daily range): BP systolic 92–105; BP diastolic 57–70; PULSE 66–101; RESP 16–20; TEMP 36.6; O2SAT 95–100; BMI 24.0
--- NOTE | 2024-02-11 00:57 | CT_ITS ---
STUDY: CT ABDOMEN AND PELVIS WITH CONTRAST REASON FOR EXAM: Female, 83 years old. Abdominal pain, nausea and vomiting RADIATION DOSAGE (If Supplied By Facility): CTDIvol = ( 7.71 ) mGy, DLP = ( 375.54 ) mGycm TECHNIQUE: Spiral CT imaging of the abdomen and pelvis was performed with intravenous contrast material ( / ), followed by coronal and sagittal reformatting. Individualized dose optimization techniques were used for this CT. COMPARISON: No relevant priors. FINDINGS: LOWER CHEST: Diffuse patchy airspace infiltrates throughout bilateral lung bases with small associated bilateral pleural effusions and compressive atelectasis. Mild cardiomegaly. Aortic root and mitral annular calcifications. Normal pericardium.. LIVER: Shrunken nodular appearance to the liver. GALLBLADDER AND BILIARY TREE: Gallbladder is absent.. Normal biliary ductal system. SPLEEN: Mild splenomegaly. PANCREAS: Normal ADRENAL GLANDS: Normal KIDNEYS AND URETERS: Normal kidneys. Normal ureters. BOWEL: Normal stomach. Normal small bowel. Normal appendix. Normal colon. PERITONEUM: Small amount of perihepatic, perisplenic, perigastric, bilateral paracolic gutter, and pelvic free fluid. No free intraperitoneal air. No significant mesenteric or retroperitoneal lymphadenopathy.. VESSELS: Moderate atherosclerotic plaque of the abdominal vasculature. URINARY BLADDER: Normal REPRODUCTIVE ORGANS: Uterus is surgically absent. ABDOMINAL WALL: Moderate diffuse body wall edema. BONES: Normal CT/Abdomen/Pelvis without Cont IMPRESSION: 1. No bibasilar pneumonia with small bilateral pleural effusions. 2. Cirrhotic changes of the liver with mild associated splenomegaly and intra-abdominal ascites, all suggesting portal venous hypertension. 3. Anasarca. Electronically Signed: Aryan Nelson MD at 2:54 EDT ,
[2024-02-11] MEDS: Vancomycin HCl 750 MG in 0.9% Normal Saline (250mL Bag) 250 ML 250 MG IV (01:54)
[2024-02-11] MEDS: Piperacil/Tazobactam 3.375 GM in 0.9% Normal Saline (50mL MB+) 50 ML IV ×3 (05:36→21:19)
[2024-02-11 06:05] LABS: Bedside Glucose 131 mg/dL (74-106)
[2024-02-11] MEDS: Budesonide Respules 0.5 MG/2 ML AMPUL.NEB. INHALATION ×2 (06:56→19:03)
[2024-02-11 07:23] LABS: Absolute Lymphocyte Count 1.46 X10^3/uL (0.83-4.51); Absolute Neutrophil Count 6.3 X10^3/uL (2.0-7.7); Basophil# 0.03 X10^3/uL; Basophil% 0.3 % (0-1); Eosinophil# 0.07 X10^3/uL; Eosinophils% 0.8 % (0-5); Hematocrit 28.5 % (37-47); Hemoglobin 8.7 g/dL (12.0-15.0); Lymphocyte # 1.46 X10^3/ul (0.83-4.51); Lymphocyte % 16.3 % (19-41); Mean Corp Hgb Conc 30.5 g/dL (32-36); Mean Corpuscular Hgb 27.9 pg (27.0-32.0); Mean Corpuscular Volume 91.3 fL (81-99); Mean Platelet Vol. 10.7 fl (6.2-12.0); Monocyte# 1.07 X10^3/uL; NRBC Flagged by Analyzer 0 % (0-5); Neutrophil # 6.25 X10^3/uL (2.7-7.7); Neutrophil % 69.8 % (47-70); Platelet Count 114 K/mm3 (150-450); RBC Distribution Width CV 18.8 % (11.6-14.6); RBC Distribution Width SD 60.8 fl (35.1-43.9); Red Blood Count 3.12 M/mm3 (4.2-5.4)
[2024-02-11 08:06] LABS: Anion Gap 10 (5-15); BUN 27 mg/dL (7-18); BUN/Creat Ratio 19.3 RATIO (10-20); Calcium,Total 8.1 mg/dL (8.5-10.1); Chloride 104 mmol/L (98-107); EST Glomerular Filtration Rate 38 mL/min (>60); Est Glom Filt Rate - Afr Amer 46 mL/min (>60); Glucose 129 mg/dL (74-106); Potassium 2.5 mmol/L (3.5-5.1); Sodium Level 142 mmol/L (136-145)
[2024-02-11 09:01] LABS: Magnesium 1.4 mg/dL (1.6-2.6); Phosphorus 3.3 mg/dL (2.5-4.9)
[2024-02-11] MEDS: Amiodarone 200 MG Tablet PO (09:43)
[2024-02-11] MEDS: Famotidine 20 MG Tablet PO (09:43)
[2024-02-11] MEDS: Aspirin 81 MG TAB.CHEW PO (09:43)
[2024-02-11] MEDS: Levothyroxine 88 MCG Tablet PO (09:43)
[2024-02-11] MEDS: Memantine Hydrochloride 5 MG Tablet PO ×2 (09:43→21:18)
[2024-02-11] MEDS: Pantoprazole Sodium 20 MG Tablet PO (09:43)
[2024-02-11] MEDS: Furosemide 40 MG/4 ML Vial IV (09:44)
[2024-02-11] MEDS: Nystatin Powder 15gm Bottle 1 APPLIC TOPICAL ×2 (09:44→21:18)
[2024-02-11] MEDS: Enoxaparin 30 MG/0.3 ML Syringe SC (09:44)
[2024-02-11] MEDS: PARoxetine 10 MG Tablet 30 MG PO (09:44)
[2024-02-11] MEDS: 0.9% Saline Lock 10 ML Syringe IV (09:45)
[2024-02-11] MEDS: Menthol/Lanolin/Calamine/Znox 113 GM Tube 1 APPLIC TOPICAL ×2 (09:47→21:19)
[2024-02-11] MEDS: Metoprolol(XL)Succ 100 MG Tablet PO (09:52)
--- NOTE | 2024-02-11 10:40 | CASEMGMT ---
DEWEY HIGHTOWER called michelle Alva for initial transition planning/care coordination assessment as patient is confused. DEWEY HIGHTOWER introduced self and role at [facility]. Nida willing to participate in assessment and is able to answer all questions appropriately. Care providers, pharmacy, and demographics verified. 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 LNOK: daughter, granddaughter Living Arrangements: Patient lives with daughter in a 2 story home with first floor setup. Family assisting with care. Transportation: daughter, granddaughter DME/HHC: Patient has shower chair, grab bars, walker, rollator, wheelchair, BSC, hospital bed, pulse ox, and oxygen with portability through [facility] at 2-3 lpm. Patient has had [facility] in the past. Patient is active with [facility] Patietn has been to [facility]. Michelle wishes for patient to discharge to SNF for additional rehab and requesting list be emailed to her at [email or web address]. DEWEY HIGHTOWER updated discharge environmental planning engineer and SW. DEWEY HIGHTOWER asked Nida to review list and provided preferences. Nida voiced understanding. Disposition Plan: SNF pending acceptance and precert Mayr FLORES, RN, CM
--- NOTE | 2024-02-11 10:41 | NURSING ---
Upon assessment it is noted that the patient has an external device on left side chest / axiliary area. The device noted is a [employer] Heart Failure Management System that was started 01/20/2024 prior to this admission. The device has not been active during this admission due to all the senors are not with the patient to transmit data.
--- NOTE | 2024-02-11 10:47 | PN.HOSP_ITS ---
Subjective Subjective Doing well, no major issues overnight. She does have what appears to be some swallowing issues will get speech involved Objective Data Objective Data Vital Signs: Vital Signs Temp Pulse Resp BP Pulse Ox O2 Del Method O2 Flow Rate 97.8 F 101 H 18 105/70 95 Nasal Cannula 2 02/11/24 09:29 02/11/24 09:52 02/11/24 09:29 02/11/24 09:52 02/11/24 09:29 02/11/24 09:29 02/11/24 10:05 FiO2 35 02/09/24 23:00 Oxygen Flow Rate (L/min) 2 Oxygen Delivery Method Nasal Cannula Weight: 131 lb 13.383 oz Body Mass Index (BMI) 24.0 Intake & Output: Intake and Output for Last 24 Hours 02/10/24 02/11/24 02/12/24 03:59 03:59 03:59 Intake Total 50.50 / 50.50 1448.33 / 1591.83 193.5 / 193.5 Output Total 800 / 800 50 / 50 Balance 50.50 / 50.50 648.33 / 791.83 143.5 / 143.5 Lab / Micro Data 02/11/24 06:10 02/11/24 06:10 Labs: Laboratory Results - last 24 hr 02/10/24 11:38: POC Glucose 150 H 02/10/24 16:27: POC Glucose 154 H 02/10/24 20:31: POC Glucose 125 H 02/11/24 05:39: POC Glucose 131 H 02/11/24 06:10: WBC 9.0, RBC 3.12 L, Hgb 8.7 L, Hct 28.5 L, MCV 91.3, MCH 27.9, MCHC 30.5 L, RDW Std Deviation 60.8 H, RDW Coeff of Danielle 18.8 H, Plt Count 114 L, MPV 10.7, Immature Gran % (Auto) 0.800, Neut % (Auto) 69.8, Lymph % (Auto) 16.3 L, [place] % (Auto) 12.0 H, Eos % (Auto) 0.8, Baso % (Auto) 0.3, Absolute Neuts (auto) 6.3, Absolute Lymphs (auto) 1.46, Nucleated RBC % 0, Sodium 142, Potassium 2.5 L*, Chloride 104, Carbon Dioxide 28.0, Anion Gap 10, BUN 27 H, Creatinine 1.40 H, Estim Creat Clear Calc 24.50, Est GFR (MDRD) Af Amer 46 L, Est GFR (MDRD) Non-Af 38 L, BUN/Creatinine Ratio 19.3, Glucose 129 H, Calcium 8.1 L, Phosphorus 3.3, Magnesium 1.4 L Micro: Microbiology 02/10/24 00:10 Mucosa - Nasopharyngeal Respiratory Panel (PCR) - Final 02/10/24 00:52 Urine, Random Legionella Antigen - Final 02/10/24 00:52 Urine, Random Streptococcus pneumoniae Antigen (M - Final Radiography Diagnostic Testing: Radiology Impression Abdomen/Pelvis CT 02/11/24 00:57 IMPRESSION: 1. No bibasilar pneumonia with small bilateral pleural effusions. 2. Cirrhotic changes of the liver with mild associated splenomegaly and intra-abdominal ascites, all suggesting portal venous hypertension. 3. Anasarca. Electronically Signed: Aryan Nelson MD at 2:54 EDT , Rhythm Strip Rhythm Strip: Sinus Rhythm Rate: 77 Ectopy: None Physical Exam Narrative General: Alert, Oriented x3, Cooperative, No apparent distress HEENT: Atraumatic, PERRLA, EOMI, Normocephalic Oral: Moist Mucosa Neck: Supple, No JVD Lungs: Diminished, Normal air movement, No rhonchi, No wheeze, No rales Cardiovascular: Regular rate, Regular Rhythm, Normal S1, Normal S2, No murmurs Abdomen: Soft, Non Tender, Non-Distended, No Hepato-splenomegaly Extremities: Edema, Capillary Refill Less than 3 Seconds Skin: No rashes, No breakdown Musculoskeletal: No Tenderness to Palpation of Joints or Extremities Neurological: No focal neurological deficits, Motor Exam 5/5 strength throughout, Sensory exam intact to light touch and pain Psych/Mental Status: Normal Affect, Appropriate Assessment & Plan Assessment/Plan (1) Hypoxia: PLAN: Plan 1. Acute hypoxia secondary to acute on chronic diastolic CHF/paroxysmal A- fib/essential HTN/HLD ? Blood pressure stable ? Can resume her home blood pressure medications ? Continue with statin therapy ? Continue with IV Lasix, will monitor renal function ? Still awaiting sputum culture, white count has resolved 2. DM2/CKD 3a ? Hold her oral regimen ? Continue with sliding scale insulin ? Accu-Cheks ACHS ? Renal function is at baseline will continue to monitor ? Will monitor blood sugars and make adjustments as necessary 3. Hypothyroidism ? Stable ? Continue with Synthroid 4. History of lung cancer ? Unclear as to what kind of lung cancer she had had radiation therapy in 2020 c ontinue outpatient follow-up 5. Anxiety/depression/dementia ? Continue with her home medications ? Stable 6. GERD ? Stable ? Continue with PPI DVT: Lovenox Charges/Coding Visit Charges Inpatient E&M: 46820 Subs Hosp L2
--- NOTE | 2024-02-11 10:52 | CASEMGMT ---
Discharge Planning A list of SNF providers including quality and resource use data and consistent with the patient's preferred geographic region, medical needs, and insurance network were provided to pts granddaughter (Nida) via emal from the [employer] link. Saima Castillo, Discharge Planning Asst.
--- NOTE | 2024-02-11 10:59 | NURSING ---
called Nida man with update
[2024-02-11] MEDS: Magnesium Sulfate 4gm/100mL 4 GM/100 ML IV.SOLN. IV (11:32)
[2024-02-11] MEDS: Potassium Chloride 10mEq/100mL 10 MEQ/100 ML IV.SOLN. 100 MEQ IV BOLUS ×4 (11:39→16:59)
[2024-02-11 12:04] LABS: Bedside Glucose 123 mg/dL (74-106)
--- NOTE | 2024-02-11 15:12 | ST.MBS ---
Modified Barium Swallow Patient Information Study Date: 02/11/24 Study Time: 13:30 Direct Billable Minutes: 120 Total Minutes procedure & reportin Diagnosis: Bilateral pleural effusions J90; Malnutrition E43 Referring Physician: Og Arzola Reason for Referral: Objectively assess swallow function, assess risk for aspiration, and determine recommendations for least restrictive diet textures and compensatory strategies to improve safety of swallow. Medical History: PMH: Atherosclerotic heart disease of [place] coronary artery without angina pectoris, Dementia, Type 2 DM, Diastolic congestive heart failure, HTN, Hypothyroid, Intracranial hemorrhage, Lung cancer, Paroxysmal atrial fibrillation, Pure hypercholesterolemia, Skin cancer, Stage 3a CKD, Chronic Hypoxic Respiratory Failure (2-3L NC) following recent pneumonia/heart failure exacerbation presentation at , HFpEF, HLD, PAF, CAD, Dementia unclear type with unclear behavioral disturbance history, Hx ICH, Hx Lung CA w/ Former tobacco use, Anxiety, Depression. The patient is an 83 y/o female who arrived to [facility] on 02/09/[facility]24 via EMS with dyspnea and hypoxia. Pt reported worsening shortness of breath that prompted an EMS call. Despite using 2 to 3L of oxygen at home, pt became significantly dyspneic prompting need for increased supplementation with onset of fatigue, malaise, nausea and occasional emesis. Pt?s daughter reported she had recently been at for pneumonia and heart failure exacerbation with chronic supplementation oxygen. Pt?s chest x-ray with diffuse bilateral infiltrates and small right pleural effusion. Pt was placed on BIPAP in the ED given ongoing hypoxia. Pt was admitted to the PCU for ongoing management of symptoms. ST recommended NPO after BSE 02/10/24 with plans for MBSS to further assess risk for aspiration. Current Diet Ordered: NPO with sips and chips Dentition: Edentulous Mental Status: Impaired Respiratory Status: Oxygenating on 2L/M nasal cannula Penetration-Aspiration Scale Penetration-Aspiration Scale: OBJECTIVE ASSESSMENT OF SWALLOW FUNCTION (QUANTITATIVE ? PER TRIAL): PENETRATION / ASPIRATION SCALE (JUSTICE): 1 = does not enter airway 2 = enters airway/above vocal folds/ejected 3 = enters airway/above vocal folds/not ejected 4 = enters airway/contacts vocal folds/ejected 5 = enters airway/contacts vocal folds/not ejected 6 = enters airway/below vocal folds/ejected 7 = enters airway/below vocal folds/not ejected despite effort 8 = enters airway/below vocal folds/no effort VIDEOFLOROSCOPIC SCALE SCORE (JUSTICE): Grade I = aspiration of material that has penetrated into the laryngeal vestibule, intact cough reflex Grade II = aspiration < 10 % of the bolus, intact cough reflex Grade III = aspiration of < 10 % of the bolus, reduced cough reflex or aspiration of > 10 % of the bolus, intact cough reflex Grade IV = aspiration of > 10 % of the bolus, reduced cough reflex Penetration-Aspiration Scale Score Thin Liquid via teaspoon: Result: 8= enters airway/below vocal folds/no effort Thin Liquid via teaspoon Trial 2: Result: 8= enters airway/below vocal folds/no effort Thin Liquid via large single sip: cup: Result: 7= enters airways/below vocal folds/not ejected despite effort [place] Thick Liquid via teaspoon: Result: 8= enters airway/below vocal folds/no effort Honey Thick Liquid via teaspoon: Result: 2= enter airway/above vocal folds/ejected (trace) Comment: Post-prandial aspiration of previous trial of nectar thick barium with coughing. Pudding via teaspoon: Result: 1= does not enter airway Comment: Esophageal screen - Retention throughout esophagus with retrograde flow remaining below the UES. Honey Thick Liquid via small single sip: cup: Result: 1= does not enter airway Comment: Esophageal screen - Retention throughout esophagus with retrograde flow remaining below the UES. Thin Liquid via teaspoon Effortful swallow: Result: 2= enter airway/above vocal folds/ejected Thin Liquid via teaspoon Effortful swallow Trial 2: Result: 2= enter airway/above vocal folds/ejected Comment: Esophageal screen - Mild retention in the lower esophagus with retrograde flow remaining well below the UES. / cookie: Result: 2= enter airway/above vocal folds/ejected Comment: PROCESS STRIPPER cleared ~1/2 of cookie trial from her mouth d/t insufficient mastication. Thin Liquid via small single sip: cup Effortful swallow: Result: 7= enters airways/below vocal folds/not ejected despite effort Comment: Delayed cough Oral Phase Labial Seal: Escape beyond mid-chin Tongue Control During Bolus Hold: Posterior escape of greater than half of bolus Bolus Preparation/Mastication: Disorganized chewing/mashing with solid pieces of bolus unchewed (1/2 of the cookie trial removed from pt's mouth d/t inability to chew it) Bolus Transport/Lingual Motion: Repetitive/disorganized tongue motion (piecemeal deglutition) Oral Residue: Majority of bolus remaining (piecemeal deglutition) Pharyngeal Phase Initiation of Pharyngeal Swallow: Bolus head in pyriforms Soft Palate Elevation: Trace column of contrast/air between soft palate and pharyngeal wall Laryngeal Elevation: Partial superior movement thyroid cart/partial apprx aryt-epig petiole Anterior Hyoid Excursion: Partial anterior movement Epiglottic Movement: Partial inversion Laryngeal Vestibule Closure at Height of Swallow: Incomplete; narrow column of air/contrast in laryngeal vestibule Pharyngeal Stripping Wave: Present - diminished Pharyngoesophageal Segment Opening: Parital distension and partial duration; parital obstruction of flow Tongue Base Retraction: Narrow column of contrast between tongue base & post. pharyngeal wall Pharyngeal Residue: Majority of contrast within or on pharyngeal structures (~1/2 cookie in vallecula after the swallow) Esophageal Phase Esophageal Clearance: Esophageal retention w/ retrograde flow below pharyngoesophageal seg. Diagnosis/Impression Diagnosis: Mod-Severe oropharyngeal dysphagia R13.12; Esophageal dysphagia R12.14 Impression: The oral phase is primarily marked by... -Decreased bolus control with >1/2 of the bolus spilling posteriorly to the pyriforms prior to swallow onset observed with thin liquids especially. -Slowed tongue motion for A-P transport. -Majority oral residue after the swallow d/t piecemeal deglutition of pudding trial. Oral residue cleared with independent initiation of a multiple swallows as needed. -Prolonged and insufficient mastication of cookie trial prompting removal of ~1/2 cookie trial from her mouth. The pharyngeal phase is primarily marked by... -Decreased airway closure during the swallow due to decreased anterior hyoid excursion, partial epiglottic inversion, and decreased laryngeal elevation. -Moderately decreased tongue base retraction, mildly decreased UES opening/duration, and mildly decreased pharyngeal stripping wave with resulting mild-moderate pharyngeal residues after the swallow. -SILENT aspiration of thin and nectar thick consistencies observed 3X during the MBS study. Aspiration with a delayed cough observed 2X with thin liquid consistencies. Consistent laryngeal penetration across honey and pudding thick consistencies. These trials reliably ejected from the laryngeal vestibule after the swallow. Use of effortful swallow with thin liquids by tsp was most effective in decreasing her risk for aspiration. Independent use of cough and re-swallow was somewhat effective in decreasing residues remaining in the laryngeal vestibule after the swallow. The esophageal phase is primarily marked by... -Esophageal retention of pudding in throughout esophagus with retrograde flow. Thin liquid wash was effective in clearing pudding contrast from the esophagus. Honey thick liquids also demonstrated some retention, as well as retrograde flow remaining well below upper esophageal sphincter (UES). Recommendations Diet: Puree Textures and Thin Liquids Comment: Medications crushed in Compensatory Strategies: Small Bites, Liquid by Teaspoon Only, Slow Rate, Alternate bites/solids and sips/liquids (1:1 ratio), Sitting upright and Remain sitting upright for 30 minutes after PO intake Supervision: 1:1 Close Supervision Recommend Repeat Modified Barium Swallow: TBD Need for Skilled Speech Therapy Services: Yes Comment: -Train the patient in use of strategies to decrease risk for aspiration and reflux aspiration. -Ongoing assessment of diet tolerance of recommended textures. If poor diet tolerance, consider downgrade to honey/moderately thick liquids AFTER GI intervention. -Train the patient oropharyngeal exercise program to improve bolus control, airway closure, and swallow onset (lingual resistance, Dior, CTAR). Recommended Referrals: GI Consult Education Completed: 1. Described result of evaluation., 2. Pt understands evaluation & agrees with goals and treatment plan. and 7. Pt requires further education on strategies & risks. Status Active ST Patient: Active Contact Information [facility] Speech Therapy:: Greta Salcido M.A. [facility]IP[facility]? Speech-Language Pathologist?? [facility] [id number]?? [place] [address]?? [email or web address]?? [phone]
[2024-02-11 17:39] LABS: Bedside Glucose 117 mg/dL (74-106)
[2024-02-11] MEDS: Atorvastatin Calcium 10 MG Tablet 5 MG PO (21:18)
[2024-02-11] MEDS: MELATONIN 3 MG TABLET PO (21:23)
[2024-02-11] MEDS: Acetaminophen 325 MG Tablet 650 MG PO (21:23)
[2024-02-11] MEDS: Senna/Docusate Sodium 1 Tablet 2 TABLET PO (21:23)
[2024-02-11] MEDS: Insulin Lispro 100 UNIT/ML INSULN.PEN SC (21:39)
[2024-02-11 22:18] LABS: Bedside Glucose 194 mg/dL (74-106)
[2024-02-12] VITALS (18 sets, daily range): BP systolic 97–132; BP diastolic 58–68; PULSE 61–97; RESP 16–22; TEMP 36.1–37.2; O2SAT 92–100; BMI 23.8
--- NOTE | 2024-02-12 | ESO_PTH ---
PATIENT: PARTH RODGERS LOC: [facility] U#:[id number] AGE/SX: 83/F ROOM: [facility] RE02/09/[address]: Dr. Og Arzola MD : [id number] BED: 1 DIS: 02/14/2024 SPEC #: [id number] RECD: 02/12/24 13:11 STATUS: KONRAD MORALES #: [id number] CHASITY: 02/12/24 00:[address]: Og Arzola DEPT: SURGICAL PATHOLOGY RECD BY: Aryan Reyna ENTERED: 02/12/24 13:12 SP TYPE: ESOPH BX OTHR DR: MD Dr. Greta López DO Dr. Rahsaan Friend, Tissues: Esophagus, NOS Procedures: Special Stain Group II Special Stain Group I Surgery Specimen Level IV GMS Stain (control) Alcian Blue/PAS (control) HEADER OPERATION: EGD with biopsy PRE-OP DIAGNOSIS: Dysphagia TISSUE SUBMITTED: Distal esophagus MICROSCOPIC DIAGNOSIS Distal esophagus, biopsy; Fragments of gastroesophageal mucosa with acute and chronic inflammation. Intestinal metaplasia (goblet cell metaplasia) not identified. See comment. [facility] 02/13/2024 COMMENT Alcian blue/PAS stain with matched control is used in the evaluation of the specimen. Special stain for fungi is negative for organisms; matched control is appropriate. This specimen predominantly consists of squamous mucosa. Increased number of eosinophils consistent with eosinophilic esophagitis are not seen. Correlation with clinical, endoscopic findings and appropriate follow up are necessary. MICROSCOPIC DESCRIPTION Slides are reviewed. GROSS DESCRIPTION Received in fixative is one container labeled with the patient's name and designated Distal esophagus biopsy. The specimen consists of multiple irregular fragments of light reis soft tissue that in aggregate measure 1.5 x 0.3 x 0.1 cm. The specimen is totally submitted in one cassette. [facility] 02/12/2024 TC:2 CPT: 86966, 78945, 79665
[2024-02-12 02:06] LABS: Vancomycin, Trough Level 18.1 ug/mL (5.0-15.0)
--- NOTE | 2024-02-12 02:19 | PCM.RX.CS ---
Consult Antibiotic Management Pharmacy has been consulted to manage selected antibiotic: Vancomycin Type of Intervention Type of Consult: Follow-up Labs Labs: Sodium 142 mmol/L (136-145) 02/11/24 06:10 Potassium 2.5 mmol/L (3.5-5.1) L* 02/11/24 06:10 Chloride 104 mmol/L (98-107) 02/11/24 06:10 Carbon Dioxide 28.0 mmol/L (21.0-32.0) 02/11/24 06:10 Anion Gap 10 (5-15) 02/11/24 06:10 BUN 27 mg/dL (7-18) H 02/11/24 06:10 Creatinine 1.40 mg/dL (0.55-1.02) H 02/11/24 06:10 Est GFR (MDRD) Af Amer 46 mL/min (>60) L 02/11/24 06:10 Est GFR (MDRD) Non-Af 38 mL/min (>60) L 02/11/24 06:10 BUN/Creatinine Ratio 19.3 RATIO (10-20) 02/11/24 06:10 Glucose 129 mg/dL (74-106) H 02/11/24 06:10 Vancomycin Trough 18.1 ug/mL (5.0-15.0) H 02/12/24 01:37 Microbiology Microbiology: Microbiology 02/10/24 00:10 Mucosa - Nasopharyngeal Respiratory Panel (PCR) - Final 02/10/24 00:52 Urine, Random Legionella Antigen - Final 02/10/24 00:52 Urine, Random Streptococcus pneumoniae Antigen (M - Final Goal Trough Goal Trough: 15-20 mcg/mL Pharmacy Plan for Drug Dosing Pharmacy Plan for Drug Dosing: Pharmacy Service will continue to monitor and adjust dosing as required. TROUGH 18.1 @ 23.5 HOURS. NO CHANGES, FOLLOW UP TROUGH IN 2 DAYS Follow-Up Labs Follow-Up Labs: Trough: Vancomycin Date/Time Labs Ordered Labs to be done on [date and time ordered]: 02/13 @ 7903
[2024-02-12] MEDS: Vancomycin HCl 750 MG in 0.9% Normal Saline (250mL Bag) 250 ML 250 MG IV (03:16)
[2024-02-12] MEDS: Piperacil/Tazobactam 3.375 GM in 0.9% Normal Saline (50mL MB+) 50 ML IV (05:28)
--- NOTE | 2024-02-12 05:55 | EKG12_ITS ---
Test Reason : AM EKG Blood Pressure : / mmHG Vent. Rate : 062 BPM Atrial Rate : 062 BPM P-R Int : 172 ms QRS Dur : 132 ms QT Int : 534 ms P-R-T Axes : 035 -14 112 degrees QTc Int : 542 ms Normal sinus rhythm Non-specific intra-ventricular conduction block Nonspecific T wave abnormality Abnormal ECG When compared with ECG of 09-FEB-2024 20:25, Non-specific intra-ventricular conduction block has replaced Incomplete left bundle branch block Confirmed by MELANIE HERNÁNDEZ, NELSON ([id number]), business editor BRIAN FOSTER ([id number]) on 02/12/2024 1:25:07 PM Referred By: CHRISTOPHER Confirmed By:NELSON NAVARRO MD
[2024-02-12 06:34] LABS: Bedside Glucose 114 mg/dL (74-106)
[2024-02-12] MEDS: Budesonide Respules 0.5 MG/2 ML AMPUL.NEB. INHALATION ×2 (06:56→19:52)
[2024-02-12 07:26] LABS: Absolute Lymphocyte Count 1.56 X10^3/uL (0.83-4.51); Basophil# 0.04 X10^3/uL; Basophil% 0.4 % (0-1); Eosinophil# 0.33 X10^3/uL; Eosinophils% 3.7 % (0-5); Hematocrit 28.4 % (37-47); Hemoglobin 8.6 g/dL (12.0-15.0); Lymphocyte # 1.56 X10^3/ul (0.83-4.51); Lymphocyte % 17.5 % (19-41); Mean Corp Hgb Conc 30.3 g/dL (32-36); Mean Corpuscular Hgb 27.7 pg (27.0-32.0); Mean Corpuscular Volume 91.6 fL (81-99); Mean Platelet Vol. 10.9 fl (6.2-12.0); Monocyte# 0.92 X10^3/uL; Monocyte% 10.3 % (0-10); NRBC Flagged by Analyzer 0 % (0-5); Neutrophil # 5.97 X10^3/uL (2.7-7.7); Platelet Count 119 K/mm3 (150-450); RBC Distribution Width SD 62.6 fl (35.1-43.9); White Blood Count 8.9 K/mm3 (4.4-11.0)
[2024-02-12 07:50] LABS: Anion Gap 7 (5-15); BUN 29 mg/dL (7-18); BUN/Creat Ratio 19.2 RATIO (10-20); Calcium,Total 8.1 mg/dL (8.5-10.1); Chloride 105 mmol/L (98-107); Creatinine, Serum 1.51 mg/dL (0.55-1.02); EST Glomerular Filtration Rate 35 mL/min (>60); Est Glom Filt Rate - Afr Amer 42 mL/min (>60); Estimated Creatinine Clearance 22.72 ml/min; Glucose 117 mg/dL (74-106); Potassium 2.8 mmol/L (3.5-5.1); Sodium Level 142 mmol/L (136-145)
[2024-02-12] MEDS: Menthol/Lanolin/Calamine/Znox 113 GM Tube 1 APPLIC TOPICAL ×2 (08:45→22:19)
[2024-02-12] MEDS: Nystatin Powder 15gm Bottle 1 APPLIC TOPICAL ×2 (08:47→22:18)
--- NOTE | 2024-02-12 11:00 | PN.HOSP_ITS ---
Subjective Subjective No issues overnight. She is down about 4 pounds since admission. Diagnostic workup is not demonstrating any type of infectious etiology Objective Data Objective Data Vital Signs: Vital Signs Temp Pulse Resp BP Pulse Ox O2 Del Method O2 Flow Rate 98.6 F 88 21 H 125/68 H 94 Nasal Cannula 2 02/12/24 10:53 02/12/24 10:53 02/12/24 10:53 02/12/24 10:53 02/12/24 08:22 02/12/24 10:53 02/12/24 08:22 FiO2 35 02/09/24 23:00 Oxygen Flow Rate (L/min) 2 Oxygen Delivery Method Nasal Cannula Weight: 130 lb 1.164 oz Body Mass Index (BMI) 23.8 Intake & Output: Intake and Output for Last 24 Hours 02/11/24 02/12/24 02/13/24 03:59 03:59 03:59 Intake Total 1448.33 / 1591.83 1033.5 / 1033.5 315 / 315 Output Total 800 / 800 975 / 975 50 / 50 Balance 648.33 / 791.83 58.5 / 58.5 265 / 265 Lab / Micro Data 02/12/24 05:55 02/12/24 05:55 Labs: Laboratory Results - last 24 hr 02/11/24 11:38: POC Glucose 123 H 02/11/24 17:04: POC Glucose 117 H 02/11/24 21:37: POC Glucose 194 H 02/12/24 01:37: Vancomycin Trough 18.1 H 02/12/24 05:33: POC Glucose 114 H 02/12/24 05:55: WBC 8.9, RBC 3.10 L, Hgb 8.6 L, Hct 28.4 L, MCV 91.6, MCH 27.7, MCHC 30.3 L, RDW Std Deviation 62.6 H, RDW Coeff of Danielle 19.0 H, Plt Count 119 L, MPV 10.9, Immature Gran % (Auto) 1.100 H, Neut % (Auto) 67.0, Lymph % (Auto) 17.5 L, Archuleta % (Auto) 10.3 H, Eos % (Auto) 3.7, Baso % (Auto) 0.4, Absolute Neuts (auto) 6.0, Absolute Lymphs (auto) 1.56, Nucleated RBC % 0, Sodium 142, Potassium 2.8 L, Chloride 105, Carbon Dioxide 30.0, Anion Gap 7, BUN 29 H, Creatinine 1.51 H, Estim Creat Clear Calc 22.72, Est GFR (MDRD) Af Amer 42 L, Est GFR (MDRD) Non-Af 35 L, BUN/Creatinine Ratio 19.2, Glucose 117 H, Calcium 8.1 L Micro: Microbiology 02/10/24 00:10 Mucosa - Nasopharyngeal Respiratory Panel (PCR) - Final 02/10/24 00:52 Urine, Random Legionella Antigen - Final 02/10/24 00:52 Urine, Random Streptococcus pneumoniae Antigen (M - Final Rhythm Strip Rhythm Strip: Sinus Rhythm Rate: 77 Ectopy: None Physical Exam Narrative General: Alert, Oriented x2, Cooperative, No apparent distress HEENT: Atraumatic, PERRLA, EOMI, Normocephalic Oral: Moist Mucosa Neck: Supple, No JVD Lungs: Diminished, Normal air movement, No rhonchi, No wheeze, No rales Cardiovascular: Regular rate, Regular Rhythm, Normal S1, Normal S2, No murmurs Abdomen: Soft, Non Tender, Non-Distended, No Hepato-splenomegaly Extremities: Trace edema, Capillary Refill Less than 3 Seconds Skin: No rashes, No breakdown Musculoskeletal: No Tenderness to Palpation of Joints or Extremities Neurological: No focal neurological deficits, Motor Exam 5/5 strength throughout, Sensory exam intact to light touch and pain Psych/Mental Status: Normal Affect, Appropriate Assessment & Plan Assessment/Plan (1) Hypoxia: PLAN: Plan 1. Acute hypoxia secondary to acute on chronic diastolic CHF/paroxysmal A-fib/essential HTN/HLD ? Blood pressure stable ? Can resume her home blood pressure medications ? Continue with statin therapy ? Continue with IV Lasix, will monitor renal function, there is a slight rise today in her creatinine so her Lasix was decreased from twice daily to daily ? Still awaiting sputum culture, white count has resolved, will discontinue antibiotics and monitor ? She did have a modified barium swallow which demonstrated significant abnormality and speech therapy recommended a GI consult which has been ordered 2. DM2/CKD 3a ? Hold her oral regimen ? Continue with sliding scale insulin ? Accu-Cheks ACHS ? Renal function is at baseline will continue to monitor ? Will monitor blood sugars and make adjustments as necessary 3. Hypothyroidism ? Stable ? Continue with Synthroid 4. History of lung cancer ? Unclear as to what kind of lung cancer she had had radiation therapy in 2020 c ontinue outpatient follow-up 5. Anxiety/depression/dementia ? Continue with her home medications ? Stable 6. GERD ? Stable ? Continue with PPI DVT: Lovenox Charges/Coding Visit Charges Inpatient E&M: 33400 Subs Hosp L2
[2024-02-12] MEDS: Lactated Ringers 1,000 ML 15 ML IV (11:02)
[2024-02-12] MEDS: Potassium Chloride 10mEq/100mL 10 MEQ/100 ML IV.SOLN. 100 MEQ IV BOLUS ×4 (11:36→17:05)
[2024-02-12 12:11] LABS: Hemoglobin A1c 6.7 % (3.8-5.6)
--- NOTE | 2024-02-12 12:58 | OP.EGD_ITS ---
Patient Name: Keerthi Garcia Procedure Date: 02/12/2024 11:39 AM Date of : 1940 Age: 83 Procedure: Upper GI endoscopy Indications: Dysphagia Providers: Spike Mendoza DO Medicines: Monitored Anesthesia Care Patient Profile: This is an 83 year old female. Refer to note in patient chart for documentation of history and physical. Patient has symptoms of dysphagia with both liquids and solids. Complications: No immediate complications. Procedure: Pre-Anesthesia Assessment: - Prior to the procedure, a History and Physical was performed, and patient medications and allergies were reviewed. The patient is competent. The risks and benefits of the procedure and the sedation options and risks were discussed with the patient. All questions were answered and informed consent was obtained. Patient identification and proposed procedure were verified by the physician in the pre-procedure area. Mental Status Examination: alert and oriented. Airway Examination: normal oropharyngeal airway and neck mobility. Respiratory Examination: clear to auscultation. Prophylactic Antibiotics: The patient does not require prophylactic antibiotics. Prior Anticoagulants: The patient has taken no anticoagulant or antiplatelet agents except for NSAID medication. ASA Grade Assessment: III - A patient with severe systemic disease. After reviewing the risks and benefits, the patient was deemed in satisfactory condition to undergo the procedure. The anesthesia plan was to use monitored anesthesia care (MAC). Immediately prior to administration of medications, the patient was re-assessed for adequacy to receive sedatives. The heart rate, respiratory rate, oxygen saturations, blood pressure, adequacy of pulmonary ventilation, and response to care were monitored throughout the procedure. The physical status of the patient was re-assessed after the procedure. After obtaining informed consent, the endoscope was passed under direct vision. Throughout the procedure, the patient's blood pressure, pulse, and oxygen saturations were monitored continuously. The Endoscope was introduced through the mouth, and advanced to the second part of duodenum. The upper GI endoscopy was accomplished without difficulty. The patient tolerated the procedure well. Scope In: 11:47:08 AM Scope Out: 11:56:23 AM Total Procedure Duration Time 0 hours 9 minutes 15 seconds Findings: Patchy glycogenic acanthosis was found in the entire esophagus. Abnormal motility was noted in the lower third of the esophagus. The cricopharyngeus was normal. There is spasticity of the esophageal body. The distal esophagus/lower esophageal sphincter is spastic, but gives up passage to the endoscope. Tertiary peristaltic waves are noted. Mucosal changes including ringed esophagus, feline appearance and longitudinal furrows were found in the lower third of the esophagus. Biopsies were obtained from the proximal and distal esophagus with cold forceps for histology of suspected eosinophilic esophagitis. A guidewire was placed and the scope was withdrawn. Dilation was performed with a Savary dilator with no resistance at 45 Fr. The dilation site was examined and showed moderate improvement in luminal narrowing. Diffuse severe inflammation characterized by congestion (edema), erosions and erythema was found in the entire examined stomach. No gross lesions were noted in the duodenal bulb. Impression: - Glycogenic acanthosis of the esophagus. - Abnormal esophageal motility, consistent with achalasia. - Esophageal mucosal changes consistent with eosinophilic esophagitis. Dilated. - Biopsies were taken with a cold forceps for evaluation of eosinophilic esophagitis. Recommendation: - [facility]. - Full liquid diet. - Continue present medications. - Await pathology results. Procedure Code(s): --- Professional --- 27490, Esophagogastroduodenoscopy, flexible, transoral; with insertion of guide wire followed by passage of dilator(s) through esophagus over guide wire 41998, 59,51, Esophagogastroduodenoscopy, flexible, transoral; with biopsy, single or multiple CPT copyright 2021 [employer]. All rights reserved. The codes documented in this report are preliminary and upon car builder review may be revised to meet current compliance requirements. Spike Mendoza DO 02/12/2024 12:58:48 PM This report has been signed electronically. Number of Addenda: 0 Note Initiated On: 02/12/2024 11:39 AM
--- NOTE | 2024-02-12 12:59 | OP.CCLET_ITS ---
02/12/2024 Greta Nayak Do Re : Upper GI endoscopy procedure for Keerthi Garcia Dear Nael This procedure was performed on Monday, February 12, 2024. My impressions and recommendations are as follows: Impressions : - Glycogenic acanthosis of the esophagus. - Abnormal esophageal motility, consistent with achalasia. - Esophageal mucosal changes consistent with eosinophilic esophagitis. Dilated. - Biopsies were taken with a cold forceps for evaluation of eosinophilic esophagitis. Recommendations : - [facility]. - Full liquid diet. - Continue present medications. - Await pathology results. My findings are described in the full procedure note, which is enclosed. If I can be of further assistance, please feel free to contact me at . Sincerely, Spike Mendoza, 02/12/2024 12:58:48 PM This report has been signed electronically.
[2024-02-12 13:44] LABS: Bedside Glucose 116 mg/dL (74-106)
[2024-02-12] MEDS: Pantoprazole Sodium 20 MG Tablet PO (14:19)
[2024-02-12] MEDS: Famotidine 20 MG Tablet PO (14:19)
[2024-02-12] MEDS: Aspirin 81 MG TAB.CHEW PO (14:19)
[2024-02-12] MEDS: Memantine Hydrochloride 5 MG Tablet PO ×2 (14:19→22:18)
[2024-02-12] MEDS: Amiodarone 200 MG Tablet PO (14:20)
[2024-02-12] MEDS: PARoxetine 10 MG Tablet 30 MG PO (14:20)
[2024-02-12] MEDS: Enoxaparin 30 MG/0.3 ML Syringe SC (14:20)
[2024-02-12] MEDS: Furosemide 40 MG/4 ML Vial IV (14:35)
--- NOTE | 2024-02-12 15:13 | CASEMGMT ---
SW spoke with patient's granddaughter and she submitted her choices in [facility]. SW sent referrals to family's SNF choices. Await responses. Mindy HERNDON
[2024-02-12 16:58] LABS: Bedside Glucose 126 mg/dL (74-106)
[2024-02-12] MEDS: Acetaminophen 325 MG Tablet 650 MG PO (19:53)
[2024-02-12] MEDS: Atorvastatin Calcium 10 MG Tablet 5 MG PO (22:18)
[2024-02-12] MEDS: MELATONIN 3 MG TABLET PO (22:18)
[2024-02-12] MEDS: Insulin Lispro 100 UNIT/ML INSULN.PEN SC (22:19)
[2024-02-12 23:54] LABS: Bedside Glucose 238 mg/dL (74-106)
[2024-02-13] VITALS (11 sets, daily range): BP systolic 106–117; BP diastolic 55–75; PULSE 66–80; RESP 16–20; TEMP 35.9–36.4; O2SAT 89–97; BMI 25.0
[2024-02-13] MEDS: Levothyroxine 88 MCG Tablet PO (05:38)
[2024-02-13] MEDS: Acetaminophen 325 MG Tablet 650 MG PO (05:38)
[2024-02-13 07:00] LABS: Absolute Lymphocyte Count 1.67 X10^3/uL (0.83-4.51); Absolute Neutrophil Count 6.2 X10^3/uL (2.0-7.7); Basophil# 0.04 X10^3/uL; Basophil% 0.4 % (0-1); Eosinophil# 0.22 X10^3/uL; Eosinophils% 2.4 % (0-5); Hematocrit 30.4 % (37-47); Hemoglobin 9.5 g/dL (12.0-15.0); Lymphocyte # 1.67 X10^3/ul (0.83-4.51); Lymphocyte % 18.2 % (19-41); Mean Corp Hgb Conc 31.3 g/dL (32-36); Mean Corpuscular Hgb 28.4 pg (27.0-32.0); Mean Platelet Vol. 10.7 fl (6.2-12.0); Monocyte# 1.03 X10^3/uL; Monocyte% 11.2 % (0-10); NRBC Flagged by Analyzer 0 % (0-5); Neutrophil # 6.15 X10^3/uL (2.7-7.7); Neutrophil % 66.8 % (47-70); Platelet Count 142 K/mm3 (150-450); RBC Distribution Width CV 19.1 % (11.6-14.6); RBC Distribution Width SD 61.4 fl (35.1-43.9); Red Blood Count 3.34 M/mm3 (4.2-5.4); White Blood Count 9.2 K/mm3 (4.4-11.0)
[2024-02-13 07:21] LABS: Bedside Glucose 149 mg/dL (74-106)
[2024-02-13] MEDS: Budesonide Respules 0.5 MG/2 ML AMPUL.NEB. INHALATION ×2 (07:33→21:58)
--- NOTE | 2024-02-13 07:41 | CASEMGMT ---
[facility] accepted, [facility] and [facility] declined, and [facility] left a voice mail for to call back. [facility] was family's first choice so SW will have [facility] start pre-cert. Plan: d/c to [facility] pending pre-cert. Mindy Lancaster LEAD SALES CONSULTANT KATRINA
[2024-02-13 07:42] LABS: Anion Gap 8 (5-15); BUN 28 mg/dL (7-18); BUN/Creat Ratio 19.9 RATIO (10-20); Calcium,Total 8.1 mg/dL (8.5-10.1); Chloride 104 mmol/L (98-107); Creatinine, Serum 1.41 mg/dL (0.55-1.02); EST Glomerular Filtration Rate 38 mL/min (>60); Est Glom Filt Rate - Afr Amer 46 mL/min (>60); Estimated Creatinine Clearance 26.62 ml/min; Glucose 158 mg/dL (74-106); Potassium 2.9 mmol/L (3.5-5.1); Sodium Level 141 mmol/L (136-145)
[2024-02-13] MEDS: Amiodarone 200 MG Tablet PO (08:44)
[2024-02-13] MEDS: Pantoprazole Sodium 20 MG Tablet PO (08:44)
[2024-02-13] MEDS: Famotidine 20 MG Tablet PO (08:44)
[2024-02-13] MEDS: Memantine Hydrochloride 5 MG Tablet PO ×2 (08:44→20:29)
[2024-02-13] MEDS: Enoxaparin 30 MG/0.3 ML Syringe SC (08:45)
[2024-02-13] MEDS: Aspirin 81 MG TAB.CHEW PO (08:45)
[2024-02-13] MEDS: Metoprolol(XL)Succ 100 MG Tablet PO (08:45)
[2024-02-13] MEDS: Furosemide 40 MG/4 ML Vial IV (08:46)
[2024-02-13] MEDS: PARoxetine 10 MG Tablet 30 MG PO (08:48)
[2024-02-13] MEDS: Nystatin Powder 15gm Bottle 1 APPLIC TOPICAL ×2 (08:48→20:28)
[2024-02-13] MEDS: Menthol/Lanolin/Calamine/Znox 113 GM Tube 1 APPLIC TOPICAL ×2 (08:49→20:28)
[2024-02-13] MEDS: Insulin Lispro 100 UNIT/ML INSULN.PEN SC ×3 (11:20→20:27)
[2024-02-13 11:23] LABS: Bedside Glucose 182 mg/dL (74-106)
--- NOTE | 2024-02-13 11:23 | PN.HOSP_ITS ---
Subjective Subjective Doing little bit better than yesterday, she had to be dilated in her esophagus by gastroenterology secondary to possible eosinophilic esophagitis and glycogenic acanthosis. Currently attempting of full liquid diet Objective Data Objective Data Vital Signs: Vital Signs Temp Pulse Resp BP Pulse Ox O2 Del Method O2 Flow Rate 97.6 F L 66 18 117/55 L 94 Nasal Cannula 2 02/13/24 08:35 02/13/24 08:45 02/13/24 08:35 02/13/24 08:35 02/13/24 08:35 02/13/24 10:00 02/13/24 10:00 FiO2 35 02/09/24 23:00 Oxygen Flow Rate (L/min) 2 Oxygen Delivery Method Nasal Cannula Weight: 136 lb 7.458 oz Body Mass Index (BMI) 25.0 Intake & Output: Intake and Output for Last 24 Hours 02/12/24 02/13/24 02/14/24 03:59 03:59 03:59 Intake Total 1033.5 / 1033.5 1955 / 1955 Output Total 975 / 975 500 / 500 250 / 250 Balance 58.5 / 58.5 1455 / 1455 -250 / -250 Lab / Micro Data 02/13/24 06:35 02/13/24 06:35 Labs: Laboratory Results - last 24 hr 02/12/24 05:55: Hemoglobin A1c 6.7 H 02/12/24 13:19: POC Glucose 116 H 02/12/24 16:33: POC Glucose 126 H 02/12/24 22:09: POC Glucose 238 H 02/13/24 06:35: WBC 9.2, RBC 3.34 L, Hgb 9.5 L, Hct 30.4 L, MCV 91.0, MCH 28.4, MCHC 31.3 L, RDW Std Deviation 61.4 H, RDW Coeff of Danielle 19.1 H, Plt Count 142 L, MPV 10.7, Immature Gran % (Auto) 1.000 H, Neut % (Auto) 66.8, Lymph % (Auto) 18.2 L, Dawes % (Auto) 11.2 H, Eos % (Auto) 2.4, Baso % (Auto) 0.4, Absolute Neut s (auto) 6.2, Absolute Lymphs (auto) 1.67, Nucleated RBC % 0, Sodium 141, Potassium 2.9 L, Chloride 104, Carbon Dioxide 29.0, Anion Gap 8, BUN 28 H, Creatinine 1.41 H, Estim Creat Clear Calc 26.62, Est GFR (MDRD) Af Amer 46 L, Est GFR (MDRD) Non-Af 38 L, BUN/Creatinine Ratio 19.9, Glucose 158 H, Calcium 8.1 L, Magnesium 2.0 02/13/24 07:02: POC Glucose 149 H Micro: Microbiology 02/10/24 00:10 Mucosa - Nasopharyngeal Respiratory Panel (PCR) - Final 02/10/24 00:52 Urine, Random Legionella Antigen - Final 02/10/24 00:52 Urine, Random Streptococcus pneumoniae Antigen (M - Final Rhythm Strip Rhythm Strip: Sinus Rhythm Rate: 77 Ectopy: None Physical Exam Narrative General: Alert, Oriented x2, Cooperative, No apparent distress HEENT: Atraumatic, PERRLA, EOMI, Normocephalic, hard of hearing Oral: Moist Mucosa Neck: Supple, No JVD Lungs: Diminished, Normal air movement, No rhonchi, No wheeze, No rales Cardiovascular: Regular rate, Regular Rhythm, Normal S1, Normal S2, No murmurs Abdomen: Soft, Non Tender, Non-Distended, No Hepato-splenomegaly Extremities: Trace edema, Capillary Refill Less than 3 Seconds Skin: No rashes, No breakdown Musculoskeletal: No Tenderness to Palpation of Joints or Extremities Neurological: No focal neurological deficits, Motor Exam 5/5 strength throughout, Sensory exam intact to light touch and pain Psych/Mental Status: Normal Affect, Appropriate Assessment & Plan Assessment/Plan (1) Hypoxia: PLAN: Plan 1. Acute hypoxia secondary to acute on chronic diastolic CHF/paroxysmal A- fib/essential HTN/HLD ? Blood pressure stable ? Can resume her home blood pressure medications ? Continue with statin therapy ? Continue with IV Lasix, continue with daily dosing of her IV Lasix as her creatinine is improving, continue to monitor electrolytes ? Still awaiting sputum culture, white count has resolved, will discontinue antibiotics and monitor ? PT/OT and case management consulted for evaluation and discharge planning 2. Glycogenic acanthosis with 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 Appreciate gastroenterology's assistance ? She did have a dilation on 02/12/2024 of her esophagus ? Will trial her on a full liquid diet 3. DM2/CKD 3a ? Hold her oral regimen ? Continue with sliding scale insulin ? Accu-Cheks ACHS ? Renal function is at baseline will continue to monitor ? Will monitor blood sugars and make adjustments as necessary 4. Hypothyroidism ? Stable ? Continue with Synthroid 5. History of lung cancer ? Unclear as to what kind of lung cancer she had had radiation therapy in 2020 continue outpatient follow-up 6. Anxiety/depression/dementia ? Continue with her home medications ? Stable 7. GERD ? Stable ? Continue with PPI DVT: Lovenox Charges/Coding Visit Charges Inpatient E&M: 64613 Subs Hosp L2
--- NOTE | 2024-02-13 12:02 | CASEMGMT ---
[facility]RE[facility] asked [facility] to start pre-cert. AUDREY called patient's granddaughter Nida and let her know as well. Mindy Lancaster SPECIAL DELIVERY MAIL CARRIER KATRINA
[2024-02-13] MEDS: Potassium Chloride 10mEq/100mL 10 MEQ/100 ML IV.SOLN. 100 MEQ IV BOLUS ×4 (12:27→17:03)
[2024-02-13 16:35] LABS: Bedside Glucose 217 mg/dL (74-106)
[2024-02-13] MEDS: Atorvastatin Calcium 10 MG Tablet 5 MG PO (20:29)
[2024-02-13 21:48] LABS: Bedside Glucose 199 mg/dL (74-106)
[2024-02-14] MEDS: hydrOXYzine 50 MG/ML Vial IM ×2 (00:34→01:45)
--- NOTE | 2024-02-14 02:45 | NURSING ---
Unable to obtain pt vitals at this time. Pt is refusing to have blood pressure taken, or wear tele monitor. Will continue to attempt.
[2024-02-14 04:12] VITALS: BMI 24.6
[2024-02-14 04:45] VITALS: BP 156/87; PULSE 87; RESP 18; TEMP 35.9; O2SAT 96
[2024-02-14] MEDS: Insulin Lispro 100 UNIT/ML INSULN.PEN SC ×3 (06:33→16:44)
[2024-02-14 06:45] VITALS: O2SAT 96
[2024-02-14 06:58] LABS: Bedside Glucose 213 mg/dL (74-106)
[2024-02-14 07:22] LABS: Anion Gap 9 (5-15); BUN 26 mg/dL (7-18); BUN/Creat Ratio 17.2 RATIO (10-20); Calcium,Total 8.3 mg/dL (8.5-10.1); Chloride 103 mmol/L (98-107); Creatinine, Serum 1.51 mg/dL (0.55-1.02); EST Glomerular Filtration Rate 35 mL/min (>60); Est Glom Filt Rate - Afr Amer 42 mL/min (>60); Estimated Creatinine Clearance 24.73 ml/min; Glucose 194 mg/dL (74-106); Potassium 3.4 mmol/L (3.5-5.1); Sodium Level 138 mmol/L (136-145)
--- NOTE | 2024-02-14 07:22 | EX.PCM.PN.GI ---
Subjective Subjective Patient underwent an upper endoscopy yesterday for esophageal dysphagia and abnormal imaging. She was discovered to have severe eosinophilic esophagitis with glycogenic acanthosis of the esophagus. Her esophagus was dilated. She is doing very well and eating without any problem today. Objective Data Objective Data Vital Signs: Vital Signs Temp Pulse Resp BP Pulse Ox O2 Del Method O2 Flow Rate 97.5 F L 71 16 108/67 98 Nasal Cannula 3 02/14/24 16:39 02/14/24 16:39 02/14/24 16:39 02/14/24 16:39 02/14/24 16:39 02/14/24 16:39 02/14/24 16:39 FiO2 35 02/09/24 23:00 Oxygen Flow Rate (L/min) 3 Oxygen Delivery Method Nasal Cannula Weight: 134 lb 14.766 oz Body Mass Index (BMI) 24.6 Intake & Output: Intake and Output for Last 24 Hours 02/12/24 02/13/24 02/14/24 23:59 23:59 23:59 Intake Total 2004 760 / 760 360 / 360 Output Total 500 / 500 1100 / 1100 Balance 1505 / 1505 -340 / -340 360 / 360 Lab / Micro Data 02/13/24 06:35 02/14/24 05:55 Labs: Laboratory Results - last 24 hr 02/13/24 20:26: POC Glucose 199 H 02/14/24 05:55: Sodium 138, Potassium 3.4 L, Chloride 103, Carbon Dioxide 26.0, Anion Gap 9, BUN 26 H, Creatinine 1.51 H, Estim Creat Clear Calc 24.73, Est GFR (MDRD) Af Amer 42 L, Est GFR (MDRD) Non-Af 35 L, BUN/Creatinine Ratio 17.2, Glucose 194 H, Calcium 8.3 L 02/14/24 06:31: POC Glucose 213 H 02/14/24 11:04: POC Glucose 187 H 02/14/24 16:36: POC Glucose 181 H Micro: Microbiology 02/14/24 10:45 Nasal Secretion SARS-CoV-2 Antigen (Rapid) - Final 02/10/24 00:10 Mucosa - Nasopharyngeal Respiratory Panel (PCR) - Final 02/10/24 00:52 Urine, Random Legionella Antigen - Final 02/10/24 00:52 Urine, Random Streptococcus pneumoniae Antigen (M - Final Rhythm Strip Rhythm Strip: Sinus Rhythm Rate: 77 Ectopy: None Physical Exam Narrative General: Alert, Oriented x2, Cooperative, No apparent distress HEENT: Atraumatic, PERRLA, EOMI, Normocephalic, hard of hearing Oral: Moist Mucosa Neck: Supple, No JVD Lungs: Diminished, Normal air movement, No rhonchi, No wheeze, No rales Cardiovascular: Regular rate, Regular Rhythm, Normal S1, Normal S2, No murmurs Abdomen: Soft, Non Tender, Non-Distended, No Hepato-splenomegaly Extremities: Trace edema, Capillary Refill Less than 3 Seconds Skin: No rashes, No breakdown Musculoskeletal: No Tenderness to Palpation of Joints or Extremities Neurological: No focal neurological deficits, Motor Exam 5/5 strength throughout, Sensory exam intact to light touch and pain Psych/Mental Status: Normal Affect, Appropriate Assessment & Plan Assessment/Plan (1) Hypoxia: PLAN: Plan Glycogenic acanthosis with 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 She did have a dilation on 02/12/2024 of her esophagus ? Will trial her on a full liquid diet Eosinophilic esophagitis -Recommend Protonix 40 mg p.o. twice daily and follow-up in the clinic for repeat upper endoscopy Charges/Coding Visit Charges Inpatient E&M: 20358 Subs Hosp L3
[2024-02-14 10:50] VITALS: BP 111/65; PULSE 76; RESP 18; TEMP 36.4; O2SAT 97
[2024-02-14] MEDS: PARoxetine 10 MG Tablet 30 MG PO (11:12)
[2024-02-14] MEDS: Aspirin 81 MG TAB.CHEW PO (11:12)
[2024-02-14] MEDS: Memantine Hydrochloride 5 MG Tablet PO (11:12)
[2024-02-14] MEDS: Amiodarone 200 MG Tablet PO (11:12)
[2024-02-14] MEDS: Famotidine 20 MG Tablet PO (11:12)
[2024-02-14 11:13] VITALS: BP 111/65; PULSE 76
[2024-02-14] MEDS: Metoprolol(XL)Succ 100 MG Tablet PO (11:13)
[2024-02-14] MEDS: Pantoprazole Sodium 20 MG Tablet PO (11:13)
[2024-02-14] MEDS: Enoxaparin 30 MG/0.3 ML Syringe SC (11:13)
[2024-02-14] MEDS: Nystatin Powder 15gm Bottle 1 APPLIC TOPICAL (11:14)
[2024-02-14] MEDS: Menthol/Lanolin/Calamine/Znox 113 GM Tube 1 APPLIC TOPICAL (11:14)
[2024-02-14] MEDS: Furosemide 40 MG/4 ML Vial IV (11:15)
[2024-02-14 12:12] LABS: Bedside Glucose 187 mg/dL (74-106)
--- NOTE | 2024-02-14 13:19 | TREXTCAR_ITS ---
Diet Diet Order/Speech Therapy: 02/12/24 13:09 Diet: Full Liquid Food consistency:: Pureed Liquid Consistency:: Regular/Thin Is pt able to select menu?: No Fluid restriction:: 1500 mL Diet Comments: Direct sup, liquid by tsp only - EFFORTFUL SWALLOW each sip, meds crushed Routine Orders/Code Status Routine Lab Work: CBC and BMP Code Status: DNRCC-A Wound(s) L hinds: Wound Type: Skin Tear Therapies Physical Therapy: Eval and Treat Occupational Therapy: Eval and Treat Problem/Diagnosis (1) Hypoxia: Status: Acute Code(s): R09.02 - Hypoxemia Plan 1. Acute hypoxia secondary to acute on chronic diastolic CHF/paroxysmal A- fib/essential HTN/HLD ? Blood pressure stable ? Can resume her home blood pressure medications ? Continue with statin therapy ? Continue with IV Lasix, continue with daily dosing of her IV Lasix as her creatinine is improving, continue to monitor electrolytes ? Still awaiting sputum culture, white count has resolved, will discontinue antibiotics and monitor ? PT/OT and case management consulted for evaluation and discharge planning 2. Glycogenic acanthosis with 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 Appreciate gastroenterology's assistance ? She did have a dilation on 02/12/2024 of her esophagus ? Will trial her on a full liquid diet 3. DM2/CKD 3a ? Hold her oral regimen ? Continue with sliding scale insulin ? Accu-Cheks ACHS ? Renal function is at baseline will continue to monitor ? Will monitor blood sugars and make adjustments as necessary 4. Hypothyroidism ? Stable ? Continue with Synthroid 5. History of lung cancer ? Unclear as to what kind of lung cancer she had had radiation therapy in 2020 continue outpatient follow-up 6. Anxiety/depression/dementia ? Continue with her home medications ? Stable 7. GERD ? Stable ? Continue with PPI DVT: Lovenox Allergies/Procedures Done in Hospital Allergies No Known Allergies Allergy (Verified 11/27/23 14:39) Procedures: EGD Type of Care/Length of Stay Estimated LOS: Convalescent Care Less Than 30 days Type of Care Needed: Skilled Rehab Potential: Fair Prognosis: Fair Additional Orders/Day of Discharge Day of Discharge: 02/14/24 Dietary and Speech Recommendations Dietitian Recommendations/Changes: Continue Cardiac diet with fluid restriction per MD. Discharge Plan Admission Admit Date/Time: 02/09/24 22:38 Attending Provider: Og Arzola Primary Care Provider: Greta Nayak Consulting Providers: Suha Jiménez; Friend,Spike Discharge Orders/Prescriptions Prescriptions: Continued metoprolol succinate 100 mg tablet extended release 24 hr 100 mg PO DAILY lovastatin 10 mg tablet 10 mg PO QHS omeprazole 20 mg tablet,delayed release (DR/EC) 20 mg PO DAILY cetirizine [Zyrtec] 10 mg tablet 10 mg PO DAILY PRN (Reason: allergies) multivitamin Tablet 1 tab PO DAILY metformin 750 mg tablet extended release 24 hr 750 mg PO Q12H famotidine [Pepcid] 20 mg tablet 20 mg PO DAILY Farxiga 5 mg tablet 10 mg PO DAILY cholestyramine (with sugar) 4 gram powder in packet 1 ea PO Q6H PRN (Reason: diarhhea) paroxetine HCl 30 mg tablet 30 mg PO DAILY albuterol sulfate 90 mcg/actuation HFA aerosol inhaler 1 puff INHALATION DAILY PRN (Reason: shortness of breath or wheezing) memantine 10 mg tablet 5 mg PO BID levothyroxine 88 mcg tablet 88 mcg PO DAILY fluocinolone 0.01 % oil 1 applic TOPICAL DAILY Rx Instructions: APPLY ONE APPLICATON ONCE DAILY TO THE SCALP amiodarone 200 mg Tablet 200 mg PO DAILY Qty: 38 1RF Rx Instructions: Take 1 tablet twice daily for another 6 days then 1 tablet daily following furosemide 40 mg tablet 40 mg PO DAILY Qty: 90 3RF Referrals / Follow Up: Greta Nayak, [Primary Care Provider] - Carlton Rasheed PA [Non-Staff] - Disposition Disposition (needs filled in before D/C Order can be placed): [facility]
--- NOTE | 2024-02-14 13:57 | CASEMGMT ---
Patient is ready for discharge to [facility]. SW completed a 7000 in [employer] system. Plan: d/c to [facility] under skilled level of care on a convalescent stay. Physicians will transport patient via cot. Mindy HERNDON
--- NOTE | 2024-02-14 14:55 | CASEMGMT ---
Discharge Planning Discharge orders, signed med list, covid results, and transport time sent to [facility] via [facility]. Physicians will transport patent by cot at 5:30p. Nursing, SW, patient, and her granddaughter (Nida) updated. Saima Castillo, Discharge Planning Asst.
[2024-02-14 16:39] VITALS: BP 108/67; PULSE 71; RESP 16; TEMP 36.4; O2SAT 98
--- NOTE | 2024-02-14 17:02 | DS.PCM_ITS ---
Providers Date of Admission: 02/09/24 Primary Care Physician: Dr. Greta Nayak, DO Consultations 02/11/24 16:37 Consult: Gastroenterology Routine Consulting Provider: Friend,Spike Reason for Consult: From Speech Therapy after abnormal MBSS EMERGENT Consult: No MD Notified: Yes Date Notified: 02/11/24 Time Notified: 16:42 Method of Notification: Text Reason For Visit: HYPOXIA, HF EXAC, ? PNA Diagnosis Discharge Diagnosis (1) Hypoxia: Status: Acute Code(s): R09.02 - Hypoxemia Medications at Discharge Home Medications lovastatin 10 mg tablet 10 mg PO QHS CHOLESTEROL 09/24/18 metoprolol succinate 100 mg tablet,extended release 24 hr 100 mg PO DAILY HIGH BLOOD PRESSURE 09/24/18 omeprazole 20 mg tablet,delayed release 20 mg PO DAILY ACID REFLUX 07/29/20 cetirizine 10 mg tablet (Zyrtec) 10 mg PO DAILY PRN allergies 03/14/22 multivitamin 1 tab PO DAILY SUPPLEMENT 03/14/22 famotidine 20 mg tablet (Pepcid) 20 mg PO DAILY ACID REFLUX 09/19/22 metformin 750 mg tablet,extended release 24 hr 750 mg PO Q12H DIABETES 09/19/22 albuterol sulfate 90 mcg/actuation aerosol inhaler 1 puff inhalation DAILY PRN shortness of breath or wheezing 10/30/23 cholestyramine (with sugar) 4 gram powder for susp in a packet 1 ea PO Q6H PRN diarhhea 10/30/23 fluocinolone 0.01 % topical body oil 1 applic topical DAILY 10/30/23 levothyroxine 88 mcg tablet 88 mcg PO DAILY THYROID 10/30/23 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 10/30/23 paroxetine HCl 30 mg tablet 30 mg PO DAILY DEPRESSION 10/30/23 amiodarone 200 mg tablet 200 mg PO DAILY #38 tabs 11/02/23 furosemide 40 mg tablet 40 mg PO DAILY FLUID #90 tabs 11/06/23 dapagliflozin propanediol 5 mg tablet (Farxiga) 10 mg PO DAILY DIABETES 11/27/23 Hospital Course Operations None Procedures EGD Summary of Care Provided Minutes Spent on Discharge: 39 Hospital Course: Per HPI: The patient is an 83 y/o F w/ PMHx: Chronic Hypoxic Respiratory Failure (2-3L NC) following recent pneumonia/heart failure exacerbation presentation at , HFpEF, HTN, HLD, PAF, CAD, Dementia unclear type with unclear behavioral disturbance history, CKD stage IIIa, Diabetes mellitus type II, Hypothyroidism, Hx ICH, Hx Lung CA w/ Former tobacco use, Anxiety and Depression who presents to the [facility] ED on 02/09/24 with history of worsening shortness of breath throughout the day normally on 2 to 3 L at home however she is significantly dyspneic prompting need for increased supplementation with onset of fatigue, malaise, nausea and occasional emesis over the last 48 hours with family members with similar illness symptoms prompting eventual EMS call. Patient does have lower extremity pitting edema which daughter feels is increased from recently but she does not know if she is gained weight or not as they have not been tracking this. Patient does have potentially orthopnea from discussion with patient and family. Per patient daughter reports she had been at approximately a month and a half prior secondary to pneumonia and heart failure exacerbation with chronic supplementation oxygen since then recently transitioned to rehab and now to home for approximately 1 week workup in the ED included T97, heart rate 72, BP 127/77, respiratory rate 22, noted to be 89% on 6 L upon initial evaluation--> decreased to 100% on 5 L nasal cannula,, CBC with WBC 12.8, N1 10.9, MCV 91.6, platelet 190 with left shift, BMP with BUN/1 and 23/1.32, GFR 41, glucose 138, troponin 9, BNP 715.3, chest x-ray with diffuse bilateral infi ltrates, small right pleural effusion, EKG with SR with incomplete RBBB without acute evidence of ischemia. In the ED patient administered lasix 40 mg IV x 1 and was placed on BIPAP given ongoing hypoxia. Hospital Course: 1. Acute hypoxia secondary to acute on chronic diastolic CHF/paroxysmal A- fib/essential HTN/HLD?83-year-old female presented to the hospital with wors ening shortness of breath she only wears 2 to 3 L nasal cannula at home however she was significantly worse and initially there was a concern that she possibly had a pneumonia as well as a heart failure exacerbation. She was placed on broad-spectrum antibiotics as well as diuretics. She had her antibiotics discontinued fairly early in her course as cultures did not demonstrate anything and she was not demonstrating signs of infection. Her Lasix ultimately was transition from 40 mg IV twice daily down to daily dosing secondary to electrolytes as well is renal function concerns. She has been stable ever since. She did develop an episode of dysphagia and speech therapy was consulted and recommended a GI consult based on her modified barium swallow. Gastroenterology performed an EGD on 02/12/2024 that demonstrated glycogenic acanthosis with possible eosinophilic esophagitis. She was dilated and was able to tolerate a full liquid diet since that time. She does appear to be at her [facility] for respiratory status and I discussed with her granddaughter who is her POA today with plan for possible discharge she expressed understanding respiratory: assisted and is okay with going today. We did have an 18- minute conversation advance care planning as this is the second admission in 4 months and she was concerned about possible readmissions. We discussed the role for quality of life discussions with family and ultimately making CODE STATUS decisions in the future if she feels that her quality of life has declined. 2. Glycogenic acanthosis with possible eosinophilic esophagitis?continue with PPI and a full liquid diet advance as tolerated. Do recommend outpatient follow-up with gastroenterology for continued monitoring. 3. Type 2 diabetes, CKD 3A, hypothyroidism, history of lung cancer, anxiety, depression, dementia, GERD are all chronic medical conditions which complicate her care. Her home medications were continued where appropriate Physical Exam Narrative General: Alert, Oriented x2, Cooperative, No apparent distress HEENT: Atraumatic, PERRLA, EOMI, Normocephalic, hard of hearing Oral: Moist Mucosa Neck: Supple, No JVD Lungs: Diminished, Normal air movement, No rhonchi, No wheeze, No rales Cardiovascular: Regular rate, Regular Rhythm, Normal S1, Normal S2, No murmurs Abdomen: Soft, Non Tender, Non-Distended, No Hepato-splenomegaly Extremities: Trace edema, Capillary Refill Less than 3 Seconds Skin: No rashes, No breakdown Musculoskeletal: No Tenderness to Palpation of Joints or Extremities Neurological: No focal neurological deficits, Motor Exam 5/5 strength throughout, Sensory exam intact to light touch and pain Psych/Mental Status: Normal Affect, Appropriate Weight / BMI Weight Weight: 134 lb 14.766 oz Body Mass Index (BMI) 24.6 ABG / Lab / Microbiology Data 02/13/24 06:35 02/14/24 05:55 Laboratory: Laboratory Results - last 24 hr 02/13/24 20:26: POC Glucose 199 H 02/14/24 05:55: Sodium 138, Potassium 3.4 L, Chloride 103, Carbon Dioxide 26.0, Anion Gap 9, BUN 26 H, Creatinine 1.51 H, Estim Creat Clear Calc 24.73, Est GFR (MDRD) Af Amer 42 L, Est GFR (MDRD) Non-Af 35 L, BUN/Creatinine Ratio 17.2, Glucose 194 H, Calcium 8.3 L 02/14/24 06:31: POC Glucose 213 H 02/14/24 11:04: POC Glucose 187 H Microbiology: Microbiology 02/14/24 10:45 Nasal Secretion SARS-CoV-2 Antigen (Rapid) - Final 02/10/24 00:10 Mucosa - Nasopharyngeal Respiratory Panel (PCR) - Final 02/10/24 00:52 Urine, Random Legionella Antigen - Final 02/10/24 00:52 Urine, Random Streptococcus pneumoniae Antigen (M - Final Meaningful Use Info Meaningful Use Diagnoses (Choose all that apply): None applicable Discharge Plan Admission Admit Date/Time: 02/09/24 22:38 Attending Provider: Og Arzola Primary Care Provider: Greta Nayak Consulting Providers: Suha Jiménez; Spike Mendoza Discharge Orders/Prescriptions Prescriptions: Continued metoprolol succinate 100 mg tablet extended release 24 hr 100 mg PO DAILY lovastatin 10 mg tablet 10 mg PO QHS omeprazole 20 mg tablet,delayed release (DR/EC) 20 mg PO DAILY cetirizine [Zyrtec] 10 mg tablet 10 mg PO DAILY PRN (Reason: allergies) multivitamin Tablet 1 tab PO DAILY metformin 750 mg tablet extended release 24 hr 750 mg PO Q12H famotidine [Pepcid] 20 mg tablet 20 mg PO DAILY Farxiga 5 mg tablet 10 mg PO DAILY cholestyramine (with sugar) 4 gram powder in packet 1 ea PO Q6H PRN (Reason: diarhhea) paroxetine HCl 30 mg tablet 30 mg PO DAILY albuterol sulfate 90 mcg/actuation HFA aerosol inhaler 1 puff INHALATION DAILY PRN (Reason: shortness of breath or wheezing) memantine 10 mg tablet 5 mg PO BID levothyroxine 88 mcg tablet 88 mcg PO DAILY fluocinolone 0.01 % oil 1 applic TOPICAL DAILY Rx Instructions: APPLY ONE APPLICATON ONCE DAILY TO THE SCALP amiodarone 200 mg Tablet 200 mg PO DAILY Qty: 38 1RF Rx Instructions: Take 1 tablet twice daily for another 6 days then 1 tablet daily following furosemide 40 mg tablet 40 mg PO DAILY Qty: 90 3RF Referrals / Follow Up: Greta Nayak DO [Primary Care Provider] - Carlton Rasheed PA [Non-Staff] - Disposition Disposition (needs filled in before D/C Order can be placed): [facility] Facility Charges/Coding Visit Charges Inpatient E&M: 35352 Disch Hosp >30min Procedures Hospitalists Procedures: 69176 Advncd Care Plan 30 Min
--- NOTE | 2024-02-14 17:17 | NURSING ---
Report given to Damaris Guadalupe @ [facility] [id number]
[2024-02-14 17:40] LABS: Bedside Glucose 181 mg/dL (74-106)
== END 2024-02-14 17:09 | disposition skilled nursing facility (03) | DRG 291 ==
LOC: ED 22:39 → PCU 22:53
PROVIDERS: Anesthesiology; Internal Medicine Gastroenterology; Admitting Provider Family Medicine; Emergency Provider Emergency Medicine; PCP Internal Medicine; Visit Provider Family Medicine
PROC: 0DJ08ZZ Inspection of Upper Intestinal Tract, Via Natural or Artificial Opening Endoscopic (ICD-10-PCS; CPT 43235; principal; 2024-02-12 11:25)
DX: I13.0 Hypertensive heart and chronic kidney disease with heart failure and stage 1 through stage 4 chronic kidney disease, or unspecified chronic kidney disease (principal); I50.33 Acute on chronic diastolic (congestive) heart failure; J96.11 Chronic respiratory failure with hypoxia; F03.90 Unspecified dementia, unspecified severity, without behavioral disturbance, psychotic disturbance, mood disturbance, and anxiety; E11.22 Type 2 diabetes mellitus with diabetic chronic kidney disease; K22.0 Achalasia of cardia; N18.31 Chronic kidney disease, stage 3a; I48.0 Paroxysmal atrial fibrillation; F32.A Depression, unspecified; E03.9 Hypothyroidism, unspecified; I25.10 Atherosclerotic heart disease of native coronary artery without angina pectoris; E78.00 Pure hypercholesterolemia, unspecified; L83 Acanthosis nigricans; K21.00 Gastro-esophageal reflux disease with esophagitis, without bleeding; F41.9 Anxiety disorder, unspecified; J30.9 Allergic rhinitis, unspecified; R29.6 Repeated falls; Z99.81 Dependence on supplemental oxygen; Z79.82 Long term (current) use of aspirin; Z79.84 Long term (current) use of oral hypoglycemic drugs; Z79.899 Other long term (current) drug therapy; Z85.118 Personal history of other malignant neoplasm of bronchus and lung; Z86.79 Personal history of other diseases of the circulatory system; Z87.891 Personal history of nicotine dependence
CPT/HCPCS: 36415; 71045; 74176; 74230; 80048; 80053; 80061; 80202; 82962; 83036; 83735; 83880; 84100; 84145; 84439; 84443; 84484; 85025; 87426; 87449; 87633; 87641; 88305; 88312; 88313; 92526; 92610; 92611; 93005; 94002; 94640; 94762; 97116; 97162; 97166; 97530; 97535; 99284; J7040; J7050; J7120; A4216; J1940; J2405

== ENCOUNTER 2024-02-16 15:20 | Inpatient (IN) | payer MEDICARE, SELFPAY ==
[2024-02-16] VITALS (7 sets, daily range): BP systolic 96–105; BP diastolic 53–69; PULSE 63–68; RESP 15–20; TEMP 35.8–36.6; O2SAT 75–99; BMI 24.8
--- NOTE | 2024-02-16 15:52 | EKG12_ITS ---
Test Reason : GENERAL Blood Pressure : / mmHG Vent. Rate : 065 BPM Atrial Rate : 065 BPM P-R Int : 166 ms QRS Dur : 108 ms QT Int : 542 ms P-R-T Axes : 038 -24 128 degrees QTc Int : 563 ms Critical Test Result: Long QTc Normal sinus rhythm Cannot rule out Anterior infarct , age undetermined Abnormal ECG Long QT Confirmed by Volodymyr Rivera ([id number]), photograph editor BRIAN FOSTER ([id number]) on 02/18/2024 10:17:35 AM Referred By: Confirmed By:Volodymyr Rivera
--- NOTE | 2024-02-16 15:53 | EDS_ITS ---
HPI History of Present Illness Chief Complaint: Weakness Informant: family and EMS Narrative Narrative: 83-year-old female presenting to the emergency room chief complaint of dyspnea. Family states she was recently admitted with congestive heart failure and disch arged to longterm on Saturday. She has been wearing oxygen 2 to 3 L at all times for the past couple months. Family states that they last saw her on Saturday and she was transferred to longterm on Saturday. Family states that today she seems to have very labored breathing. They state that her legs are significantly swollen and are now leaking fluid. She has a history of atrial fibrillation and is currently on amiodarone. She is not anticoagulated reportedly due to propensity for falls. No reported fevers. Reported blood pressures in the 80s systolic at longterm. 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 Lung cancer Paroxysmal atrial fibrillation Pure hypercholesterolemia Rheumatic fever Skin cancer Stage 3a chronic kidney disease (CKD) Home Medications lovastatin 10 mg tablet 10 mg PO QHS CHOLESTEROL 09/24/18 [History Last Taken 10/29/23] metoprolol succinate 100 mg tablet,extended release 24 hr 100 mg PO DAILY HIGH BLOOD PRESSURE 09/24/18 [History Last Taken 10/30/23] omeprazole 20 mg tablet,delayed release 20 mg PO DAILY ACID REFLUX 07/29/20 [History Last Taken 10/30/23] cetirizine 10 mg tablet (Zyrtec) 10 mg PO DAILY PRN allergies 03/14/22 [History Last Taken Unknown] multivitamin 1 tab PO DAILY SUPPLEMENT 03/14/22 [History Last Taken 10/30/23] famotidine 20 mg tablet (Pepcid) 20 mg PO DAILY ACID REFLUX 09/19/22 [History Last Taken 10/30/23] metformin 750 mg tablet,extended release 24 hr 750 mg PO Q12H DIABETES 09/19/22 [History Last Taken 10/30/23] albuterol sulfate 90 mcg/actuation aerosol inhaler 1 puff inhalation DAILY PRN shortness of breath or wheezing 10/30/23 [History Last Taken 10/30/23] cholestyramine (with sugar) 4 gram powder for susp in a packet 1 ea PO Q6H PRN diarhhea 10/30/23 [History Last Taken 10/30/23] fluocinolone 0.01 % topical body oil 1 applic topical DAILY 10/30/23 [History Last Taken 10/30/23] levothyroxine 88 mcg tablet 88 mcg PO DAILY THYROID 10/30/23 [History Last Taken 10/30/23] 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 10/30/23 [History Last Taken 10/30/23] paroxetine HCl 30 mg tablet 30 mg PO DAILY DEPRESSION 10/30/23 [History Last Taken 10/30/23] amiodarone 200 mg tablet 200 mg PO DAILY #38 tabs 11/02/23 [Rx Last Taken Unknown] furosemide 40 mg tablet 40 mg PO DAILY FLUID #90 tabs 11/06/23 [Rx Last Taken Unknown] dapagliflozin propanediol 5 mg tablet (Farxiga) 10 mg PO DAILY DIABETES 11/27/23 [History Last Taken Unknown] melatonin 3 mg capsule 6 mg PO QHS 02/16/24 [History Last Taken Unknown] Allergy/AdvReac Type Severity Reaction Status Date / Time No Known Allergies Allergy Verified 02/16/24 15:35 Family History Mother CHF (congestive heart failure) Hypertension Sister Hypertension Father Heart disease Surgical History H/O tubal ligation H/O: hysterectomy History of bunionectomy of left great toe History of knee replacement History of right shoulder replacement History of tonsillectomy Hx of appendectomy Hx of cholecystectomy Social History household members: none Smoking Status: Never smoker how long ago did patient quit smokin years ago alcohol intake: current alcohol intake frequency: holidays/special occasions only substance use type: does not use caffeine: Yes Type: coffee Number of servings: 1 what type of physical activity do you participate in: walking frequency: daily ROS ROS ED ROS Narrative Generalized weakness Constitutional Constitutional ED: Denies chills, fever(s) or weight loss Eyes Eyes: Denies change in vision or diplopia ENT ENT ED: Denies ear pain, rhinorrhea or sore throat Cardiovascular Cardiovascular: Reports other Details: Leg swelling ; Denies chest pain, orthopnea, palpitations or racing heartbeat Respiratory/Chest Respiratory/Chest: Reports cough and dyspnea; Denies orthopnea Gastrointestinal Gastrointestinal: Denies abdominal pain, diarrhea, nausea or vomiting Genitourinary Genitourinary ED: Denies dysuria, hematuria or urinary frequency Musculoskeletal Musculoskeletal: Denies arthralgias or myalgias Integumentary Denies abscess or rash Neurologic Neurologic: Denies headache(s) or weakness Psychiatric Psychiatric: Denies anxiety, depression, suicidal ideation or suicidal thoughts Endocrine Endocrinology: Denies polydipsia, polyphagia or polyuria Allergic/Immunologic Allergic/Immunologic ED: Denies mouth swelling, tongue swelling or urticaria EXAM Physical Exam Narrative Exam Narrative: Patient appears tachypneic with some abdominal breathing at rest Const Vital Signs: 02/16/24 15:23 02/16/24 15:36 02/16/24 16:33 Temperature 96.5 F L Temperature Source Temporal Pulse Rate 66 Respiratory Rate 15 Respiratory Effort Short of Breath Labored Respiratory Pattern Tachypnea Blood Pressure 99/53 L Blood Pressure Mean 68 Pulse Ox 75 Oxygen Delivery Method Room Air Nasal Cannula Oxygen Flow Rate (L/min) 3 Fraction of Inspired Oxygen (FIO2) 02/16/24 16:45 02/16/24 17:18 02/16/24 17:51 Temperature 97.5 F L Temperature Source Temporal Pulse Rate 63 63 Respiratory Rate 20 H 19 H Respiratory Effort Respiratory Pattern Blood Pressure 105/53 L Blood Pressure Mean 65 Pulse Ox 97 98 Oxygen Delivery Method Nasal Cannula Oxygen Flow Rate (L/min) 3 Fraction of Inspired Oxygen (FIO2) 40 50 02/16/24 17:45 Temperature 96.8 F L Temperature Source Temporal Pulse Rate 68 Respiratory Rate 20 H Respiratory Effort Respiratory Pattern Blood Pressure 96/69 Blood Pressure Mean 78 Pulse Ox 99 Oxygen Delivery Method Bi-pap Oxygen Flow Rate (L/min) Fraction of Inspired Oxygen (FIO2) Positive well nourished and well developed General Appearance ED: well developed HEENT Reports normocephalic, head/scalp atraumatic and moist mucous membranes Eyes PERRL and EOMs intact bilaterally Neck no lymphadenopathy, supple and no JVD Resp clear to auscultation bilaterally Cardio regular rate, regular rhythm and no murmurs GI normal to inspection, nondistended, normoactive bowel sounds and non-tender Palpation: soft Back/Spine no CVA tenderness and normal ROM Extremity General Extremety ED: Yes edema General Extremity: edema bilateral lower extremity Details: moderate Neuro Neuro Narrative: Patient appears globally weak. She is awake but has weak voice. Moves all extremities x 4. Psych Mood & Affect: tearful Skin no rashes or lesions noted and no wounds MDM MDM MDM Narrative Medical decision making narrative: My independent trepidation of the chest x-ray is bilateral pulmonary edema. Cannot fully rule out pneumonia however since pneumonia was essentially ruled out her last hospitalization and this is improved hide status most likely some pulmonary edema/CHF. White count is elevated at 15 however. Hemoglobin steady 9.7. There is an elevation of creatinine off baseline. Lactic acid is elevated at 4.7. Urinalysis shows no overt infection. Blood gas shows a pH of 7.565 pCO2 29 pO2 73 bicarb 26 this was obtained on 50% FiO2. Patient was placed on BiPAP to see if this might help her breathing. The patient was not able to tolerate and kept removing it. We placed her on air Vo to try to get some positive pressure and I spoke with the patient's granddaughter. We talked about the possible need for central line and pressors because her blood pressure while not with a mean less than 65 certainly worrisome that as we attempt to diurese her we may become further hypotensive. I think the poor perfusion brought on by CHF as a result and then some tissue hypoxia and the slight elevation in liver enzymes and creatinine that we are seeing. We talked about whether or not she would want intubated and she does not wish any heroic measures. I am hesitant to give her fluid boluses which will result in further pulmonary edema and swelling. Hospitalist did speak with the patient and they have decided to make the patient hospice. Patient will be admitted. History & Record Review Discussion w/independent historian: Patient and Family Additional record(s) reviewed:: Prior inpatient record, Prior outpatient record, Prior ED visit and Prior labs Lab Data Attestation: I reviewed the patient's lab results. Labs: Laboratory Results - last 24 hr 02/16/24 02/16/24 02/16/24 16:05 16:05 16:35 WBC Cancelled Corrected WBC Cancelled RBC Cancelled Hgb Cancelled Hct Cancelled MCV Cancelled MCH Cancelled MCHC Cancelled RDW Std Deviation Cancelled RDW Coeff of Danielle Cancelled Plt Count Cancelled MPV Cancelled Immature Gran % (Auto) Cancelled Neut % (Auto) Cancelled Lymph % (Auto) Cancelled [place] % (Auto) Cancelled Eos % (Auto) Cancelled Baso % (Auto) Cancelled Absolute Neuts (auto) Cancelled Absolute Lymphs (auto) Cancelled Total Counted Cancelled Neutrophils % (Manual) Cancelled Band Neutrophils % Cancelled Lymphocytes % (Manual) Cancelled Monocytes % (Manual) Cancelled Eosinophils % (Manual) Cancelled Basophils % (Manual) Cancelled Metamyelocytes % Cancelled Myelocytes % Cancelled Promyelocytes % Cancelled Blast Cells % Cancelled Plasma Cell % (Manual) Cancelled Other Cells % Cancelled Nucleated RBC % Cancelled Nucleated RBCs/100 WBC Cancelled Differential Comment Cancelled Diff Path Review Cancelled Hypersegmented Neuts Cancelled Atypical Lymphocytes Cancelled Reactive Lymphocytes Cancelled Smudge Cells Cancelled Toxic Granulation Cancelled Toxic Vacuolation Cancelled Dohle Bodies Cancelled Irina Rods Cancelled Platelet Estimate Cancelled Plt Morphology Comment Cancelled RBC Morphology Cancelled Cancelled Polychromasia Cancelled Hypochromasia Cancelled Basophilic Stippling Cancelled Anisocytosis Cancelled Microcytosis Cancelled Macrocytosis Cancelled Spherocytes Cancelled Sickle Cells Cancelled Target Cells Cancelled Tear Drop Cells Cancelled Ovalocytes Cancelled Stomatocytes Cancelled [place] Bodies Cancelled Rachele Cells Cancelled Bite Cells Cancelled Crenated Cell Cancelled Acanthocytes (Spur) Cancelled Rouleaux Cancelled Schistocytes Cancelled PT INR APTT Sodium 140 Potassium 4.1 Chloride 102 Carbon Dioxide 26.0 Anion Gap 12 BUN 52 H Creatinine 2.33 H Estim Creat Clear Calc 16.07 Est GFR (MDRD) Af Amer 26 L Est GFR (MDRD) Non-Af 21 L BUN/Creatinine Ratio 22.3 H Glucose 177 H Lactic Acid 4.7 H* Calcium 8.9 Total Bilirubin 2.00 H Direct Bilirubin 1.08 H AST 55 H ALT 28 Alkaline Phosphatase 121 H Troponin I High Sens 18 B-Natriuretic Peptide Total Protein 7.6 Albumin 2.1 L Globulin 5.5 H Urine Color Yellow Urine Clarity Sl. Cloudy Urine pH 5.0 Ur Specific [place] 1.025 Urine Protein 30 H Urine Glucose (UA) 250 H Urine Ketones 15 H Urine Occult Blood 10 H Urine Nitrite Negative Urine Bilirubin 3 H Urine Urobilinogen 4 H Ur Leukocyte Esterase 25 H Urine RBC 0-5 SEEN Urine WBC 0-5 SEEN Ur Squamous Epith Cells 0-5 SEEN Amorphous Sediment 1+ URATE Urine Bacteria 0 SEEN Urine Mucus 0 SEEN 02/16/24 17:15 WBC 15.4 H Corrected WBC RBC 3.55 L Hgb 9.7 L Hct 32.0 L MCV 90.1 MCH 27.3 MCHC 30.3 L RDW Std Deviation 62.8 H RDW Coeff of Danielle 19.8 H Plt Count 128 L MPV 11.7 Immature Gran % (Auto) 1.000 H Neut % (Auto) 81.7 H Lymph % (Auto) 9.3 L [place] % (Auto) 7.8 Eos % (Auto) 0.1 Baso % (Auto) 0.1 Absolute Neuts (auto) 12.6 H Absolute Lymphs (auto) 1.43 Total Counted Neutrophils % (Manual) Band Neutrophils % Lymphocytes % (Manual) Monocytes % (Manual) Eosinophils % (Manual) Basophils % (Manual) Metamyelocytes % Myelocytes % Promyelocytes % Blast Cells % Plasma Cell % (Manual) Other Cells % Nucleated RBC % 0.3 Nucleated RBCs/100 WBC Differential Comment Diff Path Review Hypersegmented Neuts Atypical Lymphocytes Reactive Lymphocytes Smudge Cells Toxic Granulation Toxic Vacuolation Dohle Bodies Irina Rods Platelet Estimate Plt Morphology Comment RBC Morphology Polychromasia Hypochromasia Basophilic Stippling Anisocytosis Microcytosis Macrocytosis Spherocytes Sickle Cells Target Cells Tear Drop Cells Ovalocytes Stomatocytes [place] Bodies Rachele Cells Bite Cells Crenated Cell Acanthocytes (Spur) Rouleaux Schistocytes PT 21.9 H INR 1.9 APTT 38.7 H Sodium Potassium Chloride Carbon Dioxide Anion Gap BUN Creatinine Estim Creat Clear Calc Est GFR (MDRD) Af Amer Est GFR (MDRD) Non-Af BUN/Creatinine Ratio Glucose Lactic Acid Calcium Total Bilirubin Direct Bilirubin AST ALT Alkaline Phosphatase Troponin I High Sens B-Natriuretic Peptide 832.2 H Total Protein Albumin Globulin Urine Color Urine Clarity Urine pH Ur Specific [place] Urine Protein Urine Glucose (UA) Urine Ketones Urine Occult Blood Urine Nitrite Urine Bilirubin Urine Urobilinogen Ur Leukocyte Esterase Urine RBC Urine WBC Ur Squamous Epith Cells Amorphous Sediment Urine Bacteria Urine Mucus ABG Data ABG results: ABG 02/16/24 18:12 Specimen Type ART Sample Site L Radial pH 7.57 H Bicarbonate Actual 26.4 H Total CO2 27 Base Excess 4 H O2 Saturation 97 O2 % 50.0 ABG pCO2 29.1 L ABG pO2 73 L Jose Test Positive O2 Delivery Device airvo Vent Mode Not entered Clinical Comments 55L. 50% Radiography Diagnostic Testing: Clinical Impression(s) from Imaging Studies Chest X-Ray 02/16/24 16:18 IMPRESSION: Improving bilateral pneumonia. Electronically Signed: Adelso Diallo MD at 16:41 EDT , EKG Initial EKG: Attestation: I personally reviewed and interpreted this EKG as follows: Comments: Normal sinus rhythm ventricular to 65 bpm. No significant difference from 11 February. QT compared with prior and no sig change. Management Discussion w/another healthcare provider: Hospitalist (Dr. Guerrier) Discharge Plan Dx/Rx/DC Orders Clinical Impression: Congestive heart failure, Respiratory failure, Altered mental status, Acidosis, lactic Disposition Disposition: Acute Care Hospital [facility] Discharge Date/Time: 02/16/24 19:09
--- NOTE | 2024-02-16 16:18 | RAD_ITS ---
EXAM: XR CHEST, 1 VIEW CLINICAL INDICATION: dyspnea TECHNIQUE: Frontal view of the chest. COMPARISON: XR Chest dated 02/10/2024 FINDINGS: LUNGS AND PLEURAL SPACES: Bilateral pulmonary opacities again noted improved from prior exam. Persistent small bilateral pleural effusions. HEART: Normal heart size. MEDIASTINUM: No mediastinal or hilar mass. BONES/JOINTS: No acute abnormality. RAD/Chest 1 View (Portable) IMPRESSION: Improving bilateral pneumonia. Electronically Signed: Adelso Diallo MD at 16:41 EDT ,
[2024-02-16 16:39] LABS: Bacteria 0 SEEN /hpf (None Seen); Mucous, Urine 0 SEEN /hpf (<or=2+)
[2024-02-16 16:43] LABS: Color, Urine Yellow (Yellow); Glucose, Dipstick 250 mg/dl (Normal); Ketone-Dipstick 15 mg/dl (Negative); Leukocyte Esterase-Dipstick 25 /ul (Negative); Nitrite-Dipstick Negative (Negative); Occult Blood-Urine 10 /ul (Negative); Protein-Dipstick 30 mg/dl (Negative); Specific Gravity, Urine 1.025 (1.002-1.030); Urine Clarity Sl. Cloudy (Clear); Urine Urobilinogen 4 mg/dl (Normal)
[2024-02-16 16:44] LABS: AST(SGOT) 55 U/L (15-37); Alanine Aminotransfer ALT/SGPT 28 U/L (13-56); Albumin, Serum 2.1 g/dL (3.2-5.0); Alkaline Phosphatase 121 U/L (45-117); Anion Gap 12 (5-15); BUN 52 mg/dL (7-18); BUN/Creat Ratio 22.3 RATIO (10-20); Bilirubin, Direct 1.08 mg/dL (0.00-0.30); Calcium,Total 8.9 mg/dL (8.5-10.1); Chloride 102 mmol/L (98-107); Creatinine, Serum 2.33 mg/dL (0.55-1.02); EST Glomerular Filtration Rate 21 mL/min (>60); Est Glom Filt Rate - Afr Amer 26 mL/min (>60); Estimated Creatinine Clearance 16.07 ml/min; Globulin 5.5 g/dL (2.2-4.2); Glucose 177 mg/dL (74-106); Potassium 4.1 mmol/L (3.5-5.1); Protein, Total 7.6 g/dL (6.4-8.2); Sodium Level 140 mmol/L (136-145); Troponin-I HS 18 pg/mL (3.0-54.0)
[2024-02-16 16:46] LABS: Lactic Acid 4.7 mmol/L (0.4-1.9)
[2024-02-16 16:47] LABS: Urine Bilirubin Dipstick 3 mg/dL (Negative)
[2024-02-16 16:52] LABS: Amorphous Sediment 1+ URATE; Red Blood Cells-Urine 0-5 SEEN /hpf (0-5); Squamous Epithelial Cells - UA 0-5 SEEN /hpf (5-10); White Blood Cells 0-5 SEEN /hpf (0-5)
[2024-02-16 17:29] LABS: Absolute Lymphocyte Count 1.43 X10^3/uL (0.83-4.51); Absolute Neutrophil Count 12.6 X10^3/uL (2.0-7.7); Basophil# 0.02 X10^3/uL; Basophil% 0.1 % (0-1); Eosinophil# 0.01 X10^3/uL; Eosinophils% 0.1 % (0-5); Hemoglobin 9.7 g/dL (12.0-15.0); Lymphocyte # 1.43 X10^3/ul (0.83-4.51); Lymphocyte % 9.3 % (19-41); Mean Corp Hgb Conc 30.3 g/dL (32-36); Mean Corpuscular Hgb 27.3 pg (27.0-32.0); Mean Corpuscular Volume 90.1 fL (81-99); Mean Platelet Vol. 11.7 fl (6.2-12.0); Monocyte% 7.8 % (0-10); NRBC Flagged by Analyzer 0.3 % (0-5); Neutrophil # 12.63 X10^3/uL (2.7-7.7); Neutrophil % 81.7 % (47-70); Platelet Count 128 K/mm3 (150-450); RBC Distribution Width CV 19.8 % (11.6-14.6); RBC Distribution Width SD 62.8 fl (35.1-43.9); Red Blood Count 3.55 M/mm3 (4.2-5.4); White Blood Count 15.4 K/mm3 (4.4-11.0)
[2024-02-16 17:34] LABS: International Normalized Ratio 1.9; Prothrombin Time (Protime)PT. 21.9 SECONDS (11.7-14.9)
[2024-02-16 17:35] LABS: Partial Thromboplast Time 38.7 Seconds (24.1-36.2)
[2024-02-16 17:51] LABS: BNP,B-Type NATRIURETIC PEPTIDE 832.2 pg/mL (0-100)
[2024-02-16 18:16] LABS: Allen Test Positive; Base Excess 4 mmol/L (-2 to +2); Bicarbonate 26.4 mmol/L (22-26); Blood Gas Specimen Type ART; Comment 55L. 50%; Mode Not entered; O2 Delivery Device airvo; PO2 73 mmHG (75-100); SITE L Radial; SO2 97 % (95-99); Total Carbon Dioxide 27 mmol/L; pCO2 29.1 mmHg (35-45); pH 7.57 (7.35-7.45)
--- NOTE | 2024-02-16 18:35 | HP.PCM.HOS_ITS ---
[facility] - General General Date of Service: 02/16/24 Chief Complaint: Shortness of breath HPI Narrative PARTH RODGERS, is a 83 F who presents with increased shortness of breath, confusion, increased edema in lower extremities. Patient is confused and unable to write any history but [facility] just [facility] 2 days ago back to the hospital. In the emergency room, patient was noted to be hypotensive with systolic in the 80s to 90s, she was hypoxic requiring BiPAP but she was unable to tolerate then placed on Airvo. X-ray was showing improving infiltrates. Patient was discharged with diagnosis of pneumonia and heart failure. Patient was discharged with furosemide from the last hospitalization. Patient was placed on BiPAP was not tolerating and then suddenly placed on Airvo but did require soft restraints. I had a long conversation with the patient's granddaughter, who is the patient's power of defense attorney, and the patient's daughter both were at bedside. With her respiratory status, worsening kidney function and elevated transaminases and bilirubin, I am concerned that she may be having some cardiac event. After lengthy discussion they wished for her to be hospice care. 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 Lung cancer Paroxysmal atrial fibrillation Pure hypercholesterolemia Rheumatic fever Skin cancer Stage 3a chronic kidney disease (CKD) Home Medications lovastatin 10 mg tablet 10 mg PO QHS CHOLESTEROL 09/24/18 [History Last Taken 10/29/23] metoprolol succinate 100 mg tablet,extended release 24 hr 100 mg PO DAILY HIGH BLOOD PRESSURE 09/24/18 [History Last Taken 10/30/23] omeprazole 20 mg tablet,delayed release 20 mg PO DAILY ACID REFLUX 07/29/20 [History Last Taken 10/30/23] cetirizine 10 mg tablet (Zyrtec) 10 mg PO DAILY PRN allergies 03/14/22 [History Last Taken Unknown] multivitamin 1 tab PO DAILY SUPPLEMENT 03/14/22 [History Last Taken 10/30/23] famotidine 20 mg tablet (Pepcid) 20 mg PO DAILY ACID REFLUX 09/19/22 [History Last Taken 10/30/23] metformin 750 mg tablet,extended release 24 hr 750 mg PO Q12H DIABETES 09/19/22 [History Last Taken 10/30/23] albuterol sulfate 90 mcg/actuation aerosol inhaler 1 puff inhalation DAILY PRN shortness of breath or wheezing 10/30/23 [History Last Taken 10/30/23] cholestyramine (with sugar) 4 gram powder for susp in a packet 1 ea PO Q6H PRN diarhhea 10/30/23 [History Last Taken 10/30/23] fluocinolone 0.01 % topical body oil 1 applic topical DAILY 10/30/23 [History Last Taken 10/30/23] levothyroxine 88 mcg tablet 88 mcg PO DAILY THYROID 10/30/23 [History Last Taken 10/30/23] 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 10/30/23 [History Last Taken 10/30/23] paroxetine HCl 30 mg tablet 30 mg PO DAILY DEPRESSION 10/30/23 [History Last Taken 10/30/23] amiodarone 200 mg tablet 200 mg PO DAILY #38 tabs 11/02/23 [Rx Last Taken Unknown] furosemide 40 mg tablet 40 mg PO DAILY FLUID #90 tabs 11/06/23 [Rx Last Taken Unknown] dapagliflozin propanediol 5 mg tablet (Farxiga) 10 mg PO DAILY DIABETES 11/27/23 [History Last Taken Unknown] melatonin 3 mg capsule 6 mg PO QHS 02/16/24 [History Last Taken Unknown] Allergy/AdvReac Type Severity Reaction Status Date / Time No Known Allergies Allergy Verified 02/16/24 15:35 Family History Mother CHF (congestive heart failure) Hypertension Sister Hypertension Father Heart disease Surgical History H/O tubal ligation H/O: hysterectomy History of bunionectomy of left great toe History of knee replacement History of right shoulder replacement History of tonsillectomy Hx of appendectomy Hx of cholecystectomy Social History household members: none Smoking Status: Never smoker how long ago did patient quit smokin years ago alcohol intake: current alcohol intake frequency: holidays/special occasions only substance use type: does not use caffeine: Yes Type: coffee Number of servings: 1 what type of physical activity do you participate in: walking frequency: daily ROS ROS Narrative Unable to obtain as the patient is confused Vital Signs Vital Signs Vital Signs: 02/16/24 15:23 02/16/24 15:36 02/16/24 16:33 Temperature 35.8 C L Temperature Source Temporal Pulse Rate 66 Respiratory Rate 15 Respiratory Effort Short of Breath Labored Respiratory Pattern Tachypnea Blood Pressure 99/53 L Blood Pressure Mean 68 Pulse Ox 75 Oxygen Delivery Method Room Air Nasal Cannula Oxygen Flow Rate (L/min) 3 Fraction of Inspired Oxygen (FIO2) 02/16/24 16:45 02/16/24 17:18 02/16/24 17:51 Temperature 36.4 C L Temperature Source Temporal Pulse Rate 63 63 Respiratory Rate 20 H 19 H Respiratory Effort Respiratory Pattern Blood Pressure 105/53 L Blood Pressure Mean 65 Pulse Ox 97 98 Oxygen Delivery Method Nasal Cannula Oxygen Flow Rate (L/min) 3 Fraction of Inspired Oxygen (FIO2) 40 50 02/16/24 17:45 Temperature 36.0 C L Temperature Source Temporal Pulse Rate 68 Respiratory Rate 20 H Respiratory Effort Respiratory Pattern Blood Pressure 96/69 Blood Pressure Mean 78 Pulse Ox 99 Oxygen Delivery Method Bi-pap Oxygen Flow Rate (L/min) Fraction of Inspired Oxygen (FIO2) Weight Weight: 61.6 kg Body Mass Index (BMI) 24.8 Physical Exam Const Constitutional Narrative: Confused. Afebrile. HEENT normocephalic Resp Resp Narrative: Bilateral crackles throughout Cardio regular rate, regular rhythm, S1 normal heart sound and S2 normal heart sound GI normal to inspection, nondistended, normoactive bowel sounds, soft to palpation, non-tender and non-distended Extremity Extremity Narrative: Bilateral lower extremity edema with weeping of the right lower extremity. Skin Skin Narrative: Ecchymosis on skin on the extremities. Neuro Neuro Narrative: Confused. Psych Psych Narrative: Agitated Results Lab / Micro Data Attestation: I reviewed the patient's lab results. 02/16/24 17:15 02/16/24 16:05 Labs: Laboratory Results - last 24 hr 02/16/24 16:05: WBC Cancelled, Corrected WBC Cancelled, RBC Cancelled, Hgb Cancelled, Hct Cancelled, MCV Cancelled, MCH Cancelled, MCHC Cancelled, RDW Std Deviation Cancelled, RDW Coeff of Danielle Cancelled, Plt Count Cancelled, MPV Cancelled, Immature Gran % (Auto) Cancelled, Neut % (Auto) Cancelled, Lymph % (Auto) Cancelled, [place] % (Auto) Cancelled, Eos % (Auto) Cancelled, Baso % (Auto) Cancelled, Absolute Neuts (auto) Cancelled, Absolute Lymphs (auto) Cancelled, Total Counted Cancelled, Neutrophils % (Manual) Cancelled, Band Neutrophils % Cancelled, Lymphocytes % (Manual) Cancelled, Monocytes % (Manual) Cancelled, Eosinophils % (Manual) Cancelled, Basophils % (Manual) Cancelled, Metamyelocytes % Cancelled, Myelocytes % Cancelled, Promyelocytes % Cancelled, Blast Cells % Cancelled, Plasma Cell % (Manual) Cancelled, Other Cells % Cancelled, Nucleated RBC % Cancelled, Nucleated RBCs/100 WBC Cancelled, Differential Comment Cancelled, Diff Path Review Cancelled, Hypersegmented Neuts Cancelled, Atypical Lymphocytes Cancelled, Reactive Lymphocytes Cancelled, Smudge Cells Cancelled, Toxic Granulation Cancelled, Toxic Vacuolation Cancelled, Dohle Bodies Cancelled, Irina Rods Cancelled, Platelet Estimate Cancelled, Plt Morphology Comment Cancelled, RBC Morphology Cancelled 02/16/24 16:05: RBC Morphology Cancelled, Polychromasia Cancelled, Hypochromasia Cancelled, Basophilic Stippling Cancelled, Anisocytosis Cancelled, Microcytosis Cancelled, Macrocytosis Cancelled, Spherocytes Cancelled, Sickle Cells Cancelled, Target Cells Cancelled, Tear Drop Cells Cancelled, Ovalocytes Cancelled, Stomatocytes Cancelled, Ramirez-[place] Bodies Cancelled, Rachele Cells Cancelled, Bite Cells Cancelled, Crenated Cell Cancelled, Acanthocytes (Spur) Cancelled, Rouleaux Cancelled, Schistocytes Cancelled, Sodium 140, Potassium 4.1, Chloride 102, Carbon Dioxide 26.0, Anion Gap 12, BUN 52 H, Creatinine 2.33 H, Estim Creat Clear Calc 16.07, Est GFR (MDRD) Af Amer 26 L, Est GFR (MDRD) Non-Af 21 L, BUN/Creatinine Ratio 22.3 H, Glucose 177 H, Lactic Acid 4.7 H*, Calcium 8.9, Total Bilirubin 2.00 H, Direct Bilirubin 1.08 H, AST 55 H, ALT 28, Alkaline Phosphatase 121 H, Troponin I High Sens 18, Total Protein 7.6, Albumin 2.1 L, Globulin 5.5 H 02/16/24 16:35: Urine Color Yellow, Urine Clarity Sl. Cloudy, Urine pH 5.0, Ur Specific [place] 1.025, Urine Protein 30 H, Urine Glucose (UA) 250 H, Urine Ketones 15 H, Urine Occult Blood 10 H, Urine Nitrite Negative, Urine Bilirubin 3 H, Urine Urobilinogen 4 H, Ur Leukocyte Esterase 25 H, Urine RBC 0-5 SEEN, Urine WBC 0-5 SEEN, Ur Squamous Epith Cells 0-5 SEEN, Amorphous Sediment 1+ URATE, Urine Bacteria 0 SEEN, Urine Mucus 0 SEEN 02/16/24 17:15: WBC 15.4 H, RBC 3.55 L, Hgb 9.7 L, Hct 32.0 L, MCV 90.1, MCH 27.3, MCHC 30.3 L, RDW Std Deviation 62.8 H, RDW Coeff of Danielle 19.8 H, Plt Count 128 L, MPV 11.7, Immature Gran % (Auto) 1.000 H, Neut % (Auto) 81.7 H, Lymph % (Auto) 9.3 L, [place] % (Auto) 7.8, Eos % (Auto) 0.1, Baso % (Auto) 0.1, Absolute Neuts (auto) 12.6 H, Absolute Lymphs (auto) 1.43, Nucleated RBC % 0.3, PT 21.9 H , INR 1.9, APTT 38.7 H, B-Natriuretic Peptide 832.2 H ABG Data ABG results: ABG 02/16/24 18:12 Specimen Type ART Sample Site L Radial pH 7.57 H Bicarbonate Actual 26.4 H Total CO2 27 Base Excess 4 H O2 Saturation 97 O2 % 50.0 ABG pCO2 29.1 L ABG pO2 73 L Jose Test Positive O2 Delivery Device airvo Vent Mode Not entered Clinical Comments 55L. 50% Imaging Radiology Impression Chest X-Ray 02/16/24 16:18 IMPRESSION: Improving bilateral pneumonia. Electronically Signed: Adelso Diallo MD at 16:41 EDT , Assessment & Plan Assessment/Plan (1) Acute hypoxic respiratory failure: (2) ODALIS (acute kidney injury): PLAN: Plan Acute hypoxic respiratory failure * Present on arrival * pulse ox 75% when she arrived. Improved with the Airvo. ABG showed respiratory and metabolic alkalosis. * As family has elected for hospice, supportive management just for comfort at this time. * Concern for worsening heart failure with worsening decompensation despite being on furosemide. Acute metabolic encephalopathy * Secondary to above. Cannot rule out any other underlying process. I do not feel the patient does have a worsening pneumonia, however. ODALIS * Worse from baseline * No additional workup Hepatic congestion * Suspected due to elevated bilirubin * Suspect related with worsening heart failure * No additional workup Acute heart failure with preserved ejection fraction * Patient had an EF of 55% from 2D echocardiogram from October 30 though I suspect it is probably worse now. Will not reecho given the fact the patient is going to be hospice. Patient will be hospice and patient will have comfort medications with morphine, Intensol as well as other supportive medications CODE STATUS: DNR Comfort Care Advance care planning: Spent an additional 20 minutes discussing with the patient's power of defense attorney and daughter and plan is to make the patient hospice. CODE STATUS will be comfort care. Hospice to evaluate the patient on February 16. Charges/Coding Visit Charges Inpatient E&M: 41415 Init Hosp L2 Procedures Hospitalists Procedures: 10345 Critical Care Addl 30 Min
[2024-02-16] MEDS: Piperacil/Tazobactam 4.5 GM in 0.9% Normal Saline (100mL MB+) 100 ML IV (18:36)
--- NOTE | 2024-02-16 19:24 | CPS ---
pt moved to 3floor
[2024-02-16 20:14] LABS: Reflex Lactate? Y
[2024-02-16] MEDS: LORazepam 2 MG/ML Bottle 0.5 MG SL ×2 (20:18→22:11)
[2024-02-16] MEDS: Vancomycin HCl 1,500 MG in 0.9% Normal Saline (500mL Bag) 500 ML 250 MG IV (21:31)
[2024-02-16] MEDS: Morphine 2 MG/ML Syringe IV (21:32)
[2024-02-16 21:37] LABS: Lactic Acid 4.6 mmol/L (0.4-1.9)
--- NOTE | 2024-02-16 21:54 | PCM.RX.CS ---
Consult Antibiotic Management Pharmacy has been consulted to manage selected antibiotic: Vancomycin Type of Intervention Type of Consult: New start Labs Labs: Sodium 140 mmol/L (136-145) 02/16/24 16:05 Potassium 4.1 mmol/L (3.5-5.1) 02/16/24 16:05 Chloride 102 mmol/L (98-107) 02/16/24 16:05 Carbon Dioxide 26.0 mmol/L (21.0-32.0) 02/16/24 16:05 Anion Gap 12 (5-15) 02/16/24 16:05 BUN 52 mg/dL (7-18) H 02/16/24 16:05 Creatinine 2.33 mg/dL (0.55-1.02) H 02/16/24 16:05 Est GFR (MDRD) Af Amer 26 mL/min (>60) L 02/16/24 16:05 Est GFR (MDRD) Non-Af 21 mL/min (>60) L 02/16/24 16:05 BUN/Creatinine Ratio 22.3 RATIO (10-20) H 02/16/24 16:05 Glucose 177 mg/dL (74-106) H 02/16/24 16:05 Dosing Weight Weight used for dosin.6 kg Estimated Creatinine Clearance Estimated Creatinine Clearance: 16 Goal Trough Goal Trough: 15-20 mcg/mL Pharmacy Plan for Drug Dosing Pharmacy Plan for Drug Dosing: An initial loading dose of vancomycin 1500mg was given 02/16/24 @2131. Since current renal status has her CrCl=16, no continuing doses will be scheduled. A random vanco level will be drawn with a.m. labs 02/18/24 to determine dosing. Pharmacy Service will continue to monitor and adjust dosing as required. Follow-Up Labs Follow-Up Labs: Trough: Vancomycin (random) Date/Time Labs Ordered Labs to be done on [date and time ordered]: 02/18/24 @0600
[2024-02-17] VITALS (10 sets, daily range): BP systolic 101–117; BP diastolic 49–67; PULSE 60–87; RESP 12–24; TEMP 36.5–37.1; O2SAT 86–100; BMI 23.6
[2024-02-17] MEDS: Piperacil/Tazobactam 3.375 GM in 0.9% Normal Saline (50mL MB+) 50 ML IV ×2 (01:20→10:43)
[2024-02-17] MEDS: LORazepam 2 MG/ML Bottle 0.5 MG SL ×3 (06:16→15:55)
[2024-02-17] MEDS: Morphine 2 MG/ML Syringe IV ×5 (06:47→23:25)
--- NOTE | 2024-02-17 13:11 | CASEMGMT ---
Social Work SW met with pt, indy Alva and lety Zurita. Pt was discharged to [facility] on Tuesday 02/13 and readmitted to [facility] on Thursday 02/15. After discussion with physician, pt's family is requesting a hospice referral. Pt's indy Alva would like pt to be evaluated for the Inpatient Hospice Unit. Referral made to Mariia at [facility] and clinicals faxed. [facility] to reach out to Nida to set an appointment to come and meet with pt and family for IPU assessment. CARO Bunch
[2024-02-17] MEDS: 0.9% Saline Lock 10 ML Syringe IV (15:34)
--- NOTE | 2024-02-17 15:38 | PCM.PROGNOTE ---
Subjective Subjective Patient seen and examined. Granddaughter was by her bedside. She was lying in bed. Unable to communicate much that she was quite lethargic. Family has opted for hospice, and she is awaiting hospice evaluation Objective Data Objective Data Vital Signs: Vital Signs Temp Pulse Resp BP Pulse Ox O2 Del Method O2 Flow Rate 98.7 F 60 24 H 108/49 L 97 Nasal Cannula 4 02/17/24 09:15 02/17/24 09:15 02/17/24 09:15 02/17/24 09:15 02/17/24 09:15 02/17/24 09:15 02/17/24 09:15 FiO2 48 02/16/24 19:36 Oxygen Flow Rate (L/min) 4 Oxygen Delivery Method Nasal Cannula Weight: 129 lb 3.054 oz Body Mass Index (BMI) 23.6 Intake & Output: Intake and Output for Last 24 Hours 02/15/24 02/16/24 02/17/24 23:59 23:59 23:59 Intake Total 630 / 630 50 / 50 Output Total 0 / 0 Balance 630 / 630 50 / 50 Lab / Micro Data 02/16/24 17:15 02/16/24 16:05 Labs: Laboratory Results - last 24 hr 02/16/24 16:05: WBC Cancelled, Corrected WBC Cancelled, RBC Cancelled, Hgb Cancelled, Hct Cancelled, MCV Cancelled, MCH Cancelled, MCHC Cancelled, RDW Std Deviation Cancelled, RDW Coeff of Danielle Cancelled, Plt Count Cancelled, MPV Cancelled, Immature Gran % (Auto) Cancelled, Neut % (Auto) Cancelled, Lymph % (Auto) Cancelled, [place] % (Auto) Cancelled, Eos % (Auto) Cancelled, Baso % (Auto) Cancelled, Absolute Neuts (auto) Cancelled, Absolute Lymphs (auto) Cancelled, Total Counted Cancelled, Neutrophils % (Manual) Cancelled, Band Neutrophils % Cancelled, Lymphocytes % (Manual) Cancelled, Monocytes % (Manual) Cancelled, Eosinophils % (Manual) Cancelled, Basophils % (Manual) Cancelled, Metamyelocytes % Cancelled, Myelocytes % Cancelled, Promyelocytes % Cancelled, Blast Cells % Cancelled, Plasma Cell % (Manual) Cancelled, Other Cells % Cancelled, Nucleated RBC % Cancelled, Nucleated RBCs/100 WBC Cancelled, Differential Comment Cancelled, Diff Path Review Cancelled, Hypersegmented Neuts Cancelled, Atypical Lymphocytes Cancelled, Reactive Lymphocytes Cancelled, Smudge Cells Cancelled, Toxic Granulation Cancelled, Toxic Vacuolation Cancelled, Dohle Bodies Cancelled, Irina Rods Cancelled, Platelet Estimate Cancelled, Plt Morphology Comment Cancelled, RBC Morphology Cancelled 02/16/24 16:05: RBC Morphology Cancelled, Polychromasia Cancelled, Hypochromasia Cancelled, Basophilic Stippling Cancelled, Anisocytosis Cancelled, Microcytosis Cancelled, Macrocytosis Cancelled, Spherocytes Cancelled, Sickle Cells Cancelled, Target Cells Cancelled, Tear Drop Cells Cancelled, Ovalocytes Cancelled, Stomatocytes Cancelled, Ramirez-[place] Bodies Cancelled, [place] Cells Cancelled, Bite Cells Cancelled, Crenated Cell Cancelled, Acanthocytes (Spur) Cancelled, Rouleaux Cancelled, Schistocytes Cancelled, Sodium 140, Potassium 4.1, Chloride 102, Carbon Dioxide 26.0, Anion Gap 12, BUN 52 H, Creatinine 2.33 H, Estim Creat Clear Calc 16.07, Est GFR (MDRD) Af Amer 26 L, Est GFR (MDRD) Non-Af 21 L, BUN/Creatinine Ratio 22.3 H, Glucose 177 H, Lactic Acid 4.7 H*, Calcium 8.9, Total Bilirubin 2.00 H, Direct Bilirubin 1.08 H, AST 55 H, ALT 28, Alkaline Phosphatase 121 H, Troponin I High Sens 18, Total Protein 7.6, Albumin 2.1 L, Globulin 5.5 H 02/16/24 16:35: Urine Color Yellow, Urine Clarity Sl. Cloudy, Urine pH 5.0, Ur Specific [place] 1.025, Urine Protein 30 H, Urine Glucose (UA) 250 H, Urine Ketones 15 H, Urine Occult Blood 10 H, Urine Nitrite Negative, Urine Bilirubin 3 H, Urine Urobilinogen 4 H, Ur Leukocyte Esterase 25 H, Urine RBC 0-5 SEEN, Urine WBC 0-5 SEEN, Ur Squamous Epith Cells 0-5 SEEN, Amorphous Sediment 1+ URATE, Urine Bacteria 0 SEEN, Urine Mucus 0 SEEN 02/16/24 17:15: WBC 15.4 H, RBC 3.55 L, Hgb 9.7 L, Hct 32.0 L, MCV 90.1, MCH 27.3, MCHC 30.3 L, RDW Std Deviation 62.8 H, RDW Coeff of Danielle 19.8 H, Plt Count 128 L, MPV 11.7, Immature Gran % (Auto) 1.000 H, Neut % (Auto) 81.7 H, Lymph % (Auto) 9.3 L, [place] % (Auto) 7.8, Eos % (Auto) 0.1, Baso % (Auto) 0.1, Absolute Neuts (auto) 12.6 H, Absolute Lymphs (auto) 1.43, Nucleated RBC % 0.3, PT 21.9 H, INR 1.9, APTT 38.7 H, B-Natriuretic Peptide 832.2 H 02/16/24 20:51: Lactic Acid 4.6 H* ABG Data ABG results: ABG 02/16/24 18:12 Specimen Type ART Sample Site L Radial pH 7.57 H Bicarbonate Actual 26.4 H Total CO2 27 Base Excess 4 H O2 Saturation 97 O2 % 50.0 ABG pCO2 29.1 L ABG pO2 73 L Jose Test Positive O2 Delivery Device airvo Vent Mode Not entered Clinical Comments 55L. 50% Radiography Diagnostic Testing: Radiology Impression Chest X-Ray 02/16/24 16:18 IMPRESSION: Improving bilateral pneumonia. Electronically Signed: Adelso Diallo MD at 16:41 EDT , Physical Exam Const Orientation / Consciousness: confused and lethargic HEENT normocephalic, head/scalp atraumatic, moist oral mucous membranes and oropharynx normal Eyes PERRL and EOMs intact bilaterally Neck no lymphadenopathy and supple Lymph Lymphatic: no lymphadenopathy noted and no lymphedema noted Resp Resp Narrative: mildly diminished breath sounds bibasally, no wheezes or crackles. On 4L of oxygen by nasal canula Cardio regular rhythm, S1 normal heart sound, S2 normal heart sound and no murmurs Rate: tachycardic GI normal to inspection, nondistended, normoactive bowel sounds, soft to palpation, non-tender and non-distended Extremity normal capillary refill, no clubbing, cyanosis or edema and no calf tenderness General Extremity: no tenderness to palpation of joints or extremities Skin General Skin Exam: no breakdown Neuro CN's II-XII intact bilaterally, no focal motor deficits, no sensory deficits noted and deep tendon reflexes 2+ bilaterally Motor Exam: general weakness Psych Psych Narrative: weak, lethargic, minimally responsive. Assessment & Plan Assessment/Plan (1) Acute hypoxic respiratory failure: PLAN: Plan #Acute hypoxic respiratory failure She is currently on 4 L of oxygen. Not thought to be due to worsening heart failure. He is on Lasix. Family opted for hospice so patient is awaiting hospice evaluation. #ODALIS: Family opted for hospice with no aggressive workup. Acute exacerbation of heart failure preserved ejection fraction: Family opted for hospice as above. Has known EF of 55%. # DVT prophylaxis: SCDs CODE STATUS: DNR CC Disposition: Awaiting evaluation by hospice medical facility. # Charges/Coding Visit Charges Inpatient E&M: 86601 [facility] Hosp L3
--- NOTE | 2024-02-18 11:44 | CASEMGMT ---
Discharge Planning [facility] updated on patients transfer to IPU. Saima Castillo, Discharge Planning Asst.
--- NOTE | 2024-03-16 14:42 | DS.PCM_ITS ---
Providers Date of Admission: 02/16/24 Date of Discharge: 02/17/24 Primary Care Physician: Dr. Greta Nayak, Consultations 02/17/24 08:19 Consult: Hospice / Palliative Care Routine Consulting Provider: [facility] Reason for Consult: end of life EMERGENT Consult: No MD Notified: No Date Notified: 02/17/24 Time Notified: 08:19 Reason For Visit: RESP FAILURE Diagnosis Discharge Diagnosis (1) Acute hypoxic respiratory failure: Status: Acute Code(s): J96.01 - Acute respiratory failure with hypoxia Plan #Acute hypoxic respiratory failure * She is currently on 4 L of oxygen. Not thought to be due to worsening heart failure. He is on Lasix. * Family opted for hospice so patient is awaiting hospice evaluation. * #ODALIS: Family opted for hospice with no aggressive workup. Acute exacerbation of heart failure preserved ejection fraction: Family opted for hospice as above. Has known EF of 55%. # DVT prophylaxis: SCDs CODE STATUS: DNR CC Disposition: Awaiting evaluation by hospice medical facility. # Medications at Discharge Home Medications lovastatin 10 mg tablet 10 mg PO QHS CHOLESTEROL 09/24/18 metoprolol succinate 100 mg tablet,extended release 24 hr 100 mg PO DAILY HIGH BLOOD PRESSURE 09/24/18 omeprazole 20 mg tablet,delayed release 20 mg PO DAILY ACID REFLUX 07/29/20 cetirizine 10 mg tablet (Zyrtec) 10 mg PO DAILY PRN allergies 03/14/22 multivitamin 1 tab PO DAILY SUPPLEMENT 03/14/22 famotidine 20 mg tablet (Pepcid) 20 mg PO DAILY ACID REFLUX 09/19/22 metformin 750 mg tablet,extended release 24 hr 750 mg PO Q12H DIABETES 09/19/22 albuterol sulfate 90 mcg/actuation aerosol inhaler 1 puff inhalation DAILY PRN shortness of breath or wheezing 10/30/23 cholestyramine (with sugar) 4 gram powder for susp in a packet 1 ea PO Q6H PRN diarhhea 10/30/23 fluocinolone 0.01 % topical body oil 1 applic topical DAILY 10/30/23 levothyroxine 88 mcg tablet 88 mcg PO DAILY THYROID 10/30/23 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 10/30/23 paroxetine HCl 30 mg tablet 30 mg PO DAILY DEPRESSION 12/13/23 amiodarone 200 mg tablet 200 mg PO DAILY #38 tabs 11/02/23 furosemide 40 mg tablet 40 mg PO DAILY FLUID #90 tabs 11/06/23 dapagliflozin propanediol 5 mg tablet (Farxiga) 10 mg PO DAILY DIABETES 11/27/23 melatonin 3 mg capsule 6 mg PO QHS 02/16/24 Hospital Course Operations None Procedures None Summary of Care Provided Minutes Spent on Discharge: 45 Hospital Course: Patient is a 53-year-old female with past medical history as outlined was admitted through the ED on 02/16/2024 with a complaint of shortness of breath, confusion and increased edema in her lower extremities. She had been brought in from a alf facility due to these above symptoms. She was hypotensive when she was brought into the ED and was hypoxic requiring BiPAP. Patient was unable to tolerate BiPAP so she was subsequently placed on Airvo. She was also noted to have worsening kidney function and elevated liver enzymes. On admission, family however decided to opt for hospice care. She was admitted and managed for acute metabolic encephalopathy in the setting of acute hypoxic respiratory failure. Hospice was consulted. Patient was evaluated by hospice and discharged to hospice medical facility on 02/17/2024. Patient was seen and examined on the day of discharge. She had no active co mplaints. Family was by her bedside. She was very weak and lethargic. Review of systems otherwise negative. Plan was for discharge to Hospice. Physical Exam Const Constitutional Narrative: Confused. HEENT normocephalic, head/scalp atraumatic, moist oral mucous membranes and oropharynx normal Eyes PERRL and EOMs intact bilaterally Neck no lymphadenopathy and supple Lymph Lymphatic: no lymphadenopathy noted and no lymphedema noted Resp Resp Narrative: mildly diminished breath sounds bibasally, no wheezes or crackles. On 4L of oxygen by nasal canula Cardio regular rate, regular rhythm, S1 normal heart sound, S2 normal heart sound and no murmurs Rate: tachycardic GI normal to inspection, nondistended, normoactive bowel sounds, soft to palpation, non-tender and non-distended Extremity normal capillary refill, no clubbing, cyanosis or edema and no calf tenderness Extremity Narrative: Bilateral lower extremity edema with weeping of the right lower extremity. General Extremity: no tenderness to palpation of joints or extremities Skin Skin Narrative: Ecchymosis on skin on the extremities. General Skin Exam: no breakdown Neuro CN's II-XII intact bilaterally, no focal motor deficits, no sensory deficits noted and deep tendon reflexes 2+ bilaterally Neuro Narrative: Confused. Motor Exam: general weakness Psych Psych Narrative: weak, lethargic, minimally responsive. Weight / BMI Weight Weight: 129 lb 3.054 oz Body Mass Index (BMI) 23.6 ABG / Lab / Microbiology Data 02/16/24 17:15 02/16/24 16:05 Microbiology: Microbiology 02/16/24 17:15 Blood Culture (Wb) - Left Forearm Blood Culture - Final No growth in 5 days. 02/16/24 16:05 Blood Culture (Wb) - Right Hand Blood Culture - Final No growth in 5 days. Meaningful Use Info Meaningful Use Meaningful Use Diagnoses (Choose all that apply): None applicable Ischemic Stroke Statin Dosing Therapy Reference: STATIN DOSE THERAPY REFERENCE: * Patients > 75 years receive moderate or high dose statin therapy. * Patients 75 years or YOUNGER should receive HIGH intensity statin dose unless contraindicated. You will be required to document reason for non-treatment if statin daily dose does not meet guidelines. HIGH DOSE STATIN THERAPY DAILY Atorvastatin > than or = to 40 mg Rosuvastatin > than or = to 20 mg Amlodipine + Atorvastatin > than or = to 2.5/40 mg Ezetimibe + Simvastatin 10/80 mg Simvastatin 80mg Discharge Plan Admission Admit Date/Time: 02/16/24 18:28 Attending Provider: Leni Ely Primary Care Provider: Greta Nayak Consulting Providers: Jian Guerrier Discharge Orders/Prescriptions Prescriptions: No Action metoprolol succinate 100 mg tablet extended release 24 hr 100 mg PO DAILY lovastatin 10 mg tablet 10 mg PO QHS omeprazole 20 mg tablet,delayed release (DR/EC) 20 mg PO DAILY cetirizine [Zyrtec] 10 mg tablet 10 mg PO DAILY PRN (Reason: allergies) multivitamin Tablet 1 tab PO DAILY metformin 750 mg tablet extended release 24 hr 750 mg PO Q12H famotidine [Pepcid] 20 mg tablet 20 mg PO DAILY Farxiga 5 mg tablet 10 mg PO DAILY cholestyramine (with sugar) 4 gram powder in packet 1 ea PO Q6H PRN (Reason: diarhhea) paroxetine HCl 30 mg tablet 30 mg PO DAILY albuterol sulfate 90 mcg/actuation HFA aerosol inhaler 1 puff INHALATION DAILY PRN (Reason: shortness of breath or wheezing) memantine 10 mg tablet 5 mg PO BID levothyroxine 88 mcg tablet 88 mcg PO DAILY fluocinolone 0.01 % oil 1 applic TOPICAL DAILY Rx Instructions: APPLY ONE APPLICATON ONCE DAILY TO THE SCALP amiodarone 200 mg Tablet 200 mg PO DAILY Qty: 38 1RF Rx Instructions: Take 1 tablet twice daily for another 6 days then 1 tablet daily following melatonin 3 mg capsule 6 mg PO QHS furosemide 40 mg tablet 40 mg PO DAILY Qty: 90 3RF Referrals / Follow Up: Greta Nayak DO [Primary Care Provider] - Disposition Disposition (needs filled in before D/C Order can be placed): Hospice in Medical Facility Charges/Coding Visit Charges Inpatient E&M: 66066 Disch Hosp >30min
== END 2024-02-18 | disposition hospice, inpatient (51) | DRG 189 ==
LOC: ED 18:05 → MS3 19:08
PROVIDERS: Emergency Provider Emergency Medicine; PCP Internal Medicine; Visit Provider Student in an Organized Health Care Education/Training Program
DX: J96.01 Acute respiratory failure with hypoxia (principal); I50.33 Acute on chronic diastolic (congestive) heart failure; G93.41 Metabolic encephalopathy; I13.0 Hypertensive heart and chronic kidney disease with heart failure and stage 1 through stage 4 chronic kidney disease, or unspecified chronic kidney disease; N17.9 Acute kidney failure, unspecified; E11.22 Type 2 diabetes mellitus with diabetic chronic kidney disease; N18.31 Chronic kidney disease, stage 3a; E78.00 Pure hypercholesterolemia, unspecified; I25.10 Atherosclerotic heart disease of native coronary artery without angina pectoris; Z66 Do not resuscitate; Z99.81 Dependence on supplemental oxygen; Z79.84 Long term (current) use of oral hypoglycemic drugs; Z79.899 Other long term (current) drug therapy
CPT/HCPCS: 36415; 36600; 71045; 80048; 80076; 81001; 82803; 83605; 83880; 84484; 85025; 85610; 85730; 87040; 93005; 94002; 94660; 99284; J7040; A4216